=== PATIENT | female | born 1945 | race Caucasian/White ===

== ENCOUNTER → 2017-04-05 | Outpatient (CLI) | payer MEDICARE, MEDICAID ==
[~2017-04-05] MED LIST: HYDR-3812 PO; METR500T21 PO
== END ==
LOC: WOUNDCARE 14:03
PROVIDERS: ATTEND Surgery
DX: L97.512 Non-pressure chronic ulcer of other part of right foot with fat layer exposed (principal); E11.621 Type 2 diabetes mellitus with foot ulcer; E11.42 Type 2 diabetes mellitus with diabetic polyneuropathy; L03.115 Cellulitis of right lower limb; I70.235 Atherosclerosis of native arteries of right leg with ulceration of other part of foot; F17.210 Nicotine dependence, cigarettes, uncomplicated
CPT/HCPCS: 11042; 87070; 87075; 87205

== ENCOUNTER → 2017-04-12 | Outpatient (CLI) | payer MEDICARE, MEDICAID ==
--- NOTE | 2017-04-12 22:09 | Diagnostic Imaging Report ---
INDICATION: Foot ulcer Three views of the right foot show no fracture or dislocation. There are some degenerative changes of the first tarsometatarsal joint. There are some chronic appearing bone resorption of the head of the third metatarsal. This was present on study dated 10/22/2014 and is not appreciably changed. IMPRESSION: Degenerative changes of the first tarsometatarsal joint. Long-standing disruption of the head of the third metatarsal. There are no radiographic findings suspicious for acute osteomyelitis. Dictated by: Dictated on workstation # [id number]
== END ==
LOC: RAD 10:51
PROVIDERS: ATTEND Surgery
DX: M19.071 Primary osteoarthritis, right ankle and foot (principal); E11.621 Type 2 diabetes mellitus with foot ulcer; L97.512 Non-pressure chronic ulcer of other part of right foot with fat layer exposed; E11.42 Type 2 diabetes mellitus with diabetic polyneuropathy; L03.115 Cellulitis of right lower limb; I70.235 Atherosclerosis of native arteries of right leg with ulceration of other part of foot; T65.222D Toxic effect of tobacco cigarettes, intentional self-harm, subsequent encounter
CPT/HCPCS: 73630

== ENCOUNTER → 2017-04-12 | Outpatient (CLI) | payer MEDICARE, MEDICAID | LOC: WOUNDCARE 08:22 | PROVIDERS: ATTEND Surgery | DX: E11.621 Type 2 diabetes mellitus with foot ulcer (principal); L97.512 Non-pressure chronic ulcer of other part of right foot with fat layer exposed; I70.235 Atherosclerosis of native arteries of right leg with ulceration of other part of foot; L03.115 Cellulitis of right lower limb; E11.42 Type 2 diabetes mellitus with diabetic polyneuropathy; T65.222D Toxic effect of tobacco cigarettes, intentional self-harm, subsequent encounter | CPT/HCPCS: 11042 ==

== ENCOUNTER → 2017-04-19 | Outpatient (CLI) | payer MEDICARE, MEDICAID | LOC: WOUNDCARE 08:29 | PROVIDERS: ATTEND Surgery | DX: L97.512 Non-pressure chronic ulcer of other part of right foot with fat layer exposed (principal); E11.621 Type 2 diabetes mellitus with foot ulcer; E11.42 Type 2 diabetes mellitus with diabetic polyneuropathy; I70.235 Atherosclerosis of native arteries of right leg with ulceration of other part of foot; T65.222D Toxic effect of tobacco cigarettes, intentional self-harm, subsequent encounter | CPT/HCPCS: 11042 ==

== ENCOUNTER → 2017-04-26 | Outpatient (CLI) | payer MEDICARE, MEDICAID | LOC: WOUNDCARE 08:39 | PROVIDERS: ATTEND Surgery | DX: E11.621 Type 2 diabetes mellitus with foot ulcer (principal); I70.235 Atherosclerosis of native arteries of right leg with ulceration of other part of foot; L97.512 Non-pressure chronic ulcer of other part of right foot with fat layer exposed; E11.42 Type 2 diabetes mellitus with diabetic polyneuropathy; T65.222D Toxic effect of tobacco cigarettes, intentional self-harm, subsequent encounter | CPT/HCPCS: 11042 ==

== ENCOUNTER → 2017-05-03 | Outpatient (CLI) | payer MEDICARE, MEDICAID | LOC: WOUNDCARE 08:22 | PROVIDERS: ATTEND Surgery | DX: E11.621 Type 2 diabetes mellitus with foot ulcer (principal); I70.235 Atherosclerosis of native arteries of right leg with ulceration of other part of foot; L97.512 Non-pressure chronic ulcer of other part of right foot with fat layer exposed; L97.511 Non-pressure chronic ulcer of other part of right foot limited to breakdown of skin; E11.42 Type 2 diabetes mellitus with diabetic polyneuropathy; T65.222D Toxic effect of tobacco cigarettes, intentional self-harm, subsequent encounter | CPT/HCPCS: 11042 ==

== ENCOUNTER → 2017-05-11 | Outpatient (CLI) | payer MEDICARE, MEDICAID | LOC: WOUNDCARE 12:06 | PROVIDERS: ATTEND Surgery | DX: E11.621 Type 2 diabetes mellitus with foot ulcer (principal); L97.512 Non-pressure chronic ulcer of other part of right foot with fat layer exposed; I70.235 Atherosclerosis of native arteries of right leg with ulceration of other part of foot; L97.511 Non-pressure chronic ulcer of other part of right foot limited to breakdown of skin; E11.42 Type 2 diabetes mellitus with diabetic polyneuropathy; T65.222D Toxic effect of tobacco cigarettes, intentional self-harm, subsequent encounter | CPT/HCPCS: 11042 ==

== ENCOUNTER 2017-05-24 10:05 | Outpatient (CLI) | payer MEDICARE, MEDICAID ==
[~2017-05-24] VITALS: Ht 165.1 cm; Wt 85.7 kg
[~2017-05-24 10:05] MED LIST changes: -ASPI-586 PO; -GLIM4TAB PO; -HYDR-3816 PO; -LISI10TA2 PO; -SULF1TAB35 PO
[2017-05-24 10:13] VITALS: BP 120/68
[2017-05-24] MEDS ORDERED: LISI10TA2 PO (10:21)
[2017-05-24] MEDS ORDERED: ASPI-586 PO (10:21)
[2017-05-24] MEDS ORDERED: SULF1TAB35 PO (10:21)
[2017-05-24] MEDS ORDERED: GLIM4TAB PO (10:21)
[2017-05-24] MEDS ORDERED: HYDR-3816 PO (10:21)
== END 2017-05-24 10:40 | disposition home or self-care (01) ==
LOC: PREOP 10:05
PROVIDERS: ATTEND Podiatrist Foot Surgery
DX: Z01.818 Encounter for other preprocedural examination (principal); Z11.2 Encounter for screening for other bacterial diseases; M86.9 Osteomyelitis, unspecified
CPT/HCPCS: 87081

== ENCOUNTER → 2017-05-24 | Outpatient (CLI) | payer MEDICARE, MEDICAID ==
[~2017-05-24] MED LIST changes: +ACHD5005 PO; +ASPI-586 PO; +GLIM4TAB PO; -HYDR-3812 PO; +HYDR-3816 PO; +LISI10TA2 PO; +SULF1TAB35 PO
== END ==
LOC: WOUNDCARE 08:30
PROVIDERS: ATTEND Surgery
DX: E11.621 Type 2 diabetes mellitus with foot ulcer (principal); L97.512 Non-pressure chronic ulcer of other part of right foot with fat layer exposed; I70.235 Atherosclerosis of native arteries of right leg with ulceration of other part of foot; E11.42 Type 2 diabetes mellitus with diabetic polyneuropathy; T65.222D Toxic effect of tobacco cigarettes, intentional self-harm, subsequent encounter

== ENCOUNTER 2017-05-28 06:00 | Day surgery (SDC) | payer MEDICARE, MEDICAID ==
--- NOTE | 2017-05-25 08:16 | HISTORY AND PHYSICAL ---
DATE OF SERVICE: DATE OF ADMISSION: 05/28/2017 To have outpatient surgery by Dr. Ann. CHIEF COMPLAINT: To have foot surgery, second toe amputation into the metatarsal, has a callus and gets infected. The patient states she is being seen by wound care, Dr. Echols. MEDICATION ALLERGIES: PENICILLIN AND CODEINE. MEDICATIONS: Now on glimepiride 4 mg b.i.d., lisinopril 10 mg, enteric-coated baby aspirin 81 mg 1 daily. PAST SURGICAL HISTORY: T and A, appendectomy, 3 C-sections, gallbladder and hysterectomy. REVIEW OF SYSTEMS: HEAD: Denies headache, dizziness, fainting. EYES, EARS, NOSE AND THROAT: Denies diplopia, tinnitus, sore throat. HEART: Denies heart problems or chest pain. RESPIRATORY: Denies asthma, TB, coughing, congestion, wheezing. The patient states she smokes 1 pack a day and also has pollen problems. GASTROINTESTINAL: Appetite okay. Denies blood in stools, diarrhea, constipation, nausea, vomiting. GENITOURINARY: Denies blood, pain, frequency. PHYSICAL EXAMINATION: GENERAL: The patient is a white female, well nourished, well developed, in no acute respiratory distress at rest. VITAL SIGNS: Pulse 84, blood pressure 120/70, weight 188. EARS: No discharge. EYES: No conjunctivitis or icterus. THROAT: Noninflamed. NECK: Thyroid not enlarged. No abnormal cervical lymphadenopathy noted. HEART: Regular rate and rhythm. LUNGS: Clear to auscultation. ABDOMEN: Soft. EXTREMITIES: No pretibial edema. The patient is okay for surgery, we will be on standby if has any problems. Job ID: [id number] DocumentID: [id number] Dictated Date: 05/24/2017 11:57:40 Chief Lock Tender Operator Date: 05/24/2017 12:21:43 Dictated By: MAN VALENTINE DO
[~2017-05-28] VITALS: Ht 165.1 cm; Wt 85.7 kg
[~2017-05-28 06:00] MED LIST changes: +ASPI-586 PO; +CYCL10TA9 PO; +GLIM4TAB PO; +HYDR-3812 PO; +HYDR-3816 PO; +LISI10TA2 PO; +SULF1TAB35 PO
[2017-05-28 06:15] VITALS: BP 129/69
[2017-05-28] MEDS: LACTATED RINGERS 1,000 ML IV PRN ×2 (06:25→08:38)
[2017-05-28] MEDS ORDERED: CLINDAMYCIN 600 MG/4ML (CLEOCIN) VIAL ONE (06:46)
[2017-05-28] MEDS ORDERED: NS (IVPB) 50 ML ONE (06:46)
[2017-05-28] MEDS ORDERED: LIDOCAINE JELLY 2% (XYLOCAINE) 5 ML TUBE ONE (06:59)
[2017-05-28] MEDS ORDERED: ONDANSETRON 4 MG/2 ML (SDV) Z0FRAN ONE (06:59)
[2017-05-28] MEDS ORDERED: LIDOCAINE PF 2% 5 ML (XYLOCAINE) VIAL ONE (06:59)
[2017-05-28] MEDS ORDERED: MIDAZOLAM 2 MG/2 ML (VERSED) VIAL ONE (06:59)
[2017-05-28] MEDS ORDERED: proPOfol 200 MG/20 ML (DIPRIVAN) VIAL IV ONE (06:59)
[2017-05-28] MEDS ORDERED: ROCURONIUM 50 MG/5 ML (ZEMURON) VIAL IV ONE (06:59)
[2017-05-28] MEDS ORDERED: CLINDAMYCIN 600 MG/NS 50 ML IVPB IV ONE ×2 (07:00)
[2017-05-28] MEDS ORDERED: fentaNYL INJECTION 100 MCG/2 ML AMP ONE (07:00)
[2017-05-28] MEDS ORDERED: CLINDAMYCIN INJECTION 600 MG in NS (IVPB) 50 ML IV ONE (07:15)
[2017-05-28] MEDS ORDERED: BUPIVACAINE 0.5% 30 ML (SENSORCAINE) VIAL ONE (07:16)
[2017-05-28] MEDS ORDERED: MEPIVACAINE (CARBOCAINE) 2% 50 ML VIAL ONE (07:16)
--- NOTE | 2017-05-28 07:26 | Progress Note-Pre Operative ---
Pre-Operative Progress Note H&P Reviewed The H&P was reviewed, patient examined and no changes noted. Date Seen by Provider: May 28, 2017 Time Seen by Provider: 07:30 Date H&P Reviewed: May 28, 2017 Time H&P Reviewed: 07:31 Pre-Operative Diagnosis: osteomyelitis 2nd right MAN MCCLOUD DPStewart May 28, 2017 7:26 am
[2017-05-28] MEDS ORDERED: LACTATED RINGERS 1,000 ML IV ONE (07:45)
[2017-05-28] MEDS ORDERED: SEVOFLURANE (ULTANE) 15 ML INHAL SOLN ONE ×3 (07:45→08:55)
[2017-05-28] MEDS ORDERED: LACTATED RINGERS 1,000 ML IV SCH (08:53)
--- NOTE | 2017-05-28 08:53 | Progress Note-Post Operative ---
Post-Operative Progess Note Surgeon (s)/Skirt Panel Assembler (s) Surgeon MAN MCCLOUD DPM Skirt Panel Assembler: none Pre-Operative Diagnosis osteomyelitis 2nd right Post-Operative Diagnosis same Procedure & Operative Findings Date of Procedure 05/28/17 Procedure Performed/Findings amputation of second toe and distall onbe half second metatarsal right foot Anesthesia Type general Estimated Blood Loss Estimated blood loss (mL): min Specimens/Packing Specimens Removed second digit and second meatatrsal head right foot Packing: iodoform gauze MAN MCCLOUD DPM May 28, 2017 8:53 am
[2017-05-28] MEDS ORDERED: ONDANSETRON 4 MG/2 ML (SDV) Z0FRAN IVP PRN (09:00)
[2017-05-28] MEDS ORDERED: MEPERIDINE (DEMEROL) INJ 50 MG/ML IVP PRN (09:00)
[2017-05-28] MEDS ORDERED: morphine INJ 10 MG/ML 1ML (SYR OR VIAL) IVP PRN (09:00)
[2017-05-28 09:35] VITALS: BP 120/78
[2017-05-28 09:36] VITALS: BP 120/78
[2017-05-28 10:05] VITALS: BP 120/65
--- NOTE | 2017-05-28 10:18 | Discharge Instructions ---
Discharge Instructions Discharge Medications New, Converted or Re-Newed RX: RX Given to Pt/Family Patient Instructions Patient Instructions 1. Follow up in office in 2 weeks. 2. Diet as tolerated. 3. Activity as tolerated. Activity & Diet Activity as Tolerated: Yes MAN MCCLOUD DPM May 28, 2017 10:18 am
[2017-05-28] MEDS ORDERED: TRAM50TA2 PO (10:21)
[2017-05-28 10:35] VITALS: BP 128/78
--- NOTE | 2017-05-28 10:55 | Diagnostic Imaging Report ---
Right foot 904 hours. INDICATION: Postop osteomyelitis. AP and lateral views were obtained. FINDINGS: In the interval since the prior exam of 04/12/2017, the patient has undergone amputation of the distal third of the second metatarsal and the phalanges of the second digit. There does seem to be some gas in the soft tissues distal to the remaining portion of the second metatarsal. The presence of gas suggests that there is inflammatory/infectious process present. There is no bony destruction to indicate osteomyelitis, however. Even so, if further evaluation is desired, then MRI of the foot would be recommended. The overall appearance of the foot has not changed significantly otherwise. There is no acute bony abnormality noted. There is again noted prominent calcaneal spur. IMPRESSION: 1. There are postoperative changes consistent with an interval partial amputation of the second ray as described above. There is no sign of bony destruction but the gas in the soft tissues suggests that there is inflammatory/infectious process present. Recommendations as above. 2. There is no acute bony abnormality noted otherwise. Dictated by: Dictated on workstation # [id number]
--- NOTE | 2017-05-28 11:54 | Physical Therapy Ortho Eval ---
PT Orthopedic Evaluation Type of Surgery right 2nd toe amputation Prior Level of Function Current Living Status: Alone Locomotion (Upon Admit): Straight Cane Established Durable Medical Eq: Straight Cane Subjective Subjective Patient donns her clothes and surgical shoe independently Entry Into Home: Stairs With Railing Steps Into Home: 24 Motor Control Motor Control: Motor Control WNL ROM ROM: WFL, except focal deficit Strength Strength: WFL Transfer Transfers (B, C, W/C) (FIM): 6 patient performs mobility with flat foot or heel contact right foot Gait Right Lower Extremity: Right Weight Bearing Status RLE: Full Weight Bearing Left Lower Extremity: Left Weight Bearing Status LLE: Full Weight Bearing Gait (FIM): 6 Distance (FIM): 3=150 ft Distance: 150' x 2 Gait Level of Assist: 6 Summary/Comments right foot flat foot and/or heel contact with straight cane Treatment Rendered Treatment: Gait Train, Step Train Assessment/Goals Goal Time Frame: 1 Visit Safe Ambulation: Yes Plan Treatment Plan: Discharge Treatment Duration: eval PT/Family Agrees to Plan: Yes Time Time In: 1125 Time Out: 1140 Total Billed Treatment Time: 15 Billed Treatment Time 1 visit EVModC 15 min Yes PT/OT Therapy GCodes Therapy Functional Limitation: Physical Therapy Test(s)/Tool used to determine: Level of Assistance Scale Functional Limitation-Current Charge Code: MOBCUR Modifier: CI Functional Limitation-Goal Charge Code: MOBGOAL Modifier: CI Functional Limitation-D/C Charge Codes: MOBDC Modifier: CI RANDY CARDENAS PT May 28, 2017 11:54
--- NOTE | 2017-05-28 18:38 | OPERATIVE REPORT ---
DATE OF SERVICE: 05/28/2017 PREOPERATIVE DIAGNOSES: 1. Plantarflexed second metatarsal with osteomyelitis, right foot. 2. Hammered second digit, right foot. 3. Osteomyelitis, second digit, right foot. POSTOPERATIVE DIAGNOSES: 1. Plantarflexed second metatarsal with osteomyelitis, right foot. 2. Hammered second digit, right foot. 3. Osteomyelitis, second digit, right foot. NAME OF OPERATION: Second digital amputation with partial ray excision, right foot. DESCRIPTION OF OPERATION: With the patient in the supine position having been affected by a general anesthetic, sterile prep and drape were performed. Two semi-elliptical incisions were made encompassing the second metatarsal the second digit. This was extended plantarly in an hourglass type fashion and a well-developed ulceration on the plantar aspect of the second metatarsal head was identified and incised circumferentially. The incisions were deepened with sharp and blunt dissection. Vital structures identified and retracted. Superficial veins were cauterized. Dissection was carried deep to the second metatarsophalangeal joint. Dorsal long tendon was tenotomized and a bone saw was used to resect the second metatarsal head approximately 2 cm proximal to the articular surface. Soft tissues were freed from the surrounding tissues and dissected to normal appearing tissue. The second digit, second metatarsal head and plantar lesion were resected in toto. The incision was inspected for any other anatomical abnormalities were noted. Area was flushed with copious amounts of saline and deep closure was accomplished via 4 simple interrupted sutures of 3-0 Vicryl and 2 simple interrupted sutures of 2-0 Vicryl plantarly. There was incomplete closure at the plantar aspect of the lesion. This was packed with iodoform gauze and the skin surrounding the area was closed with continuous lock suture 4-0 Vicryl. Betadine soaked Adaptic and Betadine soaked 4 x 4's were applied dorsally and plantarly with a compressive dressing overlying carried above the level of the right ankle covered with circular Coban. The patient tolerated the procedure well with minimal blood loss, left the OR to PAR in apparent good condition. She is to be seen in the office in 1 week for appropriate followup care. Job ID: [id number] DocumentID: [id number] Dictated Date: 05/28/2017 10:42:17 Websphere Commerce Developer Date: 05/28/2017 18:38:04 Dictated By: MAN MCCLOUD DPM
== END 2017-05-28 11:45 | disposition home or self-care (01) ==
LOC: SDC 06:00
PROVIDERS: ATTEND Podiatrist Foot Surgery
DX: M86.9 Osteomyelitis, unspecified (principal); M20.41 Other hammer toe(s) (acquired), right foot; I10 Essential (primary) hypertension; E11.9 Type 2 diabetes mellitus without complications; F17.210 Nicotine dependence, cigarettes, uncomplicated; Z79.82 Long term (current) use of aspirin; Z79.84 Long term (current) use of oral hypoglycemic drugs; Z79.899 Other long term (current) drug therapy
CPT/HCPCS: 73620; 82962

== ENCOUNTER → 2017-06-30 | Outpatient (CLI) | payer MEDICARE, MEDICAID ==
[~2017-06-30] MED LIST changes: +HYDR-34 PO; -HYDR-3816 PO; +TRAM50TA2 PO
== END ==
LOC: WOUNDCARE 09:06
PROVIDERS: ATTEND Surgery
DX: E11.621 Type 2 diabetes mellitus with foot ulcer (principal); L97.512 Non-pressure chronic ulcer of other part of right foot with fat layer exposed; E11.43 Type 2 diabetes mellitus with diabetic autonomic (poly)neuropathy
CPT/HCPCS: 11042; 87070; 87075; 87077; 87205

== ENCOUNTER → 2017-07-01 | Outpatient (CLI) | payer MEDICARE, MEDICAID ==
[2017-07-01 09:29] LABS: BASOPHILS % (AUTO) 0 % (0-10); EOSINOPHILS # (AUTO) 0.2 10^3/uL (0.0-0.3); EOSINOPHILS % (AUTO) 4 % (0-10); HEMATOCRIT 38 % (35-52); HEMOGLOBIN 13.1 G/DL (11.5-16.0); LYMPHOCYTES # (AUTO) 0.9 X 10^3 (1.0-4.0); LYMPHOCYTES % (AUTO) 18 % (12-44); MEAN CORPUSCULAR HEMOGLOBIN 32 PG (25-34); MEAN CORPUSCULAR HGB CONC 35 G/DL (32-36); MEAN CORPUSCULAR VOLUME 93 FL (80-99); MEAN PLATELET VOLUME 9.8 FL (7.4-10.4); MONOCYTES # (AUTO) 0.2 X 10^3 (0.0-1.0); MONOCYTES % (AUTO) 3 % (0-12); NEUTROPHILS # (AUTO) 3.7 X 10^3 (1.8-7.8); NEUTROPHILS % (AUTO) 74 % (42-75); PLATELET COUNT 205 10^3/uL (130-400); RED CELL DISTRIBUTION WIDTH 13.4 % (10.0-14.5)
--- NOTE | 2017-07-01 09:38 | Diagnostic Imaging Report ---
INDICATION: Ulcer at the third metatarsal head. Time of exam 9:25 AM Comparison is made with prior study from 05/28/2017. Postsurgical changes of amputation of the second toe and distal aspect of the second metatarsal is again noted. Resection margin appears to be fairly smooth. There may be some mild soft tissue calcification developing around the resection margin of the second metatarsal. There is some volume loss within the third metatarsal head, similar to prior exam. No definite bony destructive changes are seen. No soft tissue gas is identified. No fractures are identified. Midfoot degenerative changes are noted. There is a large plantar calcaneal spur. IMPRESSION: Chronic changes, as described. No definite bony destructive changes are seen to suggest acute osteomyelitis. Dictated by: Dictated on workstation # [id number]
[2017-07-01 09:49] LABS: ALBUMIN 3.6 GM/DL (3.2-4.5); BILIRUBIN,TOTAL 0.4 MG/DL (0.1-1.0); CALCIUM 9.2 MG/DL (8.5-10.1); CREATININE SERUM 1.21 MG/DL (0.60-1.30); POTASSIUM 4.6 MMOL/L (3.6-5.0); TOTAL PROTEIN 7.2 GM/DL (6.4-8.2)
== END ==
LOC: RAD 08:47
PROVIDERS: ATTEND Surgery
DX: E11.621 Type 2 diabetes mellitus with foot ulcer (principal); L97.512 Non-pressure chronic ulcer of other part of right foot with fat layer exposed; E11.42 Type 2 diabetes mellitus with diabetic polyneuropathy
CPT/HCPCS: 36415; 73630; 80053; 83036; 85025

== ENCOUNTER → 2017-07-12 | Outpatient (CLI) | payer MEDICARE, MEDICAID | LOC: WOUNDCARE 08:54 | PROVIDERS: ATTEND Surgery | DX: E11.621 Type 2 diabetes mellitus with foot ulcer (principal); L97.512 Non-pressure chronic ulcer of other part of right foot with fat layer exposed; E11.42 Type 2 diabetes mellitus with diabetic polyneuropathy | CPT/HCPCS: 11042 ==

== ENCOUNTER → 2017-07-14 | Outpatient (CLI) | payer MEDICARE, MEDICAID | LOC: WOUNDCARE 08:54 | PROVIDERS: ATTEND Surgery | DX: E11.621 Type 2 diabetes mellitus with foot ulcer (principal); L97.512 Non-pressure chronic ulcer of other part of right foot with fat layer exposed; E11.42 Type 2 diabetes mellitus with diabetic polyneuropathy | CPT/HCPCS: 29445 ==

== ENCOUNTER → 2017-07-21 | Outpatient (CLI) | payer MEDICARE, MEDICAID | LOC: WOUNDCARE 09:01 | PROVIDERS: ATTEND Surgery | DX: L97.512 Non-pressure chronic ulcer of other part of right foot with fat layer exposed (principal); E11.621 Type 2 diabetes mellitus with foot ulcer; E11.42 Type 2 diabetes mellitus with diabetic polyneuropathy | CPT/HCPCS: 11042 ==

== ENCOUNTER → 2017-07-28 | Outpatient (CLI) | payer MEDICARE, MEDICAID | LOC: WOUNDCARE 08:12 | PROVIDERS: ATTEND Surgery | DX: E11.621 Type 2 diabetes mellitus with foot ulcer (principal); L97.512 Non-pressure chronic ulcer of other part of right foot with fat layer exposed; E11.42 Type 2 diabetes mellitus with diabetic polyneuropathy | CPT/HCPCS: 29445 ==

== ENCOUNTER → 2017-08-04 | Outpatient (CLI) | payer MEDICARE, MEDICAID | LOC: WOUNDCARE 08:37 | PROVIDERS: ATTEND Surgery | DX: E11.621 Type 2 diabetes mellitus with foot ulcer (principal); L97.512 Non-pressure chronic ulcer of other part of right foot with fat layer exposed; E11.42 Type 2 diabetes mellitus with diabetic polyneuropathy | CPT/HCPCS: 99212 ==

== ENCOUNTER → 2017-08-27 | Outpatient (CLI) | payer MEDICARE, MEDICAID ==
--- NOTE | 2017-08-27 10:11 | Diagnostic Imaging Report ---
INDICATION: Chronic ulcer of the right foot. TIME OF EXAMINATION: 10:12 AM. COMPARISON: 07/01/2017. FINDINGS: Postsurgical changes of amputation of the second toe and distal aspect of the second metatarsal are again noted. There is some ossification at the resection margin of the distal second metatarsal. Volume loss of the third metatarsal head is chronic and similar to the prior study. Reportedly, the patient has a wound at the plantar aspect of the right foot. This was marked with a BB marker and appears to be at the level of the first MTP joint. No soft tissue gas is identified. No bony destructive changes are seen. No fractures are identified. A plantar calcaneal spur is again noted. IMPRESSION: Chronic and postsurgical changes as described. No definite acute bony destructive change or soft tissue gas is identified. Dictated by: Dictated on workstation # [id number]
== END ==
LOC: RAD 09:41
PROVIDERS: ATTEND Surgery
DX: L97.512 Non-pressure chronic ulcer of other part of right foot with fat layer exposed (principal); E11.621 Type 2 diabetes mellitus with foot ulcer; E11.42 Type 2 diabetes mellitus with diabetic polyneuropathy; Z89.421 Acquired absence of other right toe(s); M77.31 Calcaneal spur, right foot
CPT/HCPCS: 73630

== ENCOUNTER → 2017-08-27 | Outpatient (CLI) | payer MEDICARE, MEDICAID | LOC: WOUNDCARE 08:28 | PROVIDERS: ATTEND Surgery | DX: E11.621 Type 2 diabetes mellitus with foot ulcer (principal); L97.512 Non-pressure chronic ulcer of other part of right foot with fat layer exposed; E11.42 Type 2 diabetes mellitus with diabetic polyneuropathy | CPT/HCPCS: 11042; 87070; 87075; 87186; 87205 ==

== ENCOUNTER 2017-09-01 11:19 | Outpatient (RCR) | payer MEDICARE, MEDICAID ==
[2017-09-01 11:51] LABS: CALCIUM 9.8 MG/DL (8.5-10.1); CREATININE SERUM 1.26 MG/DL (0.60-1.30); POTASSIUM 4.3 MMOL/L (3.6-5.0)
[2017-09-08 12:11] LABS: CALCIUM 9.9 MG/DL (8.5-10.1); CREATININE SERUM 1.36 MG/DL (0.60-1.30); POTASSIUM 4.9 MMOL/L (3.6-5.0)
== END 2017-11-30 | disposition home or self-care (01) ==
LOC: LAB 11:19
PROVIDERS: ATTEND Surgery
DX: E11.621 Type 2 diabetes mellitus with foot ulcer (principal); E11.42 Type 2 diabetes mellitus with diabetic polyneuropathy; L97.512 Non-pressure chronic ulcer of other part of right foot with fat layer exposed
CPT/HCPCS: 36415; 80048

== ENCOUNTER → 2017-09-01 | Outpatient (CLI) | payer MEDICARE, MEDICAID | LOC: WOUNDCARE 10:06 | PROVIDERS: ATTEND Surgery | DX: E11.621 Type 2 diabetes mellitus with foot ulcer (principal); L97.512 Non-pressure chronic ulcer of other part of right foot with fat layer exposed; E11.42 Type 2 diabetes mellitus with diabetic polyneuropathy | CPT/HCPCS: 11042 ==

== ENCOUNTER → 2017-09-15 | Outpatient (CLI) | payer MEDICARE, MEDICAID | LOC: WOUNDCARE 10:03 | PROVIDERS: ATTEND Surgery | DX: E11.621 Type 2 diabetes mellitus with foot ulcer (principal); L97.512 Non-pressure chronic ulcer of other part of right foot with fat layer exposed; E11.42 Type 2 diabetes mellitus with diabetic polyneuropathy | CPT/HCPCS: 11042; 82962 ==

== ENCOUNTER → 2017-09-20 | Outpatient (CLI) | payer MEDICARE, MEDICAID | LOC: WOUNDCARE 08:32 | PROVIDERS: ATTEND Surgery | DX: E11.621 Type 2 diabetes mellitus with foot ulcer (principal); L97.512 Non-pressure chronic ulcer of other part of right foot with fat layer exposed; E11.42 Type 2 diabetes mellitus with diabetic polyneuropathy | CPT/HCPCS: 11042 ==

== ENCOUNTER → 2017-09-22 | Outpatient (CLI) | payer MEDICARE, MEDICAID | LOC: WOUNDCARE 07:56 | PROVIDERS: ATTEND Surgery | DX: E11.621 Type 2 diabetes mellitus with foot ulcer (principal); L97.512 Non-pressure chronic ulcer of other part of right foot with fat layer exposed; E11.42 Type 2 diabetes mellitus with diabetic polyneuropathy; T65.222D Toxic effect of tobacco cigarettes, intentional self-harm, subsequent encounter | CPT/HCPCS: 29445 ==

== ENCOUNTER → 2017-09-29 | Outpatient (CLI) | payer MEDICARE, MEDICAID ==
[2017-09-29 10:53] LABS: BASOPHILS % (AUTO) 0 % (0-10); EOSINOPHILS # (AUTO) 0.1 10^3/uL (0.0-0.3); EOSINOPHILS % (AUTO) 2 % (0-10); HEMATOCRIT 38 % (35-52); LYMPHOCYTES % (AUTO) 14 % (12-44); MEAN CORPUSCULAR HEMOGLOBIN 32 PG (25-34); MEAN CORPUSCULAR HGB CONC 35 G/DL (32-36); MEAN CORPUSCULAR VOLUME 91 FL (80-99); MEAN PLATELET VOLUME 9.7 FL (7.4-10.4); MONOCYTES # (AUTO) 0.2 X 10^3 (0.0-1.0); MONOCYTES % (AUTO) 3 % (0-12); NEUTROPHILS # (AUTO) 5.6 X 10^3 (1.8-7.8); NEUTROPHILS % (AUTO) 81 % (42-75); PLATELET COUNT 211 10^3/uL (130-400); RED BLOOD COUNT 4.12 10^6/uL (4.35-5.85); RED CELL DISTRIBUTION WIDTH 13.1 % (10.0-14.5)
[2017-09-29 11:13] LABS: ALBUMIN 3.7 GM/DL (3.2-4.5); BILIRUBIN,TOTAL 0.4 MG/DL (0.1-1.0); CALCIUM 9.3 MG/DL (8.5-10.1); CREATININE SERUM 1.12 MG/DL (0.60-1.30); POTASSIUM 4.4 MMOL/L (3.6-5.0); TOTAL PROTEIN 7.2 GM/DL (6.4-8.2)
== END ==
LOC: LAB 10:33
PROVIDERS: ATTEND Surgery
DX: E11.621 Type 2 diabetes mellitus with foot ulcer (principal); L97.512 Non-pressure chronic ulcer of other part of right foot with fat layer exposed
CPT/HCPCS: 36415; 80053; 83036; 84134; 85025

== ENCOUNTER → 2017-09-29 | Outpatient (CLI) | payer MEDICARE, MEDICAID | LOC: WOUNDCARE 08:17 | PROVIDERS: ATTEND Surgery | DX: E11.621 Type 2 diabetes mellitus with foot ulcer (principal); L97.512 Non-pressure chronic ulcer of other part of right foot with fat layer exposed; E11.42 Type 2 diabetes mellitus with diabetic polyneuropathy; T65.222D Toxic effect of tobacco cigarettes, intentional self-harm, subsequent encounter | CPT/HCPCS: 11042; 87070; 87075; 87077; 87186; 87205 ==

== ENCOUNTER → 2017-10-04 | Outpatient (CLI) | payer MEDICARE, MEDICAID | LOC: WOUNDCARE 08:00 | PROVIDERS: ATTEND Surgery | DX: E11.621 Type 2 diabetes mellitus with foot ulcer (principal); L97.512 Non-pressure chronic ulcer of other part of right foot with fat layer exposed; E11.42 Type 2 diabetes mellitus with diabetic polyneuropathy; T65.222D Toxic effect of tobacco cigarettes, intentional self-harm, subsequent encounter | CPT/HCPCS: 11042 ==

== ENCOUNTER → 2017-10-13 | Outpatient (CLI) | payer MEDICARE, MEDICAID | LOC: WOUNDCARE 08:32 | PROVIDERS: ATTEND Surgery | DX: E11.621 Type 2 diabetes mellitus with foot ulcer (principal); L97.512 Non-pressure chronic ulcer of other part of right foot with fat layer exposed; E11.42 Type 2 diabetes mellitus with diabetic polyneuropathy; T65.222D Toxic effect of tobacco cigarettes, intentional self-harm, subsequent encounter | CPT/HCPCS: 11042 ==

== ENCOUNTER → 2017-10-20 | Outpatient (CLI) | payer MEDICARE, MEDICAID | LOC: WOUNDCARE 08:31 | PROVIDERS: ATTEND Surgery | DX: L97.512 Non-pressure chronic ulcer of other part of right foot with fat layer exposed (principal); E11.621 Type 2 diabetes mellitus with foot ulcer; E11.42 Type 2 diabetes mellitus with diabetic polyneuropathy; T65.222D Toxic effect of tobacco cigarettes, intentional self-harm, subsequent encounter; I70.235 Atherosclerosis of native arteries of right leg with ulceration of other part of foot | CPT/HCPCS: 11042; 87070; 87075; 87077; 87186; 87205 ==

== ENCOUNTER → 2017-10-27 | Outpatient (CLI) | payer MEDICARE, MEDICAID | LOC: WOUNDCARE 08:10 | PROVIDERS: ATTEND Surgery | DX: E11.621 Type 2 diabetes mellitus with foot ulcer (principal); E11.42 Type 2 diabetes mellitus with diabetic polyneuropathy; L97.512 Non-pressure chronic ulcer of other part of right foot with fat layer exposed; T65.222D Toxic effect of tobacco cigarettes, intentional self-harm, subsequent encounter; I70.235 Atherosclerosis of native arteries of right leg with ulceration of other part of foot | CPT/HCPCS: 15275 ==

== ENCOUNTER → 2017-11-03 | Outpatient (CLI) | payer MEDICARE, MEDICAID | LOC: WOUNDCARE 07:55 | PROVIDERS: ATTEND Surgery | DX: E11.621 Type 2 diabetes mellitus with foot ulcer (principal); L97.512 Non-pressure chronic ulcer of other part of right foot with fat layer exposed; I70.235 Atherosclerosis of native arteries of right leg with ulceration of other part of foot; E11.42 Type 2 diabetes mellitus with diabetic polyneuropathy; T65.222D Toxic effect of tobacco cigarettes, intentional self-harm, subsequent encounter | CPT/HCPCS: 15275 ==

== ENCOUNTER → 2017-11-16 | Outpatient (CLI) | payer MEDICARE, MEDICAID ==
[~2017-11-16] MED LIST changes: +AMLO5TAB2 PO; +CLIN300C11 PO; +INSU100I14 SQ
== END ==
LOC: WOUNDCARE 07:59
PROVIDERS: ATTEND Nurse Practitioner
DX: E11.621 Type 2 diabetes mellitus with foot ulcer (principal); E11.42 Type 2 diabetes mellitus with diabetic polyneuropathy; L97.512 Non-pressure chronic ulcer of other part of right foot with fat layer exposed; T65.222D Toxic effect of tobacco cigarettes, intentional self-harm, subsequent encounter; I70.235 Atherosclerosis of native arteries of right leg with ulceration of other part of foot
CPT/HCPCS: 15275

== ENCOUNTER → 2017-11-23 | Outpatient (CLI) | payer MEDICARE, MEDICAID | LOC: WOUNDCARE 08:02 | PROVIDERS: ATTEND Nurse Practitioner | DX: E11.621 Type 2 diabetes mellitus with foot ulcer (principal); I70.235 Atherosclerosis of native arteries of right leg with ulceration of other part of foot; L97.512 Non-pressure chronic ulcer of other part of right foot with fat layer exposed; E11.42 Type 2 diabetes mellitus with diabetic polyneuropathy; T65.222D Toxic effect of tobacco cigarettes, intentional self-harm, subsequent encounter | CPT/HCPCS: 11042; 87070; 87075; 87077; 87186; 87205 ==

== ENCOUNTER → 2017-11-25 | Outpatient (CLI) | payer MEDICARE, MEDICAID ==
[~2017-11-25] MED LIST changes: -AMLO5TAB2 PO; -CLIN300C11 PO; -INSU100I14 SQ
== END ==
LOC: WOUNDCARE 07:58
PROVIDERS: ATTEND Surgery
DX: E11.621 Type 2 diabetes mellitus with foot ulcer (principal); I70.235 Atherosclerosis of native arteries of right leg with ulceration of other part of foot; L97.512 Non-pressure chronic ulcer of other part of right foot with fat layer exposed; E11.42 Type 2 diabetes mellitus with diabetic polyneuropathy; T65.222D Toxic effect of tobacco cigarettes, intentional self-harm, subsequent encounter
CPT/HCPCS: 29445

== ENCOUNTER → 2017-12-01 | Outpatient (CLI) | payer MEDICARE, MEDICAID ==
[~2017-12-01] MED LIST changes: +AMLO5TAB2 PO; +CLIN300C11 PO; +INSU100I14 SQ
== END ==
LOC: WOUNDCARE 08:22
PROVIDERS: ATTEND Surgery
DX: E11.621 Type 2 diabetes mellitus with foot ulcer (principal); I70.235 Atherosclerosis of native arteries of right leg with ulceration of other part of foot; L97.512 Non-pressure chronic ulcer of other part of right foot with fat layer exposed; E11.42 Type 2 diabetes mellitus with diabetic polyneuropathy; T65.222D Toxic effect of tobacco cigarettes, intentional self-harm, subsequent encounter
CPT/HCPCS: 15275

== ENCOUNTER → 2017-12-01 | Outpatient (CLI) | payer MEDICARE, MEDICAID ==
[2017-12-01 08:08] LABS: CALCIUM 9.5 MG/DL (8.5-10.1); CREATININE SERUM 1.47 MG/DL (0.60-1.30); POTASSIUM 4.6 MMOL/L (3.6-5.0)
== END ==
LOC: LAB 07:33
PROVIDERS: ATTEND Surgery
DX: E11.621 Type 2 diabetes mellitus with foot ulcer (principal); E11.42 Type 2 diabetes mellitus with diabetic polyneuropathy; L97.512 Non-pressure chronic ulcer of other part of right foot with fat layer exposed
CPT/HCPCS: 36415; 80048

== ENCOUNTER → 2017-12-08 | Outpatient (CLI) | payer MEDICARE, MEDICAID | LOC: WOUNDCARE 08:02 | PROVIDERS: ATTEND Surgery | DX: E11.621 Type 2 diabetes mellitus with foot ulcer (principal); I70.235 Atherosclerosis of native arteries of right leg with ulceration of other part of foot; L97.512 Non-pressure chronic ulcer of other part of right foot with fat layer exposed; E11.42 Type 2 diabetes mellitus with diabetic polyneuropathy; T65.222D Toxic effect of tobacco cigarettes, intentional self-harm, subsequent encounter | CPT/HCPCS: 11042 ==

== ENCOUNTER 2017-12-17 07:40 | Outpatient (RCR) | payer MEDICARE, MEDICAID ==
[2017-12-08 08:04] LABS: CALCIUM 9.9 MG/DL (8.5-10.1); CREATININE SERUM 1.95 MG/DL (0.60-1.30); POTASSIUM 5.8 MMOL/L (3.6-5.0)
[~2017-12-17 07:40] MED LIST changes: -AMLO5TAB2 PO; -CLIN300C11 PO; -INSU100I14 SQ
[2017-12-17 08:16] LABS: CALCIUM 9.4 MG/DL (8.5-10.1); CREATININE SERUM 1.19 MG/DL (0.60-1.30); POTASSIUM 4.1 MMOL/L (3.6-5.0)
[2017-12-27] MEDS ORDERED: INSU100I14 SQ (15:26)
[2017-12-27] MEDS ORDERED: AMLO5TAB7 PO (15:26)
[2017-12-27] MEDS ORDERED: CLIN300C11 PO (15:33)
[2017-12-29] MEDS ORDERED: HYDR-3812 PO (14:50)
== END 2018-03-08 | disposition home or self-care (01) ==
LOC: LAB 07:40
PROVIDERS: ATTEND Surgery
DX: E11.621 Type 2 diabetes mellitus with foot ulcer (principal); E11.42 Type 2 diabetes mellitus with diabetic polyneuropathy; L97.512 Non-pressure chronic ulcer of other part of right foot with fat layer exposed
CPT/HCPCS: 36415; 80048

== ENCOUNTER → 2017-12-17 | Outpatient (CLI) | payer MEDICARE, MEDICAID | LOC: WOUNDCARE 07:57 | PROVIDERS: ATTEND Nurse Practitioner | DX: E11.621 Type 2 diabetes mellitus with foot ulcer (principal); I70.235 Atherosclerosis of native arteries of right leg with ulceration of other part of foot; L97.514 Non-pressure chronic ulcer of other part of right foot with necrosis of bone; E11.42 Type 2 diabetes mellitus with diabetic polyneuropathy; T65.222D Toxic effect of tobacco cigarettes, intentional self-harm, subsequent encounter | CPT/HCPCS: 11042; 87070; 87075; 87077; 87186; 87205 ==

== ENCOUNTER → 2017-12-20 | Outpatient (CLI) | payer MEDICARE, MEDICAID ==
[~2017-12-20] MED LIST changes: +AMLO5TAB2 PO; +CLIN300C11 PO; +INSU100I14 SQ
--- NOTE | 2017-12-20 13:03 | Diagnostic Imaging Report ---
EXAM: MRI right foot without contrast. DATE: December 20, 2017. INDICATION: 72-year-old female, open diabetic ulcer. Evaluation for osteomyelitis. COMPARISON: Right foot radiographs, August 27, 2017. TECHNIQUE: Multiple noncontrast MRI sequences at the level of the right foot were obtained. The entire noncontrast MRI right foot protocol exam was not completed. A fluid-sensitive sagittal sequence as well as a fluid-sensitive long axis sequence are not provided. FINDINGS: The first metatarsal head is medially subluxed/dislocated at the first metatarsophalangeal joint. The margin of the medial aspect of the first metatarsal head does appear to directly contact air on sagittal T1 sequence image 6. This is also seen on short axis TI sequence image 71. There is associated adjacent marrow edema. There is also loss of normal T1 marrow signal which involves the distal 3 cm of the first metatarsal. This is compatible with osteomyelitis. There is no current aggressive bone destruction. The medial and lateral sesamoids are both laterally dislocated relative to their expected normal alignment relative to the facets of the first metatarsal. The flexor hallucis longus tendon is intact. There is a small amount of fluid within the flexor hallucis longus tendon sheath, compatible with tenosynovitis. There is a [id number] first metatarsophalangeal joint effusion. Particularly given that the signal changes in the first metatarsal do extend to their articulating surface, this does raise concern for septic arthritis. There is also marrow edema and some loss of normal T1 signal within the base of the first proximal phalanx, also concerning for osteomyelitis at this location. There are advanced degenerative-related changes at the articulation of the medial cuneiform with the base of the first metatarsal. There is no gross malalignment of the metatarsals relative to their cuneiform and cuboid articulations. The Lisfranc ligament proper does appear intact. There are mild additional midfoot degenerative changes. There is hyperextension and dorsal subluxation/dislocation at the third metatarsophalangeal joint. There is postoperative absence of the distal portions of the second metatarsal and lack of presence of the second digit phalanges. There is diffuse fatty atrophy of the visualized foot musculature which is suggestive of polyneuropathy. There is no well-demarcated focal drainable fluid collection identified on limited assessment. IMPRESSION: 1. Osteomyelitis involving the distal 3 cm of the first metatarsal. 2. [id number] first metatarsophalangeal joint effusion concerning for septic arthritis as well as marrow signal abnormalities within the base of the first proximal phalanx which are nonspecific, although also concerning for osteomyelitis. 3. Subluxation/dislocation of the first metatarsophalangeal joint. There is dislocation of the medial and lateral sesamoids relative to their normal position relative to the facets of the first metatarsal. 4. Tenosynovitis of flexor hallucis longus. No tear of the flexor hallucis longus tendon. 5. Hyperextension with dorsal subluxation/dislocation at the third metatarsophalangeal joint. 6. Diffuse fatty atrophy of the visualized foot musculature, most suggestive of polyneuropathy. Dictated by: Dictated on workstation # [id number]
== END ==
LOC: RAD 09:17
PROVIDERS: ATTEND Nurse Practitioner
DX: E11.621 Type 2 diabetes mellitus with foot ulcer (principal); E11.42 Type 2 diabetes mellitus with diabetic polyneuropathy; L97.514 Non-pressure chronic ulcer of other part of right foot with necrosis of bone; T65.222D Toxic effect of tobacco cigarettes, intentional self-harm, subsequent encounter; M86.8X7 Other osteomyelitis, ankle and foot; M65.871 Other synovitis and tenosynovitis, right ankle and foot; M62.571 Muscle wasting and atrophy, not elsewhere classified, right ankle and foot; I70.235 Atherosclerosis of native arteries of right leg with ulceration of other part of foot

== ENCOUNTER → 2017-12-22 | Outpatient (CLI) | payer MEDICARE, MEDICAID | LOC: WOUNDCARE 08:02 | PROVIDERS: ATTEND Surgery | DX: E11.621 Type 2 diabetes mellitus with foot ulcer (principal); I70.235 Atherosclerosis of native arteries of right leg with ulceration of other part of foot; L97.514 Non-pressure chronic ulcer of other part of right foot with necrosis of bone; M86.471 Chronic osteomyelitis with draining sinus, right ankle and foot; E11.42 Type 2 diabetes mellitus with diabetic polyneuropathy; T65.222D Toxic effect of tobacco cigarettes, intentional self-harm, subsequent encounter | CPT/HCPCS: 99213 ==

== ENCOUNTER 2017-12-27 06:05 | Outpatient (CLI) | payer MEDICARE, MEDICAID ==
[~2017-12-27] VITALS: Ht 165.1 cm; Wt 85.7 kg
[~2017-12-27 06:05] MED LIST changes: -AMLO5TAB2 PO; -CLIN300C11 PO; -INSU100I14 SQ
[2017-12-27] MEDS ORDERED: INSU100I14 SQ (15:26)
[2017-12-27] MEDS ORDERED: AMLO5TAB2 PO (15:26)
[2017-12-27] MEDS ORDERED: CLIN300C11 PO (15:33)
== END 2017-12-27 15:45 | disposition home or self-care (01) ==
LOC: PREOP 06:05
PROVIDERS: ATTEND Podiatrist
DX: Z01.818 Encounter for other preprocedural examination (principal)

== ENCOUNTER 2018-03-22 05:39 | Outpatient (CLI) | payer MEDICARE, MEDICAID ==
[~2018-03-22] VITALS: Ht 165.1 cm; Wt 79.8 kg
[~2018-03-22 05:39] MED LIST changes: +AMLO5TAB7 PO; +CLIN300C11 PO; +INSU100I14 SQ; +METR-197 PO; -METR500T21 PO
== END 2018-03-22 13:25 | disposition home or self-care (01) ==
LOC: PREOP 05:39
PROVIDERS: ATTEND Surgery
DX: Z01.818 Encounter for other preprocedural examination (principal)

== ENCOUNTER 2018-03-31 09:20 | Day surgery (SDC) | payer MEDICARE, MEDICAID ==
[~2018-03-31] VITALS: Ht 165.1 cm; Wt 79.8 kg
--- OUTSIDE RECORDS SUMMARY | 2018-03-31 09:28 | XMS REPORT | Continuity of Care Document ---
Author Author [facility] Organization [facility] Address Unknown Phone Unavailable Allergies Active Description Code Type Severity Reaction Onset Reported/Identified Relationship to Patient Clinical Status Yes CODEINE SULFATE UNKNOWN UNKNOWN Yes METFORMIN UNKNOWN GI PROBLEMS - VOMITI Yes PENICILLINS UNKNOWN UNKNOWN Yes VICTOZA 2-FRANCO UNKNOWN GI PROBLEMS - NAUSEA Yes VICTOZA 3-FRANCO UNKNOWN GI PROBLEMS - NAUSEA Yes codeine [id number] Drug Allergy Unknown N/A 02/14/2015 Yes Penicillins [id number] Drug Allergy Unknown N/A 02/14/2015 Medications There is no data. Problems Date Dx Coded Attending Type Code Diagnosis Diagnosed By 10/04/2013 PAULETTE MCCULLOUGH, DANYEL Hagen Ot 707.09 PRESSURE ULCER, OTHER SITE 10/04/2013 PAULETTE MCCULLOUGH, DANYEL Hagen Ot 707.24 PRESSURE ULCER, STAGE IV 11/12/2014 MAHESH MCCULLOUGH, ISHA Sena Ot 250.80 11/12/2014 MAHESH MCCULLOUGH, ISHA Sena Ot 707.15 12/13/2014 MAHESH MCCULLOUGH, ISHA Sena Ot 250.60 12/13/2014 MAHESH MCCULLOUGH, ISHA Sena Ot 250.80 12/13/2014 MAHESH MCCULLOUGH, ISHA Sena Ot 305.1 12/13/2014 MAHESH MCCULLOUGH, ISHA Sena Ot 707.15 12/24/2014 MAHESH MCCULLOUGH, ISHA Sena Ot 250.60 12/24/2014 MAHESH MCCULLOUGH, ISHA Sena Ot 250.80 12/24/2014 MAHESH MCCULLOUGH, ISHA Sena Ot 305.1 12/24/2014 MAHESH MCCULLOUGH, ISHA Sena Ot 707.15 12/24/2014 MAHESH MCCULLOUGH, ISHA Sena Ot 250.60 12/24/2014 MAHESH MCCULLOUGH, ISHA Sena Ot 250.80 12/24/2014 MAHESH MCCULLOUGH, ISHA Sena Ot 305.1 12/24/2014 MAHESH MCCULLOUGH, ISHA Sena Ot 707.15 12/24/2014 MAHESH MCCULLOUGH, ISHA Sena Ot 250.80 12/24/2014 MAHESH MCCULLOUGH, ISHA Sena Ot 707.15 12/24/2014 MAHESH MCCULLOUGH, ISHA Sena Ot 250.80 12/24/2014 MAHESH MCCULLOUGH, ISHA Sena Ot 707.15 01/08/2015 MAHESH MCCULLOUGH, ISHA Sena Ot 250.60 01/08/2015 MAHESH MCCULLOUGH, ISHA Sena Ot 250.80 01/08/2015 MAHESH MCCULLOUGH, ISHA Sena Ot 305.1 01/08/2015 MAHESH MCCULLOUGH, ISHA Sena Ot 707.15 01/20/2015 MAHESH MCCULLOUGH, ISHA Sena Ot 250.60 DIAB W NEURO MANIFEST, TYPE II OR UNSPEC 01/20/2015 MAHESH MCCULLOUGH, ISHA Sena Ot 250.80 DIAB W OTH SPEC MANIFEST, TYPE II OR UNS 01/20/2015 MAHESH MCCULLOUGH, ISHA Sena Ot 305.1 TOBACCO USE DISORDER 01/20/2015 ISHA ARAGON MD Ot 707.15 ULCER OF OTHER PART OF FOOT 01/23/2015 MAHESH MCCULLOUGH, ISHA Sena Ot 250.60 01/23/2015 MAHESH MCCULLOUGH, ISHA Sena Ot 250.80 01/23/2015 MAHESH MCCULLOUGH, ISHA Sena Ot 305.1 01/23/2015 MAHESH MCCULLOUGH, ISHA Sena Ot 707.15 02/04/2015 MAHESH MCCULLOUGH, ISHA Sena Ot 250.60 02/04/2015 MAHESH MCCULLOUGH, ISHA Sena Ot 250.80 02/04/2015 MAHESH MCCULLOUGH, ISHA Sena Ot 305.1 02/04/2015 MAHESH MCCULLOUGH, ISHA Sena Ot 707.15 02/05/2015 MAHESH MCCULLOUGH, ISHA Sena Ot 250.60 02/05/2015 MAHESH MCCULLOUGH, ISHA Sena Ot 250.80 02/05/2015 MAHESH MCCULLOUGH, ISHA Sena Ot 305.1 02/05/2015 ISHA ARAGON MD Ot 707.15 02/13/2015 MAHESH MCCULLOUGH, ISHA Sena Ot 250.60 DIAB W NEURO MANIFEST, TYPE II OR UNSPEC 02/13/2015 MAHESH MCCULLOUGH, ISHA Sena Ot 250.80 DIAB W OTH SPEC MANIFEST, TYPE II OR UNS 02/13/2015 MAHESH MCCULLOUGH, ISHA Sena Ot 305.1 TOBACCO USE DISORDER 02/13/2015 MAHESH MCCULLOUGH, ISHA Sena Ot 357.2 NEUROPATHY IN DIABETES 02/13/2015 ISHA ARAGON MD Ot 707.15 ULCER OF OTHER PART OF FOOT 02/13/2015 ISHA ARAGON MD Ot 730.17 CHR OSTEOMYELIT-ANKLE 02/14/2015 MAHESH MCCULLOUGH, ISHA Sena Ot 250.60 02/14/2015 MAHESH MCCULLOUGH, ISHA Sena Ot 250.80 02/14/2015 MAHESH MCCULLOUGH, ISHA Sena Ot 305.1 02/14/2015 MAHESH MCCULLOUGH, ISHA Sena Ot 707.15 02/14/2015 MAHESH MCCULLOUGH, ISHA Sena Ot 250.60 02/14/2015 MAHESH MCCULLOUGH, ISHA Sena Ot 250.80 02/14/2015 MAHESH MCCULLOUGH, ISHA Sena Ot 305.1 02/14/2015 MAHESH MCCULLOUGH, ISHA Sena Ot 707.15 02/14/2015 MAHESH MCCULLOUGH, ISHA Sena Ot 250.60 02/14/2015 MAHESH MCCULLOUGH, ISHA Sena Ot 250.80 02/14/2015 MAHESH MCCULLOUGH, ISHA Sena Ot 305.1 02/14/2015 MAHESH MCCULLOUGH, ISHA Sena Ot 707.15 02/15/2015 CIARA LUCIANO MD Ot 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 02/15/2015 CIARA LUCIANO MD Ot E11.9 TYPE 2 DIABETES MELLITUS WITHOUT COMPLIC 02/15/2015 CIARA LUCIANO MD Ot F17.210 NICOTINE DEPENDENCE, CIGARETTES, UNCOMPL 02/15/2015 CIARA LUCIANO MD Ot S32.019A UNSP FRACTURE OF FIRST LUMBAR VERTEBRA, 02/15/2015 CIARA LUCIANO MD Ot S39.92XA UNSPECIFIED INJURY OF LOWER BACK, INITIA 02/15/2015 CIARA LUCIANO MD Ot W19.XXXA UNSPECIFIED FALL, INITIAL ENCOUNTER 02/15/2015 CIARA LUCIANO MD Ot Z79.4 ROLL CHANGER (CURRENT) USE OF INSULIN 02/15/2015 MAHESH MCCULLOUGH, ISHA Sena Ot 250.60 02/15/2015 MAHESH MCCULLOUGH, ISHA Sena Ot 250.80 02/15/2015 MAHESH MCCULLOUGH, ISHA Sena Ot 305.1 02/15/2015 MAHESH MCCULLOUGH, ISHA Sena Ot 707.15 02/19/2015 MAHESH MCCULLOUGH, ISHA Sena Ot 250.60 02/19/2015 MAHESH MCCULLOUGH, ISHA Sena Ot 250.80 02/19/2015 MAHESH MCCULLOUGH, ISHA Sena Ot 305.1 02/19/2015 ISHA ARAGON MD Ot 707.15 03/04/2015 ISHA ARAGON MD, Ot E11.42 TYPE 2 DIABETES MELLITUS WITH DIABETIC P 03/04/2015 ISHA ARAGON MD, Ot E11.621 TYPE 2 DIABETES MELLITUS WITH FOOT ULCER 03/04/2015 ISHA ARAGON MD, Ot L97.513 NON-PRS CHRONIC ULCER OT PRT RIGHT FOOT 03/04/2015 ISHA ARAGON MD, Ot M86.471 CHRONIC OSTEOMYELITIS W DRAINING SINUS, 02/02/2017 CALDWELLDANYEL 250.80 DIABETES MELLITUS WITH OTHER SPECIFIED MANIFESTATIONS, TYPE II OR UNSPECIFIED TYPE, NOT STATED UNCONTROLLED 02/02/2017 CALDWELL DANYEL W E11.65 TYPE 2 DIABETES MELLITUS WITH HYPERGLYCEMIA 02/02/2017 CALDWELLDANYEL SAAB V12.29 PERSONAL HISTORY OF OTHER ENDOCRINE, METABOLIC, AND IMMUNITY DISORDERS 02/02/2017 CALDWELL, DANYEL W Z86.31 PERSONAL HISTORY OF DIABETIC FOOT ULCER 02/02/2017 PAULETTE DANYEL Wallace 250.80 DIABETES MELLITUS WITH OTHER SPECIFIED MANIFESTATIONS, TYPE II OR UNSPECIFIED TYPE, NOT STATED UNCONTROLLED 02/02/2017 DANYEL CALDWELL E11.65 TYPE 2 DIABETES MELLITUS WITH HYPERGLYCEMIA 02/02/2017 CALDWELL DANYEL Wallace V12.29 PERSONAL HISTORY OF OTHER ENDOCRINE, METABOLIC, AND IMMUNITY DISORDERS 02/02/2017 CALDWELL DANYEL W Z86.31 PERSONAL HISTORY OF DIABETIC FOOT ULCER 02/02/2017 DANYEL CALDWELL Wallace 250.80 DIABETES MELLITUS WITH OTHER SPECIFIED MANIFESTATIONS, TYPE II OR UNSPECIFIED TYPE, NOT STATED UNCONTROLLED 02/02/2017 DANYEL CALDWELL E11.65 TYPE 2 DIABETES MELLITUS WITH HYPERGLYCEMIA 02/02/2017 DANYEL CALDWELL V12.29 PERSONAL HISTORY OF OTHER ENDOCRINE, METABOLIC, AND IMMUNITY DISORDERS 02/02/2017 CALDWELL DANYEL Wallace Z86.31 PERSONAL HISTORY OF DIABETIC FOOT ULCER 02/03/2017 ISHA ARAGON MD Ot 250.80 DIAB W OTH SPEC MANIFEST, TYPE II OR UNS 02/03/2017 ISHA ARAGON MD Ot 707.15 ULCER OF OTHER PART OF FOOT 04/05/2017 ISHA ARAGON MD, Ot 250.80 DIAB W OTH SPEC MANIFEST, TYPE II OR UNS 04/05/2017 ISHA ARAGON MD Ot 707.15 ULCER OF OTHER PART OF FOOT 04/18/2017 ISHA ARAGON MD, Ot E11.42 TYPE 2 DIABETES MELLITUS WITH DIABETIC P 04/18/2017 ISHA ARAGON MD, Ot E11.621 TYPE 2 DIABETES MELLITUS WITH FOOT ULCER 04/18/2017 ISHA ARAGON MD, Ot 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 04/18/2017 ISHA ARAGON MD, Ot L03.115 CELLULITIS OF RIGHT LOWER LIMB 04/18/2017 ISHA ARAGON MD, Ot L97.512 NON-PRS CHRONIC ULCER OTH PRT RIGHT FOOT 04/18/2017 ISHA ARAGON MD, Ot M19.071 PRIMARY OSTEOARTHRITIS, RIGHT ANKLE AND 04/18/2017 ISHA ARAGON MD, Ot T65.222D TOXIC EFFECT OF TOBACCO CIGARETTES, SELF 04/25/2017 ISHA ARAGON MD, Ot E11.42 TYPE 2 DIABETES MELLITUS WITH DIABETIC P 04/25/2017 ISHA ARAGON MD, Ot E11.621 TYPE 2 DIABETES MELLITUS WITH FOOT ULCER 04/25/2017 ISHA ARAGON MD, Ot 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 04/25/2017 ISHA ARAGON MD, Ot L97.512 NON-PRS CHRONIC ULCER OTH PRT RIGHT FOOT 04/25/2017 ISHA RAAGON MD, Ot T65.222D TOXIC EFFECT OF TOBACCO CIGARETTES, SELF 04/29/2017 ISHA ARAGON MD, Ot E11.42 TYPE 2 DIABETES MELLITUS WITH DIABETIC P 04/29/2017 ISHA ARAGON MD, Ot E11.621 TYPE 2 DIABETES MELLITUS WITH FOOT ULCER 04/29/2017 ISHA ARAGON MD, Ot F17.210 NICOTINE DEPENDENCE, CIGARETTES, UNCOMPL 04/29/2017 ISHA ARAGON MD, Ot 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 04/29/2017 ISHA ARAGON MD, Ot L03.115 CELLULITIS OF RIGHT LOWER LIMB 04/29/2017 ISHA ARAGON MD, Ot L97.512 NON-PRS CHRONIC ULCER OTH PRT RIGHT FOOT 05/03/2017 DANYEL CALDWELL 250.80 DIABETES MELLITUS WITH OTHER SPECIFIED MANIFESTATIONS, TYPE II OR UNSPECIFIED TYPE, NOT STATED UNCONTROLLED 05/03/2017 DANYEL CALDWELL 401.0 MALIGNANT ESSENTIAL HYPERTENSION 05/03/2017 DANYEL CALDWELL E11.65 TYPE 2 DIABETES MELLITUS WITH HYPERGLYCEMIA 05/03/2017 DANYEL CALDWELL I10 ESSENTIAL (PRIMARY) HYPERTENSION 05/03/2017 DANYEL CALDWELL 250.80 DIABETES MELLITUS WITH OTHER SPECIFIED MANIFESTATIONS, TYPE II OR UNSPECIFIED TYPE, NOT STATED UNCONTROLLED 05/03/2017 DANYEL CALDWELL 401.0 MALIGNANT ESSENTIAL HYPERTENSION 05/03/2017 DANYEL CALDWELL E11.65 TYPE 2 DIABETES MELLITUS WITH HYPERGLYCEMIA 05/03/2017 DANYEL CALDWELL I10 ESSENTIAL (PRIMARY) HYPERTENSION 05/03/2017 DANYEL CALDWELL 250.80 DIABETES MELLITUS WITH OTHER SPECIFIED MANIFESTATIONS, TYPE II OR UNSPECIFIED TYPE, NOT STATED UNCONTROLLED 05/03/2017 DANYEL CALDWELL 401.0 MALIGNANT ESSENTIAL HYPERTENSION 05/03/2017 DANYEL CALDWELL E11.65 TYPE 2 DIABETES MELLITUS WITH HYPERGLYCEMIA 05/03/2017 DANYEL CALDWELL I10 ESSENTIAL (PRIMARY) HYPERTENSION 05/07/2017 ISHA ARAGON MD, Ot E11.42 TYPE 2 DIABETES MELLITUS WITH DIABETIC P 05/07/2017 ISHA ARAGON MD, Ot E11.621 TYPE 2 DIABETES MELLITUS WITH FOOT ULCER 05/07/2017 ISHA ARAGON MD, Ot 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 05/07/2017 ISHA ARAGON MD, Ot L03.115 CELLULITIS OF RIGHT LOWER LIMB 05/07/2017 ISHA ARAGON MD, Ot L97.512 NON-PRS CHRONIC ULCER OTH PRT RIGHT FOOT 05/07/2017 ISHA ARAGON MD, Ot M19.071 PRIMARY OSTEOARTHRITIS, RIGHT ANKLE AND 05/07/2017 ISHA ARAGON MD, Ot T65.222D TOXIC EFFECT OF TOBACCO CIGARETTES, SELF 05/09/2017 ISHA ARAGON MD, Ot E11.42 TYPE 2 DIABETES MELLITUS WITH DIABETIC P 05/09/2017 ISHA ARAGON MD, Ot E11.621 TYPE 2 DIABETES MELLITUS WITH FOOT ULCER 05/09/2017 ISHA ARAGON MD, Ot 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 05/09/2017 ISHA ARAGON MD, Ot L97.511 NON-PRS CHRONIC ULCER OTH PRT R FOOT CHUNG 05/09/2017 ISHA ARAGON MD, Ot L97.512 NON-PRS CHRONIC ULCER OTH PRT RIGHT FOOT 05/09/2017 ISHA ARAGON MD, Ot T65.222D TOXIC EFFECT OF TOBACCO CIGARETTES, SELF 05/11/2017 ISHA ARAGON MD, Ot E11.42 TYPE 2 DIABETES MELLITUS WITH DIABETIC P 05/11/2017 ISHA ARAGON MD, Ot E11.621 TYPE 2 DIABETES MELLITUS WITH FOOT ULCER 05/11/2017 ISHA ARAGON MD, Ot F17.210 NICOTINE DEPENDENCE, CIGARETTES, UNCOMPL 05/11/2017 ISHA ARAGON MD, Ot 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 05/11/2017 ISHA ARAGON MD, Ot L03.115 CELLULITIS OF RIGHT LOWER LIMB 05/11/2017 ISHA ARAGON MD, Ot L97.512 NON-PRS CHRONIC ULCER OTH PRT RIGHT FOOT 05/12/2017 ISHA ARAGON MD, Ot E11.42 TYPE 2 DIABETES MELLITUS WITH DIABETIC P 05/12/2017 ISHA ARAGON MD, Ot E11.621 TYPE 2 DIABETES MELLITUS WITH FOOT ULCER 05/12/2017 ISHA ARAGON MD, Ot 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 05/12/2017 ISHA ARAGON MD, Ot L97.512 NON-PRS CHRONIC ULCER OTH PRT RIGHT FOOT 05/12/2017 ISHA ARAGON MD, Ot T65.222D TOXIC EFFECT OF TOBACCO CIGARETTES, SELF 05/14/2017 ISHA ARAGON MD, Ot E11.42 TYPE 2 DIABETES MELLITUS WITH DIABETIC P 05/14/2017 ISHA ARAGON MD, Ot E11.621 TYPE 2 DIABETES MELLITUS WITH FOOT ULCER 05/14/2017 ISHA ARAGON MD, Ot 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 05/14/2017 ISHA ARAGON MD, Ot L03.115 CELLULITIS OF RIGHT LOWER LIMB 05/14/2017 ISHA ARAGON MD, Ot L97.512 NON-PRS CHRONIC ULCER OTH PRT RIGHT FOOT 05/14/2017 ISHA ARAGON MD, Ot M19.071 PRIMARY OSTEOARTHRITIS, RIGHT ANKLE AND 05/14/2017 ISHA ARAGON MD, Ot T65.222D TOXIC EFFECT OF TOBACCO CIGARETTES, SELF 05/17/2017 ISHA ARAGON MD, Ot E11.42 TYPE 2 DIABETES MELLITUS WITH DIABETIC P 05/17/2017 ISHA ARAGON MD, Ot E11.621 TYPE 2 DIABETES MELLITUS WITH FOOT ULCER 05/17/2017 ISHA ARAGON MD, Ot 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 05/17/2017 ISHA ARAGON MD, Ot L97.511 NON-PRS CHRONIC ULCER OTH PRT R FOOT CHUNG 05/17/2017 ISHA ARAGON MD, Ot L97.512 NON-PRS CHRONIC ULCER OTH PRT RIGHT FOOT 05/17/2017 ISHA ARAGON MD, Ot T65.222D TOXIC EFFECT OF TOBACCO CIGARETTES, SELF 05/24/2017 ROGERS DPM, MAN P Ot M86.9 OSTEOMYELITIS, UNSPECIFIED 05/24/2017 ROGERS DPM, MAN P Ot Z01.818 ENCOUNTER FOR OTHER PREPROCEDURAL EXAMIN 05/24/2017 MAN MCCLOUD DPM Ot Z11.2 ENCOUNTER FOR SCREENING FOR OTHER BACTER 05/24/2017 ISHA ARAGON MD Ot 250.80 DIAB W OTH SPEC MANIFEST, TYPE II OR UNS 05/24/2017 ISHA ARAGON MD Ot 707.15 ULCER OF OTHER PART OF FOOT 05/24/2017 ISHA ARAGON MD, Ot E11.42 TYPE 2 DIABETES MELLITUS WITH DIABETIC P 05/24/2017 ISHA ARAGON MD, Ot E11.621 TYPE 2 DIABETES MELLITUS WITH FOOT ULCER 05/24/2017 ISHA ARAGON MD, Ot F17.210 NICOTINE DEPENDENCE, CIGARETTES, UNCOMPL 05/24/2017 ISHA ARAGON MD, Ot 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 05/24/2017 ISHA ARAGON MD Ot L03.115 CELLULITIS OF RIGHT LOWER LIMB 05/24/2017 ISHA ARAGON MD, Ot L97.512 NON-PRS CHRONIC ULCER OTH PRT RIGHT FOOT 05/24/2017 ISHA ARAGON MD, Ot E11.42 TYPE 2 DIABETES MELLITUS WITH DIABETIC P 05/24/2017 ISHA ARAGON MD, Ot E11.621 TYPE 2 DIABETES MELLITUS WITH FOOT ULCER 05/24/2017 ISHA ARAGON MD, Ot 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 05/24/2017 ISHA ARAGON MD, Ot L03.115 CELLULITIS OF RIGHT LOWER LIMB 05/24/2017 ISHA ARAGON MD, Ot L97.512 NON-PRS CHRONIC ULCER OTH PRT RIGHT FOOT 05/24/2017 ISHA ARAGON MD, Ot T65.222D TOXIC EFFECT OF TOBACCO CIGARETTES, SELF 05/24/2017 ISHA ARAGON MD, Ot E11.42 TYPE 2 DIABETES MELLITUS WITH DIABETIC P 05/24/2017 ISHA ARAGON MD, Ot E11.621 TYPE 2 DIABETES MELLITUS WITH FOOT ULCER 05/24/2017 ISHA ARAGON MD, Ot 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 05/24/2017 ISHA ARAGON MD, Ot L03.115 CELLULITIS OF RIGHT LOWER LIMB 05/24/2017 ISHA ARAGON MD, Ot L97.512 NON-PRS CHRONIC ULCER OTH PRT RIGHT FOOT 05/24/2017 ISHA ARAGON MD, Ot M19.071 PRIMARY OSTEOARTHRITIS, RIGHT ANKLE AND 05/24/2017 ISHA ARAGON MD, Ot T65.222D TOXIC EFFECT OF TOBACCO CIGARETTES, SELF 05/24/2017 ISHA ARAGON MD, Ot E11.42 TYPE 2 DIABETES MELLITUS WITH DIABETIC P 05/24/2017 ISHA ARAGON MD, Ot E11.621 TYPE 2 DIABETES MELLITUS WITH FOOT ULCER 05/24/2017 ISHA ARAGON MD, Ot 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 05/24/2017 ISHA ARAGON MD, Ot L97.512 NON-PRS CHRONIC ULCER OTH PRT RIGHT FOOT 05/24/2017 ISHA ARAGON MD, Ot T65.222D TOXIC EFFECT OF TOBACCO CIGARETTES, SELF 05/24/2017 ISHA ARAGON MD, Ot E11.42 TYPE 2 DIABETES MELLITUS WITH DIABETIC P 05/24/2017 ISHA ARAGON MD, Ot E11.621 TYPE 2 DIABETES MELLITUS WITH FOOT ULCER 05/24/2017 ISHA ARAGON MD, Ot 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 05/24/2017 ISHA ARAGON MD, Ot L97.512 NON-PRS CHRONIC ULCER OTH PRT RIGHT FOOT 05/24/2017 ISHA ARAGON MD, Ot T65.222D TOXIC EFFECT OF TOBACCO CIGARETTES, SELF 05/24/2017 ISHA ARAGON MD, Ot E11.42 TYPE 2 DIABETES MELLITUS WITH DIABETIC P 05/24/2017 ISHA ARAGON MD, Ot E11.621 TYPE 2 DIABETES MELLITUS WITH FOOT ULCER 05/24/2017 ISHA ARAGON MD, Ot 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 05/24/2017 ISHA ARAGON MD, Ot L97.511 NON-PRS CHRONIC ULCER OTH PRT R FOOT CHUNG 05/24/2017 ISHA ARAGON MD, Ot L97.512 NON-PRS CHRONIC ULCER OTH PRT RIGHT FOOT 05/24/2017 ISHA ARAGON MD, Ot T65.222D TOXIC EFFECT OF TOBACCO CIGARETTES, SELF 05/24/2017 ISHA ARAGON MD, Ot E11.42 TYPE 2 DIABETES MELLITUS WITH DIABETIC P 05/24/2017 ISHA ARAGON MD, Ot E11.621 TYPE 2 DIABETES MELLITUS WITH FOOT ULCER 05/24/2017 ISHA ARAGON MD, Ot 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 05/24/2017 ISHA ARAGON MD, Ot L97.511 NON-PRS CHRONIC ULCER OTH PRT R FOOT CHUNG 05/24/2017 ISHA ARAGON MD, Ot L97.512 NON-PRS CHRONIC ULCER OTH PRT RIGHT FOOT 05/24/2017 ISHA ARAGON MD, Ot T65.222D TOXIC EFFECT OF TOBACCO CIGARETTES, SELF 05/24/2017 ISHA ARAGON MD, Ot E11.42 TYPE 2 DIABETES MELLITUS WITH DIABETIC P 05/24/2017 ISHA ARAGON MD, Ot E11.621 TYPE 2 DIABETES MELLITUS WITH FOOT ULCER 05/24/2017 ISHA ARAGON MD, Ot 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 05/24/2017 ISHA ARAGON MD, Ot L97.512 NON-PRS CHRONIC ULCER OTH PRT RIGHT FOOT 05/24/2017 ISHA ARAGON MD, Ot T65.222D TOXIC EFFECT OF TOBACCO CIGARETTES, SELF 05/27/2017 ISHA ARAGON MD, Ot E11.42 TYPE 2 DIABETES MELLITUS WITH DIABETIC P 05/27/2017 ISHA ARAGON MD, Ot E11.621 TYPE 2 DIABETES MELLITUS WITH FOOT ULCER 05/27/2017 ISHA ARAGON MD, Ot 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 05/27/2017 ISHA ARAGON MD, Ot L97.511 NON-PRS CHRONIC ULCER OTH PRT R FOOT CHUNG 05/27/2017 ISHA ARAGON MD, Ot L97.512 NON-PRS CHRONIC ULCER OTH PRT RIGHT FOOT 05/27/2017 ISHA ARAGON MD, Ot T65.222D TOXIC EFFECT OF TOBACCO CIGARETTES, SELF 05/28/2017 ROGERS APPLE, MAN Fischer Ot E11.9 TYPE 2 DIABETES MELLITUS WITHOUT COMPLIC 05/28/2017 ROGERS APPLE, MAN Fischer Ot F17.210 NICOTINE DEPENDENCE, CIGARETTES, UNCOMPL 05/28/2017 ROGERS DPStewart, MAN P Ot I10 ESSENTIAL (PRIMARY) HYPERTENSION 05/28/2017 ROGERS LOWEM, MAN Fischer Ot M20.41 OTHER HAMMER TOE(S) (ACQUIRED), RIGHT FO 05/28/2017 ROGERS APPLE, MAN Fischer Ot M86.9 OSTEOMYELITIS, UNSPECIFIED 05/28/2017 ROGERS APPLE, MAN Fischer Ot Z79.82 SENIOR LIVING (CURRENT) USE OF ASPIRIN 05/28/2017 ROGERS APPLE, MAN Fischer Ot Z79.84 SENIOR LIVING (CURRENT) USE OF ORAL HYPOGLYC 05/28/2017 ROGERS APPLE, MAN Fischer Ot Z79.899 OTHER SENIOR LIVING (CURRENT) DRUG THERAPY 05/28/2017 ISHA ARAGON MD, Ot E11.42 TYPE 2 DIABETES MELLITUS WITH DIABETIC P 05/28/2017 ISHA ARAGON MD, Ot E11.621 TYPE 2 DIABETES MELLITUS WITH FOOT ULCER 05/28/2017 ISHA ARAGON MD, Ot 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 05/28/2017 ISHA ARAGON MD Ot L03.115 CELLULITIS OF RIGHT LOWER LIMB 05/28/2017 ISHA ARAGON MD, Ot L97.512 NON-PRS CHRONIC ULCER OTH PRT RIGHT FOOT 05/28/2017 ISHA ARAGON MD, Ot T65.222D TOXIC EFFECT OF TOBACCO CIGARETTES, SELF 05/28/2017 ISHA ARAGON MD, Ot E11.42 TYPE 2 DIABETES MELLITUS WITH DIABETIC P 05/28/2017 ISHA ARAGON MD, Ot E11.621 TYPE 2 DIABETES MELLITUS WITH FOOT ULCER 05/28/2017 ISHA ARAGON MD, Ot 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 05/28/2017 ISHA ARAGON MD, Ot L97.512 NON-PRS CHRONIC ULCER OTH PRT RIGHT FOOT 05/28/2017 ISHA ARAGON MD, Ot T65.222D TOXIC EFFECT OF TOBACCO CIGARETTES, SELF 06/01/2017 ROGERS APPLE, MAN Fischer Ot E11.9 TYPE 2 DIABETES MELLITUS WITHOUT COMPLIC 06/01/2017 ROGERS APPLE, MAN Fischer Ot F17.210 NICOTINE DEPENDENCE, CIGARETTES, UNCOMPL 06/01/2017 ROGERS APPLE, MAN P Ot I10 ESSENTIAL (PRIMARY) HYPERTENSION 06/01/2017 MCCLOUD DPM, MAN P Ot M20.41 OTHER HAMMER TOE(S) (ACQUIRED), RIGHT FO 06/01/2017 MCCLOUD DPM, MAN P Ot M86.9 OSTEOMYELITIS, UNSPECIFIED 06/01/2017 MCCLOUD DPM, MAN P Ot Z79.82 ROLL CHANGER (CURRENT) USE OF ASPIRIN 06/01/2017 MCCLOUD DPM, MAN P Ot Z79.84 SENIOR LIVING (CURRENT) USE OF ORAL HYPOGLYC 06/01/2017 MCCLOUD DPM, MAN P Ot Z79.899 OTHER SENIOR LIVING (CURRENT) DRUG THERAPY 06/03/2017 MCCLOUD DPM, MAN P Ot E11.9 TYPE 2 DIABETES MELLITUS WITHOUT COMPLIC 06/03/2017 MCCLOUD DPM, MAN P Ot F17.210 NICOTINE DEPENDENCE, CIGARETTES, UNCOMPL 06/03/2017 MCCLOUD DPM, MAN P Ot I10 ESSENTIAL (PRIMARY) HYPERTENSION 06/03/2017 MCCLOUD DPM, MAN P Ot M20.41 OTHER HAMMER TOE(S) (ACQUIRED), RIGHT FO 06/03/2017 MCCLOUD DPM, MAN P Ot M86.9 OSTEOMYELITIS, UNSPECIFIED 06/03/2017 MCCLOUD DPM, MAN P Ot Z79.82 ROLL CHANGER (CURRENT) USE OF ASPIRIN 06/03/2017 MCCLOUD DPM, MAN P Ot Z79.84 ROLL CHANGER (CURRENT) USE OF ORAL HYPOGLYC 06/03/2017 MCCLOUD DPM, MAN P Ot Z79.899 OTHER SENIOR LIVING (CURRENT) DRUG THERAPY 06/03/2017 ISHA ARAGON MD, Ot E11.42 TYPE 2 DIABETES MELLITUS WITH DIABETIC P 06/03/2017 ISHA ARAGON MD, Ot E11.621 TYPE 2 DIABETES MELLITUS WITH FOOT ULCER 06/03/2017 ISHA ARAGON MD, Ot 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 06/03/2017 ISHA ARAGON MD, Ot L97.511 NON-PRS CHRONIC ULCER OTH PRT R FOOT CHUNG 06/03/2017 ISHA ARAGON MD, Ot L97.512 NON-PRS CHRONIC ULCER OTH PRT RIGHT FOOT 06/03/2017 ISHA ARAGON MD, Ot T65.222D TOXIC EFFECT OF TOBACCO CIGARETTES, SELF 06/04/2017 ISHA ARAGON MD, Ot E11.42 TYPE 2 DIABETES MELLITUS WITH DIABETIC P 06/04/2017 ISHA ARAGON MD, Ot E11.621 TYPE 2 DIABETES MELLITUS WITH FOOT ULCER 06/04/2017 ISHA ARAGON MD, Ot 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 06/04/2017 ISHA ARAGON MD, Ot L03.115 CELLULITIS OF RIGHT LOWER LIMB 06/04/2017 ISHA ARAGON MD, Ot L97.512 NON-PRS CHRONIC ULCER OTH PRT RIGHT FOOT 06/04/2017 ISHA ARAGON MD, Ot T65.222D TOXIC EFFECT OF TOBACCO CIGARETTES, SELF 06/04/2017 ISHA ARAGON MD, Ot E11.42 TYPE 2 DIABETES MELLITUS WITH DIABETIC P 06/04/2017 ISHA ARAGON MD, Ot E11.621 TYPE 2 DIABETES MELLITUS WITH FOOT ULCER 06/04/2017 ISHA ARAGON MD, Ot 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 06/04/2017 ISHA ARAGON MD, Ot L97.512 NON-PRS CHRONIC ULCER OTH PRT RIGHT FOOT 06/04/2017 ISHA ARAGON MD, Ot T65.222D TOXIC EFFECT OF TOBACCO CIGARETTES, SELF 06/04/2017 ISHA ARAGON MD, Ot E11.42 TYPE 2 DIABETES MELLITUS WITH DIABETIC P 06/04/2017 ISHA ARAGON MD, Ot E11.621 TYPE 2 DIABETES MELLITUS WITH FOOT ULCER 06/04/2017 ISHA ARAGON MD, Ot 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 06/04/2017 ISHA ARAGON MD, Ot L97.511 NON-PRS CHRONIC ULCER OTH PRT R FOOT CHUNG 06/04/2017 ISHA ARAGON MD, Ot L97.512 NON-PRS CHRONIC ULCER OTH PRT RIGHT FOOT 06/04/2017 ISHA ARAGON MD, Ot T65.222D TOXIC EFFECT OF TOBACCO CIGARETTES, SELF 06/14/2017 ISHA ARAGON MD, Ot E11.42 TYPE 2 DIABETES MELLITUS WITH DIABETIC P 06/14/2017 ISHA ARAGON MD, Ot E11.621 TYPE 2 DIABETES MELLITUS WITH FOOT ULCER 06/14/2017 ISHA ARAGON MD, Ot 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 06/14/2017 ISHA ARAGON MD, Ot L97.511 NON-PRS CHRONIC ULCER OTH PRT R FOOT CHUNG 06/14/2017 ISHA ARAGON MD, Ot L97.512 NON-PRS CHRONIC ULCER OTH PRT RIGHT FOOT 06/14/2017 ISHA ARAGON MD, Ot T65.222D TOXIC EFFECT OF TOBACCO CIGARETTES, SELF 06/23/2017 ISHA ARAGON MD, Ot E11.42 TYPE 2 DIABETES MELLITUS WITH DIABETIC P 06/23/2017 ISHA ARAGON MD, Ot E11.621 TYPE 2 DIABETES MELLITUS WITH FOOT ULCER 06/23/2017 ISHA ARAGON MD, Ot 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 06/23/2017 ISHA ARAGON MD, Ot L97.512 NON-PRS CHRONIC ULCER OTH PRT RIGHT FOOT 06/23/2017 ISHA ARAGON MD, Ot T65.222D TOXIC EFFECT OF TOBACCO CIGARETTES, SELF 07/02/2017 ISHA ARAGON MD, Ot E11.42 TYPE 2 DIABETES MELLITUS WITH DIABETIC P 07/02/2017 ISHA ARAGON MD, Ot E11.621 TYPE 2 DIABETES MELLITUS WITH FOOT ULCER 07/02/2017 ISHA ARAGON MD, Ot L97.512 NON-PRS CHRONIC ULCER OTH PRT RIGHT FOOT 07/13/2017 ISHA ARAGON MD, Ot E11.42 TYPE 2 DIABETES MELLITUS WITH DIABETIC P 07/13/2017 ISHA ARAGON MD, Ot E11.621 TYPE 2 DIABETES MELLITUS WITH FOOT ULCER 07/13/2017 ISHA ARAGON MD, Ot L97.512 NON-PRS CHRONIC ULCER OTH PRT RIGHT FOOT 07/19/2017 ISHA ARAGON MD, Ot E11.42 TYPE 2 DIABETES MELLITUS WITH DIABETIC P 07/19/2017 ISHA ARAGON MD, Ot E11.621 TYPE 2 DIABETES MELLITUS WITH FOOT ULCER 07/19/2017 ISHA ARAGON MD, Ot L97.512 NON-PRS CHRONIC ULCER OTH PRT RIGHT FOOT 07/20/2017 ISHA ARAGON MD, Ot E11.43 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 07/20/2017 ISHA ARAGON MD, Ot E11.621 TYPE 2 DIABETES MELLITUS WITH FOOT ULCER 07/20/2017 ISHA ARAGON MD, Ot L97.512 NON-PRS CHRONIC ULCER OTH PRT RIGHT FOOT 07/21/2017 ISHA ARAGON MD, Ot E11.42 TYPE 2 DIABETES MELLITUS WITH DIABETIC P 07/21/2017 ISHA ARAGON MD, Ot E11.621 TYPE 2 DIABETES MELLITUS WITH FOOT ULCER 07/21/2017 ISHA ARAGON MD Ot L97.512 NON-PRS CHRONIC ULCER OTH PRT RIGHT FOOT 07/21/2017 ISHA ARAGON MD Ot E11.42 TYPE 2 DIABETES MELLITUS WITH DIABETIC P 07/21/2017 ISHA ARAGON MD Ot E11.621 TYPE 2 DIABETES MELLITUS WITH FOOT ULCER 07/21/2017 ISHA ARAGON MD Ot L97.512 NON-PRS CHRONIC ULCER OTH PRT RIGHT FOOT 07/30/2017 ISHA ARAGON MD Ot E11.42 TYPE 2 DIABETES MELLITUS WITH DIABETIC P 07/30/2017 ISHA ARAGON MD Ot E11.621 TYPE 2 DIABETES MELLITUS WITH FOOT ULCER 07/30/2017 ISHA ARAGON MD Ot L97.512 NON-PRS CHRONIC ULCER OTH PRT RIGHT FOOT 07/30/2017 ISHA ARAGON MD Ot E11.43 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 07/30/2017 ISHA ARAGON MD Ot E11.621 TYPE 2 DIABETES MELLITUS WITH FOOT ULCER 07/30/2017 ISHA ARAGON MD Ot L97.512 NON-PRS CHRONIC ULCER OTH PRT RIGHT FOOT 07/30/2017 ISHA ARAGON MD Ot E11.42 TYPE 2 DIABETES MELLITUS WITH DIABETIC P 07/30/2017 ISHA ARAGON MD Ot E11.621 TYPE 2 DIABETES MELLITUS WITH FOOT ULCER 07/30/2017 ISHA ARAGON MD Ot L97.512 NON-PRS CHRONIC ULCER OTH PRT RIGHT FOOT 08/03/2017 ISHA ARAGON MD Ot E11.42 TYPE 2 DIABETES MELLITUS WITH DIABETIC P 08/03/2017 ISHA ARAGON MD Ot E11.621 TYPE 2 DIABETES MELLITUS WITH FOOT ULCER 08/03/2017 ISHA ARAGON MD Ot L97.512 NON-PRS CHRONIC ULCER OTH PRT RIGHT FOOT 08/04/2017 ISHA ARAGON MD Ot E11.42 TYPE 2 DIABETES MELLITUS WITH DIABETIC P 08/04/2017 ISHA ARAGON MD Ot E11.621 TYPE 2 DIABETES MELLITUS WITH FOOT ULCER 08/04/2017 ISHA ARAGON MD Ot L97.512 NON-PRS CHRONIC ULCER OTH PRT RIGHT FOOT 08/05/2017 ISHA ARAGON MD Ot E11.42 TYPE 2 DIABETES MELLITUS WITH DIABETIC P 08/05/2017 ISHA ARAGON MD Ot E11.621 TYPE 2 DIABETES MELLITUS WITH FOOT ULCER 08/05/2017 ISHA ARAGON MD Ot L97.512 NON-PRS CHRONIC ULCER OTH PRT RIGHT FOOT 08/10/2017 ISHA ARAGON MD Ot E11.42 TYPE 2 DIABETES MELLITUS WITH DIABETIC P 08/10/2017 ISHA ARAGON MD Ot E11.621 TYPE 2 DIABETES MELLITUS WITH FOOT ULCER 08/10/2017 ISHA ARAGON MD Ot L97.512 NON-PRS CHRONIC ULCER OTH PRT RIGHT FOOT 08/11/2017 ISHA ARAGON MD Ot E11.42 TYPE 2 DIABETES MELLITUS WITH DIABETIC P 08/11/2017 ISHA ARAGON MD Ot E11.621 TYPE 2 DIABETES MELLITUS WITH FOOT ULCER 08/11/2017 ISHA ARAGON MD Ot L97.512 NON-PRS CHRONIC ULCER OTH PRT RIGHT FOOT 08/13/2017 ISHA ARAGON MD Ot E11.42 TYPE 2 DIABETES MELLITUS WITH DIABETIC P 08/13/2017 ISHA ARAGON MD Ot E11.621 TYPE 2 DIABETES MELLITUS WITH FOOT ULCER 08/13/2017 ISHA ARAGON MD Ot L97.512 NON-PRS CHRONIC ULCER OTH PRT RIGHT FOOT 08/13/2017 ISHA ARAGON MD Ot E11.42 TYPE 2 DIABETES MELLITUS WITH DIABETIC P 08/13/2017 ISHA ARAGON MD Ot E11.621 TYPE 2 DIABETES MELLITUS WITH FOOT ULCER 08/13/2017 ISHA ARAGON MD Ot L97.512 NON-PRS CHRONIC ULCER OTH PRT RIGHT FOOT 08/13/2017 ISHA ARAGON MD Ot E11.42 TYPE 2 DIABETES MELLITUS WITH DIABETIC P 08/13/2017 ISHA ARAGON MD Ot E11.621 TYPE 2 DIABETES MELLITUS WITH FOOT ULCER 08/13/2017 ISHA ARAGON MD Ot L97.512 NON-PRS CHRONIC ULCER OTH PRT RIGHT FOOT 08/13/2017 ISHA ARAGON MD Ot E11.42 TYPE 2 DIABETES MELLITUS WITH DIABETIC P 08/13/2017 IHSA ARAGON MD Ot E11.621 TYPE 2 DIABETES MELLITUS WITH FOOT ULCER 08/13/2017 ISHA ARAGON MD Ot L97.512 NON-PRS CHRONIC ULCER OTH PRT RIGHT FOOT 08/17/2017 ISHA ARAGON MD Ot E11.42 TYPE 2 DIABETES MELLITUS WITH DIABETIC P 08/17/2017 ISHA ARAGON MD Ot E11.621 TYPE 2 DIABETES MELLITUS WITH FOOT ULCER 08/17/2017 ISHA ARAGON MD, Ot L97.512 NON-PRS CHRONIC ULCER OTH PRT RIGHT FOOT 08/20/2017 ISHA ARAGON MD, Ot E11.42 TYPE 2 DIABETES MELLITUS WITH DIABETIC P 08/20/2017 ISHA ARAGON MD, Ot E11.621 TYPE 2 DIABETES MELLITUS WITH FOOT ULCER 08/20/2017 ISHA ARAGON MD, Ot L97.512 NON-PRS CHRONIC ULCER OTH PRT RIGHT FOOT 08/26/2017 ISHA ARAGON MD, Ot 250.80 DIAB W OTH SPEC MANIFEST, TYPE II OR UNS 08/26/2017 ISHA ARAGON MD, Ot 707.15 ULCER OF OTHER PART OF FOOT 08/26/2017 ISHA ARAGON MD, Ot E11.42 TYPE 2 DIABETES MELLITUS WITH DIABETIC P 08/26/2017 ISHA ARAGON MD, Ot E11.621 TYPE 2 DIABETES MELLITUS WITH FOOT ULCER 08/26/2017 ISHA ARAGON MD, Ot F17.210 NICOTINE DEPENDENCE, CIGARETTES, UNCOMPL 08/26/2017 ISHA ARAGON MD, Ot 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 08/26/2017 ISHA ARAGON MD, Ot L03.115 CELLULITIS OF RIGHT LOWER LIMB 08/26/2017 ISHA ARAGON MD, Ot L97.512 NON-PRS CHRONIC ULCER OTH PRT RIGHT FOOT 08/26/2017 ISHA ARAGON MD, Ot E11.42 TYPE 2 DIABETES MELLITUS WITH DIABETIC P 08/26/2017 ISHA ARAGON MD, Ot E11.621 TYPE 2 DIABETES MELLITUS WITH FOOT ULCER 08/26/2017 ISHA ARAGON MD, Ot 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 08/26/2017 ISHA ARAGON MD, Ot L03.115 CELLULITIS OF RIGHT LOWER LIMB 08/26/2017 ISHA ARAGON MD, Ot L97.512 NON-PRS CHRONIC ULCER OTH PRT RIGHT FOOT 08/26/2017 ISHA ARAGON MD, Ot T65.222D TOXIC EFFECT OF TOBACCO CIGARETTES, SELF 08/26/2017 ISHA ARAGON MD, Ot E11.42 TYPE 2 DIABETES MELLITUS WITH DIABETIC P 08/26/2017 ISHA ARAGON MD, Ot E11.621 TYPE 2 DIABETES MELLITUS WITH FOOT ULCER 08/26/2017 MAHESH MD, ISHA G Ot 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 08/26/2017 ISHA ARAGON MD, Ot L03.115 CELLULITIS OF RIGHT LOWER LIMB 08/26/2017 ISHA ARAGON MD, Ot L97.512 NON-PRS CHRONIC ULCER OTH PRT RIGHT FOOT 08/26/2017 ISHA ARAGON MD, Ot M19.071 PRIMARY OSTEOARTHRITIS, RIGHT ANKLE AND 08/26/2017 ISHA ARAGON MD, Ot T65.222D TOXIC EFFECT OF TOBACCO CIGARETTES, SELF 08/26/2017 ISHA ARAGON MD, Ot E11.42 TYPE 2 DIABETES MELLITUS WITH DIABETIC P 08/26/2017 ISHA ARAGON MD, Ot E11.621 TYPE 2 DIABETES MELLITUS WITH FOOT ULCER 08/26/2017 ISHA ARAGON MD, Ot 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 08/26/2017 ISHA ARAGON MD, Ot L97.512 NON-PRS CHRONIC ULCER OTH PRT RIGHT FOOT 08/26/2017 ISHA ARAGON MD, Ot T65.222D TOXIC EFFECT OF TOBACCO CIGARETTES, SELF 08/26/2017 ISHA RAAGON MD, Ot E11.42 TYPE 2 DIABETES MELLITUS WITH DIABETIC P 08/26/2017 ISHA ARAGON MD, Ot E11.621 TYPE 2 DIABETES MELLITUS WITH FOOT ULCER 08/26/2017 ISHA ARAGON MD, Ot 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 08/26/2017 ISHA ARAGON MD, Ot L97.512 NON-PRS CHRONIC ULCER OTH PRT RIGHT FOOT 08/26/2017 ISHA ARAGON MD, Ot T65.222D TOXIC EFFECT OF TOBACCO CIGARETTES, SELF 08/26/2017 ISHA ARAGON MD, Ot E11.42 TYPE 2 DIABETES MELLITUS WITH DIABETIC P 08/26/2017 ISHA ARAGON MD, Ot E11.621 TYPE 2 DIABETES MELLITUS WITH FOOT ULCER 08/26/2017 ISHA ARAGON MD, Ot 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 08/26/2017 ISHA ARAGON MD, Ot L97.511 NON-PRS CHRONIC ULCER OTH PRT R FOOT CHUNG 08/26/2017 ISHA ARAGON MD, Ot L97.512 NON-PRS CHRONIC ULCER OTH PRT RIGHT FOOT 08/26/2017 ISHA ARAGON MD, Ot T65.222D TOXIC EFFECT OF TOBACCO CIGARETTES, SELF 08/26/2017 ISHA ARAGON MD, Ot E11.42 TYPE 2 DIABETES MELLITUS WITH DIABETIC P 08/26/2017 ISHA ARAGON MD, Ot E11.621 TYPE 2 DIABETES MELLITUS WITH FOOT ULCER 08/26/2017 ISHA ARAGON MD, Ot 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 08/26/2017 ISHA ARAGON MD, Ot L97.511 NON-PRS CHRONIC ULCER OTH PRT R FOOT CHUNG 08/26/2017 ISHA ARGAON MD, Ot L97.512 NON-PRS CHRONIC ULCER OTH PRT RIGHT FOOT 08/26/2017 ISHA ARAGON MD, Ot T65.222D TOXIC EFFECT OF TOBACCO CIGARETTES, SELF 08/26/2017 ISHA ARAGON MD, Ot E11.42 TYPE 2 DIABETES MELLITUS WITH DIABETIC P 08/26/2017 ISHA ARAGON MD, Ot E11.621 TYPE 2 DIABETES MELLITUS WITH FOOT ULCER 08/26/2017 ISHA ARAGON MD, Ot 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 08/26/2017 ISHA ARAGON MD, Ot L97.512 NON-PRS CHRONIC ULCER OTH PRT RIGHT FOOT 08/26/2017 ISHA ARAGON MD, Ot T65.222D TOXIC EFFECT OF TOBACCO CIGARETTES, SELF 08/26/2017 ISHA ARAGON MD, Ot E11.43 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 08/26/2017 ISHA ARAGON MD, Ot E11.621 TYPE 2 DIABETES MELLITUS WITH FOOT ULCER 08/26/2017 ISHA ARAGON MD, Ot L97.512 NON-PRS CHRONIC ULCER OTH PRT RIGHT FOOT 08/26/2017 ISHA ARAGON MD, Ot E11.42 TYPE 2 DIABETES MELLITUS WITH DIABETIC P 08/26/2017 ISHA ARAGON MD, Ot E11.621 TYPE 2 DIABETES MELLITUS WITH FOOT ULCER 08/26/2017 ISHA ARAGON MD, Ot L97.512 NON-PRS CHRONIC ULCER OTH PRT RIGHT FOOT 08/26/2017 ISHA ARAGON MD, Ot E11.42 TYPE 2 DIABETES MELLITUS WITH DIABETIC P 08/26/2017 ISHA ARAGON MD, Ot E11.621 TYPE 2 DIABETES MELLITUS WITH FOOT ULCER 08/26/2017 ISHA ARAGON MD, Ot L97.512 NON-PRS CHRONIC ULCER OTH PRT RIGHT FOOT 08/26/2017 ISHA ARAGON MD, Ot E11.42 TYPE 2 DIABETES MELLITUS WITH DIABETIC P 08/26/2017 ISHA ARAGON MD, Ot E11.621 TYPE 2 DIABETES MELLITUS WITH FOOT ULCER 08/26/2017 ISHA ARAGON MD, Ot L97.512 NON-PRS CHRONIC ULCER OTH PRT RIGHT FOOT 08/26/2017 ISHA ARAGON MD, Ot E11.42 TYPE 2 DIABETES MELLITUS WITH DIABETIC P 08/26/2017 ISHA ARAGON MD Ot E11.621 TYPE 2 DIABETES MELLITUS WITH FOOT ULCER 08/26/2017 ISHA ARAGON MD, Ot L97.512 NON-PRS CHRONIC ULCER OTH PRT RIGHT FOOT 08/26/2017 ISHA ARAGON MD, Ot E11.42 TYPE 2 DIABETES MELLITUS WITH DIABETIC P 08/26/2017 ISHA ARAGON MD, Ot E11.621 TYPE 2 DIABETES MELLITUS WITH FOOT ULCER 08/26/2017 ISHA ARAGON MD, Ot L97.512 NON-PRS CHRONIC ULCER OTH PRT RIGHT FOOT 08/26/2017 ISHA ARAGON MD Ot E11.42 TYPE 2 DIABETES MELLITUS WITH DIABETIC P 08/26/2017 ISHA ARAGON MD, Ot E11.621 TYPE 2 DIABETES MELLITUS WITH FOOT ULCER 08/26/2017 ISHA ARAGON MD Ot L97.512 NON-PRS CHRONIC ULCER OTH PRT RIGHT FOOT 08/27/2017 ISHA ARAGON MD Ot 250.80 DIAB W OTH SPEC MANIFEST, TYPE II OR UNS 08/27/2017 ISHA ARAGON MD Ot 707.15 ULCER OF OTHER PART OF FOOT 08/27/2017 ISHA ARAGON MD Ot E11.42 TYPE 2 DIABETES MELLITUS WITH DIABETIC P 08/27/2017 ISHA ARAGON MD, Ot E11.621 TYPE 2 DIABETES MELLITUS WITH FOOT ULCER 08/27/2017 ISHA ARAGON MD Ot F17.210 NICOTINE DEPENDENCE, CIGARETTES, UNCOMPL 08/27/2017 ISHA ARAGON MD Ot 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 08/27/2017 ISHA ARAGON MD Ot L03.115 CELLULITIS OF RIGHT LOWER LIMB 08/27/2017 ISHA ARAGON MD Ot L97.512 NON-PRS CHRONIC ULCER OTH PRT RIGHT FOOT 08/27/2017 ISHA ARAGON MD Ot E11.42 TYPE 2 DIABETES MELLITUS WITH DIABETIC P 08/27/2017 ISHA ARAGON MD, Ot E11.621 TYPE 2 DIABETES MELLITUS WITH FOOT ULCER 08/27/2017 ISHA ARAGON MD, Ot 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 08/27/2017 ISHA ARAGON MD Ot L03.115 CELLULITIS OF RIGHT LOWER LIMB 08/27/2017 ISHA ARAGON MD, Ot L97.512 NON-PRS CHRONIC ULCER OTH PRT RIGHT FOOT 08/27/2017 ISHA ARAGON MD, Ot T65.222D TOXIC EFFECT OF TOBACCO CIGARETTES, SELF 08/27/2017 ISHA ARAGON MD Ot E11.42 TYPE 2 DIABETES MELLITUS WITH DIABETIC P 08/27/2017 ISHA ARAGON MD, Ot E11.621 TYPE 2 DIABETES MELLITUS WITH FOOT ULCER 08/27/2017 ISHA ARAGON MD, Ot 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 08/27/2017 ISHA ARAGON MD, Ot L03.115 CELLULITIS OF RIGHT LOWER LIMB 08/27/2017 ISHA ARAGON MD, Ot L97.512 NON-PRS CHRONIC ULCER OTH PRT RIGHT FOOT 08/27/2017 ISHA ARAGON MD Ot M19.071 PRIMARY OSTEOARTHRITIS, RIGHT ANKLE AND 08/27/2017 ISHA ARAGON MD, Ot T65.222D TOXIC EFFECT OF TOBACCO CIGARETTES, SELF 08/27/2017 ISHA ARAGON MD Ot E11.42 TYPE 2 DIABETES MELLITUS WITH DIABETIC P 08/27/2017 ISHA ARAGON MD, Ot E11.621 TYPE 2 DIABETES MELLITUS WITH FOOT ULCER 08/27/2017 ISHA ARAGON MD, Ot 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 08/27/2017 ISHA ARAGON MD, Ot L97.512 NON-PRS CHRONIC ULCER OTH PRT RIGHT FOOT 08/27/2017 ISHA ARAGON MD, Ot T65.222D TOXIC EFFECT OF TOBACCO CIGARETTES, SELF 08/27/2017 ISHA ARAGON MD, Ot E11.42 TYPE 2 DIABETES MELLITUS WITH DIABETIC P 08/27/2017 ISHA ARAGON MD, Ot E11.621 TYPE 2 DIABETES MELLITUS WITH FOOT ULCER 08/27/2017 ISHA ARAGON MD Ot 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 08/27/2017 ISHA ARAGON MD, Ot L97.512 NON-PRS CHRONIC ULCER OTH PRT RIGHT FOOT 08/27/2017 ISHA ARAGON MD, Ot T65.222D TOXIC EFFECT OF TOBACCO CIGARETTES, SELF 08/27/2017 ISHA ARAGON MD, Ot E11.42 TYPE 2 DIABETES MELLITUS WITH DIABETIC P 08/27/2017 ISHA ARAGON MD, Ot E11.621 TYPE 2 DIABETES MELLITUS WITH FOOT ULCER 08/27/2017 ISHA ARAGON MD, Ot 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 08/27/2017 ISHA ARAGON MD, Ot L97.511 NON-PRS CHRONIC ULCER OTH PRT R FOOT CHUNG 08/27/2017 ISHA ARAGON MD, Ot L97.512 NON-PRS CHRONIC ULCER OTH PRT RIGHT FOOT 08/27/2017 ISHA RAAGON MD, Ot T65.222D TOXIC EFFECT OF TOBACCO CIGARETTES, SELF 08/27/2017 ISHA ARAGON MD, Ot E11.42 TYPE 2 DIABETES MELLITUS WITH DIABETIC P 08/27/2017 ISHA ARAGON MD, Ot E11.621 TYPE 2 DIABETES MELLITUS WITH FOOT ULCER 08/27/2017 ISHA ARAGON MD, Ot 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 08/27/2017 ISHA ARAGON MD, Ot L97.511 NON-PRS CHRONIC ULCER OTH PRT R FOOT CHUNG 08/27/2017 ISHA ARAGON MD, Ot L97.512 NON-PRS CHRONIC ULCER OTH PRT RIGHT FOOT 08/27/2017 ISHA ARAGON MD, Ot T65.222D TOXIC EFFECT OF TOBACCO CIGARETTES, SELF 08/27/2017 ISHA ARAGON MD, Ot E11.42 TYPE 2 DIABETES MELLITUS WITH DIABETIC P 08/27/2017 ISHA ARAGON MD, Ot E11.621 TYPE 2 DIABETES MELLITUS WITH FOOT ULCER 08/27/2017 ISHA ARAGON MD, Ot 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 08/27/2017 ISHA ARAGON MD, Ot L97.512 NON-PRS CHRONIC ULCER OTH PRT RIGHT FOOT 08/27/2017 ISHA ARAGON MD, Ot T65.222D TOXIC EFFECT OF TOBACCO CIGARETTES, SELF 08/27/2017 ISHA ARAGON MD, Ot E11.43 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 08/27/2017 ISHA ARAGON MD, Ot E11.621 TYPE 2 DIABETES MELLITUS WITH FOOT ULCER 08/27/2017 MAHESH MD, ISHA G Ot L97.512 NON-PRS CHRONIC ULCER OTH PRT RIGHT FOOT 08/27/2017 ISHA ARAGON MD Ot E11.42 TYPE 2 DIABETES MELLITUS WITH DIABETIC P 08/27/2017 ISHA ARAGON MD Ot E11.621 TYPE 2 DIABETES MELLITUS WITH FOOT ULCER 08/27/2017 ISHA ARAGON MD Ot L97.512 NON-PRS CHRONIC ULCER OTH PRT RIGHT FOOT 08/27/2017 ISHA ARAGON MD Ot E11.42 TYPE 2 DIABETES MELLITUS WITH DIABETIC P 08/27/2017 ISHA ARAGON MD Ot E11.621 TYPE 2 DIABETES MELLITUS WITH FOOT ULCER 08/27/2017 ISHA ARAGON MD Ot L97.512 NON-PRS CHRONIC ULCER OTH PRT RIGHT FOOT 08/27/2017 ISHA ARAGON MD Ot E11.42 TYPE 2 DIABETES MELLITUS WITH DIABETIC P 08/27/2017 ISHA ARAGON MD Ot E11.621 TYPE 2 DIABETES MELLITUS WITH FOOT ULCER 08/27/2017 ISHA ARAGON MD Ot L97.512 NON-PRS CHRONIC ULCER OTH PRT RIGHT FOOT 08/27/2017 ISHA ARAGON MD Ot E11.42 TYPE 2 DIABETES MELLITUS WITH DIABETIC P 08/27/2017 ISHA ARAGON MD Ot E11.621 TYPE 2 DIABETES MELLITUS WITH FOOT ULCER 08/27/2017 ISHA ARAGON MD Ot L97.512 NON-PRS CHRONIC ULCER OTH PRT RIGHT FOOT 08/27/2017 ISHA ARAGON MD Ot E11.42 TYPE 2 DIABETES MELLITUS WITH DIABETIC P 08/27/2017 ISHA ARAGON MD Ot E11.621 TYPE 2 DIABETES MELLITUS WITH FOOT ULCER 08/27/2017 ISHA ARAGON MD Ot L97.512 NON-PRS CHRONIC ULCER OTH PRT RIGHT FOOT 08/27/2017 ISHA ARAGON MD Ot E11.42 TYPE 2 DIABETES MELLITUS WITH DIABETIC P 08/27/2017 ISHA ARAGON MD Ot E11.621 TYPE 2 DIABETES MELLITUS WITH FOOT ULCER 08/27/2017 ISHA ARAGON MD Ot L97.512 NON-PRS CHRONIC ULCER OTH PRT RIGHT FOOT 08/27/2017 ISHA ARAGON MD Ot 250.80 DIAB W OTH SPEC MANIFEST, TYPE II OR UNS 08/27/2017 ISHA ARAGON MD Ot 707.15 ULCER OF OTHER PART OF FOOT 08/27/2017 ISHA ARGAON MD, Ot E11.42 TYPE 2 DIABETES MELLITUS WITH DIABETIC P 08/27/2017 ISHA ARAGON MD, Ot E11.621 TYPE 2 DIABETES MELLITUS WITH FOOT ULCER 08/27/2017 ISHA ARAGON MD, Ot F17.210 NICOTINE DEPENDENCE, CIGARETTES, UNCOMPL 08/27/2017 ISHA ARAGON MD, Ot 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 08/27/2017 ISHA ARAGON MD, Ot L03.115 CELLULITIS OF RIGHT LOWER LIMB 08/27/2017 ISHA ARAGON MD, Ot L97.512 NON-PRS CHRONIC ULCER OTH PRT RIGHT FOOT 08/27/2017 ISHA ARAGON MD, Ot E11.42 TYPE 2 DIABETES MELLITUS WITH DIABETIC P 08/27/2017 ISHA ARAGON MD, Ot E11.621 TYPE 2 DIABETES MELLITUS WITH FOOT ULCER 08/27/2017 ISHA ARAGON MD, Ot 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 08/27/2017 ISHA ARAGON MD, Ot L03.115 CELLULITIS OF RIGHT LOWER LIMB 08/27/2017 ISHA ARAGON MD, Ot L97.512 NON-PRS CHRONIC ULCER OTH PRT RIGHT FOOT 08/27/2017 ISHA ARAGON MD, Ot T65.222D TOXIC EFFECT OF TOBACCO CIGARETTES, SELF 08/27/2017 ISHA ARAGON MD, Ot E11.42 TYPE 2 DIABETES MELLITUS WITH DIABETIC P 08/27/2017 ISHA ARAGON MD, Ot E11.621 TYPE 2 DIABETES MELLITUS WITH FOOT ULCER 08/27/2017 ISHA ARAGON MD, Ot 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 08/27/2017 ISHA ARAGON MD, Ot L03.115 CELLULITIS OF RIGHT LOWER LIMB 08/27/2017 ISHA ARAGON MD, Ot L97.512 NON-PRS CHRONIC ULCER OTH PRT RIGHT FOOT 08/27/2017 ISHA ARAGON MD, Ot M19.071 PRIMARY OSTEOARTHRITIS, RIGHT ANKLE AND 08/27/2017 ISHA ARAGON MD, Ot T65.222D TOXIC EFFECT OF TOBACCO CIGARETTES, SELF 08/27/2017 ISHA ARAGON MD, Ot E11.42 TYPE 2 DIABETES MELLITUS WITH DIABETIC P 08/27/2017 ISHA ARAGON MD, Ot E11.621 TYPE 2 DIABETES MELLITUS WITH FOOT ULCER 08/27/2017 ISHA ARAGON MD, Ot 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 08/27/2017 ISHA ARAGON MD, Ot L97.512 NON-PRS CHRONIC ULCER OTH PRT RIGHT FOOT 08/27/2017 ISHA ARAGON MD, Ot T65.222D TOXIC EFFECT OF TOBACCO CIGARETTES, SELF 08/27/2017 ISHA ARAGON MD, Ot E11.42 TYPE 2 DIABETES MELLITUS WITH DIABETIC P 08/27/2017 ISHA ARAGON MD, Ot E11.621 TYPE 2 DIABETES MELLITUS WITH FOOT ULCER 08/27/2017 ISHA ARAGON MD, Ot 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 08/27/2017 ISHA ARAGON MD, Ot L97.512 NON-PRS CHRONIC ULCER OTH PRT RIGHT FOOT 08/27/2017 ISHA ARAGON MD, Ot T65.222D TOXIC EFFECT OF TOBACCO CIGARETTES, SELF 08/27/2017 ISHA ARAGON MD, Ot E11.42 TYPE 2 DIABETES MELLITUS WITH DIABETIC P 08/27/2017 ISHA ARAGON MD, Ot E11.621 TYPE 2 DIABETES MELLITUS WITH FOOT ULCER 08/27/2017 ISHA ARAGON MD, Ot 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 08/27/2017 ISHA ARAGON MD, Ot L97.511 NON-PRS CHRONIC ULCER OTH PRT R FOOT CHUNG 08/27/2017 ISHA ARAGON MD, Ot L97.512 NON-PRS CHRONIC ULCER OTH PRT RIGHT FOOT 08/27/2017 ISHA ARAGON MD, Ot T65.222D TOXIC EFFECT OF TOBACCO CIGARETTES, SELF 08/27/2017 ISHA ARAGON MD, Ot E11.42 TYPE 2 DIABETES MELLITUS WITH DIABETIC P 08/27/2017 ISHA ARAGON MD, Ot E11.621 TYPE 2 DIABETES MELLITUS WITH FOOT ULCER 08/27/2017 ISHA ARAGON MD, Ot 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 08/27/2017 ISHA ARAGON MD, Ot L97.511 NON-PRS CHRONIC ULCER OTH PRT R FOOT CHUNG 08/27/2017 ISHA ARAGON MD, Ot L97.512 NON-PRS CHRONIC ULCER OTH PRT RIGHT FOOT 08/27/2017 ISHA ARAGON MD, Ot T65.222D TOXIC EFFECT OF TOBACCO CIGARETTES, SELF 08/27/2017 ISHA ARAGON MD Ot E11.42 TYPE 2 DIABETES MELLITUS WITH DIABETIC P 08/27/2017 ISHA ARAGON MD, Ot E11.621 TYPE 2 DIABETES MELLITUS WITH FOOT ULCER 08/27/2017 ISHA ARAGON MD, Ot 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 08/27/2017 ISHA ARAGON MD, Ot L97.512 NON-PRS CHRONIC ULCER OTH PRT RIGHT FOOT 08/27/2017 ISHA ARAGON MD, Ot T65.222D TOXIC EFFECT OF TOBACCO CIGARETTES, SELF 08/27/2017 ISHA ARAGON MD, Ot E11.43 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 08/27/2017 ISHA ARAGON MD, Ot E11.621 TYPE 2 DIABETES MELLITUS WITH FOOT ULCER 08/27/2017 ISHA ARAGON MD, Ot L97.512 NON-PRS CHRONIC ULCER OTH PRT RIGHT FOOT 08/27/2017 ISHA ARAGON MD, Ot E11.42 TYPE 2 DIABETES MELLITUS WITH DIABETIC P 08/27/2017 ISHA ARAGON MD, Ot E11.621 TYPE 2 DIABETES MELLITUS WITH FOOT ULCER 08/27/2017 ISHA ARAGON MD Ot L97.512 NON-PRS CHRONIC ULCER OTH PRT RIGHT FOOT 08/27/2017 ISHA ARAGON MD Ot E11.42 TYPE 2 DIABETES MELLITUS WITH DIABETIC P 08/27/2017 ISHA ARAGON MD, Ot E11.621 TYPE 2 DIABETES MELLITUS WITH FOOT ULCER 08/27/2017 ISHA ARAGON MD Ot L97.512 NON-PRS CHRONIC ULCER OTH PRT RIGHT FOOT 08/27/2017 ISHA ARAGON MD Ot E11.42 TYPE 2 DIABETES MELLITUS WITH DIABETIC P 08/27/2017 ISHA ARAGON MD Ot E11.621 TYPE 2 DIABETES MELLITUS WITH FOOT ULCER 08/27/2017 ISHA ARAGON MD Ot L97.512 NON-PRS CHRONIC ULCER OTH PRT RIGHT FOOT 08/27/2017 ISHA ARAGON MD Ot E11.42 TYPE 2 DIABETES MELLITUS WITH DIABETIC P 08/27/2017 ISHA ARAGON MD Ot E11.621 TYPE 2 DIABETES MELLITUS WITH FOOT ULCER 08/27/2017 ISHA ARAGON MD Ot L97.512 NON-PRS CHRONIC ULCER OTH PRT RIGHT FOOT 08/27/2017 ISHA ARAGON MD Ot E11.42 TYPE 2 DIABETES MELLITUS WITH DIABETIC P 08/27/2017 ISHA ARAGON MD, Ot E11.621 TYPE 2 DIABETES MELLITUS WITH FOOT ULCER 08/27/2017 ISHA ARAGON MD, Ot L97.512 NON-PRS CHRONIC ULCER OTH PRT RIGHT FOOT 08/27/2017 ISHA ARAGON MD, Ot E11.42 TYPE 2 DIABETES MELLITUS WITH DIABETIC P 08/27/2017 ISHA ARAGON MD, Ot E11.621 TYPE 2 DIABETES MELLITUS WITH FOOT ULCER 08/27/2017 ISHA ARAGON MD, Ot L97.512 NON-PRS CHRONIC ULCER OTH PRT RIGHT FOOT 08/30/2017 ISHA ARAGON MD, Ot E11.42 TYPE 2 DIABETES MELLITUS WITH DIABETIC P 08/30/2017 ISHA ARAGON MD, Ot E11.621 TYPE 2 DIABETES MELLITUS WITH FOOT ULCER 08/30/2017 ISHA ARAGON MD, Ot L97.512 NON-PRS CHRONIC ULCER OTH PRT RIGHT FOOT 08/30/2017 ISHA ARAGON MD, Ot M77.31 CALCANEAL SPUR, RIGHT FOOT 08/30/2017 ISHA ARAGON MD, Ot 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) 08/31/2017 ISHA ARAGON MD, Ot E11.42 TYPE 2 DIABETES MELLITUS WITH DIABETIC P 08/31/2017 ISHA ARAGON MD, Ot E11.621 TYPE 2 DIABETES MELLITUS WITH FOOT ULCER 08/31/2017 ISHA ARAGON MD, Ot L97.512 NON-PRS CHRONIC ULCER OTH PRT RIGHT FOOT 09/01/2017 ISHA ARAGON MD Ot 250.80 DIAB W OTH SPEC MANIFEST, TYPE II OR UNS 09/01/2017 ISHA ARAGON MD Ot 707.15 ULCER OF OTHER PART OF FOOT 09/01/2017 ISHA ARAGON MD, Ot E11.42 TYPE 2 DIABETES MELLITUS WITH DIABETIC P 09/01/2017 ISHA ARAGON MD, Ot E11.621 TYPE 2 DIABETES MELLITUS WITH FOOT ULCER 09/01/2017 ISHA ARAGON MD, Ot F17.210 NICOTINE DEPENDENCE, CIGARETTES, UNCOMPL 09/01/2017 ISHA ARAGON MD, Ot 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 09/01/2017 ISHA ARAGON MD Ot L03.115 CELLULITIS OF RIGHT LOWER LIMB 09/01/2017 ISHA ARAGON MD, Ot L97.512 NON-PRS CHRONIC ULCER OTH PRT RIGHT FOOT 09/01/2017 ISHA ARAGON MD, Ot E11.42 TYPE 2 DIABETES MELLITUS WITH DIABETIC P 09/01/2017 ISHA ARAGON MD, Ot E11.621 TYPE 2 DIABETES MELLITUS WITH FOOT ULCER 09/01/2017 ISHA ARAGON MD, Ot 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 09/01/2017 ISHA ARAGON MD Ot L03.115 CELLULITIS OF RIGHT LOWER LIMB 09/01/2017 ISHA ARAGON MD, Ot L97.512 NON-PRS CHRONIC ULCER OTH PRT RIGHT FOOT 09/01/2017 ISHA ARAGON MD, Ot T65.222D TOXIC EFFECT OF TOBACCO CIGARETTES, SELF 09/01/2017 ISHA ARAGON MD, Ot E11.42 TYPE 2 DIABETES MELLITUS WITH DIABETIC P 09/01/2017 ISHA ARAGON MD, Ot E11.621 TYPE 2 DIABETES MELLITUS WITH FOOT ULCER 09/01/2017 ISHA ARAGON MD, Ot 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 09/01/2017 ISHA ARAGON MD, Ot L03.115 CELLULITIS OF RIGHT LOWER LIMB 09/01/2017 ISHA ARAGON MD, Ot L97.512 NON-PRS CHRONIC ULCER OTH PRT RIGHT FOOT 09/01/2017 ISHA ARAGON MD, Ot M19.071 PRIMARY OSTEOARTHRITIS, RIGHT ANKLE AND 09/01/2017 ISHA ARAGON MD, Ot T65.222D TOXIC EFFECT OF TOBACCO CIGARETTES, SELF 09/01/2017 ISHA ARAGON MD, Ot E11.42 TYPE 2 DIABETES MELLITUS WITH DIABETIC P 09/01/2017 ISHA ARAGON MD, Ot E11.621 TYPE 2 DIABETES MELLITUS WITH FOOT ULCER 09/01/2017 ISHA ARAGON MD, Ot 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 09/01/2017 ISHA ARAGON MD, Ot L97.512 NON-PRS CHRONIC ULCER OTH PRT RIGHT FOOT 09/01/2017 ISHA ARAGON MD, Ot T65.222D TOXIC EFFECT OF TOBACCO CIGARETTES, SELF 09/01/2017 ISHA ARAGON MD, Ot E11.42 TYPE 2 DIABETES MELLITUS WITH DIABETIC P 09/01/2017 ISHA ARAGON MD, Ot E11.621 TYPE 2 DIABETES MELLITUS WITH FOOT ULCER 09/01/2017 MAHESH MD, ISHA G Ot 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 09/01/2017 ISHA ARAGON MD, Ot L97.512 NON-PRS CHRONIC ULCER OTH PRT RIGHT FOOT 09/01/2017 ISHA ARAGON MD, Ot T65.222D TOXIC EFFECT OF TOBACCO CIGARETTES, SELF 09/01/2017 ISHA RAAGON MD, Ot E11.42 TYPE 2 DIABETES MELLITUS WITH DIABETIC P 09/01/2017 ISHA ARAGON MD, Ot E11.621 TYPE 2 DIABETES MELLITUS WITH FOOT ULCER 09/01/2017 ISHA ARAGON MD, Ot 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 09/01/2017 ISHA ARAGON MD, Ot L97.511 NON-PRS CHRONIC ULCER OTH PRT R FOOT CHUNG 09/01/2017 ISHA ARAGON MD, Ot L97.512 NON-PRS CHRONIC ULCER OTH PRT RIGHT FOOT 09/01/2017 ISHA ARAGON MD, Ot T65.222D TOXIC EFFECT OF TOBACCO CIGARETTES, SELF 09/01/2017 ISHA ARAGON MD, Ot E11.42 TYPE 2 DIABETES MELLITUS WITH DIABETIC P 09/01/2017 ISHA ARAGON MD, Ot E11.621 TYPE 2 DIABETES MELLITUS WITH FOOT ULCER 09/01/2017 ISHA ARAGON MD, Ot 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 09/01/2017 ISHA ARAGON MD, Ot L97.511 NON-PRS CHRONIC ULCER OTH PRT R FOOT CHUNG 09/01/2017 ISHA ARAGON MD, Ot L97.512 NON-PRS CHRONIC ULCER OTH PRT RIGHT FOOT 09/01/2017 ISHA ARAGON MD, Ot T65.222D TOXIC EFFECT OF TOBACCO CIGARETTES, SELF 09/01/2017 ISHA ARAGON MD, Ot E11.42 TYPE 2 DIABETES MELLITUS WITH DIABETIC P 09/01/2017 ISHA ARAGON MD, Ot E11.621 TYPE 2 DIABETES MELLITUS WITH FOOT ULCER 09/01/2017 ISHA ARAGON MD, Ot 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 09/01/2017 ISHA ARAGON MD, Ot L97.512 NON-PRS CHRONIC ULCER OTH PRT RIGHT FOOT 09/01/2017 ISHA ARAGON MD, Ot T65.222D TOXIC EFFECT OF TOBACCO CIGARETTES, SELF 09/01/2017 ISHA ARAGON MD Ot E11.43 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 09/01/2017 ISHA ARAGON MD Ot E11.621 TYPE 2 DIABETES MELLITUS WITH FOOT ULCER 09/01/2017 ISHA ARAGON MD Ot L97.512 NON-PRS CHRONIC ULCER OTH PRT RIGHT FOOT 09/01/2017 ISHA ARAGON MD Ot E11.42 TYPE 2 DIABETES MELLITUS WITH DIABETIC P 09/01/2017 ISHA ARAGON MD Ot E11.621 TYPE 2 DIABETES MELLITUS WITH FOOT ULCER 09/01/2017 ISHA ARAGON MD Ot L97.512 NON-PRS CHRONIC ULCER OTH PRT RIGHT FOOT 09/01/2017 ISHA ARAGON MD Ot E11.42 TYPE 2 DIABETES MELLITUS WITH DIABETIC P 09/01/2017 ISHA ARAGON MD, Ot E11.621 TYPE 2 DIABETES MELLITUS WITH FOOT ULCER 09/01/2017 ISHA ARAGON MD Ot L97.512 NON-PRS CHRONIC ULCER OTH PRT RIGHT FOOT 09/01/2017 ISHA ARAGON MD Ot E11.42 TYPE 2 DIABETES MELLITUS WITH DIABETIC P 09/01/2017 ISHA ARAGON MD Ot E11.621 TYPE 2 DIABETES MELLITUS WITH FOOT ULCER 09/01/2017 ISHA ARAGON MD Ot L97.512 NON-PRS CHRONIC ULCER OTH PRT RIGHT FOOT 09/01/2017 ISHA ARAGON MD Ot E11.42 TYPE 2 DIABETES MELLITUS WITH DIABETIC P 09/01/2017 ISHA ARAGON MD Ot E11.621 TYPE 2 DIABETES MELLITUS WITH FOOT ULCER 09/01/2017 ISHA ARAGON MD Ot L97.512 NON-PRS CHRONIC ULCER OTH PRT RIGHT FOOT 09/01/2017 ISHA ARAGON MD Ot E11.42 TYPE 2 DIABETES MELLITUS WITH DIABETIC P 09/01/2017 ISHA ARAGON MD Ot E11.621 TYPE 2 DIABETES MELLITUS WITH FOOT ULCER 09/01/2017 ISHA ARAGON MD Ot L97.512 NON-PRS CHRONIC ULCER OTH PRT RIGHT FOOT 09/01/2017 ISHA ARAGON MD Ot E11.42 TYPE 2 DIABETES MELLITUS WITH DIABETIC P 09/01/2017 ISHA ARAGON MD Ot E11.621 TYPE 2 DIABETES MELLITUS WITH FOOT ULCER 09/01/2017 ISHA ARAGON MD Ot L97.512 NON-PRS CHRONIC ULCER OTH PRT RIGHT FOOT 09/01/2017 ISHA ARAGON MD Ot E11.42 TYPE 2 DIABETES MELLITUS WITH DIABETIC P 09/01/2017 ISHA ARAGON MD, Ot E11.621 TYPE 2 DIABETES MELLITUS WITH FOOT ULCER 09/01/2017 ISHA ARAGON MD, Ot L97.512 NON-PRS CHRONIC ULCER OTH PRT RIGHT FOOT 09/01/2017 ISHA ARAGON MD, Ot E11.42 TYPE 2 DIABETES MELLITUS WITH DIABETIC P 09/01/2017 ISHA ARAGON MD, Ot E11.621 TYPE 2 DIABETES MELLITUS WITH FOOT ULCER 09/01/2017 ISHA ARAGON MD, Ot L97.512 NON-PRS CHRONIC ULCER OTH PRT RIGHT FOOT 09/01/2017 ISHA ARAGON MD, Ot M77.31 CALCANEAL SPUR, RIGHT FOOT 09/01/2017 ISHA ARAGON MD, Ot 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) 09/02/2017 ISHA ARAGON MD, Ot E11.42 TYPE 2 DIABETES MELLITUS WITH DIABETIC P 09/02/2017 ISHA ARAGON MD, Ot E11.621 TYPE 2 DIABETES MELLITUS WITH FOOT ULCER 09/02/2017 ISHA ARAGON MD, Ot L97.512 NON-PRS CHRONIC ULCER OTH PRT RIGHT FOOT 09/02/2017 ISHA ARAGON MD, Ot E11.42 TYPE 2 DIABETES MELLITUS WITH DIABETIC P 09/02/2017 ISHA ARAGON MD, Ot E11.621 TYPE 2 DIABETES MELLITUS WITH FOOT ULCER 09/02/2017 ISHA ARAGON MD, Ot L97.512 NON-PRS CHRONIC ULCER OTH PRT RIGHT FOOT 09/02/2017 ISHA ARAGON MD, Ot M77.31 CALCANEAL SPUR, RIGHT FOOT 09/02/2017 ISHA ARAGON MD, Ot 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) 09/02/2017 ISHA ARAGON MD, Ot E11.42 TYPE 2 DIABETES MELLITUS WITH DIABETIC P 09/02/2017 ISHA ARAGON MD, Ot E11.621 TYPE 2 DIABETES MELLITUS WITH FOOT ULCER 09/02/2017 ISHA ARAGON MD, Ot L97.512 NON-PRS CHRONIC ULCER OTH PRT RIGHT FOOT 09/03/2017 ISHA ARAGON MD, Ot E11.42 TYPE 2 DIABETES MELLITUS WITH DIABETIC P 09/03/2017 ISHA ARAGON MD, Ot E11.621 TYPE 2 DIABETES MELLITUS WITH FOOT ULCER 09/03/2017 MAHESH MD, ISHA G Ot L97.512 NON-PRS CHRONIC ULCER OTH PRT RIGHT FOOT 09/06/2017 ISHA ARAGON MD Ot E11.42 TYPE 2 DIABETES MELLITUS WITH DIABETIC P 09/06/2017 ISHA ARAGON MD Ot E11.621 TYPE 2 DIABETES MELLITUS WITH FOOT ULCER 09/06/2017 ISHA ARAGON MD Ot L97.512 NON-PRS CHRONIC ULCER OTH PRT RIGHT FOOT 09/09/2017 LUIS FELIPE FERRARI 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 Ot E11.42 TYPE 2 DIABETES MELLITUS WITH DIABETIC P 09/09/2017 LUIS FELIPE FERRARI 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 Ot E11.621 TYPE 2 DIABETES MELLITUS WITH FOOT ULCER 09/09/2017 LUIS FELIPE FERRARI 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 Ot L97.512 NON-PRS CHRONIC ULCER OTH PRT RIGHT FOOT 09/09/2017 ISHA ARAGON MD Ot E11.42 TYPE 2 DIABETES MELLITUS WITH DIABETIC P 09/09/2017 ISHA ARAGON MD Ot E11.621 TYPE 2 DIABETES MELLITUS WITH FOOT ULCER 09/09/2017 ISHA ARAGON MD Ot L97.512 NON-PRS CHRONIC ULCER OTH PRT RIGHT FOOT 09/10/2017 LUIS FELIPE FERRARI 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 Ot E11.42 TYPE 2 DIABETES MELLITUS WITH DIABETIC P 09/10/2017 LUIS FELIPE FERRARI 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 Ot E11.621 TYPE 2 DIABETES MELLITUS WITH FOOT ULCER 09/10/2017 LUIS FELIPE FERRARI 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 Ot L97.512 NON-PRS CHRONIC ULCER OTH PRT RIGHT FOOT 09/17/2017 ISHA ARAGON MD Ot E11.42 TYPE 2 DIABETES MELLITUS WITH DIABETIC P 09/17/2017 ISHA ARAGON MD Ot E11.621 TYPE 2 DIABETES MELLITUS WITH FOOT ULCER 09/17/2017 ISHA ARAGON MD Ot L97.512 NON-PRS CHRONIC ULCER OTH PRT RIGHT FOOT 09/17/2017 ISHA ARAGON MD Ot E11.42 TYPE 2 DIABETES MELLITUS WITH DIABETIC P 09/17/2017 ISHA ARAGON MD Ot E11.621 TYPE 2 DIABETES MELLITUS WITH FOOT ULCER 09/17/2017 ISHA ARAGON MD Ot L97.512 NON-PRS CHRONIC ULCER OTH PRT RIGHT FOOT 09/21/2017 ISHA ARAGON MD Ot E11.42 TYPE 2 DIABETES MELLITUS WITH DIABETIC P 09/21/2017 ISHA ARAGON MD Ot E11.621 TYPE 2 DIABETES MELLITUS WITH FOOT ULCER 09/21/2017 ISHA ARAGON MD, Ot L97.512 NON-PRS CHRONIC ULCER OTH PRT RIGHT FOOT 09/21/2017 ISHA ARAGON MD, Ot M77.31 CALCANEAL SPUR, RIGHT FOOT 09/21/2017 ISHA ARAGON MD, Ot 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) 09/21/2017 ISHA ARAGON MD Ot E11.42 TYPE 2 DIABETES MELLITUS WITH DIABETIC P 09/21/2017 ISHA ARAGON MD, Ot E11.621 TYPE 2 DIABETES MELLITUS WITH FOOT ULCER 09/21/2017 ISHA ARAGON MD, Ot L97.512 NON-PRS CHRONIC ULCER OTH PRT RIGHT FOOT 09/22/2017 ISHA ARAGON MD, Ot E11.42 TYPE 2 DIABETES MELLITUS WITH DIABETIC P 09/22/2017 ISHA ARAGON MD, Ot E11.621 TYPE 2 DIABETES MELLITUS WITH FOOT ULCER 09/22/2017 ISHA ARAGON MD, Ot L97.512 NON-PRS CHRONIC ULCER OTH PRT RIGHT FOOT 09/23/2017 ISHA ARAGON MD, Ot E11.42 TYPE 2 DIABETES MELLITUS WITH DIABETIC P 09/23/2017 ISHA ARAGON MD, Ot E11.621 TYPE 2 DIABETES MELLITUS WITH FOOT ULCER 09/23/2017 ISHA ARAGON MD, Ot L97.512 NON-PRS CHRONIC ULCER OTH PRT RIGHT FOOT 09/23/2017 ISHA ARAGON MD, Ot T65.222D TOXIC EFFECT OF TOBACCO CIGARETTES, SELF 09/28/2017 LUIS FELIPE FERRARI 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 Ot E11.42 TYPE 2 DIABETES MELLITUS WITH DIABETIC P 09/28/2017 LUIS FELIPE FERRARI APRN Ot E11.621 TYPE 2 DIABETES MELLITUS WITH FOOT ULCER 09/28/2017 LUIS FELIPE FERRARI APRN Ot L97.512 NON-PRS CHRONIC ULCER OTH PRT RIGHT FOOT 09/30/2017 ISHA ARAGON MD Ot E11.42 TYPE 2 DIABETES MELLITUS WITH DIABETIC P 09/30/2017 ISHA ARAGON MD, Ot E11.621 TYPE 2 DIABETES MELLITUS WITH FOOT ULCER 09/30/2017 ISHA ARAGON MD, Ot L97.512 NON-PRS CHRONIC ULCER OTH PRT RIGHT FOOT 09/30/2017 ISHA ARAGON MD, Ot T65.222D TOXIC EFFECT OF TOBACCO CIGARETTES, SELF 10/01/2017 ISHA ARAGON MD, Ot E11.42 TYPE 2 DIABETES MELLITUS WITH DIABETIC P 10/01/2017 ISHA ARAGON MD, Ot E11.621 TYPE 2 DIABETES MELLITUS WITH FOOT ULCER 10/01/2017 ISHA ARAGON MD, Ot L97.512 NON-PRS CHRONIC ULCER OTH PRT RIGHT FOOT 10/01/2017 ISHA ARAGON MD, Ot M77.31 CALCANEAL SPUR, RIGHT FOOT 10/01/2017 ISHA ARAGON MD, Ot 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) 10/01/2017 ISHA ARAGON MD, Ot E11.42 TYPE 2 DIABETES MELLITUS WITH DIABETIC P 10/01/2017 ISHA ARAGON MD, Ot E11.621 TYPE 2 DIABETES MELLITUS WITH FOOT ULCER 10/01/2017 ISHA ARAGON MD, Ot L97.512 NON-PRS CHRONIC ULCER OTH PRT RIGHT FOOT 10/04/2017 DANYEL CALDWELL W 250.80 DIABETES MELLITUS WITH OTHER SPECIFIED MANIFESTATIONS, TYPE II OR UNSPECIFIED TYPE, NOT STATED UNCONTROLLED 10/04/2017 DANYEL CALDWELL W 272.4 OTHER AND UNSPECIFIED HYPERLIPIDEMIA 10/04/2017 DANYEL CALDWELL W E11.65 TYPE 2 DIABETES MELLITUS WITH HYPERGLYCEMIA 10/04/2017 CALDWELLHAZEL SAABHEL W E78.5 HYPERLIPIDEMIA, UNSPECIFIED 10/04/2017 CALDWELL, DANYEL W 250.80 DIABETES MELLITUS WITH OTHER SPECIFIED MANIFESTATIONS, TYPE II OR UNSPECIFIED TYPE, NOT STATED UNCONTROLLED 10/04/2017 HAZEL CALDWELLHEL W 272.4 OTHER AND UNSPECIFIED HYPERLIPIDEMIA 10/04/2017 HAZEL CALDWELLHEL W E11.65 TYPE 2 DIABETES MELLITUS WITH HYPERGLYCEMIA 10/04/2017 HAZEL CALDWELLHEL W E78.5 HYPERLIPIDEMIA, UNSPECIFIED 10/04/2017 CALDWELLHAZEL SAABHEL W 250.80 DIABETES MELLITUS WITH OTHER SPECIFIED MANIFESTATIONS, TYPE II OR UNSPECIFIED TYPE, NOT STATED UNCONTROLLED 10/04/2017 HAZEL CALDWELLHEL W 272.4 OTHER AND UNSPECIFIED HYPERLIPIDEMIA 10/04/2017 HAZEL CALDWELLHEL W E11.65 TYPE 2 DIABETES MELLITUS WITH HYPERGLYCEMIA 10/04/2017 CALDWELLHAZEL SAABHEL W E78.5 HYPERLIPIDEMIA, UNSPECIFIED 10/05/2017 ISHA ARAGON MD, Ot E11.42 TYPE 2 DIABETES MELLITUS WITH DIABETIC P 10/05/2017 ISHA ARAGON MD, Ot E11.621 TYPE 2 DIABETES MELLITUS WITH FOOT ULCER 10/05/2017 ISHA ARAGON MD, Ot L97.512 NON-PRS CHRONIC ULCER OTH PRT RIGHT FOOT 10/05/2017 ISHA ARAGON MD Ot E11.42 TYPE 2 DIABETES MELLITUS WITH DIABETIC P 10/05/2017 ISHA ARAGON MD, Ot E11.621 TYPE 2 DIABETES MELLITUS WITH FOOT ULCER 10/05/2017 ISHA ARAGON MD Ot L97.512 NON-PRS CHRONIC ULCER OTH PRT RIGHT FOOT 10/06/2017 ISHA ARAGON MD, Ot E11.42 TYPE 2 DIABETES MELLITUS WITH DIABETIC P 10/06/2017 ISHA ARAGON MD, Ot E11.621 TYPE 2 DIABETES MELLITUS WITH FOOT ULCER 10/06/2017 ISHA ARAGON MD Ot L97.512 NON-PRS CHRONIC ULCER OTH PRT RIGHT FOOT 10/06/2017 ISHA ARAGON MD, Ot T65.222D TOXIC EFFECT OF TOBACCO CIGARETTES, SELF 10/08/2017 LUIS FELIPE FERRARI 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 Ot E11.42 TYPE 2 DIABETES MELLITUS WITH DIABETIC P 10/08/2017 LUIS FELIPE FERRARI 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 Ot E11.621 TYPE 2 DIABETES MELLITUS WITH FOOT ULCER 10/08/2017 LUIS FELIPE FERRARI APRN Ot L97.512 NON-PRS CHRONIC ULCER OTH PRT RIGHT FOOT 10/13/2017 ISHA ARAGON MD Ot E11.42 TYPE 2 DIABETES MELLITUS WITH DIABETIC P 10/13/2017 ISHA ARAGON MD Ot E11.621 TYPE 2 DIABETES MELLITUS WITH FOOT ULCER 10/13/2017 ISHA ARAGON MD Ot L97.512 NON-PRS CHRONIC ULCER OTH PRT RIGHT FOOT 10/13/2017 ISHA ARAGON MD Ot E11.42 TYPE 2 DIABETES MELLITUS WITH DIABETIC P 10/13/2017 ISHA ARAGON MD Ot E11.621 TYPE 2 DIABETES MELLITUS WITH FOOT ULCER 10/13/2017 ISHA ARAGON MD Ot L97.512 NON-PRS CHRONIC ULCER OTH PRT RIGHT FOOT 10/13/2017 ISHA ARAGON MD Ot T65.222D TOXIC EFFECT OF TOBACCO CIGARETTES, SELF 10/14/2017 ISHA ARAGON MD Ot E11.42 TYPE 2 DIABETES MELLITUS WITH DIABETIC P 10/14/2017 ISHA ARAGON MD Ot E11.621 TYPE 2 DIABETES MELLITUS WITH FOOT ULCER 10/14/2017 ISHA ARAGON MD Ot L97.512 NON-PRS CHRONIC ULCER OTH PRT RIGHT FOOT 10/14/2017 ISHA ARAGON MD Ot T65.222D TOXIC EFFECT OF TOBACCO CIGARETTES, SELF 10/19/2017 ISHA ARAGON MD Ot E11.42 TYPE 2 DIABETES MELLITUS WITH DIABETIC P 10/19/2017 ISHA ARAGON MD, Ot E11.621 TYPE 2 DIABETES MELLITUS WITH FOOT ULCER 10/19/2017 ISHA ARAGON MD, Ot L97.512 NON-PRS CHRONIC ULCER OTH PRT RIGHT FOOT 10/19/2017 ISHA ARAGON MD, Ot T65.222D TOXIC EFFECT OF TOBACCO CIGARETTES, SELF 10/19/2017 ISHA ARAGON MD, Ot E11.621 TYPE 2 DIABETES MELLITUS WITH FOOT ULCER 10/19/2017 ISHA ARAGON MD, Ot L97.512 NON-PRS CHRONIC ULCER OTH PRT RIGHT FOOT 10/20/2017 ISHA ARAGON MD, Ot E11.42 TYPE 2 DIABETES MELLITUS WITH DIABETIC P 10/20/2017 ISHA ARAGON MD, Ot E11.621 TYPE 2 DIABETES MELLITUS WITH FOOT ULCER 10/20/2017 ISHA ARAGON MD, Ot L97.512 NON-PRS CHRONIC ULCER OTH PRT RIGHT FOOT 10/21/2017 ISHA ARAGON MD, Ot E11.42 TYPE 2 DIABETES MELLITUS WITH DIABETIC P 10/21/2017 ISHA ARAGON MD, Ot E11.621 TYPE 2 DIABETES MELLITUS WITH FOOT ULCER 10/21/2017 ISHA ARAGON MD, Ot L97.512 NON-PRS CHRONIC ULCER OTH PRT RIGHT FOOT 10/21/2017 ISHA ARAGON MD, Ot T65.222D TOXIC EFFECT OF TOBACCO CIGARETTES, SELF 10/22/2017 ISHA ARAGON MD Ot E11.42 TYPE 2 DIABETES MELLITUS WITH DIABETIC P 10/22/2017 ISHA ARAGON MD Ot E11.621 TYPE 2 DIABETES MELLITUS WITH FOOT ULCER 10/22/2017 ISHA ARAGON MD Ot L97.512 NON-PRS CHRONIC ULCER OTH PRT RIGHT FOOT 10/25/2017 ISAH ARAGON MD, Ot E11.42 TYPE 2 DIABETES MELLITUS WITH DIABETIC P 10/25/2017 ISHA ARAGON MD, Ot E11.621 TYPE 2 DIABETES MELLITUS WITH FOOT ULCER 10/25/2017 ISHA ARAGON MD Ot 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 10/25/2017 MAHESH MD, ISHA G Ot L97.512 NON-PRS CHRONIC ULCER OTH PRT RIGHT FOOT 10/25/2017 ISHA ARAGON MD Ot T65.222D TOXIC EFFECT OF TOBACCO CIGARETTES, SELF 10/27/2017 ISHA ARAGON MD Ot E11.42 TYPE 2 DIABETES MELLITUS WITH DIABETIC P 10/27/2017 ISHA ARAGON MD, Ot E11.621 TYPE 2 DIABETES MELLITUS WITH FOOT ULCER 10/27/2017 ISHA ARAGON MD, Ot L97.512 NON-PRS CHRONIC ULCER OTH PRT RIGHT FOOT 10/27/2017 ISHA ARAGON MD, Ot T65.222D TOXIC EFFECT OF TOBACCO CIGARETTES, SELF 10/28/2017 ISHA ARAGON MD, Ot E11.42 TYPE 2 DIABETES MELLITUS WITH DIABETIC P 10/28/2017 ISHA ARAGON MD, Ot E11.621 TYPE 2 DIABETES MELLITUS WITH FOOT ULCER 10/28/2017 ISHA ARAGON MD, Ot 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 10/28/2017 ISHA ARAGON MD, Ot L97.512 NON-PRS CHRONIC ULCER OTH PRT RIGHT FOOT 10/28/2017 ISHA ARAGON MD, Ot T65.222D TOXIC EFFECT OF TOBACCO CIGARETTES, SELF 10/29/2017 ISHA ARGAON MD, Ot E11.42 TYPE 2 DIABETES MELLITUS WITH DIABETIC P 10/29/2017 ISHA ARAGON MD, Ot E11.621 TYPE 2 DIABETES MELLITUS WITH FOOT ULCER 10/29/2017 ISHA ARAGON MD, Ot L97.512 NON-PRS CHRONIC ULCER OTH PRT RIGHT FOOT 10/29/2017 ISHA ARAGON MD, Ot T65.222D TOXIC EFFECT OF TOBACCO CIGARETTES, SELF 10/29/2017 ISHA ARAGON MD Ot E11.621 TYPE 2 DIABETES MELLITUS WITH FOOT ULCER 10/29/2017 ISHA ARAGON MD, Ot L97.512 NON-PRS CHRONIC ULCER OTH PRT RIGHT FOOT 10/29/2017 ISHA ARAGON MD, Ot E11.42 TYPE 2 DIABETES MELLITUS WITH DIABETIC P 10/29/2017 ISHA ARAGON MD, Ot E11.621 TYPE 2 DIABETES MELLITUS WITH FOOT ULCER 10/29/2017 ISHA ARAGON MD, Ot L97.512 NON-PRS CHRONIC ULCER OTH PRT RIGHT FOOT 10/29/2017 ISHA ARAGON MD, Ot T65.222D TOXIC EFFECT OF TOBACCO CIGARETTES, SELF 11/02/2017 ISHA ARAGON MD, Ot E11.42 TYPE 2 DIABETES MELLITUS WITH DIABETIC P 11/02/2017 ISHA ARAGON MD, Ot E11.621 TYPE 2 DIABETES MELLITUS WITH FOOT ULCER 11/02/2017 ISHA ARAGON MD, Ot L97.512 NON-PRS CHRONIC ULCER OTH PRT RIGHT FOOT 11/02/2017 ISHA ARAGON MD, Ot T65.222D TOXIC EFFECT OF TOBACCO CIGARETTES, SELF 11/04/2017 ISHA ARAGON MD, Ot E11.42 TYPE 2 DIABETES MELLITUS WITH DIABETIC P 11/04/2017 ISHA ARAGON MD, Ot E11.621 TYPE 2 DIABETES MELLITUS WITH FOOT ULCER 11/04/2017 ISHA ARAGON MD, Ot 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 11/04/2017 ISHA ARAGON MD, Ot L97.512 NON-PRS CHRONIC ULCER OTH PRT RIGHT FOOT 11/04/2017 ISHA ARAGON MD, Ot T65.222D TOXIC EFFECT OF TOBACCO CIGARETTES, SELF 11/05/2017 ISHA ARAGON MD, Ot E11.42 TYPE 2 DIABETES MELLITUS WITH DIABETIC P 11/05/2017 ISHA ARAGON MD, Ot E11.621 TYPE 2 DIABETES MELLITUS WITH FOOT ULCER 11/05/2017 ISHA ARAGON MD, Ot L97.512 NON-PRS CHRONIC ULCER OTH PRT RIGHT FOOT 11/05/2017 ISHA ARAGON MD, Ot T65.222D TOXIC EFFECT OF TOBACCO CIGARETTES, SELF 11/10/2017 ISHA ARAGON MD, Ot E11.42 TYPE 2 DIABETES MELLITUS WITH DIABETIC P 11/10/2017 ISHA ARAGON MD, Ot E11.621 TYPE 2 DIABETES MELLITUS WITH FOOT ULCER 11/10/2017 ISHA ARAGON MD, Ot 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 11/10/2017 IHSA ARAGON MD, Ot L97.512 NON-PRS CHRONIC ULCER OTH PRT RIGHT FOOT 11/10/2017 ISHA ARAGON MD, Ot T65.222D TOXIC EFFECT OF TOBACCO CIGARETTES, SELF 11/12/2017 ISHA ARAGON MD, Ot E11.42 TYPE 2 DIABETES MELLITUS WITH DIABETIC P 11/12/2017 ISHA ARAGON MD, Ot E11.621 TYPE 2 DIABETES MELLITUS WITH FOOT ULCER 11/12/2017 ISHA ARAGON MD, Ot L97.512 NON-PRS CHRONIC ULCER OTH PRT RIGHT FOOT 11/12/2017 ISHA ARAGON MD, Ot T65.222D TOXIC EFFECT OF TOBACCO CIGARETTES, SELF 11/12/2017 ISHA ARAGON MD, Ot E11.42 TYPE 2 DIABETES MELLITUS WITH DIABETIC P 11/12/2017 ISHA ARAGON MD, Ot E11.621 TYPE 2 DIABETES MELLITUS WITH FOOT ULCER 11/12/2017 ISHA ARAGON MD, Ot 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 11/12/2017 ISHA ARAGON MD, Ot L97.512 NON-PRS CHRONIC ULCER OTH PRT RIGHT FOOT 11/12/2017 ISHA ARAGON MD, Ot T65.222D TOXIC EFFECT OF TOBACCO CIGARETTES, SELF 11/15/2017 ISHA ARAGON MD, Ot E11.42 TYPE 2 DIABETES MELLITUS WITH DIABETIC P 11/15/2017 ISHA ARAGON MD, Ot E11.621 TYPE 2 DIABETES MELLITUS WITH FOOT ULCER 11/15/2017 ISHA ARAGON MD, Ot 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 11/15/2017 ISHA ARAGON MD, Ot L97.512 NON-PRS CHRONIC ULCER OTH PRT RIGHT FOOT 11/15/2017 ISHA ARAGON MD, Ot T65.222D TOXIC EFFECT OF TOBACCO CIGARETTES, SELF 11/15/2017 ISHA ARAGON MD, Ot E11.42 TYPE 2 DIABETES MELLITUS WITH DIABETIC P 11/15/2017 ISHA ARAGON MD, Ot E11.621 TYPE 2 DIABETES MELLITUS WITH FOOT ULCER 11/15/2017 ISHA ARAGON MD, Ot 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 11/15/2017 ISHA ARAGON MD, Ot L97.512 NON-PRS CHRONIC ULCER OTH PRT RIGHT FOOT 11/15/2017 ISHA ARAGON MD, Ot T65.222D TOXIC EFFECT OF TOBACCO CIGARETTES, SELF 11/17/2017 ISHA ARAGON MD, Ot E11.42 TYPE 2 DIABETES MELLITUS WITH DIABETIC P 11/17/2017 ISHA ARAGON MD, Ot E11.621 TYPE 2 DIABETES MELLITUS WITH FOOT ULCER 11/17/2017 ISHA ARAGON MD, Ot 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 11/17/2017 ISHA ARAGON MD, Ot L97.512 NON-PRS CHRONIC ULCER OTH PRT RIGHT FOOT 11/17/2017 ISHA ARAGON MD, Ot T65.222D TOXIC EFFECT OF TOBACCO CIGARETTES, SELF 11/18/2017 ISHA ARAGON MD, Ot E11.42 TYPE 2 DIABETES MELLITUS WITH DIABETIC P 11/18/2017 ISHA ARAGON MD, Ot E11.621 TYPE 2 DIABETES MELLITUS WITH FOOT ULCER 11/18/2017 ISHA ARAGON MD Ot 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 11/18/2017 ISHA ARAGON MD, Ot L97.512 NON-PRS CHRONIC ULCER OTH PRT RIGHT FOOT 11/18/2017 ISHA ARAGON MD, Ot T65.222D TOXIC EFFECT OF TOBACCO CIGARETTES, SELF 11/19/2017 ISHA ARAGON MD, Ot E11.42 TYPE 2 DIABETES MELLITUS WITH DIABETIC P 11/19/2017 ISHA ARAGON MD, Ot E11.621 TYPE 2 DIABETES MELLITUS WITH FOOT ULCER 11/19/2017 ISHA ARAGON MD, Ot 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 11/19/2017 ISHA ARAGON MD, Ot L97.512 NON-PRS CHRONIC ULCER OTH PRT RIGHT FOOT 11/19/2017 ISHA ARAGON MD, Ot T65.222D TOXIC EFFECT OF TOBACCO CIGARETTES, SELF 11/19/2017 LUIS FELIPE FERRARI 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 Ot E11.42 TYPE 2 DIABETES MELLITUS WITH DIABETIC P 11/19/2017 LUIS FELIPE FERRARI 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 Ot E11.621 TYPE 2 DIABETES MELLITUS WITH FOOT ULCER 11/19/2017 LUIS FELIPE FERRARI 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 Ot 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 11/19/2017 LUIS FELIPE FERRARI 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 Ot L97.512 NON-PRS CHRONIC ULCER OTH PRT RIGHT FOOT 11/19/2017 LUIS FELIPE FERRARI APRN Ot T65.222D TOXIC EFFECT OF TOBACCO CIGARETTES, SELF 11/24/2017 LUIS FELIPE FERRARI 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 Ot E11.42 TYPE 2 DIABETES MELLITUS WITH DIABETIC P 11/24/2017 LUIS FELIPE FERRARI 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 Ot E11.621 TYPE 2 DIABETES MELLITUS WITH FOOT ULCER 11/24/2017 LUIS FELIPE FERRARI 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 Ot 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 11/24/2017 LUIS FELIPE FERRARI 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 Ot L97.512 NON-PRS CHRONIC ULCER OTH PRT RIGHT FOOT 11/24/2017 LUIS FELIPE FERRARI 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 Ot T65.222D TOXIC EFFECT OF TOBACCO CIGARETTES, SELF 11/26/2017 ISHA ARAGON MD, Ot E11.42 TYPE 2 DIABETES MELLITUS WITH DIABETIC P 11/26/2017 ISHA ARAGON MD, Ot E11.621 TYPE 2 DIABETES MELLITUS WITH FOOT ULCER 11/26/2017 ISHA ARAGON MD, Ot 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 11/26/2017 ISHA ARAGON MD, Ot L97.512 NON-PRS CHRONIC ULCER OTH PRT RIGHT FOOT 11/26/2017 ISHA ARAGON MD, Ot T65.222D TOXIC EFFECT OF TOBACCO CIGARETTES, SELF 11/26/2017 ISHA ARAGON MD, Ot E11.42 TYPE 2 DIABETES MELLITUS WITH DIABETIC P 11/26/2017 ISHA ARAGON MD, Ot E11.621 TYPE 2 DIABETES MELLITUS WITH FOOT ULCER 11/26/2017 ISHA ARAGON MD, Ot 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 11/26/2017 ISHA ARAGON MD, Ot L97.512 NON-PRS CHRONIC ULCER OTH PRT RIGHT FOOT 11/26/2017 ISHA ARAGON MD, Ot T65.222D TOXIC EFFECT OF TOBACCO CIGARETTES, SELF 11/29/2017 ISHA ARAGON MD, Ot E11.42 TYPE 2 DIABETES MELLITUS WITH DIABETIC P 11/29/2017 ISHA ARAGON MD, Ot E11.621 TYPE 2 DIABETES MELLITUS WITH FOOT ULCER 11/29/2017 ISHA ARAGON MD, Ot 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 11/29/2017 ISHA ARAGON MD, Ot L97.512 NON-PRS CHRONIC ULCER OTH PRT RIGHT FOOT 11/29/2017 ISHA ARAGON MD, Ot T65.222D TOXIC EFFECT OF TOBACCO CIGARETTES, SELF 11/30/2017 ISHA ARAGON MD, Ot E11.42 TYPE 2 DIABETES MELLITUS WITH DIABETIC P 11/30/2017 ISHA ARAGON MD, Ot E11.621 TYPE 2 DIABETES MELLITUS WITH FOOT ULCER 11/30/2017 ISHA ARAGON MD, Ot L97.512 NON-PRS CHRONIC ULCER OTH PRT RIGHT FOOT 12/02/2017 ISHA ARAGON MD, Ot E11.42 TYPE 2 DIABETES MELLITUS WITH DIABETIC P 12/02/2017 ISHA ARAGON MD, Ot E11.621 TYPE 2 DIABETES MELLITUS WITH FOOT ULCER 12/02/2017 ISHA ARAGON MD Ot 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 12/02/2017 ISHA ARAGON MD, Ot L97.512 NON-PRS CHRONIC ULCER OTH PRT RIGHT FOOT 12/02/2017 ISHA ARAGON MD, Ot T65.222D TOXIC EFFECT OF TOBACCO CIGARETTES, SELF 12/02/2017 ISHA ARAGON MD Ot E11.42 TYPE 2 DIABETES MELLITUS WITH DIABETIC P 12/02/2017 ISHA ARAGON MD, Ot E11.621 TYPE 2 DIABETES MELLITUS WITH FOOT ULCER 12/02/2017 ISHA ARAGON MD, Ot L97.512 NON-PRS CHRONIC ULCER OTH PRT RIGHT FOOT 12/02/2017 ISHA ARAGON MD, Ot E11.42 TYPE 2 DIABETES MELLITUS WITH DIABETIC P 12/02/2017 ISHA ARAGON MD, Ot E11.621 TYPE 2 DIABETES MELLITUS WITH FOOT ULCER 12/02/2017 ISHA ARAGON MD, Ot 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 12/02/2017 ISHA ARAGON MD, Ot L97.512 NON-PRS CHRONIC ULCER OTH PRT RIGHT FOOT 12/02/2017 ISHA ARAGON MD, Ot T65.222D TOXIC EFFECT OF TOBACCO CIGARETTES, SELF 12/08/2017 LUIS FELIPE FERRARI APRN Ot E11.42 TYPE 2 DIABETES MELLITUS WITH DIABETIC P 12/08/2017 LUIS FELIPE FERRARI APRN Ot E11.621 TYPE 2 DIABETES MELLITUS WITH FOOT ULCER 12/08/2017 LUIS FELIPE FERRARI 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 Ot 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 12/08/2017 LUIS FELIPE FERRARI APRN Ot L97.512 NON-PRS CHRONIC ULCER OTH PRT RIGHT FOOT 12/08/2017 LUIS FELIPE FERRARI APRN Ot T65.222D TOXIC EFFECT OF TOBACCO CIGARETTES, SELF 12/09/2017 ISHA ARAGON MD Ot E11.42 TYPE 2 DIABETES MELLITUS WITH DIABETIC P 12/09/2017 ISHA ARAGON MD, Ot E11.621 TYPE 2 DIABETES MELLITUS WITH FOOT ULCER 12/09/2017 ISHA ARAGON MD, Ot L97.512 NON-PRS CHRONIC ULCER OTH PRT RIGHT FOOT 12/10/2017 ISHA ARAGON MD Ot E11.42 TYPE 2 DIABETES MELLITUS WITH DIABETIC P 12/10/2017 ISHA ARAGON MD, Ot E11.621 TYPE 2 DIABETES MELLITUS WITH FOOT ULCER 12/10/2017 ISHA ARAGON MD, Ot 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 12/10/2017 ISHA ARAGON MD, Ot L97.512 NON-PRS CHRONIC ULCER OTH PRT RIGHT FOOT 12/10/2017 ISHA ARAGON MD, Ot T65.222D TOXIC EFFECT OF TOBACCO CIGARETTES, SELF 12/14/2017 LUIS FELIPE FERRARI APRN Ot E11.42 TYPE 2 DIABETES MELLITUS WITH DIABETIC P 12/14/2017 LUIS FELIPE FERRARI APRN Ot E11.621 TYPE 2 DIABETES MELLITUS WITH FOOT ULCER 12/14/2017 LUIS FELIPE FERRARI APRN Ot 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 12/14/2017 LUIS FELIPE FERRARI APRN Ot L97.512 NON-PRS CHRONIC ULCER OTH PRT RIGHT FOOT 12/14/2017 LUIS FELIPE FERRARI APRN Ot T65.222D TOXIC EFFECT OF TOBACCO CIGARETTES, SELF 12/14/2017 ISHA ARAGON MD, Ot E11.42 TYPE 2 DIABETES MELLITUS WITH DIABETIC P 12/14/2017 ISHA ARAGON MD, Ot E11.621 TYPE 2 DIABETES MELLITUS WITH FOOT ULCER 12/14/2017 ISHA ARAGON MD, Ot 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 12/14/2017 ISHA ARAGON MD, Ot L97.512 NON-PRS CHRONIC ULCER OTH PRT RIGHT FOOT 12/14/2017 ISHA ARAGON MD, Ot T65.222D TOXIC EFFECT OF TOBACCO CIGARETTES, SELF 12/29/2017 Ot E11.69 TYPE 2 DIABETES MELLITUS WITH OTHER SPEC 12/29/2017 Ot F17.210 NICOTINE DEPENDENCE, CIGARETTES, UNCOMPL 12/29/2017 Ot M67.01 SHORT ACHILLES TENDON (ACQUIRED), RIGHT 12/29/2017 Ot M86.9 OSTEOMYELITIS , UNSPECIFIED 12/29/2017 Ot Z79.4 ROLL CHANGER ( CURRENT) USE OF INSULIN 12/31/2017 ISHA ARAGON MD, Ot E11.42 TYPE 2 DIABETES MELLITUS WITH DIABETIC P 12/31/2017 ISHA ARAGON MD, Ot E11.621 TYPE 2 DIABETES MELLITUS WITH FOOT ULCER 12/31/2017 ISHA ARAGON MD, Ot 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 12/31/2017 ISHA ARAGON MD, Ot L97.512 NON-PRS CHRONIC ULCER OTH PRT RIGHT FOOT 12/31/2017 ISHA ARAGON MD, Ot T65.222D TOXIC EFFECT OF TOBACCO CIGARETTES, SELF 12/31/2017 ISHA ARAGON MD Ot E11.42 TYPE 2 DIABETES MELLITUS WITH DIABETIC P 12/31/2017 ISHA ARAGON MD, Ot E11.621 TYPE 2 DIABETES MELLITUS WITH FOOT ULCER 12/31/2017 ISHA ARAGON MD, Ot L97.512 NON-PRS CHRONIC ULCER OTH PRT RIGHT FOOT 12/31/2017 ISHA ARAGON MD, Ot E11.42 TYPE 2 DIABETES MELLITUS WITH DIABETIC P 12/31/2017 ISHA ARAGON MD, Ot E11.621 TYPE 2 DIABETES MELLITUS WITH FOOT ULCER 12/31/2017 ISHA ARAGON MD, Ot 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 12/31/2017 ISHA ARAGON MD, Ot L97.512 NON-PRS CHRONIC ULCER OTH PRT RIGHT FOOT 12/31/2017 ISHA ARAGON MD, Ot T65.222D TOXIC EFFECT OF TOBACCO CIGARETTES, SELF 01/04/2018 ISHA ARAGON MD Ot E11.42 TYPE 2 DIABETES MELLITUS WITH DIABETIC P 01/04/2018 ISHA ARAGON MD Ot E11.621 TYPE 2 DIABETES MELLITUS WITH FOOT ULCER 01/04/2018 ISHA ARAGON MD, Ot L97.512 NON-PRS CHRONIC ULCER OTH PRT RIGHT FOOT 01/06/2018 ISHA ARAGON MD, Ot E11.42 TYPE 2 DIABETES MELLITUS WITH DIABETIC P 01/06/2018 ISHA ARAGON MD, Ot E11.621 TYPE 2 DIABETES MELLITUS WITH FOOT ULCER 01/06/2018 ISHA ARAGON MD Ot 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 01/06/2018 ISHA ARAGON MD, Ot L97.512 NON-PRS CHRONIC ULCER OTH PRT RIGHT FOOT 01/06/2018 ISHA ARAGON MD, Ot T65.222D TOXIC EFFECT OF TOBACCO CIGARETTES, SELF 01/06/2018 Ot E11.42 TYPE 2 DIABETES MELLITUS WITH DIABETIC P 01/06/2018 Ot E11.621 TYPE 2 DIABETES MELLITUS WITH FOOT ULCER 01/06/2018 Ot 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 01/06/2018 Ot L97.514 NON-PRS CHRONIC ULCER OTH PRT RIGHT FOOT 01/06/2018 Ot T65.222D TOXIC EFFECT OF TOBACCO CIGARETTES, SELF 01/11/2018 Ot E11.42 TYPE 2 DIABETES MELLITUS WITH DIABETIC P 01/11/2018 Ot E11.621 TYPE 2 DIABETES MELLITUS WITH FOOT ULCER 01/11/2018 Ot 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 01/11/2018 Ot L97.514 NON-PRS CHRONIC ULCER OTH PRT RIGHT FOOT 01/11/2018 Ot M62.571 MUSCLE WASTING AND ATROPHY, NEC, RIGHT A 01/11/2018 Ot M65.871 OTHER SYNOVITIS AND TENOSYNOVITIS, RIGHT 01/11/2018 Ot M86.8X7 OTHER OSTEOMYELITIS, ANKLE AND FOOT 01/11/2018 Ot T65.222D TOXIC EFFECT OF TOBACCO CIGARETTES, SELF 01/11/2018 Ot E11.42 TYPE 2 DIABETES MELLITUS WITH DIABETIC P 01/11/2018 Ot E11.621 TYPE 2 DIABETES MELLITUS WITH FOOT ULCER 01/11/2018 Ot 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 01/11/2018 Ot L97.514 NON-PRS CHRONIC ULCER OTH PRT RIGHT FOOT 01/11/2018 Ot M86.471 CHRONIC OSTEOMYELITIS W DRAINING SINUS, 01/11/2018 Ot T65.222D TOXIC EFFECT OF TOBACCO CIGARETTES, SELF 01/13/2018 DANYEL CALDWELL W 250.80 DIABETES MELLITUS WITH OTHER SPECIFIED MANIFESTATIONS, TYPE II OR UNSPECIFIED TYPE, NOT STATED UNCONTROLLED 01/13/2018 DANYEL CALDWELL E11.65 TYPE 2 DIABETES MELLITUS WITH HYPERGLYCEMIA 01/13/2018 DANYEL CALDWELL 250.80 DIABETES MELLITUS WITH OTHER SPECIFIED MANIFESTATIONS, TYPE II OR UNSPECIFIED TYPE, NOT STATED UNCONTROLLED 01/13/2018 DANYEL CALDWELL E11.65 TYPE 2 DIABETES MELLITUS WITH HYPERGLYCEMIA 01/13/2018 DANYEL CALDWELL W 250.80 DIABETES MELLITUS WITH OTHER SPECIFIED MANIFESTATIONS, TYPE II OR UNSPECIFIED TYPE, NOT STATED UNCONTROLLED 01/13/2018 DANYEL CALDWELL E11.65 TYPE 2 DIABETES MELLITUS WITH HYPERGLYCEMIA 01/14/2018 ISHA ARAGON MD Ot E11.42 TYPE 2 DIABETES MELLITUS WITH DIABETIC P 01/14/2018 ISHA ARAGON MD Ot E11.621 TYPE 2 DIABETES MELLITUS WITH FOOT ULCER 01/14/2018 ISHA ARAGON MD Ot L97.512 NON-PRS CHRONIC ULCER OTH PRT RIGHT FOOT 01/14/2018 Ot E11.42 TYPE 2 DIABETES MELLITUS WITH DIABETIC P 01/14/2018 Ot E11.621 TYPE 2 DIABETES MELLITUS WITH FOOT ULCER 01/14/2018 Ot 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 01/14/2018 Ot L97.514 NON-PRS CHRONIC ULCER OTH PRT RIGHT FOOT 01/14/2018 Ot T65.222D TOXIC EFFECT OF TOBACCO CIGARETTES, SELF 01/24/2018 Ot E11.69 TYPE 2 DIABETES MELLITUS WITH OTHER SPEC 01/24/2018 Ot F17.210 NICOTINE DEPENDENCE, CIGARETTES, UNCOMPL 01/24/2018 Ot M67.01 SHORT ACHILLES TENDON (ACQUIRED), RIGHT 01/24/2018 Ot M86.9 OSTEOMYELITIS , UNSPECIFIED 01/24/2018 Ot Z79.4 SENIOR LIVING ( CURRENT) USE OF INSULIN 01/26/2018 Ot E11.69 TYPE 2 DIABETES MELLITUS WITH OTHER SPEC 01/26/2018 Ot F17.210 NICOTINE DEPENDENCE, CIGARETTES, UNCOMPL 01/26/2018 Ot M67.01 SHORT ACHILLES TENDON (ACQUIRED), RIGHT 01/26/2018 Ot M86.9 OSTEOMYELITIS , UNSPECIFIED 01/26/2018 Ot Z79.4 SENIOR LIVING ( CURRENT) USE OF INSULIN 03/08/2018 ISHA ARAGON MD Ot E11.42 TYPE 2 DIABETES MELLITUS WITH DIABETIC P 03/08/2018 ISHA ARAGON MD Ot E11.621 TYPE 2 DIABETES MELLITUS WITH FOOT ULCER 03/08/2018 ISHA ARAGON MD Ot L97.512 NON-PRS CHRONIC ULCER OTH PRT RIGHT FOOT 03/09/2018 ISHA ARAGON MD Ot E11.42 TYPE 2 DIABETES MELLITUS WITH DIABETIC P 03/09/2018 ISHA ARAGON MD Ot E11.621 TYPE 2 DIABETES MELLITUS WITH FOOT ULCER 03/09/2018 ISHA ARAGON MD Ot L97.512 NON-PRS CHRONIC ULCER OTH PRT RIGHT FOOT 03/22/2018 TANO GRAY DO Ot Z01.818 ENCOUNTER FOR OTHER PREPROCEDURAL EXAMIN 03/23/2018 TANO GRAY DO Ot Z01.818 ENCOUNTER FOR OTHER PREPROCEDURAL EXAMIN Procedures There is no data. Results Test Result Range Comprehensive Metabolic Panel - 07/29/16 15:20 Albumin 3.9 g/dL 3.6-5.1 ALP 131 U/L 35-130 ALT 10 U/L 6-45 Anion Gap 17 6-14 AST 13 U/L 2-40 BUN 18 mg/dL 5-25 Calcium 9.4 mg/dL 8.3-10.4 Chloride 101 mmol/L 95-114 CO2 21 mEq/L 22-33 Creat 1.09 mg/dL 0.50-1.50 eGFR 50 mL/min/1.73m2 >59 Globulin 3.8 g/dL 2.3-3.5 Glucose 211 mg/dL 70-110 Osmo 285 280-295 Potassium 4.7 mmol/L 3.5-5.3 Sodium 134 mmol/L 134-148 TBil 0.3 mg/dL 0.2-1.2 TP 7.7 g/dL 6.0-8.3 Hepatitis Panel, Acute - 09/07/16 11:35 Hep A Ab, IgM NEGATIVE NEGATIVE HBsAg Screen NEGATIVE NEGATIVE Hep B Core Ab, IgM NEGATIVE NEGATIVE Hep C Virus Ab 0.1 S/CO RATIO 0.0-0.9 Comprehensive Metabolic Panel - 11/02/16 10:40 Albumin 4.0 g/dL 3.6-5.1 ALP 133 U/L 35-130 ALT 17 U/L 6-45 Anion Gap 14 6-14 AST 14 U/L 2-40 BUN 13 mg/dL 5-25 Calcium 9.6 mg/dL 8.3-10.4 Chloride 98 mmol/L 95-114 CO2 27 mEq/L 22-33 Creat 1.18 mg/dL 0.50-1.50 eGFR 45 mL/min/1.73m2 >59 Globulin 3.5 g/dL 2.3-3.5 Glucose 256 mg/dL 70-110 Osmo 287 280-295 Potassium 4.1 mmol/L 3.5-5.3 Sodium 135 mmol/L 134-148 TBil 0.5 mg/dL 0.2-1.2 TP 7.5 g/dL 6.0-8.3 Comprehensive Metabolic Panel - 02/02/17 10:10 Albumin 3.9 g/dL 3.6-5.1 ALP 132 U/L 35-130 ALT 14 U/L 6-45 Anion Gap 14 6-14 AST 14 U/L 2-40 BUN 15 mg/dL 5-25 Calcium 9.6 mg/dL 8.3-10.4 Chloride 99 mmol/L 95-114 CO2 26 mEq/L 22-33 Creat 1.16 mg/dL 0.50-1.50 eGFR 46 mL/min/1.73m2 >59 Globulin 3.6 g/dL 2.3-3.5 Glucose 292 mg/dL 70-110 Osmo 288 280-295 Potassium 4.5 mmol/L 3.5-5.3 Sodium 134 mmol/L 134-148 TBil 0.4 mg/dL 0.2-1.2 TP 7.5 g/dL 6.0-8.3 Bacteria identification in isolate by anaerobe culture - 04/05/17 15:52 Bacteria identification in isolate by anaerobe culture NOANA NRG Gram stain microscopy - 04/05/17 15:52 GRAM STAIN RESULT NO WBC'S OR BACTERIA OBSERVED NRG Bacteria identification in wound by culture - 04/05/17 15:52 Bacteria identification in wound by culture [id number] NR FREE TEXT EXTERNAL SENSITIVITY REPORTED AT 1424, 04-10-17 NRG QUANTITY OF GROWTH Scant Growth NRG Bacterial susceptibility panel - 04/05/17 15:52 Oxacillin susceptibility test by minimum inhibitory concentration < = NRG Gentamicin susceptibility test by minimum inhibitory concentration < = NRG Clindamycin susceptibility test by minimum inhibitory concentration <= NRG Erythromycin susceptibility test by minimum inhibitory concentration <= NRG Trimethoprim/sulfamethoxazole susceptibility test by minimum inhibitoryconcentration <= NRG Vancomycin susceptibility test by minimum inhibitory concentration < = NRG Levofloxacin susceptibility test by minimum inhibitory concentration <= NRG Rifampin susceptibility test by minimum inhibitory concentration <= NRG Tetracycline susceptibility test by minimum inhibitory concentration <= NRG Bacterial susceptibility panel - 04/05/17 15:52 Oxacillin susceptibility test by minimum inhibitory concentration < = NRG Gentamicin susceptibility test by minimum inhibitory concentration < = NRG Clindamycin susceptibility test by minimum inhibitory concentration >= NRG Erythromycin susceptibility test by minimum inhibitory concentration >= NRG Trimethoprim/sulfamethoxazole susceptibility test by minimum inhibitoryconcentration 80 NRG Vancomycin susceptibility test by minimum inhibitory concentration 1 NRG Levofloxacin susceptibility test by minimum inhibitory concentration 4 NRG Rifampin susceptibility test by minimum inhibitory concentration <= NRG Tetracycline susceptibility test by minimum inhibitory concentration 2 NRG Ciprofloxacin susceptibility test by minimum inhibitory concentration R NRG Hemoglobin A1C - 05/03/17 10:40 % A1C 7.60 % 5.40-6.60 AvGlu 192 mg/dL 70-110 Methicillin resistant Staphylococcus aureus (MRSA) screening culture - 10:27 Methicillin resistant Staphylococcus aureus (MRSA) screening culture NEG NRG Capillary blood glucose measurement by glucometer (mass/volume) - 05/28/17 06: 15 Capillary blood glucose measurement by glucometer (mass/volume) 186 mg/dL 70-110 Capillary blood glucose measurement by glucometer (mass/volume) - 05/28/17 08: 58 Capillary blood glucose measurement by glucometer (mass/volume) 159 mg/dL 70-110 Bacteria identification in isolate by anaerobe culture - 06/30/17 10:59 Bacteria identification in isolate by anaerobe culture NOANA NRG Gram stain microscopy - 06/30/17 10:59 GRAM STAIN RESULT NO WBC'S OR BACTERIA OBSERVED NRG Bacteria identification in wound by culture - 06/30/17 10:59 Bacteria identification in wound by culture [id number] NR FREE TEXT [place]TER[place] 07[address], 218 NRG QUANTITY OF GROWTH Moderate Growth NR Bacterial susceptibility panel - 06/30/17 10:59 Gentamicin susceptibility test by minimum inhibitory concentration R NRG Erythromycin susceptibility test by minimum inhibitory concentration 4 NRG Vancomycin susceptibility test by minimum inhibitory concentration 1 NRG Ampicillin susceptibility test by minimum inhibitory concentration < = NRG Linezolid susceptibility test by minimum inhibitory concentration 2 NR Bacterial susceptibility panel - 06/30/17 10:59 Oxacillin susceptibility test by minimum inhibitory concentration < = NRG Gentamicin susceptibility test by minimum inhibitory concentration < = NRG Clindamycin susceptibility test by minimum inhibitory concentration <= NRG Erythromycin susceptibility test by minimum inhibitory concentration >= NRG Trimethoprim/sulfamethoxazole susceptibility test by minimum inhibitoryconcentration S NRG Vancomycin susceptibility test by minimum inhibitory concentration < = NRG Levofloxacin susceptibility test by minimum inhibitory concentration <= NRG Rifampin susceptibility test by minimum inhibitory concentration <= NRG Tetracycline susceptibility test by minimum inhibitory concentration >= NRG Linezolid susceptibility test by minimum inhibitory concentration < = NRG Complete blood count (CBC) with automated white blood cell (WBC) differential - 07/01/17 09:22 Blood leukocytes automated count (number/volume) 5.0 10*3/uL 4.3-11.0 Blood erythrocytes automated count (number/volume) 4.10 10*6/uL 4.35-5.85 Venous blood hemoglobin measurement (mass/volume) 13.1 g/dL 11.5-16.0 Blood hematocrit (volume fraction) 38 % 35-52 Automated erythrocyte mean corpuscular volume 93 [foz_us] 80-99 Automated erythrocyte mean corpuscular hemoglobin (mass per erythrocyte) 32 pg 25-34 Automated erythrocyte mean corpuscular hemoglobin concentration measurement ( mass/volume) 35 g/dL 32-36 Automated erythrocyte distribution width ratio 13.4 % 10.0-14.5 Automated blood platelet count (count/volume) 205 10*3/uL 130-400 Automated blood platelet mean volume measurement 9.8 [foz_us] 7.4-10.4 Automated blood neutrophils/100 leukocytes 74 % 42-75 Automated blood lymphocytes/100 leukocytes 18 % 12-44 Blood monocytes/100 leukocytes 3 % 0-12 Automated blood eosinophils/100 leukocytes 4 % 0-10 Automated blood basophils/100 leukocytes 0 % 0-10 Blood neutrophils automated count (number/volume) 3.7 10*3 1.8-7.8 Blood lymphocytes automated count (number/volume) 0.9 10*3 1.0-4.0 Blood monocytes automated count (number/volume) 0.2 10*3 0.0-1.0 Automated eosinophil count 0.2 10*3/uL 0.0-0.3 Automated blood basophil count (count/volume) 0.0 10*3/uL 0.0-0.1 Comprehensive metabolic panel - 07/01/17 09:22 Serum or plasma sodium measurement (moles/volume) 135 mmol/L 135-145 Serum or plasma potassium measurement (moles/volume) 4.6 mmol/L 3.6-5.0 Serum or plasma chloride measurement (moles/volume) 100 mmol/L 98-107 Carbon dioxide 25 mmol/L 21-32 Serum or plasma anion gap determination (moles/volume) 10 mmol/L 5-14 Serum or plasma urea nitrogen measurement (mass/volume) 18 mg/dL 7-18 Serum or plasma creatinine measurement (mass/volume) 1.21 mg/dL 0.60-1.30 Serum or plasma urea nitrogen/creatinine mass ratio 15 NRG Serum or plasma creatinine measurement with calculation of estimated glomerular filtration rate 44 NRG Serum or plasma glucose measurement (mass/volume) 300 mg/dL 70-105 Serum or plasma calcium measurement (mass/volume) 9.2 mg/dL 8.5-10.1 Serum or plasma total bilirubin measurement (mass/volume) 0.4 mg/dL 0.1-1.0 Serum or plasma alkaline phosphatase measurement (enzymatic activity/volume) 135 U/L 40-136 Serum or plasma aspartate aminotransferase measurement (enzymatic activity/ volume) 12 U/L 5-34 Serum or plasma alanine aminotransferase measurement (enzymatic activity/volume ) 13 U/L 0-55 Serum or plasma protein measurement (mass/volume) 7.2 g/dL 6.4-8.2 Serum or plasma albumin measurement (mass/volume) 3.6 g/dL 3.2-4.5 Hemoglobin A1c - 07/01/17 09:22 Blood hemoglobin A1C measurement (mass/volume) 8.3 % 4.0- 5.6 MEAN BLOOD GLUCOSE 192 % <=126 Bacteria identification in isolate by anaerobe culture - 08/27/17 09:11 Bacteria identification in isolate by anaerobe culture NOANA NRG Gram stain microscopy - 08/27/17 09:11 GRAM STAIN RESULT FEW WBC'S, NO BACTERIA OBSERVED NR Bacteria identification in wound by culture - 08/27/17 09:11 Bacteria identification in wound by culture [id number] [facility] FREE TEXT EXTERNAL SENSITIVITY REPORTED AT 1109, 4--18 NRG QUANTITY OF GROWTH Scant Growth NR Bacterial susceptibility panel - 08/27/17 09:11 Oxacillin susceptibility test by minimum inhibitory concentration > = NRG Gentamicin susceptibility test by minimum inhibitory concentration < = NRG Clindamycin susceptibility test by minimum inhibitory concentration >= NRG Erythromycin susceptibility test by minimum inhibitory concentration >= NRG Trimethoprim/sulfamethoxazole susceptibility test by minimum inhibitoryconcentration S NRG Vancomycin susceptibility test by minimum inhibitory concentration 2 NRG Levofloxacin susceptibility test by minimum inhibitory concentration >= NRG Rifampin susceptibility test by minimum inhibitory concentration <= NRG Tetracycline susceptibility test by minimum inhibitory concentration >= NRG Ciprofloxacin susceptibility test by minimum inhibitory concentration R NRG Linezolid susceptibility test by minimum inhibitory concentration 1 NR Bacterial susceptibility panel - 08/27/17 09:11 Oxacillin susceptibility test by minimum inhibitory concentration > = NRG Gentamicin susceptibility test by minimum inhibitory concentration 4 NRG Clindamycin susceptibility test by minimum inhibitory concentration >= NRG Erythromycin susceptibility test by minimum inhibitory concentration >= NRG Trimethoprim/sulfamethoxazole susceptibility test by minimum inhibitoryconcentration R NRG Vancomycin susceptibility test by minimum inhibitory concentration 1 NRG Levofloxacin susceptibility test by minimum inhibitory concentration >= NRG Rifampin susceptibility test by minimum inhibitory concentration <= NRG Tetracycline susceptibility test by minimum inhibitory concentration 2 NRG Ciprofloxacin susceptibility test by minimum inhibitory concentration R NRG Linezolid susceptibility test by minimum inhibitory concentration 2 NR Whole blood basic metabolic panel - 09/01/17 11:25 Serum or plasma sodium measurement (moles/volume) 134 mmol/L 135-145 Serum or plasma potassium measurement (moles/volume) 4.3 mmol/L 3.6-5.0 Serum or plasma chloride measurement (moles/volume) 101 mmol/L 98-107 Carbon dioxide 25 mmol/L -32 Serum or plasma anion gap determination (moles/volume) 8 mmol/L 5-14 Serum or plasma urea nitrogen measurement (mass/volume) 19 mg/dL -18 Serum or plasma creatinine measurement (mass/volume) 1.26 mg/dL 0.60-1.30 Serum or plasma urea nitrogen/creatinine mass ratio 15 NRG Serum or plasma creatinine measurement with calculation of estimated glomerular filtration rate 42 NRG Serum or plasma glucose measurement (mass/volume) 205 mg/dL 70-105 Serum or plasma calcium measurement (mass/volume) 9.8 mg/dL 8.5-10.1 Whole blood basic metabolic panel - 09/08/17 11:50 Serum or plasma sodium measurement (moles/volume) 131 mmol/L 135-145 Serum or plasma potassium measurement (moles/volume) 4.9 mmol/L 3.6-5.0 Serum or plasma chloride measurement (moles/volume) 98 mmol/L 98-107 Carbon dioxide 23 mmol/L - Serum or plasma anion gap determination (moles/volume) 10 mmol/L 5-14 Serum or plasma urea nitrogen measurement (mass/volume) 21 mg/dL 7-18 Serum or plasma creatinine measurement (mass/volume) 1.36 mg/dL 0.60-1.30 Serum or plasma urea nitrogen/creatinine mass ratio 15 NRG Serum or plasma creatinine measurement with calculation of estimated glomerular filtration rate 38 NRG Serum or plasma glucose measurement (mass/volume) 265 mg/dL 70-105 Serum or plasma calcium measurement (mass/volume) 9.9 mg/dL 8.5-10.1 Capillary blood glucose measurement by glucometer (mass/volume) - 09/15/17 11: 31 Capillary blood glucose measurement by glucometer (mass/volume) 244 mg/dL 70-110 Bacteria identification in isolate by anaerobe culture - 09/29/17 09:26 Bacteria identification in isolate by anaerobe culture NOANA NRG Gram stain microscopy - 09/29/17 09:26 GRAM STAIN RESULT NO WBC'S OR BACTERIA OBSERVED NRG Bacteria identification in wound by culture - 09/29/17 09:26 Bacteria identification in wound by culture [id number] NRG FREE TEXT EXTERNAL FEW OBSERVED NRG QUANTITY OF GROWTH Isolated NRG MRSA AGAR Screening test for MRSA is NEGATIVE (Final to follow) NR FREE TEXT ENTRY 2 SENSITIVITY REPORTED AT 1135, 10-01-17 NR Bacterial susceptibility panel - 09/29/17 09:26 Oxacillin susceptibility test by minimum inhibitory concentration 0.5 NRG Gentamicin susceptibility test by minimum inhibitory concentration < = NRG Clindamycin susceptibility test by minimum inhibitory concentration <= NRG Erythromycin susceptibility test by minimum inhibitory concentration <= NRG Trimethoprim/sulfamethoxazole susceptibility test by minimum inhibitoryconcentration S NRG Vancomycin susceptibility test by minimum inhibitory concentration 1 NRG Levofloxacin susceptibility test by minimum inhibitory concentration 0.25 NRG Rifampin susceptibility test by minimum inhibitory concentration <= NRG Tetracycline susceptibility test by minimum inhibitory concentration <= NRG Linezolid susceptibility test by minimum inhibitory concentration 2 NRG Complete blood count (CBC) with automated white blood cell (WBC) differential - 09/29/17 10:47 Blood leukocytes automated count (number/volume) 7.0 10*3/uL 4.3-11.0 Blood erythrocytes automated count (number/volume) 4.12 10*6/uL 4.35-5.85 Venous blood hemoglobin measurement (mass/volume) 13.0 g/dL 11.5-16.0 Blood hematocrit (volume fraction) 38 % 35-52 Automated erythrocyte mean corpuscular volume 91 [foz_us] 80-99 Automated erythrocyte mean corpuscular hemoglobin (mass per erythrocyte) 32 pg 25-34 Automated erythrocyte mean corpuscular hemoglobin concentration measurement ( mass/volume) 35 g/dL 32-36 Automated erythrocyte distribution width ratio 13.1 % 10.0-14.5 Automated blood platelet count (count/volume) 211 10*3/uL 130-400 Automated blood platelet mean volume measurement 9.7 [foz_us] 7.4-10.4 Automated blood neutrophils/100 leukocytes 81 % 42-75 Automated blood lymphocytes/100 leukocytes 14 % 12-44 Blood monocytes/100 leukocytes 3 % 0-12 Automated blood eosinophils/100 leukocytes 2 % 0-10 Automated blood basophils/100 leukocytes 0 % 0-10 Blood neutrophils automated count (number/volume) 5.6 10*3 1.8-7.8 Blood lymphocytes automated count (number/volume) 1.0 10*3 1.0-4.0 Blood monocytes automated count (number/volume) 0.2 10*3 0.0-1.0 Automated eosinophil count 0.1 10*3/uL 0.0-0.3 Automated blood basophil count (count/volume) 0.0 10*3/uL 0.0-0.1 Comprehensive metabolic panel - 09/29/17 10:47 Serum or plasma sodium measurement (moles/volume) 133 mmol/L 135-145 Serum or plasma potassium measurement (moles/volume) 4.4 mmol/L 3.6-5.0 Serum or plasma chloride measurement (moles/volume) 99 mmol/L 98-107 Carbon dioxide 23 mmol/L 21-32 Serum or plasma anion gap determination (moles/volume) 11 mmol/L 5-14 Serum or plasma urea nitrogen measurement (mass/volume) 20 mg/dL 7-18 Serum or plasma creatinine measurement (mass/volume) 1.12 mg/dL 0.60-1.30 Serum or plasma urea nitrogen/creatinine mass ratio 18 NRG Serum or plasma creatinine measurement with calculation of estimated glomerular filtration rate 48 NRG Serum or plasma glucose measurement (mass/volume) 240 mg/dL 70-105 Serum or plasma calcium measurement (mass/volume) 9.3 mg/dL 8.5-10.1 Serum or plasma total bilirubin measurement (mass/volume) 0.4 mg/dL 0.1-1.0 Serum or plasma alkaline phosphatase measurement (enzymatic activity/volume) 116 U/L 40-136 Serum or plasma aspartate aminotransferase measurement (enzymatic activity/ volume) 12 U/L 5-34 Serum or plasma alanine aminotransferase measurement (enzymatic activity/volume ) 12 U/L 0-55 Serum or plasma protein measurement (mass/volume) 7.2 g/dL 6.4-8.2 Serum or plasma albumin measurement (mass/volume) 3.7 g/dL 3.2-4.5 Hemoglobin A1c - 09/29/17 10:47 Blood hemoglobin A1C measurement (mass/volume) 9.2 % 4.0- 5.6 MEAN BLOOD GLUCOSE 217 % <=126 PREALBUMIN - 09/29/17 10:47 PREALBUM 14.3 % 18.0-37.0 Lipid Panel - 10/04/17 11:25 C/HDL 4.4 3.7-6.7 Cholesterol 163 mg/dL 100-240 HDL 37 mg/dL 30-85 LDL-Calculated 107 mg/dL 0-100 Trig 96 mg/dL 35-160 VLDL 19 mg/dL 0-42 Microalbumin - 10/04/17 11:25 Microalb 97.0 mg/L 0.0-20.0 Bacteria identification in isolate by anaerobe culture - 10/20/17 09:44 Bacteria identification in isolate by anaerobe culture NOANA NRG Gram stain microscopy - 10/20/17 09:44 GRAM STAIN RESULT NO WBC'S OR BACTERIA OBSERVED NRG Bacteria identification in wound by culture - 10/20/17 09:44 Bacteria identification in wound by culture [id number] NR FREE TEXT EXTERNAL ID REPORTED 10/22/17 15:30 NRG QUANTITY OF GROWTH Scant Growth NRG FREE TEXT ENTRY 2 ISOLATE SENT TO [facility] NRG FREE TEXT ENTRY 3 10/23/17 FOR SENSITIVITY TESTING NRG Bacteria identification in isolate by anaerobe culture - 11/23/17 08:31 Bacteria identification in isolate by anaerobe culture NOANA NRG Gram stain microscopy - 11/23/17 08:31 GRAM STAIN RESULT NO WBC'S OR BACTERIA OBSERVED NRG Bacteria identification in wound by culture - 11/23/17 08:31 Bacteria identification in wound by culture [id number] NR FREE TEXT EXTERNAL SENSITIVITY REPORTED AT 0727, 18 NRG QUANTITY OF GROWTH Scant Growth NR Bacterial susceptibility panel - 11/23/17 08:31 Gentamicin susceptibility test by minimum inhibitory concentration < = NRG Trimethoprim/sulfamethoxazole susceptibility test by minimum inhibitoryconcentration S NRG Tobramycin susceptibility test by minimum inhibitory concentration < = NRG Cefazolin susceptibility test by minimum inhibitory concentration > = NRG Piperacillin/tazobactam susceptibility test by minimum inhibitory concentration S NRG Ciprofloxacin susceptibility test by minimum inhibitory concentration <= NRG Meropenem susceptibility test by minimum inhibitory concentration < = NRG Aztreonam susceptibility test by minimum inhibitory concentration < = NRG Cefepime susceptibility test by minimum inhibitory concentration <= NRG Whole blood basic metabolic panel - 12/01/17 07:43 Serum or plasma sodium measurement (moles/volume) 135 mmol/L 135-145 Serum or plasma potassium measurement (moles/volume) 4.6 mmol/L 3.6-5.0 Serum or plasma chloride measurement (moles/volume) 101 mmol/L 98-107 Carbon dioxide 24 mmol/L 21-32 Serum or plasma anion gap determination (moles/volume) 10 mmol/L 5-14 Serum or plasma urea nitrogen measurement (mass/volume) 18 mg/dL 7-18 Serum or plasma creatinine measurement (mass/volume) 1.47 mg/dL 0.60-1.30 Serum or plasma urea nitrogen/creatinine mass ratio 12 NRG Serum or plasma creatinine measurement with calculation of estimated glomerular filtration rate 35 NRG Serum or plasma glucose measurement (mass/volume) 195 mg/dL 70-105 Serum or plasma calcium measurement (mass/volume) 9.5 mg/dL 8.5-10.1 Whole blood basic metabolic panel - 12/08/17 07:38 Serum or plasma sodium measurement (moles/volume) 132 mmol/L 135-145 Serum or plasma potassium measurement (moles/volume) 5.8 mmol/L 3.6-5.0 Serum or plasma chloride measurement (moles/volume) 100 mmol/L 98-107 Carbon dioxide 23 mmol/L -32 Serum or plasma anion gap determination (moles/volume) 9 mmol/L 5-14 Serum or plasma urea nitrogen measurement (mass/volume) 35 mg/dL 7-18 Serum or plasma creatinine measurement (mass/volume) 1.95 mg/dL 0.60-1.30 Serum or plasma urea nitrogen/creatinine mass ratio 18 NRG Serum or plasma creatinine measurement with calculation of estimated glomerular filtration rate 25 NRG Serum or plasma glucose measurement (mass/volume) 219 mg/dL 70-105 Serum or plasma calcium measurement (mass/volume) 9.9 mg/dL 8.5-10.1 Whole blood basic metabolic panel - 12/17/17 07:48 Serum or plasma sodium measurement (moles/volume) 132 mmol/L 135-145 Serum or plasma potassium measurement (moles/volume) 4.1 mmol/L 3.6-5.0 Serum or plasma chloride measurement (moles/volume) 99 mmol/L 98-107 Carbon dioxide 24 mmol/L 21-32 Serum or plasma anion gap determination (moles/volume) 9 mmol/L 5-14 Serum or plasma urea nitrogen measurement (mass/volume) 20 mg/dL 7-18 Serum or plasma creatinine measurement (mass/volume) 1.19 mg/dL 0.60-1.30 Serum or plasma urea nitrogen/creatinine mass ratio 17 NRG Serum or plasma creatinine measurement with calculation of estimated glomerular filtration rate 45 NRG Serum or plasma glucose measurement (mass/volume) 206 mg/dL 70-105 Serum or plasma calcium measurement (mass/volume) 9.4 mg/dL 8.5-10.1 Bacteria identification in isolate by anaerobe culture - 12/17/17 09:13 Bacteria identification in isolate by anaerobe culture NOANA NRG Gram stain microscopy - 12/17/17 09:13 Gram stain microscopy No WBC's or bacteria NRG Bacteria identification in wound by culture - 12/17/17 09:13 Bacteria identification in wound by culture [id number] NRG FREE TEXT EXTERNAL ID BY RML REPORTED 12/20/17 14:05 NRG QUANTITY OF GROWTH Scant Growth NRG FREE TEXT ENTRY 2 SENSITIVITY TO FOLLOW NRG Comprehensive Metabolic Panel - 01/13/18 10:50 Albumin 3.9 g/dL 3.6-5.1 ALP 123 U/L 35-130 ALT 15 U/L 6-45 Anion Gap 16 6-14 AST 13 U/L 2-40 BUN 17 mg/dL 5-25 Calcium 9.4 mg/dL 8.3-10.4 Chloride 101 mmol/L 95-114 CO2 23 mEq/L 22-33 Creat 1.17 mg/dL 0.50-1.50 eGFR 46 mL/min/1.73m2 >59 Globulin 3.2 g/dL 2.3-3.5 Glucose 216 mg/dL 70-110 Osmo 286 280-295 Potassium 4.6 mmol/L 3.5-5.3 Sodium 135 mmol/L 134-148 TBil 0.3 mg/dL 0.2-1.2 TP 7.1 g/dL 6.0-8.3 Encounters ACCT No. Visit Date/Time Discharge Status Pt. Type Provider Facility Loc./Unit Complaint [id number] 03/24/2018 11:00:00 03/24/2018 23:59:59 CLS [facility]read[facility] [id number] 03/22/2018 05:39:00 03/22/2018 13:25:00 DIS Outpatient TANO GRAY DO Via [facility] PREOP SKIN CANCER ON BACK [id number] 03/11/2018 11:00:00 03/11/2018 23:59:59 CLS Preadmit ANNITA THOMPSON MD Via [facility] CHRONIC KIDNEY DISEASE STAGE 4 [id number] 03/09/2018 00:08:00 03/09/2018 23:59:59 CLS Preadmit ISHA ARAGON MD Via [facility] LAB E11.621,E11.42,L97.512 [id number] 12/17/2017 07:40:00 03/08/2018 00:01:00 DIS Outpatient ISHA ARAGON MD Via [facility] LAB E11.621,E11.42,L97.512 [id number] 12/08/2017 08:02:00 12/08/2017 23:59:59 CLS Outpatient ISHA ARAGON MD Via [facility] WOUNDCARE [id number] 12/01/2017 08:22:00 12/01/2017 23:59:59 CLS Outpatient ISHA ARAGON MD Via [facility] WOUNDCARE [id number] 12/01/2017 07:33:00 12/01/2017 23:59:59 CLS Outpatient ISHA ARAGON MD Via [facility] LAB E11.621 E11.42 L97.512 [id number] 09/01/2017 11:19:00 11/30/2017 00:01:00 DIS Outpatient ISHA ARAGON MD Via [facility] LAB E11.621,E11.42,L97.512 [id number] 11/25/2017 07:58:00 11/25/2017 23:59:59 CLS Outpatient ISHA ARAGON MD Via [facility] WOUNDCARE [id number] 11/23/2017 08:02:00 11/23/2017 23:59:59 CLS Outpatient LUIS FELIPE FERRARI APRN Via [facility] WOUNDCARE [id number] 11/16/2017 07:59:00 11/16/2017 23:59:59 CLS Outpatient LUIS FELIPE FERRARI APRN Via [facility] WOUNDCARE [id number] 11/10/2017 07:57:00 11/10/2017 23:59:59 CLS Outpatient ISHA ARAGON MD [facility] WOUNDCARE [id number] 11/03/2017 07:55:00 11/03/2017 23:59:59 CLS Outpatient ISHA ARAGON MD [facility] WOUNDCARE [id number] 10/27/2017 08:10:00 10/27/2017 23:59:59 CLS Outpatient IS[facility] ARAGON [id number] 10/20/2017 08:31:00 10/20/2017 23:59:59 CLS Outpatient ISHA ARAGON MD [facility] [id number] 10/13/2017 08:32:00 10/13/2017 23:59:59 CLS Outpatient ISHA ARAGON MD Via [facility] WOUNDCARE [id number] 10/04/2017 08:00:00 10/04/2017 23:59:59 CLS Outpatient ISHA ARAGON MD [facility] [id number] 10/01/2017 08:09:00 10/01/2017 23:59:59 CLS Outpatient ISHA ARAGON MD [facility] WOUNDCARE [id number] 09/29/2017 10:33:00 09/29/2017 23:59:59 CLS Outpatient ISHA ARAGON MD Via [facility] LAB SEE ORDER [id number] 09/29/2017 08:17:00 09/29/2017 23:59:59 CLS Outpatient ISHA ARAGON MD [facility] WOUNDCARE [id number] 09/22/2017 07:56:00 09/22/2017 23:59:59 CLS Outpatient ISHA ARAGON MD [facility] WOUNDCARE [id number] 09/20/2017 08:32:00 09/20/2017 23:59:59 CLS Outpatient ISHA ARAGON MD [facility] WOUNDCARE [id number] 09/15/2017 10:03:00 09/15/2017 23:59:59 CLS Outpatient ISHA ARAGON MD [facility] WOUNDCARE [id number] 09/08/2017 11:44:00 09/08/2017 23:59:59 CLS Outpatient ISHA ARAGON MD Via [facility] LAB E11.621 E11.42 L97.512 [id number] 09/08/2017 10:10:00 09/08/2017 23:59:59 CLS Outpatient LUIS FELIPE FERRARI APRN Via [facility] WOUNDCARE [id number] 09/01/2017 10:06:00 09/01/2017 23:59:59 CLS Outpatient ISHA ARAGON MD [facility] WOUNDCARE [id number] 08/27/2017 09:41:00 08/27/2017 23:59:59 CLS Outpatient ISHA ARAGON MD Via [facility] RAD E11.621,L97.512 [id number] 08/27/2017 08:28:00 08/27/2017 23:59:59 CLS Outpatient ISHA ARAGON MD [facility] WOUNDCARE [id number] 08/04/2017 08:37:00 08/04/2017 23:59:59 CLS Outpatient ISHA ARAGON MD [facility] WOUNDCARE [id number] 07/28/2017 08:12:00 07/28/2017 23:59:59 CLS Outpatient ISHA ARAGON MD [facility] WOUNDCARE [id number] 07/21/2017 09:01:00 07/21/2017 23:59:59 CLS Outpatient ISHA ARAGON MD [facility] WOUNDCARE [id number] 07/14/2017 08:54:00 07/14/2017 23:59:59 CLS Outpatient ISHA ARAGON MD [facility] WOUNDCARE [id number] 07/12/2017 08:54:00 07/12/2017 23:59:59 CLS Outpatient ISHA ARAGON MD [facility] WOUNDCARE [id number] 07/01/2017 08:47:00 07/01/2017 23:59:59 CLS Outpatient ISHA ARAGON MD [facility] RAD E11.621 E11.42 L97.512 [id number] 06/30/2017 09:06:00 06/30/2017 23:59:59 CLS Outpatient ISHA ARAGON MD [facility] WOUNDCARE [id number] 05/28/2017 06:00:00 05/28/2017 11:45:00 DIS Outpatient MCCLOUDMAN THEODORE DPM Via [facility] SDC OSTEOMYELITIS [id number] 05/24/2017 08:30:00 05/24/2017 23:59:59 CLS Outpatient ISHA ARAGON MD [facility] WOUNDCARE [id number] 05/24/2017 10:05:00 05/24/2017 10:40:00 DIS Outpatient MCCLOUDMAN THEODORE DPM [facility] PREOP OSTEOMYELITIS [id number] 05/11/2017 12:06:00 05/11/2017 23:59:59 CLS Outpatient ISHA ARAGON MD [facility] WOUNDCARE [id number] 05/03/2017 08:22:00 05/03/2017 23:59:59 CLS Outpatient ISHA ARAGON MD [facility] WOUNDCARE [id number] 04/26/2017 08:39:00 04/26/2017 23:59:59 CLS Outpatient ISHA ARAGON MD [facility] WOUNDCARE [id number] 04/19/2017 08:29:00 04/19/2017 23:59:59 CLS Outpatient ISHA ARAGON MD [facility] WOUNDCARE [id number] 04/12/2017 10:51:00 04/12/2017 23:59:59 CLS Outpatient ISHA ARAGON MD Via [facility] RAD E11.621,E11.42,L97.512 [id number] 04/12/2017 08:22:00 04/12/2017 23:59:59 CLS Outpatient ISHA ARAGON MD [facility] WOUNDCARE [id number] 04/05/2017 14:03:00 04/05/2017 23:59:59 CLS Outpatient ISHA ARAGON MD [facility] WOUNDCARE [id number] 02/03/2017 12:35:00 02/03/2017 23:59:59 CLS Preadmit DANYEL CALDWELL MD Via [facility] RAD ELEVATED LFT'S [id number] 03/04/2015 08:03:00 03/04/2015 10:00:00 DIS Outpatient ISHA ARAGON MD [facility] WOUNDCARE [id number] 02/14/2015 23:42:00 02/15/2015 02:13:00 DIS Emergency CIARA LUCIANO MD Via [facility] ER VOMITING,FALL 3 WKS AGO-PAIN SMALL OF BACK [id number] 02/13/2015 09:09:00 02/13/2015 00:01:00 DIS Outpatient ISHA ARAGON MD [facility] WOUNDCARE [id number] 01/07/2015 08:04:00 01/20/2015 00:01:00 DIS Outpatient ISHA ARAGON MD [facility] WOUNDCARE [id number] 10/22/2014 11:15:00 10/22/2014 23:59:59 CLS Outpatient ISHA ARAGON MD [facility] RAD DIABETIC FOOT ULCER [id number] 08/31/2013 10:25:00 10/04/2013 13:56:00 DIS Outpatient DANYEL CALDWELL MD Via [facility] WOUNDCARE PRESSURE/ EXPOSURE TO ACID ULCER [id number] 12/31/2017 13:53:00 Document Registration [id number] 12/22/2017 08:02:00 Document Registration [id number] 12/20/2017 09:17:00 Document Registration [id number] 12/19/2017 11:28:00 Document Registration [id number] 02/26/2015 08:03:43 ACT Document Registration [id number] 01/13/2018 13:39:00 01/13/2018 23:59:00 DIS Outpatient CALDWELL, DANYEL [id number] 10/04/2017 12:40:00 10/04/2017 23:59:00 DIS Outpatient DANYEL CALDWELL [id number] 05/03/2017 14:10:00 05/03/2017 23:59:00 DIS Outpatient DANYEL CALDWELL [id number] 02/02/2017 11:43:00 02/02/2017 23:59:00 DIS Outpatient DANYEL CALDWELL [id number] 11/02/2016 10:56:00 11/02/2016 23:59:00 DIS Outpatient DANYEL CALDWELL [id number] 09/07/2016 13:03:00 09/07/2016 23:59:00 DIS Outpatient DANYEL CALDWELL [id number] 07/29/2016 15:20:00 07/29/2016 23:59:00 DIS Outpatient DANYEL CALDWELL [id number] 06/18/2016 07:37:00 06/18/2016 07:37:00 CAN Outpatient Lily Alcala [id number] 06/17/2016 16:02:00 06/17/2016 23:59:00 DIS Outpatient DANYEL CALDWELL
[2018-03-31] MEDS ORDERED: LACTATED RINGERS 1,000 ML IV PRN ×2 (09:49)
[2018-03-31 09:50] VITALS: BP 141/67
[2018-03-31] MEDS ORDERED: CLINDAMYCIN 600 MG/50 ML IVPB 50 ML IV ONE (10:00)
[2018-03-31] MEDS ORDERED: ROCURONIUM 10 MG/ML 5 ML SYRINGE IV ONE (10:24)
[2018-03-31] MEDS ORDERED: proPOfol 200 MG/20 ML (DIPRIVAN) VIAL IV ONE (10:24)
[2018-03-31] MEDS ORDERED: ONDANSETRON 4 MG/2 ML (SDV) Z0FRAN ONE (10:24)
[2018-03-31] MEDS ORDERED: SEVOFLURANE (ULTANE) 15 ML INHAL SOLN ONE (10:25)
[2018-03-31] MEDS ORDERED: fentaNYL INJECTION 100 MCG/2 ML AMP ONE (10:25)
[2018-03-31] MEDS ORDERED: DEXAMETHASONE 10 MG/ML (DECADRON) 1 ML VIAL ONE (10:25)
[2018-03-31] MEDS ORDERED: MIDAZOLAM 2 MG/2 ML (VERSED) VIAL ONE (10:25)
[2018-03-31] MEDS ORDERED: BUPIVACAINE 0.5% 30 ML (SENSORCAINE) VIAL ONE (10:27)
[2018-03-31] MEDS ORDERED: LIDOCAINE 1% INJ 20 ML 20 ML VIAL ONE (10:27)
[2018-03-31] MEDS ORDERED: PHENYLEPHRINE 100 MCG/ML 10 ML (ANESTHESIA) SYR ONE (10:56)
[2018-03-31] MEDS ORDERED: NEOSTIGMINE 1 MG/ML 5 ML SYRINGE ONE (11:23)
[2018-03-31] MEDS ORDERED: GLYCOPYRROLATE 0.2 MG/ML (ROBINUL) 2 ML VIAL ONE (11:23)
--- NOTE | 2018-03-31 11:27 | Discharge Inst-Simple/Standard ---
Discharge Inst-Standard Patient Instructions/Follow Up Plan of Care/Instructions/FU: 1 week Zak Daily dressing changes. Activity as Tolerated: No Discharge Diet: Regular Diet Other Inst to Patient Follow up Appt: Make appointment for 1 week. Instructions: No lifting greater than 10 pounds. No strenuous activity. May shower in 24 hours, no tub bath or soaking. Use incentive spirometer at home as directed. No Smoking Skin/Wound Care: Keep area packed and clean and dry. Symptoms to Report: Appetite Changes, Extremity Discoloration, Numbness/Tingling, Swelling Increased , Bleeding Excessive, Eyesight Changes, Pain Increased, Urine Color Change, Constipation(Persistent), Fever over 101 degree F, Pain/Pressure in chest, Urinating Difficulty, Cough Up/Vomit Blood, Heart Beat Irreg/Pounding, Pain/ Pressure in jaw, Vaginal Bleeding Increase, Cramps in feet or legs, Lightheadedness, Pain/Pressure in shoulder, Diarrhea(Persistent), Memory Changes Suddenly, Questions/Concerns, Weight gain consecutive days, Dizziness/ Fainting, Nausea/Vomiting, Shortness of Breath, Weight gain over 2 pounds If questions or concerns contact your physician Or seek help at emergency department. TANO GRAY DO Mar 31, 2018 11:27
--- NOTE | 2018-03-31 11:30 | Progress Note-Post Operative ---
Post-Operative Progess Note Surgeon (s)/Finger Waver (s) Surgeon TANO GRAY DO Finger Waver: na Pre-Operative Diagnosis skin cancer back Post-Operative Diagnosis skin cancer back Procedure & Operative Findings Date of Procedure 03/31/18 Procedure Performed/Findings excision skin cancer of back 12x12.5x2 sharp and cautery excision skin subcutaneous and minimal muscle Anesthesia Type gen Estimated Blood Loss Estimated blood loss (mL): min Specimens/Packing Specimens Removed skin cancer back TANO GRAY DO Mar 31, 2018 11:30
--- NOTE | 2018-03-31 11:32 | Progress Note-Pre Operative ---
Pre-Operative Progress Note H&P Reviewed The H&P was reviewed, patient examined and no changes noted. Date Seen by Provider: Mar 31, 2018 Time Seen by Provider: 10:31 Date H&P Reviewed: Mar 31, 2018 Time H&P Reviewed: 10:32 Pre-Operative Diagnosis: skin cancer back TANO GRAY DO Mar 31, 2018 11:32
[2018-03-31] MEDS ORDERED: ONDANSETRON 4 MG/2 ML (SDV) Z0FRAN IVP PRN (11:45)
[2018-03-31] MEDS ORDERED: HYDROmorphone 2 MG/ML VIAL (DILAUDID) IV ONE (11:45)
[2018-03-31 12:30] VITALS: BP 123/59
[2018-03-31 13:00] VITALS: BP 125/57
[2018-03-31 13:30] VITALS: BP 111/61
[2018-03-31 13:45] VITALS: BP 111/61
--- NOTE | 2018-03-31 13:49 | Anesthesia-General Post-Op ---
General Patient Condition Mental Status/LOC: Same as Preop Cardiovascular: Satisfactory Nausea/Vomiting: Absent Respiratory: Satisfactory Pain: Controlled Complications: Absent Post Op Complications Complications None Follow Up Care/Instructions Patient Instructions None needed. Anesthesia/Patient Condition Patient Condition Patient is doing well, no complaints, stable vital signs, no apparent adverse anesthesia problems. No complications reported per nursing. CHRISTOFER HUFF CRNA Mar 31, 2018 13:49
--- NOTE | 2018-03-31 14:31 | D/C HH Face to Face Order ---
D/C Face to Face Orders Instructions for Patient WANG MACHADO Patient Instructions/FollowUp: MARINA-1 WEEK HH - DAILY Physician to follow Patient: MARINA Discharge Diet for Home: Regular Diet Patient Problems: LARGE WOUND BACK Goals for Patient: WOUND CARE, TO HEAL WOUND Patient Data-Allergies,Ht & Wt Patient Allergies: Coded Allergies: Penicillins (Verified Allergy, Unknown, 02/14/15) codeine (Verified Allergy, Unknown, 02/14/15) Height (Feet): 5 Height (Inches): 5.00 Weight (Pounds): 176 Weight (Ounces): 0.0 Home Health Need/Face to Face Date of Face to Face: Mar 31, 2018 Clinical Findings: Pain with ambulation, Other-list in note (DIFFICULT AMBULATION, NARCOTICS FOR PAIN CONTROL INABILITY TO DRIVE) I have seen Pt [id number]: Yes Discharged To: Home Diagnosis/Conditions: SKIN CANCER BACK Patient is Homebound due to: Pain w/ambulation (NARCOTIC USE FOR PAIN, DIFFICULTY AMBULATING) Homebound Status Due to the above stated illness, injury or surgical procedure (medical condition or diagnosis) and associated clinical findings, the patient is homebound because of his/her inability to leave home except with aid of a supportive device and/or person AND leaving the home requires a considerable and taxing effort or is medically contraindicated. Pt req the following assistanc: Aid of another person Home Health Nursing Orders Home Health Services Order: Wound Care-Eval/Treat Home Health Infusion Therapy Line Start Date: Mar 31, 2018 Line Start Time: 0950 Site Location: Forearm Certify Stmt I certify that this patient is under my care and that I, a nurse practitioner or a physician; a business development assistant working with me, had a face to face encounter that - meets the physician face to face encounter requirements with this patient as dated. TANO GRAY DO Mar 31, 2018 14:30
--- NOTE | 2018-04-01 02:09 | OPERATIVE REPORT ---
DATE OF SERVICE: 03/31/2018 PREOPERATIVE DIAGNOSIS: Skin cancer, back. POSTOPERATIVE DIAGNOSIS: Skin cancer, back. PROCEDURE: Excision of back lesion. A 12 x 12.5 x 2 cm removing skin, subcutaneous tissue and minimal muscle. SURGEON: Tano Crespo DO ANESTHESIA: General. ESTIMATED BLOOD LOSS: Minimal. COMPLICATIONS: None. INDICATIONS: The patient is a 72-year-old female with a large skin cancer on the back. She understands risks and benefits of procedure and wished to proceed with procedure. Consent was signed in the chart. PROCEDURE: The patient was taken to the operating suite. She was prepped and draped in sterile fashion. A timeout was performed. Incision was made circumferentially around the large lesion measuring as noted above. Cautery was used to dissect down to the subcutaneous tissues and the skin and subcutaneous tissue. A minimal amount of muscle was removed removing the entire specimen. The specimen was labeled short suture superiorly and long suture laterally. Hemostasis was achieved. The wound was irrigated with copious amounts of irrigation and wound was then packed with Kerlix, ABDs and tape. The patient tolerated the procedure well without any complications. She was taken to the recovery room in stable condition. RECOMMENDATIONS: The patient will have daily wound care and then will also attempt to get wound VAC on this as well for faster healing and would may also need skin graft. Job ID: [id number] DocumentID: [id number] Dictated Date: 03/31/2018 16:01:40 [employer] Software Development Engineer Date: 04/01/2018 02:08:44 Dictated By: TANO CRESPO DO
== END 2018-03-31 13:45 | disposition home or self-care (01) ==
LOC: SDC 09:20
PROVIDERS: ATTEND Surgery
DX: C44.529 Squamous cell carcinoma of skin of other part of trunk (principal); E11.9 Type 2 diabetes mellitus without complications; I10 Essential (primary) hypertension; F17.210 Nicotine dependence, cigarettes, uncomplicated; Z79.84 Long term (current) use of oral hypoglycemic drugs; Z79.899 Other long term (current) drug therapy
CPT/HCPCS: 82962; 87081; 88305; 88341; 88342

== ENCOUNTER 2018-05-05 10:20 | Inpatient (IN) | payer MEDICARE, MEDICAID ==
[~2018-05-05] VITALS: Ht 165.1 cm; Wt 81.0 kg
--- OUTSIDE RECORDS SUMMARY | 2018-05-05 10:42 | XMS REPORT | Continuity of Care Document ---
Author Author [facility] Organization [facility] Address Unknown Phone Unavailable Allergies Active Description Code Type Severity Reaction Onset Reported/Identified Relationship to Patient Clinical Status Yes CODEINE SULFATE UNKNOWN UNKNOWN Yes METFORMIN UNKNOWN GI PROBLEMS - VOMITI Yes PENICILLINS UNKNOWN UNKNOWN Yes VICTOZA 2-FRANCO UNKNOWN GI PROBLEMS - NAUSEA Yes VICTOZA 3-FRANCO UNKNOWN GI PROBLEMS - NAUSEA Yes codeine [id number] Drug Allergy Unknown N/A 02/14/2015 Yes Penicillins [id number] Drug Allergy Unknown N/A 02/14/2015 Medications There [...] ENCOUNTER 02/15/2015 CIARA LUCIANO MD Ot Z79.4 BULK TANK CAR UNLOADER (CURRENT) USE OF INSULIN 02/15/2015 MAHESH MCCULLOUGH, ISHA Sena Ot 250.60 02/15/2015 MAHESH MCCULLOUGH, IHSA Sena Ot 250.80 02/15/2015 MAHESH MCCULLOUGH, ISHA [...] 04/18/2017 ISHA ARAGON MD, Ot 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 04/18/2017 [...] 04/25/2017 ISHA ARAGON MD, Ot 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 04/25/2017 ISHA ARAGON MD, Ot L97.512 NON-PRS CHRONIC ULCER OTH PRT RIGHT FOOT 04/25/2017 ISHA ARAGON MD, Ot T65.222D TOXIC EFFECT OF TOBACCO CIGARETTES, SELF 04/29/2017 ISHA ARAGON MD, Ot E11.42 TYPE 2 DIABETES MELLITUS WITH DIABETIC P 04/29/2017 ISHA ARAGON MD, Ot E11.621 TYPE 2 DIABETES MELLITUS WITH FOOT ULCER 04/29/2017 ISHA ARAOGN MD, Ot F17.210 NICOTINE DEPENDENCE, CIGARETTES, UNCOMPL 04/29/2017 ISHA ARAGON MD, Ot 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 04/29/2017 [...] 05/07/2017 ISHA ARAGON MD, Ot 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 05/07/2017 [...] 05/09/2017 ISHA ARAGON MD, Ot 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 05/09/2017 [...] 05/11/2017 ISHA ARAGON MD, Ot 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 05/11/2017 ISHA ARAGON MD, Ot L03.115 CELLULITIS OF RIGHT LOWER LIMB 05/11/2017 ISHA ARAGON MD, Ot L97.512 NON-PRS CHRONIC ULCER OTH PRT RIGHT FOOT 05/12/2017 ISHA ARAGON MD, Ot E11.42 TYPE 2 DIABETES MELLITUS WITH DIABETIC P 05/12/2017 ISHA ARAGON MD, Ot E11.621 TYPE 2 DIABETES MELLITUS WITH FOOT ULCER 05/12/2017 ISHA ARAGON MD, Ot 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 05/12/2017 [...] 05/14/2017 ISHA ARAGON MD, Ot 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 05/14/2017 [...] 05/17/2017 ISHA ARAGON MD, Ot 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 05/17/2017 [...] 05/24/2017 ISHA ARAGON MD, Ot 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 05/24/2017 ISHA ARAGON MD Ot L03.115 CELLULITIS OF RIGHT LOWER LIMB 05/24/2017 ISHA ARAGON MD, Ot L97.512 NON-PRS CHRONIC ULCER OTH PRT RIGHT FOOT 05/24/2017 ISHA ARAGON MD, Ot E11.42 TYPE 2 DIABETES MELLITUS WITH DIABETIC P 05/24/2017 ISHA ARAGON MD, Ot E11.621 TYPE 2 DIABETES MELLITUS WITH FOOT ULCER 05/24/2017 ISHA ARAGON MD, Ot 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 05/24/2017 [...] 05/24/2017 ISHA ARAGON MD, Ot 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 05/24/2017 [...] 05/24/2017 ISHA ARAGON MD, Ot 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 05/24/2017 [...] 05/24/2017 ISHA ARAGON MD, Ot 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 05/24/2017 [...] 05/24/2017 ISHA ARAGON MD, Ot 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 05/24/2017 [...] 05/24/2017 ISHA ARAGON MD, Ot 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 05/24/2017 [...] 05/24/2017 ISHA ARAGON MD, Ot 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 05/24/2017 [...] 05/27/2017 ISHA ARAGON MD, Ot 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 05/27/2017 [...] 05/28/2017 ROGERS APPLE, MAN Fischer Ot Z79.82 HALFWAY (CURRENT) USE OF ASPIRIN 05/28/2017 ROGERS APPLE, MAN Fischer Ot Z79.84 HALFWAY (CURRENT) USE OF ORAL HYPOGLYC 05/28/2017 ROGERS APPLE, MAN Fischer Ot Z79.899 OTHER HALFWAY (CURRENT) DRUG THERAPY 05/28/2017 ISHA ARAGON MD, Ot E11.42 TYPE 2 DIABETES MELLITUS WITH DIABETIC P 05/28/2017 ISHA ARAGON MD, Ot E11.621 TYPE 2 DIABETES MELLITUS WITH FOOT ULCER 05/28/2017 ISHA ARAGON MD, Ot 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 05/28/2017 [...] 05/28/2017 ISHA ARAGON MD, Ot 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 05/28/2017 [...] 06/01/2017 MCCLOUD DPM, MAN P Ot Z79.82 BULK TANK CAR UNLOADER (CURRENT) USE OF ASPIRIN 06/01/2017 MCCLOUD DPM, MAN P Ot Z79.84 HALFWAY (CURRENT) USE OF ORAL HYPOGLYC 06/01/2017 MCCLOUD DPM, MAN P Ot Z79.899 OTHER HALFWAY (CURRENT) DRUG THERAPY 06/03/2017 MCCLOUD DPM, MAN [...] 06/03/2017 MCCLOUD DPM, MAN P Ot Z79.82 BULK TANK CAR UNLOADER (CURRENT) USE OF ASPIRIN 06/03/2017 MCCLOUD DPM, MAN P Ot Z79.84 BULK TANK CAR UNLOADER (CURRENT) USE OF ORAL HYPOGLYC 06/03/2017 MCCLOUD DPM, MAN P Ot Z79.899 OTHER HALFWAY (CURRENT) DRUG THERAPY 06/03/2017 ISHA ARAGON MD, Ot E11.42 TYPE 2 DIABETES MELLITUS WITH DIABETIC P 06/03/2017 ISHA ARAGON MD, Ot E11.621 TYPE 2 DIABETES MELLITUS WITH FOOT ULCER 06/03/2017 ISHA ARAGON MD, Ot 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 06/03/2017 [...] 06/04/2017 ISHA ARAGON MD, Ot 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 06/04/2017 [...] 06/04/2017 ISHA ARAGON MD, Ot 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 06/04/2017 [...] 06/04/2017 ISHA ARAGON MD, Ot 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 06/04/2017 [...] 06/14/2017 ISHA ARAGON MD, Ot 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 06/14/2017 [...] 06/23/2017 ISHA ARAGON MD, Ot 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 06/23/2017 [...] 08/26/2017 ISHA ARAGON MD, Ot 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 08/26/2017 ISHA ARAGON MD, Ot L03.115 CELLULITIS OF RIGHT LOWER LIMB 08/26/2017 ISHA ARAGON MD, Ot L97.512 NON-PRS CHRONIC ULCER OTH PRT RIGHT FOOT 08/26/2017 ISHA ARAGON MD, Ot E11.42 TYPE 2 DIABETES MELLITUS WITH DIABETIC P 08/26/2017 ISHA ARAGON MD, Ot E11.621 TYPE 2 DIABETES MELLITUS WITH FOOT ULCER 08/26/2017 ISHA ARAGON MD, Ot 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 08/26/2017 ISHA ARAGON MD, Ot L03.115 CELLULITIS OF RIGHT LOWER LIMB 08/26/2017 ISHA ARAGNO MD, Ot L97.512 NON-PRS CHRONIC ULCER OTH PRT RIGHT FOOT 08/26/2017 ISHA ARAGON MD, Ot T65.222D TOXIC EFFECT OF TOBACCO CIGARETTES, SELF 08/26/2017 ISHA ARAGON MD, Ot E11.42 TYPE 2 DIABETES MELLITUS WITH DIABETIC P 08/26/2017 ISHA ARAGON MD, Ot E11.621 TYPE 2 DIABETES MELLITUS WITH FOOT ULCER 08/26/2017 MAHESH MD, ISHA G Ot 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 08/26/2017 [...] 08/26/2017 ISHA ARAGON MD, Ot 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 08/26/2017 [...] 08/26/2017 ISHA ARAGON MD, Ot 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 08/26/2017 [...] 08/26/2017 ISHA ARAGON MD, Ot 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 08/26/2017 [...] 08/26/2017 ISHA ARAGON MD, Ot 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 08/26/2017 [...] 08/26/2017 ISHA ARAGON MD, Ot 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 08/26/2017 [...] 08/27/2017 ISHA ARAGON MD Ot 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 08/27/2017 ISHA ARAGON MD Ot L03.115 CELLULITIS OF RIGHT LOWER LIMB 08/27/2017 ISHA ARAGON MD Ot L97.512 NON-PRS CHRONIC ULCER OTH PRT RIGHT FOOT 08/27/2017 ISHA ARAGON MD Ot E11.42 TYPE 2 DIABETES MELLITUS WITH DIABETIC P 08/27/2017 ISHA ARAGON MD, Ot E11.621 TYPE 2 DIABETES MELLITUS WITH FOOT ULCER 08/27/2017 ISHA ARAGON MD, Ot 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 08/27/2017 [...] 08/27/2017 ISHA ARAGON MD, Ot 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 08/27/2017 [...] 08/27/2017 ISHA ARAGON MD, Ot 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 08/27/2017 [...] 08/27/2017 ISHA ARAGON MD Ot 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 08/27/2017 [...] 08/27/2017 ISHA ARAGON MD, Ot 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 08/27/2017 [...] 08/27/2017 ISHA ARAGON MD, Ot 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 08/27/2017 [...] 08/27/2017 ISHA ARAGON MD, Ot 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 08/27/2017 [...] OTHER PART OF FOOT 08/27/2017 ISHA ARAGON MD, Ot E11.42 TYPE 2 DIABETES MELLITUS WITH DIABETIC P 08/27/2017 ISHA ARAGON MD, Ot E11.621 TYPE 2 DIABETES MELLITUS WITH FOOT ULCER 08/27/2017 ISHA ARAGON MD, Ot F17.210 NICOTINE DEPENDENCE, CIGARETTES, UNCOMPL 08/27/2017 ISHA ARAGON MD, Ot 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 08/27/2017 ISHA ARAGON MD, Ot L03.115 CELLULITIS OF RIGHT LOWER LIMB 08/27/2017 ISHA ARAGON MD, Ot L97.512 NON-PRS CHRONIC ULCER OTH PRT RIGHT FOOT 08/27/2017 ISHA ARAGON MD, Ot E11.42 TYPE 2 DIABETES MELLITUS WITH DIABETIC P 08/27/2017 ISHA ARAGON MD, Ot E11.621 TYPE 2 DIABETES MELLITUS WITH FOOT ULCER 08/27/2017 ISHA ARAGON MD, Ot 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 08/27/2017 [...] 08/27/2017 ISHA ARAGON MD, Ot 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 08/27/2017 [...] 08/27/2017 ISHA ARAGON MD, Ot 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 08/27/2017 ISHA ARAGON MD, Ot L97.512 NON-PRS CHRONIC ULCER OTH PRT RIGHT FOOT 08/27/2017 ISHA ARAGON MD, Ot T65.222D TOXIC EFFECT OF TOBACCO CIGARETTES, SELF 08/27/2017 ISHA ARAGON MD, Ot E11.42 TYPE 2 DIABETES MELLITUS WITH DIABETIC P 08/27/2017 ISHA ARAGON MD, Ot E11.621 TYPE 2 DIABETES MELLITUS WITH FOOT ULCER 08/27/2017 IHSA ARAGON MD, Ot 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 08/27/2017 [...] 08/27/2017 ISHA ARAGON MD, Ot 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 08/27/2017 [...] 08/27/2017 ISHA ARAGON MD, Ot 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 08/27/2017 [...] 08/27/2017 ISHA ARAGON MD, Ot 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 08/27/2017 [...] 09/01/2017 ISHA ARAGON MD, Ot 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 09/01/2017 ISHA ARAGON MD Ot L03.115 CELLULITIS OF RIGHT LOWER LIMB 09/01/2017 ISHA ARAGON MD, Ot L97.512 NON-PRS CHRONIC ULCER OTH PRT RIGHT FOOT 09/01/2017 ISHA ARAGON MD, Ot E11.42 TYPE 2 DIABETES MELLITUS WITH DIABETIC P 09/01/2017 ISHA ARAGON MD, Ot E11.621 TYPE 2 DIABETES MELLITUS WITH FOOT ULCER 09/01/2017 ISHA ARAGON MD, Ot 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 09/01/2017 [...] 09/01/2017 ISHA ARAGON MD, Ot 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 09/01/2017 [...] 09/01/2017 ISHA ARAGON MD, Ot 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 09/01/2017 [...] MAHESH MD, ISHA G Ot 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 09/01/2017 [...] 09/01/2017 ISHA ARAGON MD, Ot 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 09/01/2017 [...] 09/01/2017 ISHA ARAGON MD, Ot 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 09/01/2017 [...] 09/01/2017 ISHA ARAGON MD, Ot 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 09/01/2017 [...] PRT RIGHT FOOT 09/09/2017 LUIS FELIPE FERRARI GLEASON GEAR GENERATOR Ot E11.42 TYPE 2 DIABETES MELLITUS WITH DIABETIC P 09/09/2017 LUIS FELIPE FERRARI GLEASON GEAR GENERATOR Ot E11.621 TYPE 2 DIABETES MELLITUS WITH FOOT ULCER 09/09/2017 LUIS FELIPE FERRARI GLEASON GEAR GENERATOR Ot L97.512 NON-PRS CHRONIC ULCER OTH PRT RIGHT FOOT 09/09/2017 ISHA ARAGON MD Ot E11.42 TYPE 2 DIABETES MELLITUS WITH DIABETIC P 09/09/2017 ISHA ARAGON MD Ot E11.621 TYPE 2 DIABETES MELLITUS WITH FOOT ULCER 09/09/2017 ISAH ARAGON MD Ot L97.512 NON-PRS CHRONIC ULCER OTH PRT RIGHT FOOT 09/10/2017 LUIS FELIPE FERRARI GLEASON GEAR GENERATOR Ot E11.42 TYPE 2 DIABETES MELLITUS WITH DIABETIC P 09/10/2017 LUIS FELIPE FERRARI GLEASON GEAR GENERATOR Ot E11.621 TYPE 2 DIABETES MELLITUS WITH FOOT ULCER 09/10/2017 LUIS FELIPE FERRARI GLEASON GEAR GENERATOR Ot L97.512 NON-PRS CHRONIC ULCER OTH PRT [...] TOBACCO CIGARETTES, SELF 09/28/2017 LUIS FELIPE FERRARI GLEASON GEAR GENERATOR Ot E11.42 TYPE 2 DIABETES MELLITUS WITH [...] CHRONIC ULCER OTH PRT RIGHT FOOT 10/04/2017 DAYNEL CALDWELL W 250.80 DIABETES MELLITUS WITH OTHER [...] TOBACCO CIGARETTES, SELF 10/08/2017 LUIS FELIPE FERRARI GLEASON GEAR GENERATOR Ot E11.42 TYPE 2 DIABETES MELLITUS WITH DIABETIC P 10/08/2017 LUIS FELIPE FERRARI GLEASON GEAR GENERATOR Ot E11.621 TYPE 2 DIABETES MELLITUS WITH [...] OTH PRT RIGHT FOOT 10/25/2017 ISHA ARAGON MD, Ot E11.42 TYPE 2 DIABETES MELLITUS WITH DIABETIC P 10/25/2017 ISHA ARAGNO MD, Ot E11.621 TYPE 2 DIABETES MELLITUS WITH FOOT ULCER 10/25/2017 ISHA ARAGON MD Ot 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 10/25/2017 [...] 10/28/2017 ISHA ARAGON MD, Ot 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 10/28/2017 ISHA ARAGON MD, Ot L97.512 NON-PRS CHRONIC ULCER OTH PRT RIGHT FOOT 10/28/2017 ISHA ARAGON MD, Ot T65.222D TOXIC EFFECT OF TOBACCO CIGARETTES, SELF 10/29/2017 ISHA ARAGON MD, Ot E11.42 TYPE [...] 11/04/2017 ISHA ARAGON MD, Ot 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 11/04/2017 [...] 11/10/2017 ISHA ARAGON MD, Ot 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 11/10/2017 ISHA ARAGON MD, Ot L97.512 NON-PRS CHRONIC [...] 2 DIABETES MELLITUS WITH DIABETIC P 11/12/2017 SIHA ARAGON MD, Ot E11.621 TYPE 2 DIABETES MELLITUS WITH FOOT ULCER 11/12/2017 ISHA ARAGON MD, Ot 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 11/12/2017 [...] 11/15/2017 ISHA ARAGON MD, Ot 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 11/15/2017 [...] 11/15/2017 ISHA ARAGON MD, Ot 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 11/15/2017 [...] 11/17/2017 ISHA ARAGON MD, Ot 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 11/17/2017 ISHA ARAGON MD, Ot L97.512 NON-PRS CHRONIC ULCER OTH PRT RIGHT FOOT 11/17/2017 ISHA ARAGON MD, Ot T65.222D TOXIC EFFECT OF TOBACCO CIGARETTES, SELF 11/18/2017 ISHA ARAGON MD, Ot E11.42 TYPE 2 DIABETES MELLITUS WITH DIABETIC P 11/18/2017 ISHA ARAGON MD, Ot E11.621 TYPE 2 DIABETES MELLITUS WITH FOOT ULCER 11/18/2017 ISHA AARGON MD Ot 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 11/18/2017 [...] 11/19/2017 ISHA ARAGON MD, Ot 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 11/19/2017 ISHA ARAGON MD, Ot L97.512 NON-PRS CHRONIC ULCER OTH PRT RIGHT FOOT 11/19/2017 ISHA ARAGON MD, Ot T65.222D TOXIC EFFECT OF TOBACCO CIGARETTES, SELF 11/19/2017 LUIS FELIPE FERRARI GLEASON GEAR GENERATOR Ot E11.42 TYPE 2 DIABETES MELLITUS WITH DIABETIC P 11/19/2017 LUIS FELIPE FERRARI GLEASON GEAR GENERATOR Ot E11.621 TYPE 2 DIABETES MELLITUS WITH FOOT ULCER 11/19/2017 LUIS FELIPE FERRARI GLEASON GEAR GENERATOR Ot 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 11/19/2017 LUIS FELIPE FERRARI GLEASON GEAR GENERATOR Ot L97.512 NON-PRS CHRONIC ULCER OTH PRT RIGHT FOOT 11/19/2017 LUIS FELIPE FERRRAI APRN Ot T65.222D TOXIC EFFECT OF TOBACCO CIGARETTES, SELF 11/24/2017 LUIS FELIPE FERRARI GLEASON GEAR GENERATOR Ot E11.42 TYPE 2 DIABETES MELLITUS WITH DIABETIC P 11/24/2017 LUIS FELIPE FERRARI GLEASON GEAR GENERATOR Ot E11.621 TYPE 2 DIABETES MELLITUS WITH FOOT ULCER 11/24/2017 LUIS FELIPE FERRARI GLEASON GEAR GENERATOR Ot 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 11/24/2017 LUIS FELIPE FERRARI GLEASON GEAR GENERATOR Ot L97.512 NON-PRS CHRONIC ULCER OTH PRT RIGHT FOOT 11/24/2017 LUIS FELIPE FERRARI GLEASON GEAR GENERATOR Ot T65.222D TOXIC EFFECT OF TOBACCO CIGARETTES, SELF 11/26/2017 ISHA ARAGON MD, Ot E11.42 TYPE 2 DIABETES MELLITUS WITH DIABETIC P 11/26/2017 ISHA ARAGON MD, Ot E11.621 TYPE 2 DIABETES MELLITUS WITH FOOT ULCER 11/26/2017 ISHA ARAGON MD, Ot 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 11/26/2017 ISHA ARAOGN MD, Ot L97.512 NON-PRS CHRONIC ULCER OTH PRT RIGHT FOOT 11/26/2017 ISHA ARAGON MD, Ot T65.222D TOXIC EFFECT OF TOBACCO CIGARETTES, SELF 11/26/2017 ISHA ARAGON MD, Ot E11.42 TYPE 2 DIABETES MELLITUS WITH DIABETIC P 11/26/2017 ISHA ARAGON MD, Ot E11.621 TYPE 2 DIABETES MELLITUS WITH FOOT ULCER 11/26/2017 ISHA ARAGON MD, Ot 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 11/26/2017 [...] 11/29/2017 ISHA ARAGON MD, Ot 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 11/29/2017 [...] 12/02/2017 ISHA ARAGON MD Ot 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 12/02/2017 [...] 12/02/2017 ISHA ARAGON MD, Ot 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 12/02/2017 ISHA ARAGON MD, Ot L97.512 NON-PRS CHRONIC ULCER OTH PRT RIGHT FOOT 12/02/2017 ISHA ARAGON MD, Ot T65.222D TOXIC EFFECT OF TOBACCO CIGARETTES, SELF 12/08/2017 LUIS FELIPE FERRARI APRN Ot E11.42 TYPE 2 DIABETES MELLITUS WITH DIABETIC P 12/08/2017 LUIS FELIPE FERRARI APRN Ot E11.621 TYPE 2 DIABETES MELLITUS WITH FOOT ULCER 12/08/2017 LUIS FELIPE FERRARI GLEASON GEAR GENERATOR Ot 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 12/08/2017 [...] 12/10/2017 ISHA ARAGON MD, Ot 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 12/10/2017 ISHA ARAGON MD, Ot L97.512 NON-PRS CHRONIC ULCER OTH PRT RIGHT FOOT 12/10/2017 ISHA ARAGON MD, Ot T65.222D TOXIC EFFECT OF TOBACCO CIGARETTES, SELF 12/14/2017 LUIS FELIPE FERRAIR APRN Ot E11.42 TYPE 2 DIABETES MELLITUS WITH DIABETIC P 12/14/2017 LUIS FELIPE FERRARI APRN Ot E11.621 TYPE 2 DIABETES MELLITUS WITH FOOT ULCER 12/14/2017 LUIS FELIPE FERRARI APRN Ot 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 12/14/2017 LUIS FELIPE FERRARI APRN Ot L97.512 NON-PRS CHRONIC ULCER OTH PRT RIGHT FOOT 12/14/2017 LUIS FELIPE FERRARI APRN Ot T65.222D TOXIC EFFECT OF TOBACCO CIGARETTES, SELF 12/14/2017 ISHA ARAGON MD, Ot E11.42 TYPE 2 DIABETES MELLITUS WITH DIABETIC P 12/14/2017 ISAH ARAGON MD, Ot E11.621 TYPE 2 DIABETES MELLITUS WITH FOOT ULCER 12/14/2017 ISHA ARAGON MD, Ot 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 12/14/2017 [...] M86.9 OSTEOMYELITIS , UNSPECIFIED 12/29/2017 Ot Z79.4 BULK TANK CAR UNLOADER ( CURRENT) USE OF INSULIN 12/31/2017 ISHA ARAGON MD, Ot E11.42 TYPE 2 DIABETES MELLITUS WITH DIABETIC P 12/31/2017 ISHA ARAGON MD, Ot E11.621 TYPE 2 DIABETES MELLITUS WITH FOOT ULCER 12/31/2017 ISHA ARAGON MD, Ot 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 12/31/2017 [...] 12/31/2017 ISHA ARAGON MD, Ot 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 12/31/2017 [...] 01/06/2018 ISHA ARAGON MD Ot 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 01/06/2018 ISHA ARAGON MD, Ot L97.512 NON-PRS CHRONIC ULCER OTH PRT RIGHT FOOT 01/06/2018 ISHA ARAGON MD, Ot T65.222D TOXIC EFFECT OF TOBACCO CIGARETTES, SELF 01/06/2018 Ot E11.42 TYPE 2 DIABETES MELLITUS WITH DIABETIC P 01/06/2018 Ot E11.621 TYPE 2 DIABETES MELLITUS WITH FOOT ULCER 01/06/2018 Ot 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 01/06/2018 Ot L97.514 NON-PRS CHRONIC ULCER OTH PRT RIGHT FOOT 01/06/2018 Ot T65.222D TOXIC EFFECT OF TOBACCO CIGARETTES, SELF 01/11/2018 Ot E11.42 TYPE 2 DIABETES MELLITUS WITH DIABETIC P 01/11/2018 Ot E11.621 TYPE 2 DIABETES MELLITUS WITH FOOT ULCER 01/11/2018 Ot 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 01/11/2018 [...] WITH FOOT ULCER 01/11/2018 Ot 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 01/11/2018 [...] WITH FOOT ULCER 01/14/2018 Ot 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 01/14/2018 Ot L97.514 NON-PRS CHRONIC ULCER OTH PRT RIGHT FOOT 01/14/2018 Ot T65.222D TOXIC EFFECT OF TOBACCO CIGARETTES, SELF 01/24/2018 Ot E11.69 TYPE 2 DIABETES MELLITUS WITH OTHER SPEC 01/24/2018 Ot F17.210 NICOTINE DEPENDENCE, CIGARETTES, UNCOMPL 01/24/2018 Ot M67.01 SHORT ACHILLES TENDON (ACQUIRED), RIGHT 01/24/2018 Ot M86.9 OSTEOMYELITIS , UNSPECIFIED 01/24/2018 Ot Z79.4 HALFWAY ( CURRENT) USE OF INSULIN 01/26/2018 Ot E11.69 TYPE 2 DIABETES MELLITUS WITH OTHER SPEC 01/26/2018 Ot F17.210 NICOTINE DEPENDENCE, CIGARETTES, UNCOMPL 01/26/2018 Ot M67.01 SHORT ACHILLES TENDON (ACQUIRED), RIGHT 01/26/2018 Ot M86.9 OSTEOMYELITIS , UNSPECIFIED 01/26/2018 Ot Z79.4 HALFWAY ( CURRENT) USE OF INSULIN 03/08/2018 ISHA [...] Ot Z01.818 ENCOUNTER FOR OTHER PREPROCEDURAL EXAMIN 03/31/2018 TANO GRAY DO Ot C44.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 03/31/2018 TANO GRAY DO Ot 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 03/31/2018 TANO GRAY DO Ot E11.9 TYPE 2 DIABETES MELLITUS WITHOUT COMPLIC 03/31/2018 TANO GRAY DO Ot F17.210 NICOTINE DEPENDENCE, CIGARETTES, UNCOMPL 03/31/2018 TANO GRAY DO D Ot I10 ESSENTIAL (PRIMARY) HYPERTENSION 03/31/2018 TANO GRAY DO D Ot Z79.84 HALFWAY (CURRENT) USE OF ORAL HYPOGLYC 03/31/2018 TANO GRAY DO D Ot 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 Results Test [...] identification in isolate by anaerobe culture NOANA NR Gram stain microscopy - 04/05/17 15:52 GRAM STAIN RESULT NO WBC'S OR BACTERIA OBSERVED NR Bacteria identification in wound by culture - 04/05/17 15:52 Bacteria identification in wound by culture [id number] NR FREE TEXT EXTERNAL SENSITIVITY REPORTED AT [...] 10:59 Bacteria identification in wound by culture [id number] NR FREE TEXT EXTERNAL SENSITIVITIES REPORTED AT 0748, 2--18 NRG QUANTITY OF GROWTH Moderate Growth NRG Bacterial susceptibility panel - 06/30/17 10:59 Gentamicin [...] STAIN RESULT FEW WBC'S, NO BACTERIA OBSERVED NRG Bacteria identification in wound by culture - 08/27/17 09:11 Bacteria identification in wound by culture [id number] [facility] FREE TEXT EXTERNAL SENSITIVITY REPORTED AT 1109, 418 NRG QUANTITY OF GROWTH Scant Growth [facility] Bacterial susceptibility panel - 08/27/17 09:11 Oxacillin [...] test by minimum inhibitory concentration 2 NRG Whole blood basic metabolic panel - 09/01/17 11:25 Serum or plasma sodium measurement (moles/volume) 134 mmol/L 135-145 Serum or plasma potassium measurement (moles/volume) 4.3 mmol/L 3.6-5.0 Serum or plasma chloride measurement (moles/volume) 101 mmol/L 98-107 Carbon dioxide 25 mmol/L 21-32 Serum or plasma anion gap determination (moles/volume) 8 mmol/L 5-14 Serum or plasma urea nitrogen measurement (mass/volume) 19 mg/dL 7-18 Serum or plasma creatinine measurement (mass/volume) 1.26 [...] 98 mmol/L 98-107 Carbon dioxide 23 mmol/L 21-32 [...] identification in isolate by anaerobe culture NOANA [facility] Gram stain microscopy - 09/29/17 09:26 GRAM STAIN RESULT NO WBC'S OR BACTERIA OBSERVED NRG Bacteria identification in wound by culture - 09/29/17 09:26 Bacteria identification in wound by culture [id number] NR FREE TEXT EXTERNAL FEW OBSERVED NRG QUANTITY OF GROWTH Isolated NRG MRSA AGAR Screening test for MRSA is NEGATIVE (Final to follow) [facility] FREE TEXT ENTRY 2 SENSITIVITY REPORTED AT 1135, 5-18 [facility] Bacterial susceptibility panel - 09/29/17 09:26 Oxacillin [...] 09:44 Bacteria identification in wound by culture [id number] NRG FREE TEXT EXTERNAL ID REPORTED 10/22/17 15:30 NRG QUANTITY OF GROWTH Scant Growth NRG FREE TEXT ENTRY 2 ISOLATE SENT TO [facility] NRG FREE TEXT ENTRY 3 10/23/17 FOR SENSITIVITY TESTING NRG Bacteria identification in isolate by anaerobe culture - 11/23/17 08:31 Bacteria identification in isolate by anaerobe culture NOANA NRG Gram stain microscopy - 11/23/17 08:31 GRAM STAIN RESULT NO WBC'S OR BACTERIA OBSERVED NRG Bacteria identification in wound by culture - 11/23/17 08:31 Bacteria identification in wound by culture [id number] NRG FREE TEXT EXTERNAL SENSITIVITY REPORTED AT 0727, 11-25-17 NRG QUANTITY OF GROWTH Scant Growth NRG Bacterial susceptibility panel - 11/23/17 08:31 Gentamicin [...] 100 mmol/L 98-107 Carbon dioxide 23 mmol/L 21-32 [...] 99 mmol/L 98-107 Carbon dioxide 24 mmol/L -32 Serum or plasma anion gap [...] 09:13 Bacteria identification in wound by culture [id number] NRG FREE TEXT EXTERNAL ID BY RML [...] 0.3 mg/dL 0.2-1.2 TP 7.1 g/dL 6.0-8.3 Capillary blood glucose measurement by glucometer (mass/volume) - 03/31/18 09: 40 Capillary blood glucose measurement by glucometer (mass/volume) 222 mg/dL 70-110 Methicillin resistant Staphylococcus aureus (MRSA) screening culture - 10:00 Methicillin resistant Staphylococcus aureus (MRSA) screening culture NEG NRG Encounters ACCT No. Visit Date/Time Discharge Status Pt. Type Provider Facility Loc./Unit Complaint [id number] 03/31/2018 09:20:00 03/31/2018 13:45:00 DIS Outpatient TANO GRAY DO Via [facility] SKIN CANCER ON BACK [id number] 03/22/2018 05:39:00 03/22/2018 13:25:00 DIS Outpatient TANO GRAY DO Via [facility] PREOP SKIN CANCER ON BACK [id number] 03/11/2018 11:00:00 03/11/2018 23:59:59 CLS Preadmit JAY MCCULLOUGH ARIZA Via [facility] CHRONIC KIDNEY DISEASE STAGE 4 [id number] 03/09/2018 00:08:00 03/09/2018 23:59:59 CLS Preadmit ISHA ARAGON MD Via [facility] LAB E11.621,E11.42,L97.512 [id number] 12/17/2017 07:40:00 03/08/2018 00:01:00 DIS Outpatient ISHA ARAGON MD [facility] LAB E11.621,E11.42,L97.512 [id number] 12/08/2017 08:02:00 12/08/2017 23:59:59 CLS Outpatient ISHA ARAGON MD [facility] WOUNDCARE [id number] 12/01/2017 08:22:00 12/01/2017 23:59:59 CLS Outpatient ISHA ARAGON MD [facility] WOUND[facility] [id number] 12/01/2017 07:33:00 12/01/2017 23:59:59 CLS Outpatient ISHA ARAGON MD [facility] LAB E11.621 E11.42 L97.512 [id number] 09/01/2017 11:19:00 11/30/2017 00:01:00 DIS Outpatient ISHA ARAGON MD [facility] LAB E11.621,E11.42,L97.512 [id number] 11/25/2017 07:58:00 11/25/2017 23:59:59 CLS Outpatient ISHA ARAGON MD [facility] WOUND[facility] [id number] 11/23/2017 08:02:00 11/23/2017 23:59:59 CLS Outpatient LUIS FELIPE FERRARI APRN [facility] WOUND[facility] [id number] 11/16/2017 07:59:00 11/16/2017 23:59:59 CLS Outpatient LUIS FELIPE FERRARI APRN [facility] WOUND[facility] [id number] 11/10/2017 07:57:00 11/10/2017 23:59:59 CLS Outpatient ISHA ARAGON MD [facility] W[facility] [id number] 11/03/2017 07:55:00 11/03/2017 23:59:59 CLS Outpatient ISHA ARAGON MD [facility] [id number] 10/27/2017 08:10:00 10/27/2017 23:59:59 CLS Outpatient ISHA ARAGON MD [facility] W[facility] [id number] 10/20/2017 08:31:00 10/20/2017 23:59:59 CLS Outpatient ISHA ARAGON MD [facility] W[facility] [id number] 10/13/2017 08:32:00 10/13/2017 23:59:59 CLS Outpatient ISHA ARAGON MD [facility] [place] [id number] 10/04/2017 08:00:00 10/04/2017 23:59:59 CLS Outpatient ISHA ARAGON MD [facility] [id number] 10/01/2017 08:09:00 10/01/2017 23:59:59 CLS Outpatient ISHA ARAGON MD [facility] [id number] 09/29/2017 10:33:00 09/29/2017 23:59:59 CLS Outpatient ISHA ARAGON MD [facility] LAB SEE ORDER [id number] 09/29/2017 08:17:00 09/29/2017 23:59:59 CLS Outpatient ISHA ARAGON MD [facility]OUND[facility] [id number] 09/22/2017 07:56:00 09/22/2017 23:59:59 CLS Outpatient ISHA ARAGON MD [facility] [id number] 09/20/2017 08:32:00 09/20/2017 23:59:59 CLS Outpatient ISHA ARAGON MD [facility] [id number] 09/15/2017 10:03:00 09/15/2017 23:59:59 CLS Outpatient ISHA ARAGON MD [facility] [id number] 09/08/2017 11:44:00 09/08/2017 23:59:59 CLS Outpatient ISHA ARAGON MD [facility] LAB E11.621 E11.42 L97.512 [id number] 09/08/2017 10:10:00 09/08/2017 23:59:59 CLS Outpatient LUIS FELIPE FERRARI APRN [facility] [id number] 09/01/2017 10:06:00 09/01/2017 23:59:59 CLS Outpatient ISHA ARAGON MD [facility] [id number] 08/27/2017 09:41:00 08/27/2017 23:59:59 CLS Outpatient ISHA ARAGON MD [facility] RAD E11.621,L97.512 [id number] 08/27/2017 08:28:00 08/27/2017 23:59:59 CLS Outpatient ISHA ARAGON MD [facility] [id number] 08/04/2017 08:37:00 08/04/2017 23:59:59 CLS Outpatient ISHA ARAGON MD [facility] [id number] 07/28/2017 08:12:00 07/28/2017 23:59:59 CLS Outpatient ISHA ARAGON MD [facility] [id number] 07/21/2017 09:01:00 07/21/2017 23:59:59 CLS Outpatient ISHA ARAGON MD [facility] [id number] 07/14/2017 08:54:00 07/14/2017 23:59:59 CLS Outpatient ISHA ARAGON MD [facility] [id number] 07/12/2017 08:54:00 07/12/2017 23:59:59 CLS Outpatient ISHA ARAGON MD [facility] [id number] 07/01/2017 08:47:00 07/01/2017 23:59:59 CLS Outpatient ISHA ARAGON MD [facility] RAD E11.621 E11.42 L97.512 [id number] 06/30/2017 09:06:00 06/30/2017 23:59:59 CLS Outpatient ISHA ARAGON MD [facility] [id number] 05/28/2017 06:00:00 05/28/2017 11:45:00 DIS Outpatient MCCLOUDMAN THEODORE DPM [facility] SDC OSTEOMYELITIS [id number] 05/24/2017 08:30:00 05/24/2017 23:59:59 CLS Outpatient ISHA ARAGON MD [facility] [id number] 05/24/2017 10:05:00 05/24/2017 10:40:00 DIS Outpatient MCCLOUDMAN THEODORE DPM [facility] PREOP OSTEOMYELITIS [id number] 05/11/2017 12:06:00 05/11/2017 23:59:59 CLS Outpatient ISHA ARAGON MD [facility] [place] [id number] 05/03/2017 08:22:00 05/03/2017 23:59:59 CLS Outpatient ISHA ARAGON MD [facility] [id number] 04/26/2017 08:39:00 04/26/2017 23:59:59 CLS Outpatient ISHA ARAGON MD [facility] [id number] 04/19/2017 08:29:00 04/19/2017 23:59:59 CLS Outpatient ISHA ARAGON MD [facility] [id number] 04/12/2017 10:51:00 04/12/2017 23:59:59 CLS Outpatient ISHA ARAGON MD [facility] RAD E11.621,E11.42,L97.512 [id number] 04/12/2017 08:22:00 04/12/2017 23:59:59 CLS Outpatient ISHA ARAGON MD [facility] [id number] 04/05/2017 14:03:00 04/05/2017 23:59:59 CLS Outpatient ISHA ARAGON MD [facility] [id number] 02/03/2017 12:35:00 02/03/2017 23:59:59 CLS Preadmit DANYEL CALDWELL MD [facility] RAD ELEVATED LFT'S [id number] 03/04/2015 08:03:00 03/04/2015 10:00:00 DIS Outpatient ISHA ARAGON MD [facility] W[facility] [id number] 02/14/2015 23:42:00 02/15/2015 02:13:00 DIS Emergency CIARA LUCIANO MD [facility] ER VOMITING,FALL 3 WKS AGO-PAIN SMALL OF BACK [id number] 02/13/2015 09:09:00 02/13/2015 00:01:00 DIS Outpatient ISHA ARAGON MD [facility] [id number] 01/07/2015 08:04:00 01/20/2015 00:01:00 DIS Outpatient ISHA ARAGON MD [facility] [id number] 10/22/2014 11:15:00 10/22/2014 23:59:59 CLS Outpatient ISHA ARAGON MD [facility] RAD DIABETIC FOOT ULCER [id number] 08/31/2013 10:25:00 10/04/2013 13:56:00 DIS Outpatient DANYEL CALDWELL MD [facility] W[facility] PRESSURE/ EXPOSURE TO ACID ULCER [id number] 05/05/2018 10:22:00 ACT Emergency CIARA LUCIANO MD [facility] ER TOE WOUND [id number] 12/31/2017 13:53:00 Document Registration [id number] 12/22/2017 08:02:00 Document Registration [id number] 12/20/2017 09:17:00 Document Registration [id number] 12/19/2017 11:28:00 Document Registration [email or web address] 02/26/2015 08:03:43 ACT Document Registration [id number] 01/13/2018 13:39:00 01/13/2018 23:59:00 DIS Outpatient DANYEL CALDWELL [id number] 10/04/2017 12:40:00 10/04/2017 23:59:00 DIS Outpatient DANYEL CALDWELL [id number] 05/03/2017 14:10:00 05/03/2017 23:59:00 DIS Outpatient DANYEL CALDWELL [id number] 02/02/2017 11:43:00 02/02/2017 23:59:00 DIS Outpatient DANYEL CALDWELL [id number] 11/02/2016 10:56:00 11/02/2016 23:59:00 DIS Outpatient DANYEL CALDWELL [id number] 09/07/2016 13:03:00 09/07/2016 23:59:00 DIS Outpatient DANYEL CALDWELL [id number] 07/29/2016 15:20:00 07/29/2016 23:59:00 DIS Outpatient DANYEL CALDWELL [id number] 06/18/2016 07:37:00 06/18/2016 07:37:00 CAN Outpatient Lily Alcala [id number] 06/17/2016 16:02:00 06/17/2016 23:59:00 DIS Outpatient DANYEL CALDWELL
--- NOTE | 2018-05-05 10:58 | ED Lower Extremity ---
General Chief Complaint: Lower Extremity Stated Complaint: TOE WOUND Source: patient Exam Limitations: no limitations History of Present Illness Date Seen by Provider: May 05, 2018 Time Seen by Provider: 10:54 Initial Comments To ER with reports of a wound to the left great toe. This began on Wednesday when she noticed what she thought was a "blood blister" to the left great toe. She denies any preceding trauma that she can recall. She then went to get a frozen turkey out of the freezer that A 16 pounds and dropped it on this blood blister. The appearance of the toe has worsened since Wednesday. He's had a rather terrible year with a right toe amputation earlier this year, a right transmetatarsal foot amputation by Dr. Chisholm in December of this year, and excision of skin cancer to the left upper back in March of this year by Dr. Crespo which has had delayed healing and need for wound VAC currently and now this. She denies fevers or chills. She is a diabetic controlled with oral antidiabetic medications and she does smoke. She only takes Clement a ride to control her diabetes and states that her sugars are typically in the 170 range. Onset: just prior to arrival Severity: moderate Pain/Injury Location: left foot, left 1st toe Method of Injury: unknown Modifying Factors: Worse With Movement Allergies and Home Medications Allergies Coded Allergies: Penicillins (Verified Allergy, Unknown, 02/14/15) codeine (Verified Allergy, Unknown, 02/14/15) Home Medications Amlodipine Besylate 5 Mg Tablet, 5 MG PO DAILY, (Reported) Cyclobenzaprine HCl 10 Mg Tablet, 10 MG PO TID PRN for SPASMS, (Reported) Glimepiride 4 Mg Tablet, 4 MG PO BID, (Reported) Hydrocodone/Acetaminophen 1 Each Tablet, 1 EACH PO Q4H PRN for PAIN-MILD TO MODERATE Prescribed by: CALEB CHISHOLM on 12/29/17 2294 Patient Home Medication List Home Medication List Reviewed: Yes Review of Systems Constitutional: see HPI EENTM: see HPI Respiratory: no symptoms reported Cardiovascular: no symptoms reported Genitourinary: no symptoms reported Musculoskeletal: no symptoms reported Skin: no symptoms reported Past Cijsabb-Shfxjz-Orhyhl Hx Patient Social History Alcohol Use: Denies Use Recreational Drug Use: No Smoking Status: Current Everyday Smoker Type Used: Cigarettes Former Smoker, Quit: Dec 23, 2017 Recent Foreign Travel: No Contact w/Someone Who Travel: No Recent Hopitalizations: No Physical Abuse: No Sexual Abuse: No Immunizations Up To Date Tetanus Booster (TDap): Unknown PED Vaccines UTD: No Date of Pneumonia Vaccine: Feb 07, 2017 Date of Influenza Vaccine: Feb 07, 2017 Seasonal Allergies Seasonal Allergies: Yes Past Medical History Surgeries: Yes (c/s x3, lipoma removed from arm, R 2nd toe amputated) Adenoidectomy, Appendectomy, Section, Gallbladder, Hysterectomy, Tonsillectomy Respiratory: No Cardiac: No (rheumatic fever when 7yrs old) Hypertension, Rheumatic Fever Neurological: No Reproductive Disorders: No Sexually Transmitted Disease: No HIV/AIDS: No Gastrointestinal: No Musculoskeletal: Yes (osteomyelitis 2nd right) Endocrine: Yes Diabetes, Insulin dep Loss of Vision: Denies Hearing Impairment: Denies Cancer: Yes (on back) Skin Psychosocial: No Integumentary: No Blood Disorders: No Adverse Reaction/Blood Tranf: No Family Medical History No Pertinent Family Hx Physical Exam Vital Signs Vital Signs - First Documented 05/05/18 10:25 Temp 96.8 Pulse 107 Resp 22 B/P (MAP) 145/75 (98) Pulse Ox 98 O2 Delivery Room Air Capillary Refill : Height, Weight, BMI Height: 5'5.00" Weight: 176lbs. 0.0oz. 79.089617ax; 29.3 BMI Method: General Appearance: WD/WN, no apparent distress HEENT: PERRL/EOMI, normal ENT inspection Neck: non-tender, full range of motion Respiratory: no respiratory distress, no accessory muscle use Hips: bilateral hip non-tender, bilateral hip normal inspection, bilateral hip normal range of motion Legs: bilateral leg non-tender, bilateral leg normal inspection, bilateral leg normal range of motion Knees: bilateral knee non-tender, bilateral knee normal inspection, bilateral knee normal range of motion Ankles: bilateral ankle non-tender, bilateral ankle normal inspection, bilateral ankle normal range of motion Feet: left foot other (she denies any pain in the left foot but the plantar surface of the left great toe just proximal to the left first MTP joint is necrotic eschar in the dorsal aspect of the toe is erythematous, ulcerated and foul-smelling. I am unable to palpate a dorsalis pedis pulse. The remainder of the foot is warm however. I am able to easily Doppler blood flow in the dorsalis pedis artery) Neurologic/Psychiatric: alert, normal mood/affect, oriented x 3 Skin: normal color, warm/dry Progress/Results/Core Measures Results/Orders Lab Results Laboratory Tests Test 05/05/18 11:25 Range/Units White Blood Count 6.7 4.3-11.0 10^3/uL Red Blood Count 4.06 L 4.35-5.85 10^6/uL Hemoglobin 11.7 11.5-16.0 G/DL Hematocrit 35 35-52 % Mean Corpuscular Volume 87 80-99 FL Mean Corpuscular Hemoglobin 29 25-34 PG Mean Corpuscular Hemoglobin Concent 33 32-36 G/DL Red Cell Distribution Width 13.5 10.0-14.5 % Platelet Count 348 130-400 10^3/uL Mean Platelet Volume 9.4 7.4-10.4 FL Neutrophils (%) (Auto) 79 H 42-75 % Lymphocytes (%) (Auto) 15 12-44 % Monocytes (%) (Auto) 4 0-12 % Eosinophils (%) (Auto) 2 0-10 % Basophils (%) (Auto) 0 0-10 % Neutrophils # (Auto) 5.3 1.8-7.8 X 10^3 Lymphocytes # (Auto) 1.0 1.0-4.0 X 10^3 Monocytes # (Auto) 0.3 0.0-1.0 X 10^3 Eosinophils # (Auto) 0.1 0.0-0.3 10^3/uL Basophils # (Auto) 0.0 0.0-0.1 10^3/uL My Orders Orders - MOHINI VILLAFANA [employer]PLICATIONS ANALYST Cbc With Automated Diff (05/05/18 10:52) Comprehensive Metabolic Panel (05/05/18 10:52) Blood Culture (05/05/18 10:52) Iv Heplock-Insert (Order) (05/05/18 10:52) Foot, Left, 3 Views (05/05/18 10:52) Wound Culture (05/05/18 10:52) Us Left Low Ext Arterial 68000 (05/05/18 10:59) Normal Saline Bolus 1,000ml (05/05/18 12:00) Vital Signs/I&O 05/05/18 10:25 Temp 96.8 Pulse 107 Resp 22 B/P (MAP) 145/75 (98) Pulse Ox 98 O2 Delivery Room Air Diagnostic Imaging Diagonstic Imaging: Xray Comments NAME: RAFAELA [facility] REC#: [id number] PT STATUS: REG ER : 1945 PHYSICIAN: MOHINI VILLAFANA APRN ADMIT DATE: 05/05/18/ER Draft Date of Exam:05/05/18 FOOT, LEFT, 3 VIEWS PATIENT HISTORY: Injury to the left great toe six days ago. TECHNIQUE: Three views of the left foot. COMPARISON: None. FINDINGS: There is soft tissue edema and soft tissue gas throughout the left great toe. The distal phalanx appears partially eroded with mild osteopenia, concerning for osteomyelitis. Nondisplaced fracture is difficult to exclude. No other fractures are seen in the left foot. Alignment otherwise appears normal. There are degenerative changes in the midfoot. Calcaneal enthesopathy is noted. There is additional mild soft tissue edema diffusely throughout the left foot. IMPRESSION: 1. Soft tissue edema and soft tissue gas in the left foot concerning for infection. There appears to be cortical erosion and osteopenia at the great toe distal phalanx concerning for osteomyelitis. Nondisplaced fracture may be present as well. Dictated on workstation # [id number] Dict: 05/05/18 1146 Trans: 05/05/18 1152 [facility] [id number] Interpreted by: ROSANA COHN MD Electronically signed by: Departure Communication (Admissions) Time/Spoke to Admitting Phy: 11:[address] Ma. We will admit, consult Dr. Chisholm Time/Spoke to Consulting Phy: 11:[address] Chisholm. He agrees to consult and would like someone from cardiology/vascular services to consult. Dr. Padilla was notified and agrees to consult. Impression Primary Impression: Ischemic necrosis of toe Disposition: ADMITTED INPATIENT Condition: Stable Admissions Decision to Admit Reason: Admit from ER (General) Decision to Admit/Date: May 05, 2018 Time/Decision to Admit Time: 10:58 Transfer Time Spoke to Accepting Phy: 10:58 Departure-Patient Inst. Referrals: DANYEL CALDWELL MD (PCP/Family) Primary Care Physician MOHINI VILLAFANA APRN May 05, 2018 10:58
[2018-05-05 11:34] LABS: BASOPHILS % (AUTO) 0 % (0-10); EOSINOPHILS # (AUTO) 0.1 10^3/uL (0.0-0.3); EOSINOPHILS % (AUTO) 2 % (0-10); HEMATOCRIT 35 % (35-52); HEMOGLOBIN 11.7 G/DL (11.5-16.0); LYMPHOCYTES % (AUTO) 15 % (12-44); MEAN CORPUSCULAR HEMOGLOBIN 29 PG (25-34); MEAN CORPUSCULAR HGB CONC 33 G/DL (32-36); MEAN CORPUSCULAR VOLUME 87 FL (80-99); MEAN PLATELET VOLUME 9.4 FL (7.4-10.4); MONOCYTES # (AUTO) 0.3 X 10^3 (0.0-1.0); MONOCYTES % (AUTO) 4 % (0-12); NEUTROPHILS # (AUTO) 5.3 X 10^3 (1.8-7.8); NEUTROPHILS % (AUTO) 79 % (42-75); PLATELET COUNT 348 10^3/uL (130-400); RED BLOOD COUNT 4.06 10^6/uL (4.35-5.85); RED CELL DISTRIBUTION WIDTH 13.5 % (10.0-14.5); WHITE BLOOD COUNT 6.7 10^3/uL (4.3-11.0)
--- NOTE | 2018-05-05 11:52 | Diagnostic Imaging Report ---
PATIENT HISTORY: Injury to the left great toe six days ago. TECHNIQUE: Three views of the left foot. COMPARISON: None. FINDINGS: There is soft tissue edema and soft tissue gas throughout the left great toe. The distal phalanx appears partially eroded with mild osteopenia, concerning for osteomyelitis. Nondisplaced fracture is difficult to exclude. No other fractures are seen in the left foot. Alignment otherwise appears normal. There are degenerative changes in the midfoot. Calcaneal enthesopathy is noted. There is additional mild soft tissue edema diffusely throughout the left foot. IMPRESSION: 1. Soft tissue edema and soft tissue gas in the left foot concerning for infection. There appears to be cortical erosion and osteopenia at the great toe distal phalanx concerning for osteomyelitis. Nondisplaced fracture may be present as well. Dictated by: Dictated on workstation # [id number]
[2018-05-05 11:54] LABS: ALBUMIN 3.4 GM/DL (3.2-4.5); BILIRUBIN,TOTAL 0.3 MG/DL (0.1-1.0); CALCIUM 9.4 MG/DL (8.5-10.1); POTASSIUM 4.1 MMOL/L (3.6-5.0); TOTAL PROTEIN 7.7 GM/DL (6.4-8.2)
[2018-05-05] MEDS ORDERED: VANCOMYCIN INJECTION 1,250 MG in NS (IVPB) 250 ML IV SCH (12:00)
[2018-05-05] MEDS ORDERED: cefTRIAXone FOR IV USE 1,000 MG in NS (IVPB) 50 ML IV ONE (12:00)
[2018-05-05] MEDS ORDERED: NS IV 1000 ML 1,000 ML IV SCH ×2 (12:00→12:15)
--- OUTSIDE RECORDS SUMMARY | 2018-05-05 12:14 | XMS REPORT | Continuity of Care Document ---
Author Author [facility] Organization [facility] Address Unknown Phone Unavailable Allergies Active Description Code Type Severity Reaction Onset Reported/Identified Relationship to Patient Clinical Status Yes CODEINE SULFATE UNKNOWN UNKNOWN Yes METFORMIN UNKNOWN GI PROBLEMS - VOMITI Yes PENICILLINS UNKNOWN UNKNOWN Yes VICTOZA 2-FRANCO UNKNOWN GI PROBLEMS - NAUSEA Yes VICTOZA 3-FRANCO UNKNOWN GI PROBLEMS - NAUSEA Yes codeine [id number] Drug Allergy Unknown N/A 02/14/2015 Yes Penicillins [id number] Drug Allergy Unknown N/A 02/14/2015 Medications There [...] Sena Ot 250.80 12/13/2014 MAHESH MCCULLOUGH, ISHA Snea Ot 305.1 12/13/2014 MAHESH MCCULLOUGH, ISHA Sena [...] ISHA Sena Ot 707.15 12/24/2014 MAHESH MCCULLOUGH, SIHA Sena Ot 250.80 12/24/2014 MAHESH MCCULLOUGH, ISHA [...] Sena Ot 707.15 02/14/2015 MAHESH MCCULLOUGH, ISHA Snea Ot 250.60 02/14/2015 MAHESH MCCULLOUGH, ISHA Sena [...] ENCOUNTER 02/15/2015 CIARA LUCIANO MD Ot Z79.4 ADOPTION SERVICES MANAGER (CURRENT) USE OF INSULIN 02/15/2015 MAHESH MCCULLOUGH, [...] 04/18/2017 ISHA ARAGON MD, Ot 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 04/18/2017 [...] 04/25/2017 ISHA ARAGON MD, Ot 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 04/25/2017 [...] 04/29/2017 ISHA ARAGON MD, Ot 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 04/29/2017 [...] 05/07/2017 ISHA ARAGON MD, Ot 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 05/07/2017 [...] 05/09/2017 ISHA ARAGON MD, Ot 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 05/09/2017 [...] 05/11/2017 ISHA ARAGON MD, Ot 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 05/11/2017 ISHA ARAGON MD, Ot L03.115 CELLULITIS OF RIGHT LOWER LIMB 05/11/2017 ISHA ARAGON MD, Ot L97.512 NON-PRS CHRONIC ULCER OTH PRT RIGHT FOOT 05/12/2017 ISHA ARAGON MD, Ot E11.42 TYPE 2 DIABETES MELLITUS WITH DIABETIC P 05/12/2017 ISHA ARAGON MD, Ot E11.621 TYPE 2 DIABETES MELLITUS WITH FOOT ULCER 05/12/2017 ISHA ARAGON MD, Ot 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 05/12/2017 [...] 05/14/2017 ISHA ARAGON MD, Ot 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 05/14/2017 [...] 05/17/2017 ISHA ARAGON MD, Ot 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 05/17/2017 [...] 05/24/2017 ISHA ARAGON MD, Ot 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 05/24/2017 ISHA ARAGON MD Ot L03.115 CELLULITIS OF RIGHT LOWER LIMB 05/24/2017 ISHA ARAGON MD, Ot L97.512 NON-PRS CHRONIC ULCER OTH PRT RIGHT FOOT 05/24/2017 ISHA ARAGON MD, Ot E11.42 TYPE 2 DIABETES MELLITUS WITH DIABETIC P 05/24/2017 ISHA ARAGON MD, Ot E11.621 TYPE 2 DIABETES MELLITUS WITH FOOT ULCER 05/24/2017 ISHA ARAGON MD, Ot 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 05/24/2017 [...] 05/24/2017 ISHA ARAGON MD, Ot 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 05/24/2017 [...] 05/24/2017 ISHA ARAGON MD, Ot 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 05/24/2017 ISHA ARAGON MD, Ot L97.512 NON-PRS CHRONIC ULCER OTH PRT RIGHT FOOT 05/24/2017 ISHA ARAGON MD, Ot T65.222D TOXIC EFFECT OF TOBACCO CIGARETTES, SELF 05/24/2017 ISHA ARAGON MD, Ot E11.42 TYPE 2 DIABETES MELLITUS WITH DIABETIC P 05/24/2017 ISHA ARGAON MD, Ot E11.621 TYPE 2 DIABETES MELLITUS WITH FOOT ULCER 05/24/2017 ISHA ARAGON MD, Ot 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 05/24/2017 ISHA ARAGON MD, Ot L97.512 NON-PRS CHRONIC ULCER OTH PRT RIGHT FOOT 05/24/2017 ISHA ARAGON MD, Ot T65.222D TOXIC EFFECT OF TOBACCO CIGARETTES, SELF 05/24/2017 ISAH ARAGON MD, Ot E11.42 TYPE 2 DIABETES MELLITUS WITH DIABETIC P 05/24/2017 ISHA ARAGON MD, Ot E11.621 TYPE 2 DIABETES MELLITUS WITH FOOT ULCER 05/24/2017 ISHA ARAGON MD, Ot 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 05/24/2017 [...] 05/24/2017 ISHA ARAGON MD, Ot 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 05/24/2017 [...] 05/24/2017 ISHA ARAGON MD, Ot 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 05/24/2017 [...] 05/27/2017 ISHA ARAGON MD, Ot 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 05/27/2017 [...] 05/28/2017 ROGERS APPLE, MAN Fischer Ot Z79.82 FPC (CURRENT) USE OF ASPIRIN 05/28/2017 ROGERS APPLE, MAN Fischer Ot Z79.84 FPC (CURRENT) USE OF ORAL HYPOGLYC 05/28/2017 ROGERS APPLE, MAN Fischer Ot Z79.899 OTHER FPC (CURRENT) DRUG THERAPY 05/28/2017 ISHA ARAGON MD, Ot E11.42 TYPE 2 DIABETES MELLITUS WITH DIABETIC P 05/28/2017 ISHA ARAGON MD, Ot E11.621 TYPE 2 DIABETES MELLITUS WITH FOOT ULCER 05/28/2017 ISHA ARAGON MD, Ot 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 05/28/2017 SIHA ARAGON MD Ot L03.115 CELLULITIS OF RIGHT [...] 05/28/2017 ISHA ARAGON MD, Ot 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 05/28/2017 [...] OTHER HAMMER TOE(S) (ACQUIRED), RIGHT FO 06/01/2017 MCCOLUD DPM, MAN P Ot M86.9 OSTEOMYELITIS, UNSPECIFIED 06/01/2017 MCCLOUD DPM, MAN P Ot Z79.82 ADOPTION SERVICES MANAGER (CURRENT) USE OF ASPIRIN 06/01/2017 MCCLOUD DPM, MAN P Ot Z79.84 FPC (CURRENT) USE OF ORAL HYPOGLYC 06/01/2017 MCCLOUD DPM, MAN P Ot Z79.899 OTHER FPC (CURRENT) DRUG THERAPY 06/03/2017 MCCLOUD DPM, MAN P Ot E11.9 TYPE 2 DIABETES MELLITUS WITHOUT COMPLIC 06/03/2017 MCCLOUD DPM, MAN P Ot F17.210 NICOTINE DEPENDENCE, CIGARETTES, UNCOMPL 06/03/2017 MCCLOUD DPM, MAN P Ot I10 ESSENTIAL (PRIMARY) HYPERTENSION 06/03/2017 MCCLOUD DPM, MNA P Ot M20.41 OTHER HAMMER TOE(S) (ACQUIRED), RIGHT FO 06/03/2017 MCCLOUD DPM, MAN P Ot M86.9 OSTEOMYELITIS, UNSPECIFIED 06/03/2017 MCCLOUD DPM, MAN P Ot Z79.82 ADOPTION SERVICES MANAGER (CURRENT) USE OF ASPIRIN 06/03/2017 MCCLOUD DPM, MAN P Ot Z79.84 ADOPTION SERVICES MANAGER (CURRENT) USE OF ORAL HYPOGLYC 06/03/2017 MCCLOUD DPM, MAN P Ot Z79.899 OTHER FPC (CURRENT) DRUG THERAPY 06/03/2017 ISHA ARAGON MD, Ot E11.42 TYPE 2 DIABETES MELLITUS WITH DIABETIC P 06/03/2017 ISHA ARAGON MD, Ot E11.621 TYPE 2 DIABETES MELLITUS WITH FOOT ULCER 06/03/2017 ISHA ARAGON MD, Ot 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 06/03/2017 ISHA ARAGON MD, Ot L97.511 NON-PRS CHRONIC ULCER OTH PRT R FOOT CHUNG 06/03/2017 ISHA ARAGON MD, Ot L97.512 NON-PRS CHRONIC ULCER OTH PRT RIGHT FOOT 06/03/2017 ISHA ARAGNO MD, Ot T65.222D TOXIC EFFECT OF TOBACCO CIGARETTES, SELF 06/04/2017 ISHA ARAGON MD, Ot E11.42 TYPE 2 DIABETES MELLITUS WITH DIABETIC P 06/04/2017 ISHA ARAGON MD, Ot E11.621 TYPE 2 DIABETES MELLITUS WITH FOOT ULCER 06/04/2017 ISHA ARAGON MD, Ot 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 06/04/2017 [...] 06/04/2017 ISHA ARAGON MD, Ot 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 06/04/2017 [...] 06/04/2017 ISHA ARAGON MD, Ot 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 06/04/2017 [...] 06/14/2017 ISHA ARAGON MD, Ot 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 06/14/2017 [...] 06/23/2017 ISHA ARAGON MD, Ot 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 06/23/2017 [...] 2 DIABETES MELLITUS WITH FOOT ULCER 07/20/2017 ISAH ARAGON MD, Ot L97.512 NON-PRS CHRONIC ULCER [...] 08/26/2017 ISHA ARAGON MD, Ot 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 08/26/2017 ISHA ARAGON MD, Ot L03.115 CELLULITIS OF RIGHT LOWER LIMB 08/26/2017 ISHA ARAGON MD, Ot L97.512 NON-PRS CHRONIC ULCER OTH PRT RIGHT FOOT 08/26/2017 ISHA ARAGON MD, Ot E11.42 TYPE 2 DIABETES MELLITUS WITH DIABETIC P 08/26/2017 ISHA ARAGON MD, Ot E11.621 TYPE 2 DIABETES MELLITUS WITH FOOT ULCER 08/26/2017 ISHA ARAGON MD, Ot 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 08/26/2017 [...] MAHESH MD, ISHA G Ot 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 08/26/2017 [...] 08/26/2017 ISHA ARAGON MD, Ot 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 08/26/2017 [...] 08/26/2017 ISHA ARAGON MD, Ot 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 08/26/2017 [...] 08/26/2017 ISHA ARAGON MD, Ot 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 08/26/2017 [...] 08/26/2017 ISHA ARAGON MD, Ot 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 08/26/2017 [...] 08/26/2017 ISHA ARAGON MD, Ot 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 08/26/2017 ISHA ARAGON MD, Ot L97.512 NON-PRS CHRONIC ULCER OTH PRT RIGHT FOOT 08/26/2017 ISHA ARAGON MD, Ot T65.222D TOXIC EFFECT OF TOBACCO CIGARETTES, SELF 08/26/2017 ISHA ARAGON MD, Ot E11.43 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 08/26/2017 ISHA ARAGON MD, Ot E11.621 TYPE 2 DIABETES MELLITUS WITH FOOT ULCER 08/26/2017 ISHA RAAGON MD, Ot L97.512 NON-PRS CHRONIC ULCER OTH [...] 08/27/2017 ISHA ARAGON MD Ot 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 08/27/2017 ISHA ARAGON MD Ot L03.115 CELLULITIS OF RIGHT LOWER LIMB 08/27/2017 ISHA ARAGON MD Ot L97.512 NON-PRS CHRONIC ULCER OTH PRT RIGHT FOOT 08/27/2017 ISHA ARAGON MD Ot E11.42 TYPE 2 DIABETES MELLITUS WITH DIABETIC P 08/27/2017 ISHA ARAGON MD, Ot E11.621 TYPE 2 DIABETES MELLITUS WITH FOOT ULCER 08/27/2017 ISHA ARAGON MD, Ot 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 08/27/2017 [...] 08/27/2017 ISHA ARAGON MD, Ot 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 08/27/2017 [...] 08/27/2017 ISHA ARAGON MD, Ot 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 08/27/2017 [...] 08/27/2017 ISHA ARAGON MD Ot 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 08/27/2017 [...] 08/27/2017 ISHA ARAGON MD, Ot 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 08/27/2017 [...] 08/27/2017 ISHA ARAGON MD, Ot 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 08/27/2017 [...] 08/27/2017 ISHA ARAGON MD, Ot 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 08/27/2017 [...] 08/27/2017 ISHA ARAGON MD, Ot 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 08/27/2017 ISHA ARAGON MD, Ot L03.115 CELLULITIS OF RIGHT LOWER LIMB 08/27/2017 ISHA ARAGON MD, Ot L97.512 NON-PRS CHRONIC ULCER OTH PRT RIGHT FOOT 08/27/2017 SIHA ARAGON MD, Ot E11.42 TYPE 2 DIABETES MELLITUS WITH DIABETIC P 08/27/2017 ISHA ARAGON MD, Ot E11.621 TYPE 2 DIABETES MELLITUS WITH FOOT ULCER 08/27/2017 ISHA ARAGON MD, Ot 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 08/27/2017 [...] 08/27/2017 ISHA ARAGON MD, Ot 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 08/27/2017 [...] 08/27/2017 ISHA ARAGON MD, Ot 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 08/27/2017 [...] 08/27/2017 ISHA ARAGON MD, Ot 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 08/27/2017 [...] 08/27/2017 ISHA ARAGON MD, Ot 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 08/27/2017 [...] 08/27/2017 ISHA ARAGON MD, Ot 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 08/27/2017 [...] 08/27/2017 ISHA ARAGON MD, Ot 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 08/27/2017 [...] 09/01/2017 ISHA ARAGON MD, Ot 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 09/01/2017 ISHA ARAGON MD Ot L03.115 CELLULITIS OF RIGHT LOWER LIMB 09/01/2017 ISHA ARAGON MD, Ot L97.512 NON-PRS CHRONIC ULCER OTH PRT RIGHT FOOT 09/01/2017 ISHA ARAGON MD, Ot E11.42 TYPE 2 DIABETES MELLITUS WITH DIABETIC P 09/01/2017 ISHA ARAGON MD, Ot E11.621 TYPE 2 DIABETES MELLITUS WITH FOOT ULCER 09/01/2017 ISHA ARAGON MD, Ot 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 09/01/2017 [...] 09/01/2017 ISHA ARAGON MD, Ot 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 09/01/2017 ISHA ARAGON MD, Ot L03.115 CELLULITIS OF RIGHT LOWER LIMB 09/01/2017 ISHA ARGAON MD, Ot L97.512 NON-PRS CHRONIC [...] 09/01/2017 ISHA ARAGON MD, Ot 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 09/01/2017 [...] MAHESH MD, ISHA G Ot 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 09/01/2017 [...] 09/01/2017 ISHA ARAGON MD, Ot 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 09/01/2017 [...] 09/01/2017 ISHA ARAGON MD, Ot 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 09/01/2017 [...] 09/01/2017 ISHA ARAGON MD, Ot 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 09/01/2017 [...] PRT RIGHT FOOT 09/09/2017 LUIS FELIPE FERRARI STATOR PLATE WASHER Ot E11.42 TYPE 2 DIABETES MELLITUS WITH DIABETIC P 09/09/2017 LUIS FELIPE FERRARI STATOR PLATE WASHER Ot E11.621 TYPE 2 DIABETES MELLITUS WITH FOOT ULCER 09/09/2017 LUIS FELIPE FERRARI STATOR PLATE WASHER Ot L97.512 NON-PRS CHRONIC ULCER OTH PRT RIGHT FOOT 09/09/2017 ISHA ARAGON MD Ot E11.42 TYPE 2 DIABETES MELLITUS WITH DIABETIC P 09/09/2017 ISHA ARAGON MD Ot E11.621 TYPE 2 DIABETES MELLITUS WITH FOOT ULCER 09/09/2017 ISHA ARAGON MD Ot L97.512 NON-PRS CHRONIC ULCER OTH PRT RIGHT FOOT 09/10/2017 LUIS FELIPE FERRARI STATOR PLATE WASHER Ot E11.42 TYPE 2 DIABETES MELLITUS WITH DIABETIC P 09/10/2017 LUIS FELIPE FERRARI STATOR PLATE WASHER Ot E11.621 TYPE 2 DIABETES MELLITUS WITH FOOT ULCER 09/10/2017 LUIS FELIPE FERRARI STATOR PLATE WASHER Ot L97.512 NON-PRS CHRONIC ULCER OTH PRT [...] TOBACCO CIGARETTES, SELF 09/28/2017 LUIS FELIPE FERRARI STATOR PLATE WASHER Ot E11.42 TYPE 2 DIABETES MELLITUS WITH [...] TOBACCO CIGARETTES, SELF 10/08/2017 LUIS FELIPE FERRARI STATOR PLATE WASHER Ot E11.42 TYPE 2 DIABETES MELLITUS WITH DIABETIC P 10/08/2017 LUIS FELIPE FERRARI STATOR PLATE WASHER Ot E11.621 TYPE 2 DIABETES MELLITUS WITH [...] 10/25/2017 ISHA ARAGON MD Ot 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 10/25/2017 [...] 10/28/2017 ISHA ARAGON MD, Ot 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 10/28/2017 [...] 11/04/2017 ISHA ARAGON MD, Ot 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 11/04/2017 [...] 11/10/2017 ISHA ARAGON MD, Ot 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 11/10/2017 [...] 11/12/2017 ISHA ARAGON MD, Ot 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 11/12/2017 [...] 11/15/2017 ISHA ARAGON MD, Ot 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 11/15/2017 [...] 11/15/2017 ISHA ARAGON MD, Ot 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 11/15/2017 [...] 11/17/2017 ISHA ARAGON MD, Ot 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 11/17/2017 [...] 11/18/2017 ISHA ARAGON MD Ot 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 11/18/2017 [...] 11/19/2017 ISHA ARAGON MD, Ot 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 11/19/2017 ISHA ARAGON MD, Ot L97.512 NON-PRS CHRONIC ULCER OTH PRT RIGHT FOOT 11/19/2017 ISHA ARAGON MD, Ot T65.222D TOXIC EFFECT OF TOBACCO CIGARETTES, SELF 11/19/2017 LUIS FELIPE FERRRAI STATOR PLATE WASHER Ot E11.42 TYPE 2 DIABETES MELLITUS WITH DIABETIC P 11/19/2017 LUIS FELIPE FERRARI STATOR PLATE WASHER Ot E11.621 TYPE 2 DIABETES MELLITUS WITH FOOT ULCER 11/19/2017 LUIS FELIPE FERRARI STATOR PLATE WASHER Ot 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 11/19/2017 LUIS FELIPE FERRARI STATOR PLATE WASHER Ot L97.512 NON-PRS CHRONIC ULCER OTH PRT RIGHT FOOT 11/19/2017 LUIS FELIPE FERRARI APRN Ot T65.222D TOXIC EFFECT OF TOBACCO CIGARETTES, SELF 11/24/2017 LUIS FELIPE FERRARI STATOR PLATE WASHER Ot E11.42 TYPE 2 DIABETES MELLITUS WITH DIABETIC P 11/24/2017 LUIS FELIPE FERRARI STATOR PLATE WASHER Ot E11.621 TYPE 2 DIABETES MELLITUS WITH FOOT ULCER 11/24/2017 LUIS FELIPE FERRARI STATOR PLATE WASHER Ot 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 11/24/2017 LUIS FELIPE FERRARI STATOR PLATE WASHER Ot L97.512 NON-PRS CHRONIC ULCER OTH PRT RIGHT FOOT 11/24/2017 LUIS FELIPE FERRARI STATOR PLATE WASHER Ot T65.222D TOXIC EFFECT OF TOBACCO CIGARETTES, SELF 11/26/2017 ISHA ARAGON MD, Ot E11.42 TYPE 2 DIABETES MELLITUS WITH DIABETIC P 11/26/2017 ISHA ARAGON MD, Ot E11.621 TYPE 2 DIABETES MELLITUS WITH FOOT ULCER 11/26/2017 ISHA ARAGON MD, Ot 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 11/26/2017 [...] 11/26/2017 ISHA ARAGON MD, Ot 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 11/26/2017 [...] 11/29/2017 ISHA ARAGON MD, Ot 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 11/29/2017 [...] 12/02/2017 ISHA ARAGON MD Ot 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 12/02/2017 [...] 12/02/2017 ISHA ARAGON MD, Ot 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 12/02/2017 ISHA ARAGON MD, Ot L97.512 NON-PRS CHRONIC ULCER OTH PRT RIGHT FOOT 12/02/2017 ISHA ARAGON MD, Ot T65.222D TOXIC EFFECT OF TOBACCO CIGARETTES, SELF 12/08/2017 LUIS FELIPE FERRARI APRN Ot E11.42 TYPE 2 DIABETES MELLITUS WITH DIABETIC P 12/08/2017 LUIS FELIPE FERRARI APRN Ot E11.621 TYPE 2 DIABETES MELLITUS WITH FOOT ULCER 12/08/2017 LUIS FELIPE FERRARI STATOR PLATE WASHER Ot 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 12/08/2017 [...] 12/10/2017 ISHA ARAGON MD, Ot 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 12/10/2017 [...] LUIS FELIPE FERRARI APRN Ot 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 12/14/2017 [...] 12/14/2017 ISHA ARAGON MD, Ot 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 12/14/2017 ISHA ARAGON MD, Ot L97.512 NON-PRS CHRONIC ULCER OTH PRT RIGHT FOOT 12/14/2017 ISAH ARAGON MD, Ot T65.222D TOXIC EFFECT OF TOBACCO CIGARETTES, SELF 12/29/2017 Ot E11.69 TYPE 2 DIABETES MELLITUS WITH OTHER SPEC 12/29/2017 Ot F17.210 NICOTINE DEPENDENCE, CIGARETTES, UNCOMPL 12/29/2017 Ot M67.01 SHORT ACHILLES TENDON (ACQUIRED), RIGHT 12/29/2017 Ot M86.9 OSTEOMYELITIS , UNSPECIFIED 12/29/2017 Ot Z79.4 ADOPTION SERVICES MANAGER ( CURRENT) USE OF INSULIN 12/31/2017 ISHA ARAGON MD, Ot E11.42 TYPE 2 DIABETES MELLITUS WITH DIABETIC P 12/31/2017 SIHA ARAGON MD, Ot E11.621 TYPE 2 DIABETES MELLITUS WITH FOOT ULCER 12/31/2017 ISHA ARAGON MD, Ot 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 12/31/2017 ISHA ARAGON MD, Ot L97.512 NON-PRS CHRONIC ULCER OTH PRT RIGHT FOOT 12/31/2017 ISAH ARAGON MD, Ot T65.222D TOXIC EFFECT OF [...] 12/31/2017 ISHA ARAGON MD, Ot 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 12/31/2017 [...] 01/06/2018 ISHA ARAGON MD Ot 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 01/06/2018 ISHA ARAGON MD, Ot L97.512 NON-PRS CHRONIC ULCER OTH PRT RIGHT FOOT 01/06/2018 ISHA ARAGON MD, Ot T65.222D TOXIC EFFECT OF TOBACCO CIGARETTES, SELF 01/06/2018 Ot E11.42 TYPE 2 DIABETES MELLITUS WITH DIABETIC P 01/06/2018 Ot E11.621 TYPE 2 DIABETES MELLITUS WITH FOOT ULCER 01/06/2018 Ot 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 01/06/2018 Ot L97.514 NON-PRS CHRONIC ULCER OTH PRT RIGHT FOOT 01/06/2018 Ot T65.222D TOXIC EFFECT OF TOBACCO CIGARETTES, SELF 01/11/2018 Ot E11.42 TYPE 2 DIABETES MELLITUS WITH DIABETIC P 01/11/2018 Ot E11.621 TYPE 2 DIABETES MELLITUS WITH FOOT ULCER 01/11/2018 Ot 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 01/11/2018 [...] WITH FOOT ULCER 01/11/2018 Ot 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 01/11/2018 [...] 2 DIABETES MELLITUS WITH DIABETIC P 01/14/2018 ISAH ARAGON MD Ot E11.621 TYPE 2 DIABETES MELLITUS WITH FOOT ULCER 01/14/2018 ISHA ARAGON MD Ot L97.512 NON-PRS CHRONIC ULCER OTH PRT RIGHT FOOT 01/14/2018 Ot E11.42 TYPE 2 DIABETES MELLITUS WITH DIABETIC P 01/14/2018 Ot E11.621 TYPE 2 DIABETES MELLITUS WITH FOOT ULCER 01/14/2018 Ot 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 01/14/2018 Ot L97.514 NON-PRS CHRONIC ULCER OTH PRT RIGHT FOOT 01/14/2018 Ot T65.222D TOXIC EFFECT OF TOBACCO CIGARETTES, SELF 01/24/2018 Ot E11.69 TYPE 2 DIABETES MELLITUS WITH OTHER SPEC 01/24/2018 Ot F17.210 NICOTINE DEPENDENCE, CIGARETTES, UNCOMPL 01/24/2018 Ot M67.01 SHORT ACHILLES TENDON (ACQUIRED), RIGHT 01/24/2018 Ot M86.9 OSTEOMYELITIS , UNSPECIFIED 01/24/2018 Ot Z79.4 FPC ( CURRENT) USE OF INSULIN 01/26/2018 Ot E11.69 TYPE 2 DIABETES MELLITUS WITH OTHER SPEC 01/26/2018 Ot F17.210 NICOTINE DEPENDENCE, CIGARETTES, UNCOMPL 01/26/2018 Ot M67.01 SHORT ACHILLES TENDON (ACQUIRED), RIGHT 01/26/2018 Ot M86.9 OSTEOMYELITIS , UNSPECIFIED 01/26/2018 Ot Z79.4 FPC ( CURRENT) USE OF INSULIN 03/08/2018 ISHA [...] 03/31/2018 TANO GRAY DO D Ot Z79.84 FPC (CURRENT) USE OF ORAL HYPOGLYC 03/31/2018 TANO GRAY DO D Ot Z79.899 OTHER ADOPTION SERVICES MANAGER (CURRENT) DRUG THERAPY 04/11/2018 TANO GRAY DO Ot 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 04/11/2018 TANO GRAY DO Ot E11.9 TYPE 2 DIABETES MELLITUS WITHOUT COMPLIC 04/11/2018 TANO GRAY DO Ot F17.210 NICOTINE DEPENDENCE, CIGARETTES, UNCOMPL 04/11/2018 TANO GRAY DO Ot I10 ESSENTIAL (PRIMARY) HYPERTENSION 04/11/2018 TANO GRAY DO Ot Z79.84 [facility] (CURRENT) USE OF ORAL HYPOGLYC 04/11/2018 TANO GRAY DO Ot Z79.899 OTHER [facility] (CURRENT) DRUG THERAPY Procedures There is no [...] 15:52 Bacteria identification in wound by culture [id number] NR FREE TEXT EXTERNAL SENSITIVITY REPORTED AT [...] 10:59 Bacteria identification in wound by culture [id number] NR FREE TEXT EXTERNAL SENSITIVITIES REPORTED AT [...] 09:11 Bacteria identification in wound by culture [id number] [facility] FREE TEXT EXTERNAL SENSITIVITY REPORTED AT 1109, 418 NRG QUANTITY OF GROWTH Scant Growth [facility] Bacterial susceptibility panel - 08/27/17 09:11 Oxacillin [...] identification in isolate by anaerobe culture NOANA [facility] Gram stain microscopy - 09/29/17 09:26 GRAM STAIN RESULT NO WBC'S OR BACTERIA OBSERVED NRG Bacteria identification in wound by culture - 09/29/17 09:26 Bacteria identification in wound by culture [id number] NR FREE TEXT EXTERNAL FEW OBSERVED NRG QUANTITY OF GROWTH Isolated NRG MRSA AGAR Screening test for MRSA is NEGATIVE (Final to follow) [facility] FREE TEXT ENTRY 2 SENSITIVITY REPORTED AT 1135, 5-18 [facility] Bacterial susceptibility panel - 09/29/17 09:26 Oxacillin [...] 09:44 Bacteria identification in wound by culture [id number] NRG FREE TEXT EXTERNAL ID REPORTED 10/22/17 15:30 NRG QUANTITY OF GROWTH Scant Growth NRG FREE TEXT ENTRY 2 ISOLATE SENT TO [facility] NRG FREE TEXT ENTRY 3 10/23/17 FOR SENSITIVITY TESTING NRG Bacteria identification in isolate by anaerobe culture - 11/23/17 08:31 Bacteria identification in isolate by anaerobe culture NOANA NRG Gram stain microscopy - 11/23/17 08:31 GRAM STAIN RESULT NO WBC'S OR BACTERIA OBSERVED NRG Bacteria identification in wound by culture - 11/23/17 08:31 Bacteria identification in wound by culture [id number] NRG FREE TEXT EXTERNAL SENSITIVITY REPORTED AT [...] 09:13 Bacteria identification in wound by culture [id number] NRG FREE TEXT EXTERNAL ID BY RML [...] Staphylococcus aureus (MRSA) screening culture NEG NRG Complete blood count (CBC) with automated white blood cell (WBC) differential - 05/05/18 11:25 Blood leukocytes automated count (number/volume) 6.7 10*3/uL 4.3-11.0 Blood erythrocytes automated count (number/volume) 4.06 10*6/uL 4.35-5.85 Venous blood hemoglobin measurement (mass/volume) 11.7 g/dL 11.5-16.0 Blood hematocrit (volume fraction) 35 % 35-52 Automated erythrocyte mean corpuscular volume 87 [foz_us] 80-99 Automated erythrocyte mean corpuscular hemoglobin (mass per erythrocyte) 29 pg 25-34 Automated erythrocyte mean corpuscular hemoglobin concentration measurement ( mass/volume) 33 g/dL 32-36 Automated erythrocyte distribution width ratio 13.5 % 10.0-14.5 Automated blood platelet count (count/volume) 348 10*3/uL 130-400 Automated blood platelet mean volume measurement 9.4 [foz_us] 7.4-10.4 Automated blood neutrophils/100 leukocytes 79 % 42-75 Automated blood lymphocytes/100 leukocytes 15 % 12-44 Blood monocytes/100 leukocytes 4 % 0-12 Automated blood eosinophils/100 leukocytes 2 % 0-10 Automated blood basophils/100 leukocytes 0 % 0-10 Blood neutrophils automated count (number/volume) 5.3 10*3 1.8-7.8 Blood lymphocytes automated count (number/volume) 1.0 10*3 1.0-4.0 Blood monocytes automated count (number/volume) 0.3 10*3 0.0-1.0 Automated eosinophil count 0.1 10*3/uL 0.0-0.3 Automated blood basophil count (count/volume) 0.0 10*3/uL 0.0-0.1 Comprehensive metabolic panel - 05/05/18 11:25 Serum or plasma sodium measurement (moles/volume) 132 mmol/L 135-145 Serum or plasma potassium measurement (moles/volume) 4.1 mmol/L 3.6-5.0 Serum or plasma chloride measurement (moles/volume) 96 mmol/L 98-107 Carbon dioxide 23 mmol/L 21-32 Serum or plasma anion gap determination (moles/volume) 13 mmol/L 5-14 Serum or plasma urea nitrogen measurement (mass/volume) 13 mg/dL 7-18 Serum or plasma creatinine measurement (mass/volume) 1.00 mg/dL 0.60-1.30 Serum or plasma urea nitrogen/creatinine mass ratio 13 NRG Serum or plasma creatinine measurement with calculation of estimated glomerular filtration rate 55 NRG Serum or plasma glucose measurement (mass/volume) 296 mg/dL 70-105 Serum or plasma calcium measurement (mass/volume) 9.4 mg/dL 8.5-10.1 Serum or plasma total bilirubin measurement (mass/volume) 0.3 mg/dL 0.1-1.0 Serum or plasma alkaline phosphatase measurement (enzymatic activity/volume) 130 U/L 40-136 Serum or plasma aspartate aminotransferase measurement (enzymatic activity/ volume) 12 U/L 5-34 Serum or plasma alanine aminotransferase measurement (enzymatic activity/volume ) 11 U/L 0-55 Serum or plasma protein measurement (mass/volume) 7.7 g/dL 6.4-8.2 Serum or plasma albumin measurement (mass/volume) 3.4 g/dL 3.2-4.5 CALCIUM CORRECTED 9.9 mg/dL 8.5-10.1 Encounters ACCT No. Visit Date/Time Discharge Status Pt. Type Provider Facility Loc./Unit Complaint [id number] 03/31/2018 09:20:00 03/31/2018 13:45:00 DIS Outpatient TANO GRAY DO [facility] SKIN CANCER ON BACK [id number] 03/22/2018 05:39:00 03/22/2018 13:25:00 DIS Outpatient TANO GRAY DO Via [facility] PREOP SKIN CANCER ON BACK [id number] 03/11/2018 11:00:00 03/11/2018 23:59:59 CLS Preadmit ANNITA THOMPSON MD Via [facility] RAD CHRONIC KIDNEY DISEASE STAGE 4 [id number] 03/09/2018 00:08:00 03/09/2018 23:59:59 CLS Preadmit ISHA ARAGON MD [facility] LAB E11.621,E11.42,L97.512 [id number] 12/17/2017 07:40:00 03/08/2018 00:01:00 DIS Outpatient ISHA ARAGON MD [facility] LAB E11.621,E11.42,L97.512 [id number] 12/08/2017 08:02:00 12/08/2017 23:59:59 CLS Outpatient ISHA ARAGON MD [facility] WOUNDCARE [id number] 12/01/2017 08:22:00 12/01/2017 23:59:59 CLS Outpatient ISHA ARAGON MD [facility] WOUNDCARE [id number] 12/01/2017 07:33:00 12/01/2017 23:59:59 CLS Outpatient ISHA ARAGON MD [facility] LAB E11.621 E11.42 L97.512 [id number] 09/01/2017 11:19:00 11/30/2017 00:01:00 DIS Outpatient ISHA ARAGON MD [facility] LAB E11.621,E11.42,L97.512 [id number] 11/25/2017 07:58:00 11/25/2017 23:59:59 CLS Outpatient ISHA ARAGON MD [facility] WOUNDCARE [id number] 11/23/2017 08:02:00 11/23/2017 23:59:59 CLS Outpatient LUIS FELIPE FERRARI APRN [facility] WOUNDCARE [id number] 11/16/2017 07:59:00 11/16/2017 23:59:59 CLS Outpatient LUIS FELIPE FERRARI APRN [facility] WOUNDCARE [id number] 11/10/2017 07:57:00 11/10/2017 23:59:59 CLS Outpatient IHSA ARAGON MD [facility] WOUNDCARE [id number] 11/03/2017 07:55:00 11/03/2017 23:59:59 CLS Outpatient ISHA ARAGON MD [facility] WOUNDCARE [id number] 10/27/2017 08:10:00 10/27/2017 23:59:59 CLS Outpatient ISHA ARAGON MD [facility] WOUNDCARE [id number] 10/20/2017 08:31:00 10/20/2017 23:59:59 CLS Outpatient ISHA ARAGON MD [facility] WOUNDCARE [id number] 10/13/2017 08:32:00 10/13/2017 23:59:59 CLS Outpatient ISHA ARAGON MD [facility] WOUNDCARE [id number] 10/04/2017 08:00:00 10/04/2017 23:59:59 CLS Outpatient ISHA ARAGON MD [facility] WOUNDCARE [id number] 10/01/2017 08:09:00 10/01/2017 23:59:59 CLS Outpatient ISHA ARAGON MD [facility] WOUNDCARE [id number] 09/29/2017 10:33:00 09/29/2017 23:59:59 CLS Outpatient ISHA ARAGON MD [facility] LAB SEE ORDER [id number] 09/29/2017 08:17:00 09/29/2017 23:59:59 CLS Outpatient ISHA ARAGON MD [facility] WOUNDCARE [id number] 09/22/2017 07:56:00 09/22/2017 23:59:59 CLS Outpatient ISHA ARAGON MD [facility] WOUNDCARE [id number] 09/20/2017 08:32:00 09/20/2017 23:59:59 CLS Outpatient ISHA ARAGON MD [facility] WOUNDCARE [id number] 09/15/2017 10:03:00 09/15/2017 23:59:59 CLS Outpatient ISHA ARAGON MD [facility] WOUNDCARE [id number] 09/08/2017 11:44:00 09/08/2017 23:59:59 CLS Outpatient ISHA ARAGON MD [facility] LAB E11.621 E11.42 L97.512 [id number] 09/08/2017 10:10:00 09/08/2017 23:59:59 CLS Outpatient LUIS FELIPE FERRARI APRN [facility] WOUNDCARE [id number] 09/01/2017 10:06:00 09/01/2017 23:59:59 CLS Outpatient ISHA ARAGON MD [facility] WOUNDCARE [id number] 08/27/2017 09:41:00 08/27/2017 23:59:59 CLS Outpatient ISHA ARAGON MD [facility] RAD E11.621,L97.512 [id number] 08/27/2017 08:28:00 08/27/2017 23:59:59 CLS Outpatient ISHA ARAGON MD [facility] WOUNDCARE [id number] 08/04/2017 08:37:00 08/04/2017 23:59:59 CLS Outpatient ISHA ARAGON MD [facility] WOUNDCARE [id number] 07/28/2017 08:12:00 07/28/2017 23:59:59 CLS Outpatient ISHA ARAGON MD [facility] WOUNDC[facility] [id number] 07/21/2017 09:01:00 07/21/2017 23:59:59 CLS Outpatient ISHA ARAGON MD [id number] 07/14/2017 08:54:00 07/14/2017 23:59:59 CLS Outpatient ISHA ARAGON MD [facility] WOUNDCARE [id number] 07/12/2017 08:54:00 07/12/2017 23:59:59 CLS Outpatient ISHA ARAGON MD [facility] [id number] 07/01/2017 08:47:00 07/01/2017 23:59:59 CLS Outpatient ISHA ARAGON MD [facility] RAD E11.621 E11.42 L97.512 [id number] 06/30/2017 09:06:00 06/30/2017 23:59:59 CLS Outpatient ISHA ARAGON MD [facility] [id number] 05/28/2017 06:00:00 05/28/2017 11:45:00 DIS Outpatient MCCLOUDMAN THEODORE DPM [facility] SDC OSTEOMYELITIS [id number] 05/24/2017 08:30:00 05/24/2017 23:59:59 CLS Outpatient ISHA ARAGON MD [facility] WOUNDCARE [id number] 05/24/2017 10:05:00 05/24/2017 10:40:00 DIS Outpatient MCCLOUDMAN THEODORE DPM [facility] PREOP OSTEOMYELITIS [id number] 05/11/2017 12:06:00 05/11/2017 23:59:59 CLS Outpatient ISHA ARAGON MD [facility] [id number] 05/03/2017 08:22:00 05/03/2017 23:59:59 CLS Outpatient ISHA ARAGON MD [facility] [id number] 04/26/2017 08:39:00 04/26/2017 23:59:59 CLS Outpatient ISHA ARAGON MD [facility] WOUNDCARE [id number] 04/19/2017 08:29:00 04/19/2017 23:59:59 CLS Outpatient ISHA ARAGON MD [facility] WOUNDC[facility] [id number] 04/12/2017 10:51:00 04/12/2017 23:59:59 CLS Outpatient ISHA ARAGON MD [facility] RAD E11.621,E11.42,L97.512 [id number] 04/12/2017 08:22:00 04/12/2017 23:59:59 CLS Outpatient ISHA ARAGON MD [facility] WOUNDCARE [id number] 04/05/2017 14:03:00 04/05/2017 23:59:59 CLS Outpatient ISHA ARAGON MD [facility] WOUND[facility] [id number] 02/03/2017 12:35:00 02/03/2017 23:59:59 CLS Preadmit DANYEL CALDWELL MD [facility] RAD ELEVATED LFT'S [id number] 03/04/2015 08:03:00 03/04/2015 10:00:00 DIS Outpatient ISHA ARAGON MD [facility] WOUNDCARE [id number] 02/14/2015 23:42:00 02/15/2015 02:13:00 DIS Emergency CIARA LUCIANO MD [facility] ER VOMITING,FALL 3 WKS AGO-PAIN SMALL OF BACK [id number] 02/13/2015 09:09:00 02/13/2015 00:01:00 DIS Outpatient ISHA ARAGON MD [facility] WOUNDCARE [id number] 01/07/2015 08:04:00 01/20/2015 00:01:00 DIS Outpatient ISHA ARAGON MD [facility] WOUNDC[facility] [id number] 10/22/2014 11:15:00 10/22/2014 23:59:59 CLS Outpatient ISHA ARAGON MD [facility] RAD DIABETIC FOOT ULCER [id number] 08/31/2013 10:25:00 10/04/2013 13:56:00 DIS Outpatient DANYEL CALDWELL MD [facility] WOUNDCARE PRESSURE/ EXPOSURE TO ACID ULCER [id number] 05/05/2018 12:07:00 ACT Inpatient BRIANA MCCULLOUGH, JANES William [facility] 4TH ISCHEMIA L GREAT TOE [id number] 12/31/2017 13:53:00 Document Registration [id number] 12/22/2017 08:02:00 Document Registration [id number] 12/20/2017 09:17:00 Document Registration [id number] 12/19/2017 11:28:00 Document Registration [id number] 02/26/2015 08:03:43 ACT Document Registration [id number] 01/13/2018 13:39:00 01/13/2018 23:59:00 DIS Outpatient DANYEL CALDWELL [id number] 10/04/2017 12:40:00 10/04/2017 23:59:00 DIS Outpatient DANYEL CALDWELL [id number] 05/03/2017 14:10:00 05/03/2017 23:59:00 DIS Outpatient DANYEL CALDWELL [id number] 02/02/2017 11:43:00 02/02/2017 23:59:00 DIS Outpatient DANYEL CALDWELL [id number] 11/02/2016 10:56:00 11/02/2016 23:59:00 DIS Outpatient DANYEL CALDWELL [id number] 09/07/2016 13:03:00 09/07/2016 23:59:00 DIS Outpatient DANYEL CALDWELL [id number] 07/29/2016 15:20:00 07/29/2016 23:59:00 DIS Outpatient DANYEL CALDWELL [id number] 06/18/2016 07:37:00 06/18/2016 07:37:00 CAN Outpatient Lily Alcala [id number] 06/17/2016 16:02:00 06/17/2016 23:59:00 DIS Outpatient DANYEL CALDWELL
--- NOTE | 2018-05-05 12:16 | NUR ---
Pharmacy called for med rec.
[2018-05-05 12:25] LABS: INR 1.1 (0.8-1.4); PROTHROMBIN TIME PATIENT 13.7 SEC (12.2-14.7)
--- NOTE | 2018-05-05 12:39 | Diagnostic Imaging Report ---
INDICATION: Left toe wound. TECHNIQUE: Grayscale, color-flow and duplex Doppler evaluation of the left lower extremity arterial system was performed. FINDINGS: There are triphasic waveforms in the left common femoral artery and profunda femoris. There is monophasic flow throughout the superficial femoral artery and popliteal artery as well as the small vessels below the knee. There is plaque throughout the left lower extremity arterial system. No focal velocity elevation is identified to indicate high-grade stenosis. No definite occlusion is seen. There is flow within the dorsalis pedis and posterior tibial artery at the foot and ankle. No fluid collections are seen. IMPRESSION: There is some monophasic flow from the proximal left SFA to the ankle however no high-grade stenosis or occlusion is detected. Dictated by: Dictated on workstation # [id number]
--- NOTE | 2018-05-05 12:56 | Consultation-Cardiology ---
HPI-Cardiology Cardiology Consultation Date of Consultation 05/05/18 Date of Admission Time Seen by Provider: 12:10 Indication: gangrene HPI 72-year-old lady with history of peripheral arterial disease, had abnormal AKOSUA, underwent amputation on her right toe earlier this year. Sustained an injury to her left toe which resulted in a blister last week, patient came in today due to the fact that it was not improving, she has gangrene on her left toe. She denied any chest pain. No shortness of breath. Seen in the emergency room then admitted for peripheral angiogram Home Medications & Allergies Allergies: Coded Allergies: Penicillins (Verified Allergy, Unknown, 02/14/15) codeine (Verified Allergy, Unknown, 02/14/15) Home Medication List Reviewed: Yes BDT-Wapjux-Gyilox Hx Patient Social History Employed/Student: retired Alcohol Use: Denies Use Recreational Drug Use: No Smoking Status: Current Everyday Smoker Type Used: Cigarettes Recent Foreign Travel: No Recent Infectious Disease Expo: No Recent Hopitalizations: No Immunizations Up To Date Tetanus Booster (TDap): Unknown Date of Pneumonia Vaccine: Feb 07, 2017 Date of Influenza Vaccine: Feb 07, 2017 Past Medical History as described below Family Medical History Significant Family History: No Pertinent Family Hx Family Medical Hx noncontributory to her current condition Review of Systems Constitutional: see HPI, malaise, weakness EENTM: see HPI, no symptoms reported Respiratory: see HPI; No cough; dyspnea on exertion; No hemoptysis, No orthopnea, No phlegm, No short of breath, No stridor, No wheezing, No other Cardiovascular: see HPI; No chest pain, No edema, No Hx of Intervention, No palpitations, No syncope; vascular heart diseas; No other Gastrointestinal: no symptoms reported, see HPI Genitourinary: no symptoms reported, see HPI Musculoskeletal: see HPI, other (gangrene on her left toe) Skin: see HPI, change in color, change in hair/nails Psychiatric/Neurological: No Symptoms Reported, See HPI Reviewed Test Results Reviewed Test Results Lab Laboratory Tests Test 05/05/18 11:25 Range/Units White Blood Count 6.7 4.3-11.0 10^3/uL Red Blood Count 4.06 L 4.35-5.85 10^6/uL Hemoglobin 11.7 11.5-16.0 G/DL Hematocrit 35 35-52 % Mean Corpuscular Volume 87 80-99 FL Mean Corpuscular Hemoglobin 29 25-34 PG Mean Corpuscular Hemoglobin Concent 33 32-36 G/DL Red Cell Distribution Width 13.5 10.0-14.5 % Platelet Count 348 130-400 10^3/uL Mean Platelet Volume 9.4 7.4-10.4 FL Neutrophils (%) (Auto) 79 H 42-75 % Lymphocytes (%) (Auto) 15 12-44 % Monocytes (%) (Auto) 4 0-12 % Eosinophils (%) (Auto) 2 0-10 % Basophils (%) (Auto) 0 0-10 % Neutrophils # (Auto) 5.3 1.8-7.8 X 10^3 Lymphocytes # (Auto) 1.0 1.0-4.0 X 10^3 Monocytes # (Auto) 0.3 0.0-1.0 X 10^3 Eosinophils # (Auto) 0.1 0.0-0.3 10^3/uL Basophils # (Auto) 0.0 0.0-0.1 10^3/uL Prothrombin Time 13.7 12.2-14.7 SEC INR Comment 1.1 0.8-1.4 Activated Partial Thromboplast Time 32 24-35 SEC Sodium Level 132 L 135-145 MMOL/L Potassium Level 4.1 3.6-5.0 MMOL/L Chloride Level 96 L 98-107 MMOL/L Carbon Dioxide Level 23 21-32 MMOL/L Anion Gap 13 5-14 MMOL/L Blood Urea Nitrogen 13 7-18 MG/DL Creatinine 1.00 0.60-1.30 MG/DL Estimat Glomerular Filtration Rate 55 BUN/Creatinine Ratio 13 Glucose Level 296 H 70-105 MG/DL Calcium Level 9.4 8.5-10.1 MG/DL Corrected Calcium 9.9 8.5-10.1 MG/DL Total Bilirubin 0.3 0.1-1.0 MG/DL Aspartate Amino Transf (AST/SGOT) 12 5-34 U/L Alanine Aminotransferase (ALT/SGPT) 11 0-55 U/L Alkaline Phosphatase 130 40-136 U/L Total Protein 7.7 6.4-8.2 GM/DL Albumin 3.4 3.2-4.5 GM/DL Physical Exam Vital Signs Vital Signs - First Documented 05/05/18 10:25 Temp 96.8 Pulse 107 Resp 22 B/P (MAP) 145/75 (98) Pulse Ox 98 O2 Delivery Room Air Capillary Refill : Less Than 3 Seconds Height, Weight, BMI Height: 5'5.00" Weight: 176lbs. 0.0oz. 79.383797mq; 29.3 BMI Method:Stated General Appearance: WD/WN, Mild Distress, Moderate Distress Eyes: Bilateral Eye Normal Inspection, Bilateral Eye PERRL, Bilateral Eye EOMI HEENT: PERRL/EOMI, TMs Normal, Normal ENT Inspection, Pharynx Normal Neck: Full Range of Motion, Normal Inspection, Non Tender, Supple, Carotid Bruit Respiratory: Chest Non Tender, Lungs Clear, Normal Breath Sounds, No Accessory Muscle Use, No Respiratory Distress Cardiovascular: Regular Rate, Rhythm, No Edema, No Gallop, No JVD, Systolic Murmur Gastrointestinal: Normal Bowel Sounds, No Organomegaly, No Pulsatile Mass, Non Tender, Soft Back: No CVA Tenderness, No Vertebral Tenderness Extremity: No Pedal Edema, Other (gangrene on the left toe, diminished pulse) Neurologic/Psychiatric: Alert, Oriented x3, No Motor/Sensory Deficits, Normal Mood/Affect Skin: Normal Color, Warm/Dry Lymphatic: No Adenopathy A/P-Cardiology Admission Diagnosis Gangrene of the toe Peripheral arterial disease Hypertension Diabetes mellitus Assessment/Plan Gangrene of the left toe after a trauma, poor healing, probably ischemic in nature, planning to proceed with peripheral angiogram. History of amputation of her right toe. Peripheral arterial disease, management as described above, present for angiogram today. Hypertension, restart home medication monitor Crescendo hyperlipidemia, evaluate lipid profile. Stopped statin. Next Diabetes mellitus, managed and followed by primary care physician next Status post excision of skin cancer on the upper back done by Dr. Crespo earlier this year BARRY PIERCE MD May 05, 2018 12:56
--- NOTE | 2018-05-05 12:56 | Cardiac Procedure Note-CS/ASA ---
Pre-Procedure Note Pre-Op Procedure Note H&P Reviewed The H&P was reviewed, patient examined and no changes noted. Date H&P Reviewed: May 05, 2018 Time H&P Reviewed: 12:56 Conscious Sedation Pre-Proced Time 12:56 ASA Score 3 For ASA 3 and 4: Consider anesthesia and medical clearance. Also, for patients with a history of failed moderate sedation consider anesthesia. Airway Lungs Heart ASA score ASA 1: a normal healthy patient ASA 2: a patient with a mild systemic disease (mid diabetes, controlled hypertension, obesity x ASA 3: a patient with a severe systemic disease that limits activity (angina , COPD, prior Myocardial infarction) ASA 4: a patient with an incapacitating disease that is a constant threat to life (CHF, renal failure) ASA 5: a moribund patient not expected to survive 24 hrs. (ruptured aneurysm) ASA 6: a declared brain patient whose organs are being harvested. For emergent operations, add the letter E after the classification Mallampati Classification Grade 3 Sedation Plan Analgesia, Amnesia, Plan communicated to team members, Discussed options with patient/fam, Discussed risks with patient/fam The patient is an appropriate candidate to undergo the planned procedure, sedation, and anesthesia. The patient immediately re-assessed prior to indication. BARRY PIERCE MD May 05, 2018 12:56
[2018-05-05] MEDS ORDERED: CATHETER FLUSH 10 ML SYR IV PRN (13:00)
[2018-05-05] MEDS ORDERED: fentaNYL INJECTION 100 MCG/2 ML AMP IV PRN (13:00)
[2018-05-05] MEDS ORDERED: VANCOMYCIN 1,750 MG/NS 500 ML IVPB IV NR ×2 (13:05)
--- NOTE | 2018-05-05 13:18 | NUR ---
CALLED LETITIA IN PATIENT EDUCATION REGARDING THE OUTPATIENT WOUND VAC THE PATIENT HAS ON HER BACK.
--- NOTE | 2018-05-05 13:24 | NUR ---
RAFAELA BROWNE admitted to room 422-1, with an admitting diagnosis of ISCHEMIA LEFT GREAT TOE, on 05/05/18 from ED via [facility], accompanied by ED STAFF. RAFAELA BROWNE introduced to surroundings, call light, bed controls, phone, TV, temperature control, lights, meal times, smoking policy, visitor policy, side rail policy, bathrooms and showers. Patient Rights given to patient in the handbook. RAFAELA BROWNE verbalizes understanding that [facility] is not responsible for the loss or damage to any personal effects or valuables that are kept in the patients possession during their hospitalization. The following Patient Care Plans were discussed with the PATIENT: Discharge Planning, OSTEOMYELITIS, HEART CATHETERIZATION, and KNOWLEDGE DEFICIT. RAFAELA BROWNE verbalizes understanding of Interdisciplinary Patient Education. Patient and/or family were informed about the Rapid Response Team and its purpose.
[2018-05-05] MEDS ORDERED: FLU QUADRIvalent (5+ YOA) 2018-2019 (AFLURIA) 0.5 ML IM ONE (13:30)
[2018-05-05] MEDS ORDERED: LIDOCAINE 1% INJ 20 ML 20 ML VIAL ONE (13:36)
[2018-05-05] MEDS ORDERED: HEParin (CATH LAB) 1,000 ML IV ONE (13:36)
[2018-05-05] MEDS ORDERED: MIDAZOLAM 5 MG/5 ML (VERSED) VIAL ONE ×2 (13:37→15:55)
[2018-05-05] MEDS ORDERED: fentaNYL INJECTION 100 MCG/2 ML AMP ONE ×2 (13:38→16:10)
[2018-05-05] MEDS ORDERED: HYDR-3812 PO (13:57)
[2018-05-05] MEDS ORDERED: ACET-2267 PO (13:57)
--- NOTE | 2018-05-05 14:45 | NUR ---
Placed hospital wound vac good suction obtained. Home vac place in pt belonging bag. Home vac placed on hold through [facility]
--- NOTE | 2018-05-05 15:00 | NUR ---
LEFT FLOOR FOR HEART CENTER
[2018-05-05] MEDS ORDERED: HEParin 1000 UNIT/ML (10ML VIAL) FOR BOLUS ONE (15:36)
[2018-05-05] MEDS ORDERED: NITRO DRIP 25000 MCG/D5W 250 ML IV ONE (16:01)
[2018-05-05] MEDS ORDERED: CLOPIDOGREL 300 MG (PLAVIX) TABLET PO ONE (17:08)
[2018-05-05] MEDS ORDERED: ASPIRIN 325 MG (5 GR) TABLET ONE (17:08)
[2018-05-05] MEDS ORDERED: PATIENT MAY USE OWN MEDS, ALL PO SCH (17:15)
--- NOTE | 2018-05-05 17:18 | Peripheral Report ---
Peripheral Report Physician (s)/Routing Machine Operator (s) Physician BARRY PIERCE MD Pre-Procedure Diagnosis Pre-Procedure Diagnosis: acute gangrenous toe Post-Procedure Note Procedure Start Date: May 05, 2018 Name of Procedure: abdominal aortogram Bilateral lower extremity runoff Angioplasty with stenting to the SFA and drug-coated balloon Findings/Procedure Note PROCEDURE NOTE: 72 years old lady with peripheral arterial disease had amputation of her right toe, had gangrenous toe on her left foot, came into the emergency room for worsening symptoms and black toe, arterial ultrasound was abnormal. She was scheduled for peripheral angiogram possible intervention After explaining the procedure to the patient, all pros and cons were explained , all questions were answered. The patient signed the consent and then she was placed on the cardiac catheterization laboratory. The patient was placed on the cardiac catheterization laboratory. Groin was prepped SL fashion local anesthesia was used. Sheath placed in the right femoral artery, pigtail catheter advanced to the abdominal aorta and abdominal aortogram was done, I tried with the pigtail to crossover without success then I used UF catheter then drained catheter which was successful in crossing over. I advanced a stork wire to the mid SFA then advanced this straight catheter and did angiogram which showed total occlusion of the left mid SFA. I reintroduced a stork wire then remove the straight catheter and placed 6 Lebanese 45 sheath down to the left femoral artery, angiogram was done again I was unable to cross over with a stork catheter, patient was bolused with heparin then advanced this straight catheter again to the mid SFA and I was able to advance 0.18 command wire to the trifurcation then I used 4.0100 mm balloon with multiple inflations and then upgraded to 6.0200 mm balloon did multiple inflation then I proceeded with advancement of 2 overlapping stents Supera 5.5x150, postdilated with 6.0150 mm balloon then the proximal portion appeared to have calcified plaque, I did another inflation which persisted then decided to do drug-coated balloon using 6.0 x 100 with 1 inflation for 3 minutes, angiogram showed excellent results, repeat angiogram with DSA to the trifurcation and to the foot level which showed excellent flow down to the toe. Wires were removed then I pulled the long sheath down to the right common iliac and did runoff to the right lower extremity, then exchanged the sheath to short 6 Lebanese sheath and advanced pigtail catheter to the abdominal aorta and evaluated the bifurcation abdominal aorta which showed no complication, ACT was 200, proceeded with Closure device deployment without complications FINDINGS: Abdominal aortogram showed mild atherosclerotic disease, renal arteries are normal, bifurcation is normal, mild disease at the bifurcation of the aorta. Left lower extremity: Patient has heavily calcified SFA and popliteal artery with total occlusion at the mid SFA successful balloon angioplasty then deployment of 2 overlapping SUPERA 5.5 x 150 with excellent results, the proximal/ostial SFA has heavy calcification with moderate to severe lesion, I used balloon angioplasty then drug-coated balloon 6.0 x 100with excellent results, postintervention patient had excellent flow down to the foot Right lower extremity: Runoff was done through the sheath which showed mild atherosclerotic disease down to the trifurcation, below the trifurcation there was slow flow. Does not appear to be obstructive disease CONCLUSIONS: 1. Total occlusion of the left SFA with heavily calcified artery successful Intervention and deployment of 2 overlapping SUPERA 5.5 time 150, the ostium of the left SFA was calcified with moderate to severe lesion successful drug- coated balloon angioplasty using LUTONIX 6.0 x100 with excellent results 2. Mild to moderate disease at the right lower extremity with slow flow below the trifurcation 3. Mild atherosclerotic plaque in the abdominal aorta, normal renal arteries DISCUSSION AND RECOMMENDATIONS: Patient received aspirin and Plavix loading dose, started on statin, will monitor lipids and blood pressure. Started on PPI. Might need amputation of her toe Anesthesia Type: Conscious Sedation Estimated blood loss (mL): 25 ml Contrast Amount: 136 ml Total Radiation Dose: 815 mGy Post-Procedure Diagnosis Post-operative diagnosis: Acute ischemic foot Gangrenous toe Peripheral arterial disease Hypertension Diabetes mellitus BARRY PIERCE MD May 05, 2018 17:17
[2018-05-05 17:45] VITALS: BP 139/65
[2018-05-05 18:00] VITALS: BP 137/73
[2018-05-05] MEDS: PANTOPRAZOLE 40 MG (PROTONIX) TAB PO NR ×2 (18:10→18:21)
[2018-05-05] MEDS: NS IV 1000 ML 1,000 ML IV SCH ×2 (18:11→20:15)
[2018-05-05 18:15] VITALS: BP 135/70
[2018-05-05] MEDS: inSUlin ASPART (NovoLOG) 1 UNIT/0.01 ML (CHARGE PER UNIT) SC SCH ×2 (18:16→20:14)
[2018-05-05] MEDS: GLIMEPIRIDE 4 MG (AMARYL) TAB PO SCH (18:17)
[2018-05-05 18:30] VITALS: BP 93/56
[2018-05-05 19:00] VITALS: BP 143/99
[2018-05-05] MEDS: ATORVASTATIN 40 MG (LIPITOR) TABLET PO SCH (20:14)
[2018-05-05] MEDS ORDERED: NON-FORMULARY MEDICATION 1 EA EA (Glimepiride 4 MG) PO SCH (21:00)
[2018-05-06] VITALS: BP 114/69
[2018-05-06 03:31] LABS: HEMOGLOBIN 9.1 G/DL (11.5-16.0); MEAN PLATELET VOLUME 9.5 FL (7.4-10.4); RED BLOOD COUNT 3.19 10^6/uL (4.35-5.85); RED CELL DISTRIBUTION WIDTH 13.2 % (10.0-14.5); WHITE BLOOD COUNT 5.9 10^3/uL (4.3-11.0)
[2018-05-06 03:49] LABS: BUN/CREATININE RATIO 12; CALCIUM 8.2 MG/DL (8.5-10.1); CARBON DIOXIDE 23 MMOL/L (21-32); CHLORIDE 103 MMOL/L (98-107); CHOLESTEROL 107 MG/DL (< 200); CREATININE SERUM 0.84 MG/DL (0.60-1.30); GFR ESTIMATED > 60; GLUCOSE 150 MG/DL (70-105); HDL CHOLESTEROL 27 MG/DL (40-60); SODIUM 135 MMOL/L (135-145); TRIGLYCERIDES 72 MG/DL (<150); VLDL CHOLESTEROL 14 MG/DL (5-40)
[2018-05-06] MEDS: inSUlin ASPART (NovoLOG) 1 UNIT/0.01 ML (CHARGE PER UNIT) SC SCH ×4 (04:55→20:48)
[2018-05-06] MEDS: GLIMEPIRIDE 4 MG (AMARYL) TAB PO SCH (06:14)
[2018-05-06] MEDS ORDERED: PANTOPRAZOLE 40 MG (PROTONIX) TAB PO SCH (07:00)
--- NOTE | 2018-05-06 07:30 | History & Physical-Hospitalist ---
History of Present Illness HPI/Chief Complaint Pt is a 72yoCF with a PMH of NIDDMII, HTN, and PAD who presented to the ER due to toe pain and discoloration. She states that on 04/29 she dropped a 13lb frozen turkey on her foot. She noticed a wound and thought it was painful but didn't think much of it and went to bed. It continued to worsen andon 05/04 she told her home health nurses about it who adivsed her to seek medical care. She presented to the ER yesterday where she was found to have a clearly necrotic left great toe. She was admitted for further management. She denies any pain and her only complaint it the smell coming from her foot. She denies any fevers or chills. She underwent angiogram yesterday which revealed nearly occluded SFA but was stented by Dr Padilla with good resultant flow. Source: patient Date Seen 05/06/18 Time Seen by a Provider: 07:25 Attending Physician Janes Gonzalez MD PCP Amber Beard MD Referring Physician Date of Admission May 05, 2018 at 12:07 Home Medications & Allergies Home Medications Reviewed patient Home Medication Reconciliation performed by pharmacy medication reconciliations benefits technician and/or nursing. Patients Allergies have been reviewed. Allergies Allergies Coded Allergies Penicillins (Verified Allergy, Unknown, 02/14/15) codeine (Verified Allergy, Unknown, 02/14/15) Past Uhxotny-Ohvzxe-Alfkum Hx Past Med/Social Hx: Reviewed Nursing Past Med/Soc Hx Patient Social History Employed/Student: retired Alcohol Use: Denies Use Recreational Drug Use: No Smoking Status: Current Everyday Smoker Former Smoker, Quit: Dec 23, 2017 Type Used: Cigarettes Physical Abuse Screen: No Sexual Abuse: No Recent Foreign Travel: No Contact w/other who traveled: No Recent Hopitalizations: No Recent Infectious Disease Expo: No Immunizations Up To Date Tetanus Booster (TDap): Unknown Pediatric: No Date of Pneumonia Vaccine: Feb 07, 2017 Date of Influenza Vaccine: May 05, 2018 Seasonal Allergies Seasonal Allergies: Yes Past Medical History Surgeries: Adenoidectomy, Appendectomy, Section, Gallbladder, Hysterectomy, Tonsillectomy Cardiac: Hypertension, Rheumatic Fever Reproductive: No Sexually Transmitted Disease: No HIV/AIDS: No Endocrine: Diabetes, Insulin dep Are Your Blood Sugars Over 250: No Loss of Vision: Denies Hearing Impairment: Denies Cancer: Skin Did You Recieve Any Treatments: Yes What Type of Treatment Did You: Surgical Intervention Cancer: WOUND VAC ON SKIN REMOVAL AREA (LAST 3 WEEKS) History of Blood Disorders: No Adverse Reaction to Blood Dan: No Family History Congenital heart disease Diabetes mellitus 19 MOTHER No Pertinent Family Hx Review of Systems Constitutional: No chills, No fever EENTM: No blurred vision, No double vision, No nose congestion, No throat pain Respiratory: No cough, No dyspnea on exertion, No short of breath Cardiovascular: No chest pain, No edema, No palpitations Gastrointestinal: No abdominal pain, No constipation, No diarrhea, No nausea, No vomiting Genitourinary: No dysuria, No frequency Musculoskeletal: see HPI; No joint pain, No muscle pain; other (toe pain) Skin: No lesions, No rash Psychiatric/Neurological: Denies Headache, Denies Numbness, Denies Tingling Physical Exam Physical Exam Vital Signs Vital Signs - First Documented 05/05/18 10:25 Temp 96.8 Pulse 107 Resp 22 B/P (MAP) 145/75 (98) Pulse Ox 98 O2 Delivery Room Air Capillary Refill : Less Than 3 Seconds Height, Weight, BMI Height: 5'5.00" Weight: 178lbs. 9.0oz. [id number]; 29.7 BMI Method:Stated General Appearance: No Apparent Distress, Chronically ill HEENT: PERRL/EOMI, Moist Mucous Membranes Neck: Non Tender, Supple Respiratory: Lungs Clear, No Respiratory Distress Cardiovascular: Regular Rate, Rhythm, No Murmur Gastrointestinal: Normal Bowel Sounds, Non Tender, Soft Extremity: Other (right foot with TMA, left foot with gangrenous, foul smelling great toe, warm, sensation in tact) Neurologic/Psychiatric: Alert, Oriented x3, Normal Mood/Affect Skin: Normal Color, Warm/Dry Results Results/Procedures Labs Laboratory Tests 05/05/18 11:25 05/06/18 03:23 Patient resulted labs reviewed. Imaging: Reviewed Imaging Report Assessment/Plan Admission Diagnosis acutely gangrenous toe Admission Status: Inpatient Order (span 2 midnights) Reason for Inpatient Admission: OR today for amputation, IV abx Diagnosis/Problems Diagnosis/Problems (1) Ischemic necrosis of toe Status: Acute Assessment & Plan: s/p angiogram yesterday with stent to SFA Dr Kirk consulted- plan for OR today Wound Care Continue IV abx (2) Non-insulin dependent type 2 diabetes mellitus Assessment & Plan: SSI Fasting blood sugar of 150 this AM (3) PAD (peripheral artery disease) Assessment & Plan: Cardiology consulted, appreciate recs Angiography yesterday with stenting Continue ASA and Plavix (4) Skin cancer Assessment & Plan: s/p resection by Dr Padilla Wound vac in place Wound care consulted Clinical Quality Measures DVT/VTE Risk/Contraindication: Risk Factor Score Per Nursin RFS Level Per Nursing on Admit: 3=High JANES GONZALEZ MD May 06, 2018 07:30
[2018-05-06 08:00] VITALS: BP 130/65
[2018-05-06] MEDS ORDERED: NON-FORMULARY MEDICATION 1 EA EA (Amlodipine Besylate 5 MG) PO SCH (09:00)
[2018-05-06] MEDS ORDERED: LACTATED RINGERS 1,000 ML IV PRN (11:00)
[2018-05-06] MEDS: cefTRIAXone 1 GM/NS 50 ML IVPB IV SCH ×2 (11:30)
[2018-05-06 12:00] VITALS: BP 136/84
[2018-05-06] MEDS ORDERED: VANCOMYCIN INJECTION 1,250 MG in NS (IVPB) 250 ML IV SCH (13:00)
[2018-05-06] MEDS: ASPIRIN E.C. 81 MG (ECOTRIN) TAB PO SCH (14:00)
[2018-05-06] MEDS: amLODIPine 5 MG (NORVASC) TAB PO SCH (14:00)
[2018-05-06] MEDS: CLOPIDOGREL 75 MG (PLAVIX) TABLET PO SCH (14:00)
[2018-05-06] MEDS ORDERED: BUPIVACAINE 0.5% 30 ML (SENSORCAINE) VIAL ONE (14:16)
--- NOTE | 2018-05-06 14:19 | Cardiology Progress Note ---
Subjective Date Seen by Provider: May 06, 2018 Time Seen by Provider: 14:17 Subjective/Events-last exam patient is laying down in bed, feeling better, scheduled for amputation of her toe today. Groin is healing well. Review of Systems General: No Chills, No Night Sweats, No Fatigue, No Malaise, No Appetite, No Other HEENT: No Head Aches, No Visual Changes, No Eye Pain, No Ear Pain, No Dysphasia , No Sinus Congestion, No Post Nasal Drip, No Sore Throat, No Other Pulmonary: No Dyspnea, No Cough, No Pleuritic Chest Pain, No Other Cardiovascular: No: Chest Pain, Palpitations, Orthopnea, Paroxysmal Noc. Dyspnea, Edema, Lt Headedness, Other Objective-Cardiology Exam Last Set of Vital Signs Vital Signs 05/06/18 05/06/18 12:00 13:00 Temp 98.6 Pulse 64 Resp 14 B/P (MAP) 136/84 (101) O2 Delivery Room Air Capillary Refill : Less Than 3 Seconds I&O Intake and Output 05/06/18 00:00 Intake Total 2567.5 ml Output Total 125 ml Balance 2442.5 ml Intake Oral 0 ml IV Total 2567.5 ml Output Urine Total 125 ml # Voids 2 Daily Weight Change No General: Alert, Oriented X3, Cooperative HEENT: Atraumatic, PERRLA Neck: Supple, No JVD, No Thyromegaly Lungs: Clear to Auscultation, Normal Air Movement Heart: Regular Rate, Normal S1, Normal S2, No Murmurs Abdomen: Normal Bowel Sounds, Soft, No Tenderness, No Hepatosplenomegaly, No Masses Extremities: No Clubbing, No Cyanosis, No Edema, Other (gangrenous toe, palpable dorsalis pedis pulse) Skin: No Rashes, No Breakdown, No Significant Lesion Neuro: Normal Gait, Normal Speech, Strength at 5/5 X4 Ext, Normal Tone, Sensation Intact Psych/Mental Status: Mental Status NL, Mood NL Results Lab Laboratory Tests 05/06/18 03:23 A/P-Cardiology Admission Diagnosis Gangrene of the toe Peripheral arterial disease Hypertension Diabetes mellitus Assessment/Plan Gangrene of the left toe after a trauma, poor healing, ischemic, status post angioplasty, patient has necrosis of the toe and will need amputation Peripheral arterial disease, status post angiogram and stenting to the SFA that was subtotally occluded as described below 1. Total occlusion of the left SFA with heavily calcified artery successful Intervention and deployment of 2 overlapping SUPERA 5.5 time 150, the ostium of the left SFA was calcified with moderate to severe lesion successful drug- coated balloon angioplasty using LUTONIX 6.0 x100 with excellent results 2. Mild to moderate disease at the right lower extremity with slow flow below the trifurcation 3. Mild atherosclerotic plaque in the abdominal aorta, normal renal arteries Hypertension, continue to monitor blood pressure Hyperlipidemia, continue to monitor lipids, restart statin Diabetes mellitus, managed and followed by primary care physician next Status post excision of skin cancer on the upper back done by Dr. Crespo earlier this year Clinical Quality Measures DVT/VTE Risk/Contraindication: Risk Factor Score Per Nursin RFS Level Per Nursing on Admit: 3=High BARRY PIERCE MD May 06, 2018 14:19
[2018-05-06] MEDS ORDERED: MIDAZOLAM 2 MG/2 ML (VERSED) VIAL ONE (16:15)
[2018-05-06] MEDS ORDERED: PROPOFOL INJECTION 50 ML IV ONE (16:15)
--- NOTE | 2018-05-06 16:15 | NUR ---
PT LEAVING UNIT VIA BED ACCOMPANIED BY SURGERY STAFF, WILL WAIT FOR PT TO RETURN TO UNIT.
[2018-05-06] MEDS: NS IV 1000 ML 1,000 ML IV SCH (16:18)
--- NOTE | 2018-05-06 16:22 | Consultation ---
History of Present Illness History of Present Illness Patient Consulted On(mariana/time) 05/06/18 16:19 Date Seen by Provider: May 06, 2018 Time Seen by Provider: 16:10 Reason for Visit: gangrene left great toe History of Present Illness Chronic worsening of wound to the left great toe. Allergies and Home Medications Allergies Coded Allergies: Penicillins (Verified Allergy, Unknown, 02/14/15) codeine (Verified Allergy, Unknown, 02/14/15) Home Medications Acetaminophen 500 Mg Tablet, 500 MG PO Q4H PRN for PAIN-MILD, (Reported) Amlodipine Besylate 5 Mg Tablet, 5 MG PO DAILY, (Reported) Cyclobenzaprine HCl 10 Mg Tablet, 10 MG PO TID PRN for MUSCLE SPASMS, (Reported) Glimepiride 4 Mg Tablet, 4 MG PO BID, (Reported) Hydrocodone/Acetaminophen 1 Each Tablet, 1 TAB PO TID PRN for PAIN-MODERATE, ( Reported) Patient Home Medication List Home Medication List Reviewed: Yes Past Rbymlzq-Gltfiw-Gadvyb Hx Past Med/Social Hx: Reviewed Nursing Past Med/Soc Hx Patient Social History Alcohol Use: Denies Use Recreational Drug Use: No Smoking Status: Current Everyday Smoker Type Used: Cigarettes Former Smoker, Quit: Dec 23, 2017 Recent Foreign Travel: No Contact w/Someone Who Travel: No Recent Infectious Disease Expo: No Recent Hopitalizations: No Physical Abuse: No Sexual Abuse: No Immunizations Up To Date Tetanus Booster (TDap): Unknown PED Vaccines UTD: No Date of Pneumonia Vaccine: Feb 07, 2017 Date of Influenza Vaccine: May 05, 2018 Seasonal Allergies Seasonal Allergies: Yes Past Medical History Surgeries: Yes (c/s x3, lipoma removed from arm, R 2nd toe amputated) Adenoidectomy, Appendectomy, Section, Gallbladder, Hysterectomy, Tonsillectomy Respiratory: No Cardiac: No (rheumatic fever when 7yrs old) Hypertension, Rheumatic Fever Neurological: No Reproductive Disorders: No Sexually Transmitted Disease: No HIV/AIDS: No Gastrointestinal: No Musculoskeletal: Yes (osteomyelitis 2nd right) Endocrine: Yes Diabetes, Insulin dep Are Your Blood Sugars Over 250: No HEENT: No Loss of Vision: Denies Hearing Impairment: Denies Cancer: Yes (on back) Skin Did You Recieve Any Treatments: Yes What Type of Treatment Did You: Surgical Intervention WOUND VAC ON SKIN REMOVAL AREA (LAST 3 WEEKS) Psychosocial: No Integumentary: No Blood Disorders: No Adverse Reaction/Blood Tranf: No Family Medical History Congenital heart disease Diabetes mellitus 19 MOTHER No Pertinent Family Hx Physical Exam-General Problems Physical Exam Vital Signs Vital Signs - First Documented 05/05/18 10:25 Temp 96.8 Pulse 107 Resp 22 B/P (MAP) 145/75 (98) Pulse Ox 98 O2 Delivery Room Air Capillary Refill : Less Than 3 Seconds Extremities: other (Gangrenous wound to the left great toe, +malodor, + purulence, gross sensation diminishe to the left foot, CFT WNL to the foot, foot is warm well perfused.) Assessment/Plan Assessment/Plan Admission Diagnosis/Plan Gangrene Left Great Toe -Plan for Toe Amputation Left Great Toe. Admission Status: Inpatient Order (span 2 midnights) Reason for Inpatient Admission: Gangrene Right Foot Clinical Quality Measures DVT/VTE Risk/Contraindication: Risk Factor Score Per Nursin RFS Level Per Nursing on Admit: 3=High CALEB CHISHOLM DPM May 06, 2018 16:22
[2018-05-06] MEDS ORDERED: KETAMINE HCL 100 MG/ML 5 ML VIAL ONE (16:25)
[2018-05-06 17:10] VITALS: BP 128/55
--- NOTE | 2018-05-06 17:10 | NUR ---
PT IN ROOM WITH ANESTHESIA AT BEDSIDE. PT SITTING UP AWAKE AND ALERT. BEDSIDE REPORT RECEIVED. PT DENIES C/O OR NEEDS. REQUESTS TO EAT DINNER. THIS RN ASSISTED PT IN ORDERING DINNER. PT HAS CALL LIGHT WITHIN REACH, WILL CONTINUE TO MONITOR.
[2018-05-06 20:00] VITALS: BP 132/71
[2018-05-06] MEDS: ATORVASTATIN 40 MG (LIPITOR) TABLET PO SCH (20:07)
[2018-05-07] VITALS: BP 132/70
[2018-05-07] MEDS: NS IV 1000 ML 1,000 ML IV SCH ×2 (03:52→09:46)
[2018-05-07] MEDS: inSUlin ASPART (NovoLOG) 1 UNIT/0.01 ML (CHARGE PER UNIT) SC SCH ×2 (05:48→11:56)
[2018-05-07 08:00] VITALS: BP 135/79
[2018-05-07 08:15] VITALS: BP 135/79
[2018-05-07] MEDS: CLOPIDOGREL 75 MG (PLAVIX) TABLET PO SCH (08:15)
[2018-05-07] MEDS: ASPIRIN E.C. 81 MG (ECOTRIN) TAB PO SCH (08:15)
[2018-05-07] MEDS: amLODIPine 5 MG (NORVASC) TAB PO SCH (08:15)
[2018-05-07] MEDS ORDERED: ASPI-983 PO (08:38)
[2018-05-07] MEDS ORDERED: CLOP75TA28 PO (08:38)
[2018-05-07] MEDS ORDERED: ATOR40TA PO (08:38)
--- NOTE | 2018-05-07 10:01 | Anesthesia-General Post-Op ---
MAC Patient Condition Mental Status/LOC: Same as Preop Cardiovascular: Satisfactory Nausea/Vomiting: Absent Respiratory: Satisfactory Pain: Controlled Complications: Absent Post Op Complications Complications None Follow Up Care/Instructions Patient Instructions None needed. Anesthesiology Discharge Order Discharge Order Patient is doing well, no complaints, stable vital signs, no apparent adverse anesthesia problems. No complications reported per nursing. ZAKIA KHANNA CRNA May 07, 2018 10:01
--- NOTE | 2018-05-07 10:36 | Discharge Inst-Post CATH ---
Discharge Inst-CATH/EP Post Cardiac Cath/EP D/C Inst Follow Up/Plan Appointment with Dr. Padilla's office in 2 weeks CARDIAC CATH DISCHARGE INSTRUCTIONS *Hold Metformin for 48 hours post heart cath. ACTIVITY * Go Home directly and rest. * Limit activity of the leg (or wrist if it was used) for 7 days including aerobics, swimming, jogging, bicycling, etc. * Restrict stair-climbing for 7 days if possible, if not, climb up with your non -cath leg, then bring together on the same step. * Avoid lifting, pushing, pulling or excessive movement of the affected extremity for 7 days. * Customary sexual activity may be resumed after 2 days-use caution not to use a position that strains or causes pain to the affected extremity. * No driving for 24 hours. * NO SMOKING. * Avoid straining for bowel movements for 7 days. * Gentle walking on level ground is allowed. * Returning to work will depend on the type of procedure and the results. Your doctor will discuss this with you. CALL YOUR DOCTOR FOR ANY OF THE FOLLOWING: *If bleeding from the puncture site occurs- Apply gentle pressure to site with clean cloth and call your doctor or EMS. * If a knot or lump forms under the skin, increases in size, or causes pain. * If bruising appears to be worsening or moving further down your leg instead of disappearing. * Temperature above 101 F. CARE OF YOUR GROIN INCISION; * Bruising or purple discoloration of the skin near the puncture site is common. * You may shower only, no bathtub bathing for 5 days. Be careful to avoid slipping as your leg may feel stiff. * If a closure device was used on your femoral artery, please see the attached guide regarding care of the device and your leg. * Leave the dressing on, until removed by office staff. CARE OF YOUR WRIST INCISION; * Bruising or purple discoloration of the skin near the puncture site is common. * You may shower. * DO NOT submerge wrist. * Leave dressing on, until removed by office staff.. BARRY PADILLA MD May 07, 2018 10:36
--- NOTE | 2018-05-07 10:37 | Cardiology Progress Note ---
Subjective Date Seen by Provider: May 07, 2018 Time Seen by Provider: 10:36 Subjective/Events-last exam patient is laying down in bed, feeling well. Recovered from surgery. Denied any chest pain. Foot is covered with dressing Review of Systems General: No Chills, No Night Sweats, No Fatigue, No Malaise, No Appetite, No Other HEENT: No Head Aches, No Visual Changes, No Eye Pain, No Ear Pain, No Dysphasia , No Sinus Congestion, No Post Nasal Drip, No Sore Throat, No Other Pulmonary: No Dyspnea, No Cough, No Pleuritic Chest Pain, No Other Cardiovascular: No: Chest Pain, Palpitations, Orthopnea, Paroxysmal Noc. Dyspnea, Edema, Lt Headedness, Other Objective-Cardiology Exam Last Set of Vital Signs Vital Signs 05/07/18 08:15 Temp 98.9 Pulse 87 Resp 18 B/P (MAP) 135/79 (97) Pulse Ox 97 O2 Delivery Room Air Capillary Refill : Less Than 3 Seconds I&O Intake and Output 05/07/18 00:00 Intake Total 50 ml Output Total 200 ml Balance -150 ml Intake Oral 50 ml Output Urine Total 200 ml # Voids 6 General: Alert, Oriented X3, Cooperative HEENT: Atraumatic, PERRLA Neck: Supple, No JVD, No Thyromegaly Lungs: Clear to Auscultation, Normal Air Movement Heart: Regular Rate, Normal S1, Normal S2, No Murmurs Abdomen: Normal Bowel Sounds, Soft, No Tenderness, No Hepatosplenomegaly, No Masses Extremities: No Clubbing, No Cyanosis, No Edema, Other (gangrenous toe, palpable dorsalis pedis pulse) Skin: No Rashes, No Breakdown, No Significant Lesion Neuro: Normal Gait, Normal Speech, Strength at 5/5 X4 Ext, Normal Tone, Sensation Intact Psych/Mental Status: Mental Status NL, Mood NL A/P-Cardiology Admission Diagnosis Gangrene of the toe Peripheral arterial disease Hypertension Diabetes mellitus Assessment/Plan Gangrene of the left toe after a trauma, poor healing, ischemic, status post angioplasty, status post amputation of the toe Peripheral arterial disease, status post angiogram and stenting to the SFA that was subtotally occluded as described below 1. Total occlusion of the left SFA with heavily calcified artery successful Intervention and deployment of 2 overlapping SUPERA 5.5 time 150, the ostium of the left SFA was calcified with moderate to severe lesion successful drug- coated balloon angioplasty using LUTONIX 6.0 x100 with excellent results 2. Mild to moderate disease at the right lower extremity with slow flow below the trifurcation 3. Mild atherosclerotic plaque in the abdominal aorta, normal renal arteries Patient will need to continue on aspirin and Plavix and follow-up in my office in 2 weeks Hypertension, continue on current medication Hyperlipidemia, continue on statin Diabetes mellitus, managed and followed by primary care physician next Status post excision of skin cancer on the upper back done by Dr. Crespo earlier this yearnext Hira for discharge and follow-up in my office in 2 weeks Clinical Quality Measures DVT/VTE Risk/Contraindication: Risk Factor Score Per Nursin RFS Level Per Nursing on Admit: 3=High BARRY PIERCE MD May 07, 2018 10:37
--- NOTE | 2018-05-07 11:07 | NUR ---
THIS RN CALLED AND SPOKE WITH DR CHISHOLM REGARDING PT DISCHARGE ORDERS FROM DR ALONSO AND DR PIERCE, DR RYAN TO SEND PT HOME WITH ABX AND DAILY DRSG CHANGE.
[2018-05-07] MEDS ORDERED: CEPH-507 PO (11:12)
[2018-05-07 12:00] VITALS: BP 121/62
[2018-05-07] MEDS ORDERED: TROUGH ORDER-PHARMACY XX NR (12:00)
--- NOTE | 2018-05-07 12:01 | Discharge Summary-Hospitalist ---
Diagnosis/Chief Complaint Date of Admission May 05, 2018 at 12:07 Date of Discharge Discharge Date: May 07, 2018 Admission Diagnosis acutely gangrenous toe Discharge Diagnosis (1) Ischemic necrosis of toe Status: Acute Assessment & Plan: s/p angiogram yesterday with stent to SFA Dr Kirk consulted- plan for OR today Wound Care Continue IV abx (2) Non-insulin dependent type 2 diabetes mellitus Assessment & Plan: SSI Fasting blood sugar of 150 this AM (3) PAD (peripheral artery disease) Assessment & Plan: Cardiology consulted, appreciate recs Angiography yesterday with stenting Continue ASA and Plavix (4) Skin cancer Assessment & Plan: s/p resection by Dr Padilla Wound vac in place Wound care consulted Discharge Summary Discharge Physical Exam Allergies: Coded Allergies: Penicillins (Verified Allergy, Unknown, 02/14/15) codeine (Verified Allergy, Unknown, 02/14/15) Vitals & I&Os Vital Signs Date Time Temp Pulse Resp B/P (MAP) Pulse Ox O2 Delivery O2 Flow Rate FiO2 05/07/18 08:15 98.9 87 18 135/79 (97) 97 Room Air General Appearance: No Apparent Distress, WD/WN Respiratory: Chest Non Tender, Lungs Clear, Normal Breath Sounds, No Accessory Muscle Use, No Respiratory Distress Cardiovascular: Regular Rate, Rhythm, No Edema, No Gallop, No JVD, No Murmur, Normal Peripheral Pulses Extremity: Other (Stable right forefoot amputation no skin breakdown. Minimal amount of serosanguineous drainage from left great toe amputation surgical bed 1 + edema to the mid tibia which the patient states is decreased compared to yesterday. No evidence for ascending lymphangitis no pain reported.) Hospital Course Pt is a 72yoCF with a PMH of NIDDMII, HTN, and PAD who presented to the ER due to toe pain and discoloration. She states that on 04/29 she dropped a 13lb frozen turkey on her foot. She noticed a wound and thought it was painful but didn't think much of it and went to bed. It continued to worsen andon 05/04 she told her home health nurses about it who adivsed her to seek medical care. She presented to the ER yesterday where she was found to have a clearly necrotic left great toe. She was admitted for further management. She denies any pain and her only complaint it the smell coming from her foot. She denies any fevers or chills. She underwent angiogram yesterday which revealed nearly occluded SFA but was stented by Dr Padilla with good resultant alessandra. Patient did have extensive gangrene of the left great toe requiring amputation performed on the by Dr. Kirk. Had a long discussion with the patient trying to impress upon her the need to use her cane as she is going to have poor balance losing her left great toe with previous right forefoot amputation. She'll be ambulating in the halls with nursing staff and we'll need to exhibit but she is stable on her feet after which she can be discharged. 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 Keri damian to find out whether or not he is going to want further antibiotic therapy as an outpatient. This will be under their direction. Follow-up under their direction and she is advised to see her primary care provider Dr. Amber Beard within the next several weeks. Labs (last 24 hrs) Laboratory Tests 05/06/18 20:09: Glucometer 151H 05/07/18 05:44: Glucometer 174H Microbiology 05/05/18 Blood Culture - Preliminary, Resulted No growth 05/05/18 MRSA Screen - Final, Complete MRSA not isolated 05/05/18 Gram Stain - Final, Resulted 05/05/18 Wound Culture - Preliminary, Resulted Normal skin yogi Patient resulted labs reviewed. Pending Labs Laboratory Tests 05/07/18 05:44: Glucometer 174 Imaging: Reviewed Imaging Report Discussion & Recommendations Discharge Planning: >30 minutes discharge planning Discharge Home Medications: Active Scripts Active Keflex (Cephalexin) 500 Mg Capsule 500 Mg PO QID 14 Days Clopidogrel (Clopidogrel Bisulfate) 75 Mg Tablet 75 Mg PO DAILY 30 Days Aspirin EC (Aspirin) 81 Mg Tablet. 81 Mg PO DAILY 30 Days Lipitor (Atorvastatin Calcium) 40 Mg Tablet 40 Mg PO HS 30 Days Reported Tylenol Extra Strength (Acetaminophen) 500 Mg Tablet 500 Mg PO Q4H PRN Hydrocodone-Acetamin 5-325 mg (Hydrocodone/Acetaminophen) 1 Each Tablet 1 Tab PO TID PRN Amlodipine Besylate 5 Mg Tablet 5 Mg PO DAILY Cyclobenzaprine HCl 10 Mg Tablet 10 Mg PO TID PRN Glimepiride 4 Mg Tablet 4 Mg PO BID Instructions to patient/family Please see electronic discharge instructions given to patient. Clinical Quality Measures DVT/VTE Risk/Contraindication: Risk Factor Score Per Nursin RFS Level Per Nursing on Admit: 3=High Copy Copies To 1: AMBER BEARD MD, MARK D MD May 07, 2018 12:01
[2018-05-07] MEDS: cefTRIAXone 1 GM/NS 50 ML IVPB IV SCH ×2 (12:40)
--- NOTE | 2018-05-13 21:03 | OPERATIVE REPORT ---
DATE OF SERVICE: 05/06/2018 SURGEON: Isidro Chisholm DPM [employer] ADMINISTRATOR: None. PREOPERATIVE DIAGNOSIS: Gangrene of the left great toe. POSTOPERATIVE DIAGNOSIS: Gangrene of the left great toe. PROCEDURE PERFORMED: Amputation of left great toe. ANESTHESIA: General anesthesia. HEMOSTASIS: Locally controlled. ESTIMATED BLOOD LOSS: Less than 50 mL. MATERIALS USED: 2-0, 3-0 nylon. INTRAOPERATIVE INJECTABLES: None. COMPLICATIONS: None. INDICATIONS: The patient is a 72-year-old female with a history of gangrene to her left great toe. She had a prior revasc procedure done yesterday to increase blood flow to the left foot, but, however, at this time she has extensive osteomyelitis and gangrenous toe that will not survive and she is requiring an amputation at this time. She has been made aware of the risks and benefits of the procedure as well as alternatives to undergoing and signed consent prior to being taken back to the OR. DESCRIPTION OF PROCEDURE: Under mild sedation, the patient was brought into the OR and placed on the operating table in supine position. Following administration of general anesthesia, the left lower extremity was scrubbed, prepped and draped in aseptic manner. Proper timeout was performed. Left lower extremity was identified as surgical site. Next, an incision was made to circumference the great toe at the level of the proximal interphalangeal joint. The incision was deepened down to subcutaneous tissues down to the level of the joint and the joint was then disarticulated at the metatarsophalangeal joint and the great toe was passed from the surgical field. The wound was then flushed with copious amounts of sterile saline. Once the toe was removed, there were no deep abscesses noted proximal to the metatarsophalangeal joint. There was minimal blood flow that was noted with the patient's known history of peripheral arterial disease. After the wound was flushed with copious amounts of sterile saline, the skin was then reapproximated and closed with 2-0 and 3-0 nylon and the foot was then dressed with a dry sterile dressing consisting of 4 x 4's, cast padding and a lightly applied Sander wrap. The patient tolerated the procedure and anesthesia well. She was transferred from OR to recovery with vital signs stable and neurovascular status intact to the left lower extremity. She will be admitted back to the hospital floor where she will get antibiotics and followup care. Job ID: [id number] DocumentID: [id number] Dictated Date: 05/13/2018 10:42:46 Industrial Paramedic Date: 05/13/2018 21:03:02 Dictated By: ISIDRO CHISHOLM DPM
== END 2018-05-07 13:30 | disposition home or self-care (01) | DRG 254 ==
LOC: EDUNIT# 10:20 → ER 10:22 → 4TH 12:07 → ICU 17:45
PROVIDERS: ADMIT Family Medicine; ATTEND Family Medicine
PROC: 047L34Z Dilation of Left Femoral Artery with Drug-eluting Intraluminal Device, Percutaneous Approach (ICD-10-PCS; 2018-05-05)
PROC: 047L3Z1 Dilation of Left Femoral Artery using Drug-Coated Balloon, Percutaneous Approach (ICD-10-PCS; 2018-05-05)
PROC: B41D1ZZ Fluoroscopy of Aorta and Bilateral Lower Extremity Arteries using Low Osmolar Contrast (ICD-10-PCS; 2018-05-05)
PROC: 0Y6Q0Z0 Detachment at Left 1st Toe, Complete, Open Approach (ICD-10-PCS; principal; 2018-05-06 16:20)
DX: I70.262 Atherosclerosis of native arteries of extremities with gangrene, left leg (principal); I10 Essential (primary) hypertension; E78.49 Other hyperlipidemia; S99.921S Unspecified injury of right foot, sequela; F17.210 Nicotine dependence, cigarettes, uncomplicated; E11.9 Type 2 diabetes mellitus without complications; Z79.84 Long term (current) use of oral hypoglycemic drugs; Z89.431 Acquired absence of right foot; I70.0 Atherosclerosis of aorta
CPT/HCPCS: 36415; 37226; 73630; 75625; 80048; 80053; 80061; 80202; 82962; 85025; 85027; 85347; 85610; 85730; 87040; 87070; 87081; 87205; 88305; 88311; 90471; 90686; 93926; 96365

== ENCOUNTER 2018-11-09 10:26 | Emergency (ER) | payer MEDICARE, MEDICAID ==
[~2018-11-09] VITALS: Ht 166.4 cm; Wt 83.0 kg
[~2018-11-09 10:26] MED LIST changes: +ACET-2267 PO; -AMLO5TAB7 PO; +AMLO5TAB9 PO; +ASPI-983 PO; +ATOR40TA PO; +CEPH-507 PO; +CLOP75TA28 PO; +METR-145 PO; -METR-197 PO
--- NOTE | 2018-11-09 11:29 | NUR ---
Report was given to LUPE Sevilla at this time. Care was transferred.
[2018-11-09 11:46] LABS: HEMOGLOBIN 9.6 G/DL (11.5-16.0); MEAN CORPUSCULAR HEMOGLOBIN 29 PG (25-34); WHITE BLOOD COUNT 3.4 10^3/uL (4.3-11.0)
[2018-11-09 11:47] LABS: BASOPHILS % (AUTO) 0 % (0-10); EOSINOPHILS % (AUTO) 0 % (0-10); HEMATOCRIT 31 % (35-52); LYMPHOCYTES # (AUTO) 0.7 X 10^3 (1.0-4.0); LYMPHOCYTES % (AUTO) 21 % (12-44); MEAN CORPUSCULAR HGB CONC 32 G/DL (32-36); MEAN CORPUSCULAR VOLUME 93 FL (80-99); MEAN PLATELET VOLUME 11.8 FL (7.4-10.4); MONOCYTES # (AUTO) 0.2 X 10^3 (0.0-1.0); MONOCYTES % (AUTO) 7 % (0-12); NEUTROPHILS # (AUTO) 2.5 X 10^3 (1.8-7.8); NEUTROPHILS % (AUTO) 72 % (42-75); PLATELET COUNT 80 10^3/uL (130-400); RED CELL DISTRIBUTION WIDTH 16.6 % (10.0-14.5)
[2018-11-09 11:48] LABS: ATYPICAL LYMPHOCYTES 5 %; BAND NEUTROPHILS 22 %; LYMPHOCYTES % (MANUAL) 12 %; MONOCYTES % (MANUAL) 9 %; NEUTROPHILS % (MANUAL) 52 %
[2018-11-09 11:49] LABS: HYPOCHROMASIA 2+
[2018-11-09 11:50] LABS: BILIRUBIN,TOTAL 2.7 MG/DL (0.1-1.0); CALCIUM 8.5 MG/DL (8.5-10.1); CREATININE SERUM 1.08 MG/DL (0.60-1.30); POTASSIUM 4.4 MMOL/L (3.6-5.0)
[2018-11-09 11:51] LABS: CLARITY,URINE CLOUDY; COLOR,URINE AMBER; PH,URINE 5.5 (5-9)
[2018-11-09 11:51] LABS: ALBUMIN 2.7 GM/DL (3.2-4.5); TOTAL PROTEIN 6.1 GM/DL (6.4-8.2)
[2018-11-09 11:52] LABS: BILIRUBIN,URINE 2+ (NEGATIVE); GLUCOSE, URINE (UA) TRACE (NEGATIVE); KETONES,URINE NEGATIVE (NEGATIVE); LEUKOCYTE ESTERASE ,URINE NEGATIVE (NEGATIVE); NITRITE,URINE NEGATIVE (NEGATIVE); PROTEIN,URINE 2+ (NEGATIVE)
[2018-11-09 11:53] LABS: AMORPHOUS SEDIMENT,UR LARGE AMOR URATES /LPF; BACTERIA,URINE NEGATIVE /HPF; HYALINE CASTS, URINE 0-2 /LPF; SQUAMOUS EPITHELIAL CELL,UR 25-50 /HPF
--- OUTSIDE RECORDS SUMMARY | 2018-11-09 12:07 | XMS REPORT | Continuity of Care Document ---
Author Organization Unknown Address Unknown Allergies Active Description Code Type Severity Reaction Onset Reported/Identified Relationship to Patient Clinical Status Yes codeine [id number] Drug Allergy Unknown N/A 02/14/2015 Yes Penicillins [id number] Drug Allergy Unknown N/A 02/14/2015 Medications There is no data. Problems Date Dx Coded Attending Type Code Diagnosis Diagnosed By 10/04/2013 PAULETTE MCCULLOUGH, DANYEL Hagen Ot 707.09 PRESSURE ULCER, OTHER SITE 10/04/2013 DANYEL CALDWELL MD Ot 707.24 PRESSURE ULCER, STAGE IV 11/12/2014 MAHESH MCCULLOUGH, ISHA Sena Ot 250.80 11/12/2014 MAHESH MCCULLOUGH, ISHA Sena Ot 707.15 12/13/2014 MAHESH MCCULLOUGH, ISHA Sena Ot 250.60 12/13/2014 MAHESH MCCULLOUGH, ISHA G Ot 250.80 12/13/2014 MAHESH MCCULLOUGH, ISHA Sena Ot 305.1 12/13/2014 MAHESH MCCULLOUGH, ISHA Sena Ot 707.15 12/24/2014 MAHESH MCCULLOUGH, ISHA G Ot 250.60 12/24/2014 MAHESH MCCULLOUGH, ISHA G Ot 250.80 12/24/2014 MAHESH MCCULLOUGH, ISHA G Ot 305.1 12/24/2014 MAHESH MCCULLOUGH, ISHA G Ot 707.15 12/24/2014 MAHESH MCCULLOUGH, ISHA G Ot 250.60 12/24/2014 MAHESH MCCULLOUGH, ISHA G Ot 250.80 12/24/2014 MAHESH MCCULLOUGH, ISHA G Ot 305.1 12/24/2014 MAHESH MCCULLOUGH, ISHA Sena Ot 707.15 12/24/2014 MAHESH MCCULLOUGH, ISHA G Ot 250.80 12/24/2014 MAHESH MCCULLOUGH, ISHA G Ot 707.15 12/24/2014 MAHESH MCCULLOUGH, ISHA G Ot 250.80 12/24/2014 MAHESH MCCULLOUGH, ISHA G Ot 707.15 01/08/2015 MAHESH MCCULLOUGH, ISHA G Ot 250.60 01/08/2015 MAHESH MCCULLOUGH, ISHA G Ot 250.80 01/08/2015 MAHESH MCCULLOUGH, ISHA Sena Ot 305.1 01/08/2015 MAHESH MCCULLOUGH, ISHA Sena Ot 707.15 01/20/2015 MAHESH MCCULLOUGH, ISHA Sena Ot 250.60 DIAB W NEURO MANIFEST, TYPE II OR UNSPEC 01/20/2015 MAHESH MCCULLOUGH, ISHA Sena Ot 250.80 DIAB W OTH SPEC MANIFEST, TYPE II OR UNS 01/20/2015 ISHA ARAGON MD Ot 305.1 TOBACCO USE DISORDER 01/20/2015 MAHESH MCCULLOUGH, ISHA Sena Ot 707.15 ULCER OF OTHER PART OF FOOT 01/23/2015 ISHA ARAGON MD Ot 250.60 01/23/2015 MAHESH MCCULLOUGH, ISHA Sena Ot 250.80 01/23/2015 MAHESH MCCULLOUGH, ISHA Sena Ot 305.1 01/23/2015 MAHESH MCCULLOUGH, ISHA Sena Ot 707.15 02/04/2015 MAHESH MCCULLOUGH, ISHA Sena Ot 250.60 02/04/2015 MAHESH MCCULLOUGH, ISHA Sena Ot 250.80 02/04/2015 MAHESH MCCULLOUGH, ISHA Sena Ot 305.1 02/04/2015 MAHESH MCCULLOUGH, ISHA Sena Ot 707.15 02/05/2015 ISHA ARAGON MD Ot 250.60 02/05/2015 MAHESH MCCULLOUGH, ISHA Sena Ot 250.80 02/05/2015 MAHESH MCCULLOUGH, ISHA Sena Ot 305.1 02/05/2015 MAHESH MCCULLOUGH, ISHA Sena Ot 707.15 02/13/2015 ISHA ARAGON MD Ot 250.60 DIAB W NEURO MANIFEST, TYPE II OR UNSPEC 02/13/2015 MAHESH MCCULLOUGH, ISHA Sena Ot 250.80 DIAB W OTH SPEC MANIFEST, TYPE II OR UNS 02/13/2015 ISHA ARAGON MD Ot 305.1 TOBACCO USE DISORDER 02/13/2015 ISHA ARAGON MD Ot 357.2 NEUROPATHY IN DIABETES 02/13/2015 ISHA ARAGON MD Ot 707.15 ULCER OF OTHER PART OF FOOT 02/13/2015 ISHA ARAGON MD Ot 730.17 CHR OSTEOMYELIT-ANKLE 02/14/2015 ISHA ARAGON MD Ot 250.60 02/14/2015 MAHESH MCCULLOUGH, ISHA Sena Ot 250.80 02/14/2015 ISHA ARAGON MD Ot 305.1 02/14/2015 ISHA ARAGON MD Ot 707.15 02/14/2015 ISHA ARAGON MD Ot 250.60 02/14/2015 ISHA ARAGON MD Ot 250.80 02/14/2015 ISHA ARAGON MD Ot 305.1 02/14/2015 ISHA ARAGON MD Ot 707.15 02/14/2015 ISHA ARAGON MD Ot 250.60 02/14/2015 ISHA ARAGON MD Ot 250.80 02/14/2015 ISHA ARAGON MD Ot 305.1 02/14/2015 ISHA ARAGON MD Ot 707.15 02/15/2015 CIARA LUCIANO MD, Ot 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 02/15/2015 CIARA LUCIANO MD Ot E11.9 TYPE 2 DIABETES MELLITUS WITHOUT COMPLIC 02/15/2015 CIARA LUCIANO MD, Ot F17.210 NICOTINE DEPENDENCE, CIGARETTES, UNCOMPL 02/15/2015 CIARA LUCIANO MD Ot S32.019A UNSP FRACTURE OF FIRST LUMBAR VERTEBRA, 02/15/2015 CIARA LUCIANO MD Ot S39.92XA UNSPECIFIED INJURY OF LOWER BACK, INITIA 02/15/2015 CIARA LUCIANO MD Ot W19.XXXA UNSPECIFIED FALL, INITIAL ENCOUNTER 02/15/2015 CIARA LUCIANO MD Ot Z79.4 USP (CURRENT) USE OF INSULIN 02/15/2015 ISHA ARAGON MD Ot 250.60 02/15/2015 ISHA ARAGON MD Ot 250.80 02/15/2015 ISHA ARAGON MD Ot 305.1 02/15/2015 ISHA ARAGON MD Ot 707.15 02/19/2015 ISHA ARAGON MD Ot 250.60 02/19/2015 ISHA ARAGON MD Ot 250.80 02/19/2015 ISHA ARAGON MD Ot 305.1 02/19/2015 ISHA ARAGON MD Ot 707.15 03/04/2015 ISHA ARAGON MD Ot E11.42 TYPE 2 DIABETES MELLITUS WITH DIABETIC P 03/04/2015 ISHA ARAGON MD Ot E11.621 TYPE 2 DIABETES MELLITUS WITH FOOT ULCER 03/04/2015 ISHA ARAGON MD Ot L97.513 NON-PRS CHRONIC ULCER OTH PRT RIGHT FOOT 03/04/2015 ISHA ARAGON MD, Ot M86.471 CHRONIC OSTEOMYELITIS W DRAINING SINUS, 02/03/2017 ISHA ARAGON MD Ot 250.80 DIAB W OTH SPEC MANIFEST, TYPE II OR UNS 02/03/2017 ISHA ARAGON MD Ot 707.15 ULCER OF OTHER PART OF FOOT 04/05/2017 ISHA ARAGON MD, Ot 250.80 DIAB W OTH SPEC MANIFEST, TYPE II OR UNS 04/05/2017 ISHA ARAGON MD, Ot 707.15 ULCER OF OTHER PART OF FOOT 04/18/2017 ISHA ARAGON MD, Ot E11.42 TYPE 2 DIABETES MELLITUS WITH DIABETIC P 04/18/2017 ISHA ARAGON MD, Ot E11.621 TYPE 2 DIABETES MELLITUS WITH FOOT ULCER 04/18/2017 ISHA ARAGON MD, Ot I70.235 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 04/18/2017 [...] 04/25/2017 ISHA ARAGON MD, Ot I70.235 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 04/25/2017 [...] NICOTINE DEPENDENCE, CIGARETTES, UNCOMPL 04/29/2017 ISHA ARAGON MD Ot I70.235 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 04/29/2017 ISHA ARAGON MD, Ot L03.115 CELLULITIS OF RIGHT LOWER LIMB 04/29/2017 ISHA ARAGON MD, Ot L97.512 NON-PRS CHRONIC ULCER OTH PRT RIGHT FOOT 05/07/2017 ISHA ARAGON MD, Ot E11.42 TYPE 2 DIABETES MELLITUS WITH DIABETIC P 05/07/2017 ISHA ARAGON MD, Ot E11.621 TYPE 2 DIABETES MELLITUS WITH FOOT ULCER 05/07/2017 ISHA ARAGON MD, Ot I70.235 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 05/07/2017 [...] 05/09/2017 ISHA ARAGON MD, Ot I70.235 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 05/09/2017 [...] NICOTINE DEPENDENCE, CIGARETTES, UNCOMPL 05/11/2017 ISHA ARAGON MD Ot I70.235 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 05/11/2017 ISHA ARAGON MD Ot L03.115 CELLULITIS OF RIGHT LOWER LIMB 05/11/2017 ISHA ARAGON MD, Ot L97.512 NON-PRS CHRONIC ULCER OTH PRT RIGHT FOOT 05/12/2017 ISHA ARAGON MD, Ot E11.42 TYPE 2 DIABETES MELLITUS WITH DIABETIC P 05/12/2017 ISHA ARAGON MD, Ot E11.621 TYPE 2 DIABETES MELLITUS WITH FOOT ULCER 05/12/2017 ISHA ARAGON MD, Ot I70.235 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 05/12/2017 [...] 05/14/2017 ISHA ARAGON MD, Ot I70.235 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 05/14/2017 [...] 05/17/2017 ISHA ARAGON MD, Ot I70.235 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 05/17/2017 ISHA ARAGON MD, Ot L97.511 NON-PRS CHRONIC ULCER OTH PRT R FOOT CHUNG 05/17/2017 ISHA ARAGON MD, Ot L97.512 NON-PRS CHRONIC ULCER OTH PRT RIGHT FOOT 05/17/2017 ISHA ARAGON MD, Ot T65.222D TOXIC EFFECT OF TOBACCO CIGARETTES, SELF 05/24/2017 ROGERS APPLE, MAN Fischer Ot M86.9 OSTEOMYELITIS, UNSPECIFIED 05/24/2017 ROGERS LOWEM, MAN Fischer Ot Z01.818 ENCOUNTER FOR OTHER PREPROCEDURAL EXAMIN 05/24/2017 ROGERS APPLE, MAN P Ot Z11.2 ENCOUNTER FOR SCREENING FOR OTHER BACTER 05/24/2017 ISHA ARAGON MD Ot 250.80 DIAB W OTH SPEC MANIFEST, TYPE II OR UNS 05/24/2017 ISHA ARAGON MD, Ot 707.15 ULCER OF OTHER PART OF FOOT 05/24/2017 ISHA ARAGON MD, Ot E11.42 TYPE 2 DIABETES MELLITUS WITH DIABETIC P 05/24/2017 ISHA ARAGON MD, Ot E11.621 TYPE 2 DIABETES MELLITUS WITH FOOT ULCER 05/24/2017 ISHA ARAGON MD, Ot F17.210 NICOTINE DEPENDENCE, CIGARETTES, UNCOMPL 05/24/2017 ISHA ARAGON MD, Ot I70.235 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 05/24/2017 ISHA ARAGON MD, Ot L03.115 CELLULITIS OF RIGHT LOWER LIMB 05/24/2017 ISHA ARAGON MD, Ot L97.512 NON-PRS CHRONIC ULCER OTH PRT RIGHT FOOT 05/24/2017 ISHA ARAGON MD, Ot E11.42 TYPE 2 DIABETES MELLITUS WITH DIABETIC P 05/24/2017 ISHA ARAGON MD, Ot E11.621 TYPE 2 DIABETES MELLITUS WITH FOOT ULCER 05/24/2017 ISHA ARAGON MD, Ot I70.235 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 05/24/2017 [...] 05/24/2017 ISHA ARAGON MD, Ot I70.235 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 05/24/2017 [...] 05/24/2017 ISHA ARAGON MD, Ot I70.235 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 05/24/2017 [...] 05/24/2017 ISHA ARAGON MD, Ot I70.235 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 05/24/2017 [...] 05/24/2017 ISHA ARAGON MD, Ot I70.235 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 05/24/2017 [...] 05/24/2017 ISHA ARAGON MD, Ot I70.235 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 05/24/2017 [...] 05/24/2017 ISHA ARAGON MD, Ot I70.235 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 05/24/2017 [...] 05/27/2017 ISHA ARAGON MD, Ot I70.235 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 05/27/2017 ISHA ARAGON MD, Ot L97.511 NON-PRS CHRONIC ULCER OTH PRT R FOOT CHUNG 05/27/2017 ISHA ARGAON MD, Ot L97.512 NON-PRS CHRONIC ULCER OTH PRT RIGHT FOOT 05/27/2017 ISHA ARAGON MD, Ot T65.222D TOXIC EFFECT OF TOBACCO CIGARETTES, SELF 05/28/2017 MAN MCCLOUD DPM Ot E11.9 TYPE 2 DIABETES MELLITUS WITHOUT COMPLIC 05/28/2017 MAN MCCLOUD DPM Ot F17.210 NICOTINE DEPENDENCE, CIGARETTES, UNCOMPL 05/28/2017 MAN MCCLOUD DPM Ot I10 ESSENTIAL (PRIMARY) HYPERTENSION 05/28/2017 MAN MCCLOUD DPM Ot M20.41 OTHER HAMMER TOE(S) (ACQUIRED), RIGHT FO 05/28/2017 MAN MCCLOUD DPM Ot M86.9 OSTEOMYELITIS, UNSPECIFIED 05/28/2017 MAN MCCLOUD DPM Ot Z79.82 SHEET 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 ASPIRIN 05/28/2017 MAN MCCLOUD DPM Ot 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 05/28/2017 MAN MCCLOUD DPM Ot Z79.899 OTHER USP (CURRENT) DRUG THERAPY 05/28/2017 ISHA ARAGON MD, Ot E11.42 TYPE 2 DIABETES MELLITUS WITH DIABETIC P 05/28/2017 ISHA ARAGON MD, Ot E11.621 TYPE 2 DIABETES MELLITUS WITH FOOT ULCER 05/28/2017 ISHA ARAGON MD, Ot I70.235 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 05/28/2017 ISHA ARAGON MD, Ot L03.115 CELLULITIS OF [...] 05/28/2017 ISHA ARAGON MD, Ot I70.235 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 05/28/2017 ISHA ARAGON MD, Ot L97.512 NON-PRS CHRONIC ULCER OTH PRT RIGHT FOOT 05/28/2017 ISHA ARAGON MD, Ot T65.222D TOXIC EFFECT OF TOBACCO CIGARETTES, SELF 06/01/2017 MAN MCCLOUD DPM Ot E11.9 TYPE 2 DIABETES MELLITUS WITHOUT COMPLIC 06/01/2017 MAN MCCLOUD DPM Ot F17.210 NICOTINE DEPENDENCE, CIGARETTES, UNCOMPL 06/01/2017 MAN MCCLOUD DPM Ot I10 ESSENTIAL (PRIMARY) HYPERTENSION 06/01/2017 MAN MCCLOUD DPM Ot M20.41 OTHER HAMMER TOE(S) (ACQUIRED), RIGHT FO 06/01/2017 MAN MCCLOUD DPM Ot M86.9 OSTEOMYELITIS, UNSPECIFIED 06/01/2017 MAN MCCLOUD DPM Ot Z79.82 USP (CURRENT) USE OF ASPIRIN 06/01/2017 MAN MCCLOUD DPM Ot Z79.84 USP (CURRENT) USE OF ORAL HYPOGLYC 06/01/2017 MAN MCCLOUD DPM Ot Z79.899 OTHER SHEET [employer]ODUCTION WORKER (CURRENT) DRUG THERAPY 06/03/2017 MAN MCCLOUD DPM P Ot E11.9 TYPE 2 DIABETES MELLITUS WITHOUT COMPLIC 06/03/2017 ROGERS APPLE, MAN Fischer Ot F17.210 NICOTINE DEPENDENCE, CIGARETTES, UNCOMPL 06/03/2017 ROGERS APPLE, MAN Fischer Ot I10 ESSENTIAL (PRIMARY) HYPERTENSION 06/03/2017 ROGERS APPLE, MAN Fischer Ot M20.41 OTHER HAMMER TOE(S) (ACQUIRED), RIGHT FO 06/03/2017 ROGERS APPLE, MAN Fischer Ot M86.9 OSTEOMYELITIS, UNSPECIFIED 06/03/2017 ROGERS APPLE, MAN Fischer Ot Z79.82 USP (CURRENT) USE OF ASPIRIN 06/03/2017 MAN MCCLOUD DPM Ot 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 06/03/2017 MAN MCCLOUD DPM Ot Z79.899 OTHER SHEET [employer]AL [employer]ODUCTION WORKER (CURRENT) DRUG THERAPY 06/03/2017 ISHA ARAGON MD, Ot E11.42 TYPE 2 DIABETES MELLITUS WITH DIABETIC P 06/03/2017 ISHA ARAGON MD, Ot E11.621 TYPE 2 DIABETES MELLITUS WITH FOOT ULCER 06/03/2017 ISHA ARAGON MD, Ot I70.235 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 06/03/2017 [...] 06/04/2017 ISHA ARAGON MD, Ot I70.235 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 06/04/2017 ISHA ARAGON MD, Ot L03.115 CELLULITIS OF RIGHT LOWER LIMB 06/04/2017 ISHA ARAGON MD, Ot L97.512 NON-PRS CHRONIC ULCER OTH PRT RIGHT FOOT 06/04/2017 ISHA ARAGON MD, Ot T65.222D TOXIC EFFECT OF TOBACCO CIGARETTES, SELF 06/04/2017 MAHESH MD, ISHA G Ot E11.42 TYPE 2 DIABETES MELLITUS WITH DIABETIC P 06/04/2017 ISHA ARAGON MD, Ot E11.621 TYPE 2 DIABETES MELLITUS WITH FOOT ULCER 06/04/2017 ISHA ARAGON MD, Ot I70.235 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 06/04/2017 [...] 06/04/2017 ISHA ARAGON MD, Ot I70.235 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 06/04/2017 ISHA ARAGON MD, Ot L97.511 NON-PRS CHRONIC ULCER OTH PRT R FOOT CHUNG 06/04/2017 ISHA ARGAON MD, Ot L97.512 NON-PRS CHRONIC ULCER OTH PRT RIGHT FOOT 06/04/2017 ISHA ARAGON MD, Ot T65.222D TOXIC EFFECT OF TOBACCO CIGARETTES, SELF 06/14/2017 ISHA ARAGON MD, Ot E11.42 TYPE 2 DIABETES MELLITUS WITH DIABETIC P 06/14/2017 ISHA ARAGON MD, Ot E11.621 TYPE 2 DIABETES MELLITUS WITH FOOT ULCER 06/14/2017 ISHA ARAGON MD, Ot I70.235 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 06/14/2017 [...] 06/23/2017 ISHA ARAGON MD, Ot I70.235 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 06/23/2017 ISHA ARAGON MD, Ot L97.512 NON-PRS CHRONIC ULCER OTH PRT RIGHT FOOT 06/23/2017 MAHESH MCCULLOUGH, ISHA Sena Ot T65.222D TOXIC EFFECT OF TOBACCO CIGARETTES, SELF 07/02/2017 ISHA ARAGON MD Ot E11.42 TYPE 2 DIABETES MELLITUS WITH DIABETIC P 07/02/2017 ISHA ARAGON MD, Ot E11.621 TYPE 2 DIABETES MELLITUS WITH FOOT ULCER 07/02/2017 ISHA ARAGON MD Ot L97.512 NON-PRS CHRONIC ULCER OTH PRT RIGHT FOOT 07/13/2017 ISHA ARAGON MD Ot E11.42 TYPE 2 [...] MELLITUS WITH FOOT ULCER 07/19/2017 ISHA ARAGON MD Ot L97.512 NON-PRS CHRONIC ULCER OTH PRT RIGHT FOOT 07/20/2017 ISHA ARAGON MD Ot E11.43 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 07/20/2017 ISHA ARAGON MD Ot E11.621 TYPE 2 DIABETES MELLITUS WITH FOOT ULCER 07/20/2017 ISHA ARAGON MD Ot L97.512 NON-PRS CHRONIC [...] MELLITUS WITH DIABETIC P 07/30/2017 ISHA ARAGON MD, Ot E11.621 TYPE 2 [...] MELLITUS WITH DIABETIC P 08/13/2017 ISHA ARAGON MD, Ot E11.621 TYPE 2 DIABETES MELLITUS WITH FOOT ULCER 08/13/2017 ISHA ARAGON MD, Ot L97.512 NON-PRS CHRONIC ULCER OTH PRT RIGHT FOOT 08/13/2017 ISHA ARAGON MD Ot E11.42 TYPE 2 DIABETES MELLITUS WITH DIABETIC P 08/13/2017 ISHA ARAGON MD, Ot E11.621 TYPE 2 DIABETES MELLITUS WITH FOOT ULCER 08/13/2017 ISHA ARAGON MD, Ot L97.512 NON-PRS CHRONIC ULCER OTH PRT RIGHT FOOT 08/13/2017 ISHA ARAGON MD, Ot E11.42 TYPE 2 [...] MELLITUS WITH FOOT ULCER 08/17/2017 ISHA ARAGON MD Ot L97.512 NON-PRS CHRONIC ULCER OTH PRT RIGHT FOOT 08/20/2017 ISHA ARAGON MD Ot E11.42 TYPE 2 DIABETES MELLITUS WITH DIABETIC P 08/20/2017 ISHA ARAGON MD Ot E11.621 TYPE 2 DIABETES MELLITUS WITH FOOT ULCER 08/20/2017 ISHA ARAGON MD Ot L97.512 NON-PRS CHRONIC ULCER OTH PRT RIGHT FOOT 08/26/2017 ISHA ARAGON MD Ot 250.80 DIAB W OTH SPEC MANIFEST, TYPE II OR UNS 08/26/2017 ISHA ARAGON MD Ot 707.15 ULCER OF OTHER PART OF FOOT 08/26/2017 ISHA ARAGON MD, Ot E11.42 TYPE 2 DIABETES MELLITUS WITH DIABETIC P 08/26/2017 ISHA ARAGON MD, Ot E11.621 TYPE 2 DIABETES MELLITUS WITH FOOT ULCER 08/26/2017 ISHA ARAGON MD, Ot F17.210 NICOTINE DEPENDENCE, CIGARETTES, UNCOMPL 08/26/2017 ISHA ARAGON MD, Ot I70.235 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 08/26/2017 ISHA ARAGON MD, Ot L03.115 CELLULITIS OF RIGHT LOWER LIMB 08/26/2017 ISHA ARAGON MD, Ot L97.512 NON-PRS CHRONIC ULCER OTH PRT RIGHT FOOT 08/26/2017 ISHA ARAGON MD, Ot E11.42 TYPE 2 DIABETES MELLITUS WITH DIABETIC P 08/26/2017 ISHA ARAGON MD, Ot E11.621 TYPE 2 DIABETES MELLITUS WITH FOOT ULCER 08/26/2017 ISHA ARAGON MD, Ot I70.235 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 08/26/2017 [...] 08/26/2017 ISHA ARAGON MD, Ot I70.235 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 08/26/2017 [...] 08/26/2017 ISHA ARAGON MD, Ot I70.235 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 08/26/2017 [...] 08/26/2017 ISHA ARAGON MD, Ot I70.235 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 08/26/2017 [...] 08/26/2017 ISHA ARAGON MD, Ot I70.235 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 08/26/2017 [...] 08/26/2017 ISHA ARAGON MD, Ot I70.235 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 08/26/2017 [...] 08/26/2017 ISHA ARAGON MD, Ot I70.235 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 08/26/2017 [...] 08/27/2017 ISHA ARAGON MD Ot I70.235 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 08/27/2017 ISHA ARAGON MD Ot L03.115 CELLULITIS OF RIGHT LOWER LIMB 08/27/2017 ISHA ARAGON MD, Ot L97.512 NON-PRS CHRONIC ULCER OTH PRT RIGHT FOOT 08/27/2017 ISHA ARAGON MD, Ot E11.42 TYPE 2 DIABETES MELLITUS WITH DIABETIC P 08/27/2017 ISHA ARAGON MD, Ot E11.621 TYPE 2 DIABETES MELLITUS WITH FOOT ULCER 08/27/2017 ISHA ARAGON MD, Ot I70.235 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 08/27/2017 [...] 08/27/2017 ISHA ARAGON MD, Ot I70.235 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 08/27/2017 [...] 08/27/2017 ISHA ARAGON MD, Ot I70.235 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 08/27/2017 [...] 08/27/2017 ISHA ARAGON MD, Ot I70.235 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 08/27/2017 [...] 08/27/2017 ISHA ARAGON MD, Ot I70.235 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 08/27/2017 ISHA ARAGON MD, Ot L97.511 NON-PRS CHRONIC ULCER OTH PRT R FOOT CHUNG 08/27/2017 ISHA ARAGON MD, Ot L97.512 NON-PRS CHRONIC ULCER OTH PRT RIGHT FOOT 08/27/2017 ISHA AARGON MD, Ot T65.222D TOXIC EFFECT OF TOBACCO CIGARETTES, SELF 08/27/2017 ISHA ARAGON MD, Ot E11.42 TYPE 2 DIABETES MELLITUS WITH DIABETIC P 08/27/2017 ISHA ARAGON MD, Ot E11.621 TYPE 2 DIABETES MELLITUS WITH FOOT ULCER 08/27/2017 ISHA ARAGON MD, Ot I70.235 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 08/27/2017 [...] 08/27/2017 ISHA ARAGON MD, Ot I70.235 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 08/27/2017 [...] 08/27/2017 ISHA ARAGON MD Ot I70.235 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 08/27/2017 ISHA ARAGON MD Ot L03.115 CELLULITIS OF RIGHT LOWER LIMB 08/27/2017 ISHA ARAGON MD Ot L97.512 NON-PRS CHRONIC ULCER OTH PRT RIGHT FOOT 08/27/2017 ISHA ARAGON MD, Ot E11.42 TYPE 2 DIABETES MELLITUS WITH DIABETIC P 08/27/2017 ISHA ARAGON MD, Ot E11.621 TYPE 2 DIABETES MELLITUS WITH FOOT ULCER 08/27/2017 ISHA ARAGON MD, Ot I70.235 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 08/27/2017 [...] 08/27/2017 ISHA ARAGON MD, Ot I70.235 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 08/27/2017 [...] 08/27/2017 ISHA ARAGON MD, Ot I70.235 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 08/27/2017 ISHA ARAGON MD, Ot L97.512 NON-PRS CHRONIC ULCER OTH PRT RIGHT FOOT 08/27/2017 ISHA ARAGON MD, Ot T65.222D TOXIC EFFECT OF TOBACCO CIGARETTES, SELF 08/27/2017 ISHA ARAGON MD, Ot E11.42 TYPE 2 DIABETES MELLITUS WITH DIABETIC P 08/27/2017 ISHA ARAGON MD, Ot E11.621 TYPE 2 DIABETES MELLITUS WITH FOOT ULCER 08/27/2017 MAHESH MD, ISHA G Ot I70.235 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 08/27/2017 ISHA ARAGON MD Ot L97.512 NON-PRS CHRONIC ULCER OTH PRT RIGHT FOOT 08/27/2017 ISHA ARAGON MD, Ot T65.222D TOXIC EFFECT OF TOBACCO CIGARETTES, SELF 08/27/2017 ISHA ARAGON MD, Ot E11.42 TYPE 2 DIABETES MELLITUS WITH DIABETIC P 08/27/2017 ISHA ARAGON MD, Ot E11.621 TYPE 2 DIABETES MELLITUS WITH FOOT ULCER 08/27/2017 ISHA ARAGON MD, Ot I70.235 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 08/27/2017 [...] 08/27/2017 ISHA ARAGON MD, Ot I70.235 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 08/27/2017 [...] 08/27/2017 ISHA ARAGON MD, Ot I70.235 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 08/27/2017 ISHA ARAGON MD, Ot L97.512 NON-PRS CHRONIC ULCER OTH PRT RIGHT FOOT 08/27/2017 ISHA ARAGON MD, Ot T65.222D TOXIC EFFECT OF TOBACCO CIGARETTES, SELF 08/27/2017 ISHA ARAGON MD Ot E11.43 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 08/27/2017 ISHA ARAGON MD Ot E11.621 TYPE [...] OTH PRT RIGHT FOOT 08/30/2017 ISHA ARAGON MD Ot E11.42 TYPE 2 [...] NICOTINE DEPENDENCE, CIGARETTES, UNCOMPL 09/01/2017 ISHA ARAGON MD Ot I70.235 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 09/01/2017 ISHA ARAGON MD Ot L03.115 CELLULITIS OF RIGHT LOWER LIMB 09/01/2017 ISHA ARAGON MD, Ot L97.512 NON-PRS CHRONIC ULCER OTH PRT RIGHT FOOT 09/01/2017 ISHA ARAGON MD, Ot E11.42 TYPE 2 DIABETES MELLITUS WITH DIABETIC P 09/01/2017 ISHA ARAGON MD, Ot E11.621 TYPE 2 DIABETES MELLITUS WITH FOOT ULCER 09/01/2017 ISHA ARAGON MD Ot I70.235 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 09/01/2017 ISHA ARAGON MD Ot L03.115 CELLULITIS OF RIGHT LOWER LIMB 09/01/2017 ISHA ARAGON MD Ot L97.512 NON-PRS CHRONIC ULCER OTH PRT RIGHT FOOT 09/01/2017 ISHA ARAGON MD, Ot T65.222D TOXIC EFFECT OF TOBACCO CIGARETTES, SELF 09/01/2017 ISHA ARAGON MD, Ot E11.42 TYPE 2 DIABETES MELLITUS WITH DIABETIC P 09/01/2017 ISHA ARAGON MD, Ot E11.621 TYPE 2 DIABETES MELLITUS WITH FOOT ULCER 09/01/2017 ISHA ARAGON MD, Ot I70.235 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 09/01/2017 [...] 09/01/2017 ISHA ARAGON MD, Ot I70.235 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 09/01/2017 [...] 09/01/2017 ISHA ARAGON MD, Ot I70.235 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 09/01/2017 [...] 09/01/2017 ISHA ARAGON MD, Ot I70.235 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 09/01/2017 ISHA ARAGON MD, Ot L97.511 NON-PRS CHRONIC ULCER OTH PRT R FOOT CHUNG 09/01/2017 ISHA ARAGON MD, Ot L97.512 NON-PRS CHRONIC ULCER OTH PRT RIGHT FOOT 09/01/2017 ISHA ARAGON MD, Ot T65.222D TOXIC EFFECT OF TOBACCO CIGARETTES, SELF 09/01/2017 ISHA ARAGON MD Ot E11.42 TYPE 2 DIABETES MELLITUS WITH DIABETIC P 09/01/2017 ISHA ARAGON MD, Ot E11.621 TYPE 2 DIABETES MELLITUS WITH FOOT ULCER 09/01/2017 ISHA ARAGON MD, Ot I70.235 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 09/01/2017 [...] 09/01/2017 ISHA ARAGON MD, Ot I70.235 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 09/01/2017 ISHA ARAGON MD, Ot L97.512 NON-PRS CHRONIC ULCER OTH PRT RIGHT FOOT 09/01/2017 ISHA ARAGON MD, Ot T65.222D TOXIC EFFECT OF TOBACCO CIGARETTES, SELF 09/01/2017 ISHA ARAGON MD Ot E11.43 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 09/01/2017 ISHA ARAGON MD, Ot E11.621 TYPE 2 DIABETES MELLITUS WITH FOOT ULCER 09/01/2017 ISHA ARAGON MD, Ot L97.512 NON-PRS CHRONIC ULCER OTH PRT RIGHT FOOT 09/01/2017 ISHA ARAGON MD, Ot E11.42 TYPE 2 DIABETES MELLITUS WITH DIABETIC P 09/01/2017 ISHA ARAGNO MD, Ot E11.621 TYPE 2 [...] OF OTHER RIGHT TOE(S) 09/02/2017 ISHA ARAGON MD Ot E11.42 TYPE 2 DIABETES MELLITUS WITH DIABETIC P 09/02/2017 ISHA ARAGON MD Ot E11.621 TYPE 2 DIABETES MELLITUS WITH FOOT ULCER 09/02/2017 ISHA ARAGON MD, Ot L97.512 NON-PRS CHRONIC ULCER OTH PRT RIGHT FOOT 09/03/2017 ISHA ARAGON MD, Ot E11.42 TYPE 2 DIABETES MELLITUS WITH DIABETIC P 09/03/2017 ISHA ARAGON MD Ot E11.621 TYPE 2 DIABETES MELLITUS WITH FOOT ULCER 09/03/2017 ISHA ARAGON MD, Ot L97.512 NON-PRS CHRONIC ULCER OTH PRT RIGHT FOOT 09/06/2017 ISHA ARAGON MD Ot E11.42 TYPE 2 DIABETES MELLITUS WITH DIABETIC P 09/06/2017 ISHA ARAGON MD Ot E11.621 TYPE 2 DIABETES MELLITUS WITH FOOT ULCER 09/06/2017 ISHA ARAGON MD Ot L97.512 NON-PRS CHRONIC ULCER OTH PRT RIGHT FOOT 09/09/2017 LUIS FELIPE [employer]ERR[employer]I [employer]ELOPER Ot E11.42 TYPE 2 DIABETES MELLITUS WITH DIABETIC P 09/09/2017 LUIS FELIPE [employer] DEVELOPER Ot E11.621 TYPE 2 DIABETES MELLITUS WITH FOOT ULCER 09/09/2017 LUIS FELIPE [employer]ELOPER Ot L97.512 NON-PRS CHRONIC ULCER OTH PRT RIGHT FOOT 09/09/2017 ISHA ARAGON MD Ot E11.42 TYPE 2 DIABETES MELLITUS WITH DIABETIC P 09/09/2017 ISHA ARAGON MD, Ot E11.621 TYPE 2 DIABETES MELLITUS WITH FOOT ULCER 09/09/2017 ISHA ARAGON MD Ot L97.512 NON-PRS CHRONIC ULCER OTH PRT RIGHT FOOT 09/10/2017 LUIS FELIPE [employer]ELOPER Ot E11.42 TYPE 2 DIABETES MELLITUS WITH DIABETIC P 09/10/2017 LUIS FELIPE [employer]ELOPER Ot E11.621 TYPE 2 DIABETES MELLITUS WITH FOOT ULCER 09/10/2017 LUIS FELIPE [employer]EL[employer] Ot L97.512 NON-PRS CHRONIC ULCER OTH PRT RIGHT FOOT 09/17/2017 ISHA ARAGON MD, Ot E11.42 TYPE 2 DIABETES MELLITUS WITH DIABETIC P 09/17/2017 ISHA ARAGON MD, Ot E11.621 TYPE 2 DIABETES MELLITUS WITH FOOT ULCER 09/17/2017 ISHA ARAGON MD Ot L97.512 NON-PRS CHRONIC ULCER OTH PRT RIGHT FOOT 09/17/2017 ISHA ARAGON MD, Ot E11.42 TYPE 2 DIABETES MELLITUS WITH DIABETIC P 09/17/2017 ISHA ARAGON MD, Ot E11.621 TYPE 2 DIABETES MELLITUS WITH FOOT ULCER 09/17/2017 ISHA ARAGON MD Ot L97.512 NON-PRS CHRONIC ULCER OTH PRT RIGHT FOOT 09/21/2017 ISHA ARAGON MD, Ot E11.42 TYPE 2 DIABETES MELLITUS WITH DIABETIC P 09/21/2017 ISHA ARAGON MD, Ot E11.621 TYPE 2 DIABETES MELLITUS WITH FOOT ULCER 09/21/2017 ISHA ARAGON MD Ot L97.512 NON-PRS CHRONIC ULCER OTH PRT RIGHT FOOT 09/21/2017 ISHA ARAGON MD Ot M77.31 CALCANEAL SPUR, RIGHT FOOT 09/21/2017 ISHA ARAGON MD Ot 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) 09/21/2017 ISHA ARAGON MD Ot E11.42 TYPE 2 DIABETES MELLITUS WITH DIABETIC P 09/21/2017 ISHA ARAGON MD Ot E11.621 TYPE 2 DIABETES MELLITUS WITH FOOT ULCER 09/21/2017 MAHESH MD, ISHA G Ot L97.512 NON-PRS CHRONIC ULCER OTH PRT RIGHT FOOT 09/22/2017 ISHA ARAGON MD Ot E11.42 TYPE 2 [...] TOBACCO CIGARETTES, SELF 09/28/2017 LUIS FELIPE FERRARI JAVA ANDROID DEVELOPER Ot E11.42 TYPE 2 DIABETES MELLITUS WITH DIABETIC P 09/28/2017 LUIS FELIPE FERRARI APRN Ot E11.621 TYPE 2 DIABETES MELLITUS WITH FOOT ULCER 09/28/2017 LUIS FELIPE FERRARI APRN Ot L97.512 NON-PRS CHRONIC ULCER OTH PRT RIGHT FOOT 09/30/2017 ISHA ARAGON MD Ot E11.42 TYPE 2 DIABETES MELLITUS WITH DIABETIC P 09/30/2017 SIHA ARAGON MD, Ot E11.621 TYPE 2 DIABETES MELLITUS WITH FOOT ULCER 09/30/2017 ISHA ARAGON MD Ot L97.512 NON-PRS CHRONIC [...] 2 DIABETES MELLITUS WITH DIABETIC P 10/01/2017 MAHESH MD, ISHA G Ot E11.621 TYPE 2 DIABETES MELLITUS WITH FOOT ULCER 10/01/2017 ISHA ARAGON MD, Ot L97.512 NON-PRS CHRONIC ULCER OTH PRT RIGHT FOOT 10/05/2017 ISHA ARAGON MD Ot E11.42 TYPE 2 DIABETES MELLITUS WITH DIABETIC P 10/05/2017 ISHA ARAGON MD Ot E11.621 TYPE 2 [...] OTH PRT RIGHT FOOT 10/06/2017 ISHA ARAGON MD Ot T65.222D TOXIC EFFECT OF TOBACCO CIGARETTES, SELF 10/08/2017 LUIS FELIPE FERRARI JAVA ANDROID DEVELOPER Ot E11.42 TYPE 2 DIABETES MELLITUS WITH DIABETIC P 10/08/2017 LUIS FELIPE FERRARI JAVA ANDROID DEVELOPER Ot E11.621 TYPE 2 DIABETES MELLITUS WITH FOOT ULCER 10/08/2017 LUIS FELIPE FERRARI JAVA ANDROID DEVELOPER Ot L97.512 NON-PRS CHRONIC ULCER OTH PRT [...] OTH PRT RIGHT FOOT 10/13/2017 ISHA ARAGON MD, Ot T65.222D TOXIC EFFECT OF TOBACCO CIGARETTES, SELF 10/14/2017 ISHA ARAGON MD Ot E11.42 TYPE 2 DIABETES MELLITUS WITH DIABETIC P 10/14/2017 ISHA ARAGON MD, Ot E11.621 TYPE 2 DIABETES MELLITUS WITH FOOT ULCER 10/14/2017 ISHA ARAGON MD, Ot L97.512 NON-PRS CHRONIC ULCER OTH PRT RIGHT FOOT 10/14/2017 ISHA ARAGON MD, Ot T65.222D TOXIC EFFECT [...] CIGARETTES, SELF 10/19/2017 ISHA ARAGON MD Ot E11.621 TYPE 2 DIABETES MELLITUS WITH FOOT ULCER 10/19/2017 ISHA ARAGON MD Ot L97.512 NON-PRS CHRONIC ULCER OTH PRT RIGHT FOOT 10/20/2017 ISHA ARAGON MD Ot E11.42 TYPE 2 DIABETES MELLITUS WITH DIABETIC P 10/20/2017 ISHA ARAGON MD, Ot E11.621 TYPE 2 DIABETES MELLITUS WITH FOOT ULCER 10/20/2017 ISHA ARAGON MD Ot L97.512 NON-PRS CHRONIC ULCER OTH PRT RIGHT FOOT 10/21/2017 ISHA ARAGON MD Ot E11.42 TYPE 2 DIABETES MELLITUS WITH DIABETIC P 10/21/2017 ISHA ARAGON MD Ot E11.621 TYPE 2 DIABETES MELLITUS WITH FOOT ULCER 10/21/2017 ISHA ARAGON MD Ot L97.512 NON-PRS CHRONIC [...] MELLITUS WITH FOOT ULCER 10/25/2017 ISHA ARAGON MD, Ot I70.235 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 10/25/2017 ISHA ARAGON MD, Ot L97.512 NON-PRS CHRONIC ULCER OTH PRT RIGHT FOOT 10/25/2017 ISHA ARAGON MD, Ot T65.222D TOXIC EFFECT OF TOBACCO CIGARETTES, SELF 10/27/2017 ISHA ARGAON MD, Ot E11.42 TYPE 2 [...] 10/28/2017 ISHA ARAGON MD, Ot I70.235 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 10/28/2017 [...] CIGARETTES, SELF 10/29/2017 ISHA ARAGON MD, Ot E11.621 TYPE [...] 11/04/2017 ISHA ARAGON MD, Ot I70.235 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 11/04/2017 [...] 11/10/2017 ISHA ARAGON MD, Ot I70.235 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 11/10/2017 [...] 11/12/2017 ISHA ARAGON MD, Ot I70.235 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 11/12/2017 [...] 11/15/2017 ISHA ARAGON MD, Ot I70.235 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 11/15/2017 [...] 11/15/2017 ISHA ARAGON MD, Ot I70.235 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 11/15/2017 ISHA ARAGON MD, Ot L97.512 NON-PRS CHRONIC ULCER OTH PRT RIGHT FOOT 11/15/2017 ISHA ARAGON MD, Ot T65.222D TOXIC EFFECT OF TOBACCO CIGARETTES, SELF 11/17/2017 MAHESH MD, ISHA G Ot E11.42 TYPE 2 DIABETES MELLITUS WITH DIABETIC P 11/17/2017 ISHA ARAGON MD, Ot E11.621 TYPE 2 DIABETES MELLITUS WITH FOOT ULCER 11/17/2017 ISHA ARAGON MD, Ot I70.235 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 11/17/2017 ISHA ARAGON MD, Ot L97.512 NON-PRS CHRONIC ULCER OTH PRT RIGHT FOOT 11/17/2017 ISHA ARAGON MD, Ot T65.222D TOXIC EFFECT OF TOBACCO CIGARETTES, SELF 11/18/2017 ISHA ARAGON MD, Ot E11.42 TYPE 2 DIABETES MELLITUS WITH DIABETIC P 11/18/2017 ISHA ARAGON MD, Ot E11.621 TYPE 2 DIABETES MELLITUS WITH FOOT ULCER 11/18/2017 ISHA ARAGON MD, Ot I70.235 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 11/18/2017 [...] 11/19/2017 ISHA ARAGON MD, Ot I70.235 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 11/19/2017 ISHA ARAGON MD, Ot L97.512 NON-PRS CHRONIC ULCER OTH PRT RIGHT FOOT 11/19/2017 ISHA ARAGON MD, Ot T65.222D TOXIC EFFECT OF TOBACCO CIGARETTES, SELF 11/19/2017 LUIS FELIPE FERRARI JAVA [employer]RO[employer] DEVELOPER Ot E11.42 TYPE 2 DIABETES MELLITUS WITH DIABETIC P 11/19/2017 LUIS FELIPE FERRARI APRN Ot E11.621 TYPE 2 DIABETES MELLITUS WITH FOOT ULCER 11/19/2017 LUIS FELIPE FERRARI APRN Ot I70.235 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 11/19/2017 LUIS FELIPE FERRARI APRN Ot L97.512 NON-PRS CHRONIC ULCER OTH PRT RIGHT FOOT 11/19/2017 LUIS FELIPE FERRARI APRN Ot T65.222D TOXIC EFFECT OF TOBACCO CIGARETTES, SELF 11/24/2017 LUIS FELIPE FERRARI APRN Ot E11.42 TYPE 2 DIABETES MELLITUS WITH DIABETIC P 11/24/2017 LUIS FELIPE FERRARI APRN Ot E11.621 TYPE 2 DIABETES MELLITUS WITH FOOT ULCER 11/24/2017 LUIS FELIPE FERRARI APRN Ot I70.235 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 11/24/2017 LUIS FELIPE FERRARI APRN Ot L97.512 NON-PRS CHRONIC ULCER OTH PRT RIGHT FOOT 11/24/2017 LUIS FELIPE FERRARI APRN Ot T65.222D TOXIC EFFECT OF TOBACCO CIGARETTES, SELF 11/26/2017 ISHA ARAGON MD, Ot E11.42 TYPE 2 DIABETES MELLITUS WITH DIABETIC P 11/26/2017 ISHA ARAGON MD, Ot E11.621 TYPE 2 DIABETES MELLITUS WITH FOOT ULCER 11/26/2017 ISHA ARAGON MD, Ot I70.235 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 11/26/2017 ISHA ARAGON MD, Ot L97.512 NON-PRS CHRONIC ULCER OTH PRT RIGHT FOOT 11/26/2017 ISHA ARAGNO MD, Ot T65.222D TOXIC EFFECT OF TOBACCO CIGARETTES, SELF 11/26/2017 ISHA ARAGON MD, Ot E11.42 TYPE 2 DIABETES MELLITUS WITH DIABETIC P 11/26/2017 ISHA ARAGON MD, Ot E11.621 TYPE 2 DIABETES MELLITUS WITH FOOT ULCER 11/26/2017 ISHA ARAGON MD, Ot I70.235 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 11/26/2017 ISAH ARAGON MD, Ot L97.512 NON-PRS CHRONIC ULCER OTH PRT RIGHT FOOT 11/26/2017 ISHA ARAGON MD, Ot T65.222D TOXIC EFFECT OF TOBACCO CIGARETTES, SELF 11/29/2017 ISHA ARAGON MD, Ot E11.42 TYPE 2 DIABETES MELLITUS WITH DIABETIC P 11/29/2017 ISHA ARAGON MD, Ot E11.621 TYPE 2 DIABETES MELLITUS WITH FOOT ULCER 11/29/2017 ISHA ARAGON MD, Ot I70.235 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 11/29/2017 ISHA ARAGON MD, Ot L97.512 NON-PRS CHRONIC ULCER OTH PRT RIGHT FOOT 11/29/2017 ISHA ARAGON MD, Ot T65.222D TOXIC EFFECT OF TOBACCO CIGARETTES, SELF 11/30/2017 ISHA ARAGON MD, Ot E11.42 TYPE 2 DIABETES MELLITUS WITH DIABETIC P 11/30/2017 ISHA ARAGON MD Ot E11.621 TYPE 2 DIABETES MELLITUS WITH FOOT ULCER 11/30/2017 ISHA ARAGON MD, Ot L97.512 NON-PRS CHRONIC ULCER OTH PRT RIGHT FOOT 12/02/2017 ISHA ARAGON MD, Ot E11.42 TYPE 2 DIABETES MELLITUS WITH DIABETIC P 12/02/2017 ISHA ARAGON MD, Ot E11.621 TYPE 2 DIABETES MELLITUS WITH FOOT ULCER 12/02/2017 ISHA ARAGON MD, Ot I70.235 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 12/02/2017 ISHA ARAGON MD, Ot L97.512 NON-PRS CHRONIC ULCER OTH PRT RIGHT FOOT 12/02/2017 ISHA ARAGON MD, Ot T65.222D TOXIC EFFECT OF TOBACCO CIGARETTES, SELF 12/02/2017 ISHA ARAGON MD, Ot E11.42 TYPE [...] 12/02/2017 ISHA ARAGON MD, Ot I70.235 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 12/02/2017 ISHA ARAGON MD, Ot L97.512 NON-PRS CHRONIC ULCER OTH PRT RIGHT FOOT 12/02/2017 ISHA ARAGON MD, Ot T65.222D TOXIC EFFECT OF TOBACCO CIGARETTES, SELF 12/08/2017 LUIS FELIPE FERRARI APRN Ot E11.42 TYPE 2 DIABETES MELLITUS WITH DIABETIC P 12/08/2017 LUIS FELIPE FERRARI APRN Ot E11.621 TYPE 2 DIABETES MELLITUS WITH FOOT ULCER 12/08/2017 LUIS FELIPE FERRARI APRN Ot I70.235 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 12/08/2017 LUIS FELIPE FERRARI APRN Ot L97.512 NON-PRS CHRONIC ULCER OTH PRT RIGHT FOOT 12/08/2017 LUIS FELIPE FERRARI APRN Ot T65.222D TOXIC EFFECT OF TOBACCO CIGARETTES, SELF 12/09/2017 ISHA ARAGON MD Ot E11.42 TYPE 2 DIABETES MELLITUS WITH DIABETIC P 12/09/2017 ISHA ARAGON MD Ot E11.621 TYPE 2 DIABETES MELLITUS WITH FOOT ULCER 12/09/2017 ISHA ARAGON MD, Ot L97.512 NON-PRS CHRONIC ULCER OTH PRT RIGHT FOOT 12/10/2017 ISHA ARAGON MD, Ot E11.42 TYPE 2 DIABETES MELLITUS WITH DIABETIC P 12/10/2017 ISHA ARAGON MD, Ot E11.621 TYPE 2 DIABETES MELLITUS WITH FOOT ULCER 12/10/2017 ISHA ARAGON MD Ot I70.235 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 12/10/2017 ISHA ARAGON MD, Ot L97.512 NON-PRS CHRONIC ULCER OTH PRT RIGHT FOOT 12/10/2017 ISHA ARAGON MD Ot T65.222D TOXIC EFFECT OF TOBACCO CIGARETTES, SELF 12/14/2017 LUIS FELIPE FERRARI APRN Ot E11.42 TYPE 2 DIABETES MELLITUS WITH DIABETIC P 12/14/2017 LUIS FELIPE FERRARI APRN Ot E11.621 TYPE 2 DIABETES MELLITUS WITH FOOT ULCER 12/14/2017 LUIS FELIPE FERRARI APRN Ot I70.235 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 12/14/2017 LUIS FELIPE FERRARI APRN Ot L97.512 NON-PRS CHRONIC ULCER OTH PRT RIGHT FOOT 12/14/2017 LUIS FELIPE FERRARI APRN Ot T65.222D TOXIC EFFECT OF TOBACCO CIGARETTES, SELF 12/14/2017 ISHA ARAGON MD Ot E11.42 TYPE 2 DIABETES MELLITUS WITH DIABETIC P 12/14/2017 ISHA ARAGON MD, Ot E11.621 TYPE 2 DIABETES MELLITUS WITH FOOT ULCER 12/14/2017 ISHA ARAGON MD Ot I70.235 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 12/14/2017 ISHA ARAGON MD, Ot L97.512 NON-PRS CHRONIC ULCER OTH PRT RIGHT FOOT 12/14/2017 ISHA ARAGON MD, Ot T65.222D TOXIC EFFECT OF TOBACCO CIGARETTES, SELF 12/27/2017 Ot Z01.818 ENCOUNTER FOR OTHER PREPROCEDURAL EXAMIN 12/29/2017 Ot E11.69 TYPE 2 DIABETES MELLITUS WITH OTHER SPEC 12/29/2017 Ot F17.210 NICOTINE DEPENDENCE, CIGARETTES, UNCOMPL 12/29/2017 Ot M67.01 SHORT ACHILLES TENDON (ACQUIRED), RIGHT 12/29/2017 Ot M86.9 OSTEOMYELITIS, UNSPECIFIED 12/29/2017 Ot Z79.4 USP (CURRENT) USE OF INSULIN 12/31/2017 ISHA ARAGON MD, Ot E11.42 TYPE 2 DIABETES MELLITUS WITH DIABETIC P 12/31/2017 ISHA ARAGON MD, Ot E11.621 TYPE 2 DIABETES MELLITUS WITH FOOT ULCER 12/31/2017 ISHA ARAGON MD, Ot I70.235 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 12/31/2017 ISHA ARAGON MD, Ot L97.512 NON-PRS CHRONIC ULCER OTH PRT RIGHT FOOT 12/31/2017 ISHA ARAGON MD, Ot T65.222D TOXIC EFFECT OF TOBACCO CIGARETTES, SELF 12/31/2017 ISHA ARAGON MD, Ot E11.42 TYPE [...] 12/31/2017 ISHA ARAGON MD, Ot I70.235 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 12/31/2017 ISHA ARAGON MD, Ot L97.512 NON-PRS CHRONIC ULCER OTH PRT RIGHT FOOT 12/31/2017 ISHA ARAGON MD, Ot T65.222D TOXIC EFFECT OF TOBACCO CIGARETTES, SELF 01/04/2018 ISHA ARAGON MD, Ot E11.42 TYPE 2 DIABETES MELLITUS WITH DIABETIC P 01/04/2018 ISHA ARAGON MD, Ot E11.621 TYPE 2 DIABETES MELLITUS WITH FOOT ULCER 01/04/2018 ISHA ARAGON MD, Ot L97.512 NON-PRS CHRONIC ULCER OTH PRT RIGHT FOOT 01/06/2018 ISHA ARAGON MD, Ot E11.42 TYPE 2 DIABETES MELLITUS WITH DIABETIC P 01/06/2018 ISHA ARAGON MD, Ot E11.621 TYPE 2 DIABETES MELLITUS WITH FOOT ULCER 01/06/2018 ISHA ARAGON MD, Ot I70.235 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 01/06/2018 ISHA ARAGON MD Ot L97.512 NON-PRS CHRONIC ULCER OTH PRT RIGHT FOOT 01/06/2018 ISHA ARAGON MD Ot T65.222D TOXIC EFFECT OF TOBACCO CIGARETTES, SELF 01/06/2018 Ot E11.42 TYPE 2 DIABETES MELLITUS WITH DIABETIC P 01/06/2018 Ot E11.621 TYPE 2 DIABETES MELLITUS WITH FOOT ULCER 01/06/2018 Ot I70.235 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 01/06/2018 Ot L97.514 NON-PRS CHRONIC ULCER OTH PRT RIGHT FOOT 01/06/2018 Ot T65.222D TOXIC EFFECT OF TOBACCO CIGARETTES, SELF 01/11/2018 Ot E11.42 TYPE 2 DIABETES MELLITUS WITH DIABETIC P 01/11/2018 Ot E11.621 TYPE 2 DIABETES MELLITUS WITH FOOT ULCER 01/11/2018 Ot I70.235 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 01/11/2018 [...] WITH FOOT ULCER 01/11/2018 Ot I70.235 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 01/11/2018 Ot L97.514 NON-PRS CHRONIC ULCER OTH PRT RIGHT FOOT 01/11/2018 Ot M86.471 CHRONIC OSTEOMYELITIS W DRAINING SINUS, 01/11/2018 Ot T65.222D TOXIC EFFECT OF TOBACCO CIGARETTES, SELF 01/14/2018 ISHA ARAGON MD Ot E11.42 TYPE 2 DIABETES MELLITUS WITH DIABETIC P 01/14/2018 ISHA ARAGON MD Ot E11.621 TYPE 2 DIABETES MELLITUS WITH FOOT ULCER 01/14/2018 ISHA ARAGON MD Ot L97.512 NON-PRS CHRONIC ULCER OTH PRT RIGHT FOOT 01/14/2018 Ot E11.42 TYPE 2 DIABETES MELLITUS WITH DIABETIC P 01/14/2018 Ot E11.621 TYPE 2 DIABETES MELLITUS WITH FOOT ULCER 01/14/2018 Ot I70.235 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 01/14/2018 Ot L97.514 NON-PRS CHRONIC ULCER OTH PRT RIGHT FOOT 01/14/2018 Ot T65.222D TOXIC EFFECT OF TOBACCO CIGARETTES, SELF 01/24/2018 Ot E11.69 TYPE 2 DIABETES MELLITUS WITH OTHER SPEC 01/24/2018 Ot F17.210 NICOTINE DEPENDENCE, CIGARETTES, UNCOMPL 01/24/2018 Ot M67.01 SHORT ACHILLES TENDON (ACQUIRED), RIGHT 01/24/2018 Ot M86.9 OSTEOMYELITIS, UNSPECIFIED 01/24/2018 Ot Z79.4 USP (CURRENT) USE OF INSULIN 01/26/2018 Ot E11.69 TYPE 2 DIABETES MELLITUS WITH OTHER SPEC 01/26/2018 Ot F17.210 NICOTINE DEPENDENCE, CIGARETTES, UNCOMPL 01/26/2018 Ot M67.01 SHORT ACHILLES TENDON (ACQUIRED), RIGHT 01/26/2018 Ot M86.9 OSTEOMYELITIS, UNSPECIFIED 01/26/2018 Ot Z79.4 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 [employer] 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 03/08/2018 ISHA ARAGON MD [...] MELLITUS WITHOUT COMPLIC 03/31/2018 TANO GRAY DO D Ot F17.210 NICOTINE DEPENDENCE, CIGARETTES, UNCOMPL 03/31/2018 GRAYMICHELL PANTOJA DOTT D Ot I10 ESSENTIAL (PRIMARY) HYPERTENSION 03/31/2018 GRAY DO TANO D Ot Z79.84 USP (CURRENT) USE OF ORAL HYPOGLYC 03/31/2018 GRAY MICHELL MARTINEZTT D Ot Z79.899 OTHER USP (CURRENT) DRUG THERAPY 04/11/2018 GRAY TANO D Ot 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 04/11/2018 GRAY DO, TANO D Ot E11.9 TYPE 2 DIABETES MELLITUS WITHOUT COMPLIC 04/11/2018 GRAY DOTANO D Ot F17.210 NICOTINE DEPENDENCE, CIGARETTES, UNCOMPL 04/11/2018 TANO GRAY DO D Ot I10 ESSENTIAL (PRIMARY) HYPERTENSION 04/11/2018 GRAY TANO D Ot 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 04/11/2018 GRAY TANO D Ot Z79.899 OTHER USP (CURRENT) DRUG THERAPY 05/05/2018 ISHA ARAGON MD Ot 250.80 DIAB W OTH SPEC MANIFEST, TYPE II OR UNS 05/05/2018 ISHA ARGAON MD Ot 707.15 ULCER OF OTHER PART OF FOOT 05/05/2018 ISHA ARAGON MD, Ot E11.42 TYPE 2 DIABETES MELLITUS WITH DIABETIC P 05/05/2018 ISHA ARAGON MD, Ot E11.621 TYPE 2 DIABETES MELLITUS WITH FOOT ULCER 05/05/2018 ISHA ARAGON MD Ot F17.210 NICOTINE DEPENDENCE, CIGARETTES, UNCOMPL 05/05/2018 ISHA ARAGON MD Ot I70.235 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 05/05/2018 ISHA ARAGON MD Ot L03.115 CELLULITIS OF RIGHT LOWER LIMB 05/05/2018 ISHA ARAGON MD Ot L97.512 NON-PRS CHRONIC ULCER OTH PRT RIGHT FOOT 05/05/2018 ISHA ARAGON MD Ot E11.42 TYPE 2 DIABETES MELLITUS WITH DIABETIC P 05/05/2018 ISHA ARAGON MD Ot E11.621 TYPE 2 DIABETES MELLITUS WITH FOOT ULCER 05/05/2018 ISHA ARAGON MD Ot I70.235 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 05/05/2018 ISHA ARAGON MD Ot L03.115 CELLULITIS OF RIGHT LOWER LIMB 05/05/2018 ISHA ARAGON MD, Ot L97.512 NON-PRS CHRONIC ULCER OTH PRT RIGHT FOOT 05/05/2018 ISHA ARAGON MD, Ot T65.222D TOXIC EFFECT OF TOBACCO CIGARETTES, SELF 05/05/2018 ISHA ARAGON MD Ot E11.42 TYPE 2 DIABETES MELLITUS WITH DIABETIC P 05/05/2018 ISHA ARAGON MD, Ot E11.621 TYPE 2 DIABETES MELLITUS WITH FOOT ULCER 05/05/2018 ISHA ARAGON MD, Ot I70.235 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 05/05/2018 ISHA ARAGON MD, Ot L03.115 CELLULITIS OF RIGHT LOWER LIMB 05/05/2018 ISHA ARAGON MD, Ot L97.512 NON-PRS CHRONIC ULCER OTH PRT RIGHT FOOT 05/05/2018 ISHA ARAGON MD, Ot M19.071 PRIMARY OSTEOARTHRITIS, RIGHT ANKLE AND 05/05/2018 ISHA ARAGON MD, Ot T65.222D TOXIC EFFECT OF TOBACCO CIGARETTES, SELF 05/05/2018 ISHA ARAGON MD, Ot E11.42 TYPE 2 DIABETES MELLITUS WITH DIABETIC P 05/05/2018 ISHA ARAGON MD, Ot E11.621 TYPE 2 DIABETES MELLITUS WITH FOOT ULCER 05/05/2018 ISHA ARAGON MD, Ot I70.235 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 05/05/2018 ISHA ARAGON MD, Ot L97.512 NON-PRS CHRONIC ULCER OTH PRT RIGHT FOOT 05/05/2018 ISHA ARAGON MD, Ot T65.222D TOXIC EFFECT OF TOBACCO CIGARETTES, SELF 05/05/2018 ISHA ARAGON MD, Ot E11.42 TYPE 2 DIABETES MELLITUS WITH DIABETIC P 05/05/2018 ISHA ARAGON MD, Ot E11.621 TYPE 2 DIABETES MELLITUS WITH FOOT ULCER 05/05/2018 ISHA ARAGON MD, Ot I70.235 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 05/05/2018 ISHA ARAGON MD, Ot L97.512 NON-PRS CHRONIC ULCER OTH PRT RIGHT FOOT 05/05/2018 ISHA ARAGON MD, Ot T65.222D TOXIC EFFECT OF TOBACCO CIGARETTES, SELF 05/05/2018 MAHESH MD, ISHA G Ot E11.42 TYPE 2 DIABETES MELLITUS WITH DIABETIC P 05/05/2018 ISHA ARAGON MD, Ot E11.621 TYPE 2 DIABETES MELLITUS WITH FOOT ULCER 05/05/2018 ISHA ARAGON MD, Ot I70.235 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 05/05/2018 ISHA ARAGON MD, Ot L97.511 NON-PRS CHRONIC ULCER OTH PRT R FOOT CHUNG 05/05/2018 ISHA ARAGON MD, Ot L97.512 NON-PRS CHRONIC ULCER OTH PRT RIGHT FOOT 05/05/2018 ISHA ARAGON MD, Ot T65.222D TOXIC EFFECT OF TOBACCO CIGARETTES, SELF 05/05/2018 ISHA ARAGON MD, Ot E11.42 TYPE 2 DIABETES MELLITUS WITH DIABETIC P 05/05/2018 ISHA ARAGON MD, Ot E11.621 TYPE 2 DIABETES MELLITUS WITH FOOT ULCER 05/05/2018 ISHA ARAGON MD, Ot I70.235 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 05/05/2018 ISHA ARAGON MD, Ot L97.511 NON-PRS CHRONIC ULCER OTH PRT R FOOT CHUNG 05/05/2018 ISHA ARAGON MD, Ot L97.512 NON-PRS CHRONIC ULCER OTH PRT RIGHT FOOT 05/05/2018 ISHA ARAGON MD, Ot T65.222D TOXIC EFFECT OF TOBACCO CIGARETTES, SELF 05/05/2018 ISHA ARAGON MD, Ot E11.42 TYPE 2 DIABETES MELLITUS WITH DIABETIC P 05/05/2018 ISHA ARAGON MD, Ot E11.621 TYPE 2 DIABETES MELLITUS WITH FOOT ULCER 05/05/2018 ISHA ARAGON MD, Ot I70.235 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 05/05/2018 ISHA ARAGON MD, Ot L97.512 NON-PRS CHRONIC ULCER OTH PRT RIGHT FOOT 05/05/2018 ISHA ARAGON MD, Ot T65.222D TOXIC EFFECT OF TOBACCO CIGARETTES, SELF 05/05/2018 ISHA ARAGON MD, Ot E11.43 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 05/05/2018 ISHA ARAGON MD, Ot E11.621 TYPE 2 DIABETES MELLITUS WITH FOOT ULCER 05/05/2018 ISHA ARAGON MD, Ot L97.512 NON-PRS CHRONIC ULCER OTH PRT RIGHT FOOT 05/05/2018 ISHA ARAGON MD, Ot E11.42 TYPE 2 DIABETES MELLITUS WITH DIABETIC P 05/05/2018 MAHESH MCCULLOUGH, ISHA Sena Ot E11.621 TYPE 2 DIABETES MELLITUS WITH FOOT ULCER 05/05/2018 ISHA ARAGON MD Ot L97.512 NON-PRS CHRONIC ULCER OTH PRT RIGHT FOOT 05/05/2018 ISHA ARAGON MD Ot E11.42 TYPE 2 DIABETES MELLITUS WITH DIABETIC P 05/05/2018 ISHA ARAGON MD Ot E11.621 TYPE 2 DIABETES MELLITUS WITH FOOT ULCER 05/05/2018 ISHA ARAGON MD Ot L97.512 NON-PRS CHRONIC ULCER OTH PRT RIGHT FOOT 05/05/2018 ISHA ARAGON MD Ot E11.42 TYPE 2 DIABETES MELLITUS WITH DIABETIC P 05/05/2018 ISHA ARAGON MD Ot E11.621 TYPE 2 DIABETES MELLITUS WITH FOOT ULCER 05/05/2018 ISHA ARAGON MD Ot L97.512 NON-PRS CHRONIC ULCER OTH PRT RIGHT FOOT 05/05/2018 ISHA ARAGON MD Ot E11.42 TYPE 2 DIABETES MELLITUS WITH DIABETIC P 05/05/2018 ISHA ARAGON MD Ot E11.621 TYPE 2 DIABETES MELLITUS WITH FOOT ULCER 05/05/2018 ISHA ARAGON MD Ot L97.512 NON-PRS CHRONIC ULCER OTH PRT RIGHT FOOT 05/05/2018 ISHA ARAGON MD Ot E11.42 TYPE 2 DIABETES MELLITUS WITH DIABETIC P 05/05/2018 MAHESH MCCULLOUGH, ISHA Sena Ot E11.621 TYPE 2 DIABETES MELLITUS WITH FOOT ULCER 05/05/2018 ISHA ARAGON MD Ot L97.512 NON-PRS CHRONIC ULCER OTH PRT RIGHT FOOT 05/05/2018 ISHA ARAGON MD Ot E11.42 TYPE 2 DIABETES MELLITUS WITH DIABETIC P 05/05/2018 ISHA ARAGON MD Ot E11.621 TYPE 2 DIABETES MELLITUS WITH FOOT ULCER 05/05/2018 ISHA ARAGON MD Ot L97.512 NON-PRS CHRONIC ULCER OTH PRT RIGHT FOOT 05/05/2018 ISHA ARAGON MD Ot E11.42 TYPE 2 DIABETES MELLITUS WITH DIABETIC P 05/05/2018 ISHA ARAGON MD Ot E11.621 TYPE 2 DIABETES MELLITUS WITH FOOT ULCER 05/05/2018 ISHA ARAGON MD Ot L97.512 NON-PRS CHRONIC ULCER OTH PRT RIGHT FOOT 05/05/2018 ISHA ARAGON MD Ot E11.42 TYPE 2 DIABETES MELLITUS WITH DIABETIC P 05/05/2018 ISHA ARAGON MD Ot E11.621 TYPE 2 DIABETES MELLITUS WITH FOOT ULCER 05/05/2018 ISHA ARAGON MD, Ot L97.512 NON-PRS CHRONIC ULCER OTH PRT RIGHT FOOT 05/05/2018 ISHA ARAGON MD Ot M77.31 CALCANEAL SPUR, RIGHT FOOT 05/05/2018 ISHA ARAGON MD Ot 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) 05/05/2018 ISHA ARAGON MD Ot E11.42 TYPE 2 DIABETES MELLITUS WITH DIABETIC P 05/05/2018 ISHA ARAGON MD, Ot E11.621 TYPE 2 DIABETES MELLITUS WITH FOOT ULCER 05/05/2018 ISHA ARAGON MD, Ot L97.512 NON-PRS CHRONIC ULCER OTH PRT RIGHT FOOT 05/05/2018 LUIS FELIPE FERRARI APRN Ot E11.42 TYPE 2 DIABETES MELLITUS WITH DIABETIC P 05/05/2018 LUIS FELIPE FERRARI APRN Ot E11.621 TYPE 2 DIABETES MELLITUS WITH FOOT ULCER 05/05/2018 LUIS FELIPE FERRARI APRN Ot L97.512 NON-PRS CHRONIC ULCER OTH PRT RIGHT FOOT 05/05/2018 ISHA ARAGON MD Ot E11.42 TYPE 2 DIABETES MELLITUS WITH DIABETIC P 05/05/2018 ISHA ARAGON MD Ot E11.621 TYPE 2 DIABETES MELLITUS WITH FOOT ULCER 05/05/2018 ISHA ARAGON MD Ot L97.512 NON-PRS CHRONIC ULCER OTH PRT RIGHT FOOT 05/05/2018 ISHA ARAGON MD Ot E11.42 TYPE 2 DIABETES MELLITUS WITH DIABETIC P 05/05/2018 ISHA ARAGON MD Ot E11.621 TYPE 2 DIABETES MELLITUS WITH FOOT ULCER 05/05/2018 ISHA ARAGON MD Ot L97.512 NON-PRS CHRONIC ULCER OTH PRT RIGHT FOOT 05/05/2018 ISHA ARAGON MD Ot E11.42 TYPE 2 DIABETES MELLITUS WITH DIABETIC P 05/05/2018 ISHA ARAGON MD Ot E11.621 TYPE 2 DIABETES MELLITUS WITH FOOT ULCER 05/05/2018 ISHA ARAGON MD Ot L97.512 NON-PRS CHRONIC ULCER OTH PRT RIGHT FOOT 05/05/2018 ISHA ARAGON MD Ot E11.42 TYPE 2 DIABETES MELLITUS WITH DIABETIC P 05/05/2018 ISHA ARAGON MD Ot E11.621 TYPE 2 DIABETES MELLITUS WITH FOOT ULCER 05/05/2018 ISHA ARAGON MD, Ot L97.512 NON-PRS CHRONIC ULCER OTH PRT RIGHT FOOT 05/05/2018 ISHA ARAGON MD, Ot T65.222D TOXIC EFFECT OF TOBACCO CIGARETTES, SELF 05/05/2018 ISHA ARAGON MD Ot E11.42 TYPE 2 DIABETES MELLITUS WITH DIABETIC P 05/05/2018 ISHA ARAGON MD, Ot E11.621 TYPE 2 DIABETES MELLITUS WITH FOOT ULCER 05/05/2018 ISHA ARAGON MD, Ot L97.512 NON-PRS CHRONIC ULCER OTH PRT RIGHT FOOT 05/05/2018 ISHA ARAGON MD, Ot T65.222D TOXIC EFFECT OF TOBACCO CIGARETTES, SELF 05/05/2018 ISHA ARAGON MD, Ot E11.621 TYPE 2 DIABETES MELLITUS WITH FOOT ULCER 05/05/2018 ISHA ARAGON MD, Ot L97.512 NON-PRS CHRONIC ULCER OTH PRT RIGHT FOOT 05/05/2018 ISHA ARAGON MD Ot E11.42 TYPE 2 DIABETES MELLITUS WITH DIABETIC P 05/05/2018 ISHA ARAGON MD, Ot E11.621 TYPE 2 DIABETES MELLITUS WITH FOOT ULCER 05/05/2018 ISHA ARAGON MD, Ot L97.512 NON-PRS CHRONIC ULCER OTH PRT RIGHT FOOT 05/05/2018 ISHA ARAGON MD, Ot T65.222D TOXIC EFFECT OF TOBACCO CIGARETTES, SELF 05/05/2018 ISHA ARAGON MD Ot E11.42 TYPE 2 DIABETES MELLITUS WITH DIABETIC P 05/05/2018 ISHA ARAGON MD Ot E11.621 TYPE 2 DIABETES MELLITUS WITH FOOT ULCER 05/05/2018 ISHA ARAGON MD Ot L97.512 NON-PRS CHRONIC ULCER OTH PRT RIGHT FOOT 05/05/2018 ISHA ARAGON MD, Ot T65.222D TOXIC EFFECT OF TOBACCO CIGARETTES, SELF 05/05/2018 ISHA ARAGON MD Ot E11.42 TYPE 2 DIABETES MELLITUS WITH DIABETIC P 05/05/2018 ISHA ARAGON MD, Ot E11.621 TYPE 2 DIABETES MELLITUS WITH FOOT ULCER 05/05/2018 ISHA ARAGON MD Ot L97.512 NON-PRS CHRONIC ULCER OTH PRT RIGHT FOOT 05/05/2018 ISHA ARAGON MD Ot T65.222D TOXIC EFFECT OF TOBACCO CIGARETTES, SELF 05/05/2018 ISHA ARAGON MD, Ot E11.42 TYPE 2 DIABETES MELLITUS WITH DIABETIC P 05/05/2018 ISHA ARAGON MD, Ot E11.621 TYPE 2 DIABETES MELLITUS WITH FOOT ULCER 05/05/2018 ISHA ARAGON MD, Ot I70.235 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 05/05/2018 ISHA ARAGON MD, Ot L97.512 NON-PRS CHRONIC ULCER OTH PRT RIGHT FOOT 05/05/2018 ISHA ARAGON MD, Ot T65.222D TOXIC EFFECT OF TOBACCO CIGARETTES, SELF 05/05/2018 ISHA ARAGON MD, Ot E11.42 TYPE 2 DIABETES MELLITUS WITH DIABETIC P 05/05/2018 ISHA ARAGON MD, Ot E11.621 TYPE 2 DIABETES MELLITUS WITH FOOT ULCER 05/05/2018 ISHA ARAGON MD, Ot I70.235 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 05/05/2018 ISHA ARAGON MD, Ot L97.512 NON-PRS CHRONIC ULCER OTH PRT RIGHT FOOT 05/05/2018 ISHA ARAGON MD, Ot T65.222D TOXIC EFFECT OF TOBACCO CIGARETTES, SELF 05/05/2018 ISHA ARAGON MD, Ot E11.42 TYPE 2 DIABETES MELLITUS WITH DIABETIC P 05/05/2018 ISHA ARAGON MD, Ot E11.621 TYPE 2 DIABETES MELLITUS WITH FOOT ULCER 05/05/2018 ISHA ARAGON MD, Ot I70.235 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 05/05/2018 ISHA ARAGON MD, Ot L97.512 NON-PRS CHRONIC ULCER OTH PRT RIGHT FOOT 05/05/2018 ISHA ARAGON MD, Ot T65.222D TOXIC EFFECT OF TOBACCO CIGARETTES, SELF 05/05/2018 ISHA ARAGON MD, Ot E11.42 TYPE 2 DIABETES MELLITUS WITH DIABETIC P 05/05/2018 ISHA ARAGON MD, Ot E11.621 TYPE 2 DIABETES MELLITUS WITH FOOT ULCER 05/05/2018 ISHA ARAGON MD, Ot I70.235 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 05/05/2018 ISHA ARAGON MD, Ot L97.512 NON-PRS CHRONIC ULCER OTH PRT RIGHT FOOT 05/05/2018 ISHA ARAGON MD, Ot T65.222D TOXIC EFFECT OF TOBACCO CIGARETTES, SELF 05/05/2018 VONDA, LUIS FELIPE R JAVA ANDROID DEVELOPER Ot E11.42 TYPE 2 DIABETES MELLITUS WITH DIABETIC P 05/05/2018 LUIS FELIPE FERRARI JAVA ANDROID DEVELOPER Ot E11.621 TYPE 2 DIABETES MELLITUS WITH FOOT ULCER 05/05/2018 LUIS FELIPE FERRARI JAVA ANDROID DEVELOPER Ot I70.235 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 05/05/2018 LUIS FELIPE FERRARI JAVA ANDROID DEVELOPER Ot L97.512 NON-PRS CHRONIC ULCER OTH PRT RIGHT FOOT 05/05/2018 LUIS FELIPE FERRARI APRN Ot T65.222D TOXIC EFFECT OF TOBACCO CIGARETTES, SELF 05/05/2018 LUIS FELIPE FERRARI JAVA ANDROID DEVELOPER Ot E11.42 TYPE 2 DIABETES MELLITUS WITH DIABETIC P 05/05/2018 LUIS FELIPE FERRARI JAVA ANDROID DEVELOPER Ot E11.621 TYPE 2 DIABETES MELLITUS WITH FOOT ULCER 05/05/2018 LUIS FELIPE FERRARI JAVA ANDROID DEVELOPER Ot I70.235 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 05/05/2018 LUIS FELIPE FERRARI JAVA ANDROID DEVELOPER Ot L97.512 NON-PRS CHRONIC ULCER OTH PRT RIGHT FOOT 05/05/2018 LUIS FELIPE FERRARI APRN Ot T65.222D TOXIC EFFECT OF TOBACCO CIGARETTES, SELF 05/05/2018 ISHA ARAGON MD, Ot E11.42 TYPE 2 DIABETES MELLITUS WITH DIABETIC P 05/05/2018 ISHA ARAGON MD, Ot E11.621 TYPE 2 DIABETES MELLITUS WITH FOOT ULCER 05/05/2018 ISHA ARAGON MD, Ot I70.235 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 05/05/2018 ISHA ARAGON MD, Ot L97.512 NON-PRS CHRONIC ULCER OTH PRT RIGHT FOOT 05/05/2018 ISHA ARAGON MD, Ot T65.222D TOXIC EFFECT OF TOBACCO CIGARETTES, SELF 05/05/2018 ISHA ARAGON MD, Ot E11.42 TYPE 2 DIABETES MELLITUS WITH DIABETIC P 05/05/2018 ISHA ARAGON MD, Ot E11.621 TYPE 2 DIABETES MELLITUS WITH FOOT ULCER 05/05/2018 ISHA ARAGON MD, Ot I70.235 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 05/05/2018 ISHA ARAGON MD, Ot L97.512 NON-PRS CHRONIC ULCER OTH PRT RIGHT FOOT 05/05/2018 ISHA ARAGON MD, Ot T65.222D TOXIC EFFECT OF TOBACCO CIGARETTES, SELF 05/05/2018 ISHA ARAGON MD, Ot E11.42 TYPE 2 DIABETES MELLITUS WITH DIABETIC P 05/05/2018 ISHA ARAGON MD Ot E11.621 TYPE 2 DIABETES MELLITUS WITH FOOT ULCER 05/05/2018 ISHA ARAGON MD Ot L97.512 NON-PRS CHRONIC ULCER OTH PRT RIGHT FOOT 05/05/2018 ISHA ARAGON MD Ot E11.42 TYPE 2 DIABETES MELLITUS WITH DIABETIC P 05/05/2018 MAHESH MCCULLOUGH, ISHA Sena Ot E11.621 TYPE 2 DIABETES MELLITUS WITH FOOT ULCER 05/05/2018 ISHA ARAGON MD Ot I70.235 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 05/05/2018 ISHA ARAGON MD Ot L97.512 NON-PRS CHRONIC ULCER OTH PRT RIGHT FOOT 05/05/2018 ISHA ARAGON MD Ot T65.222D TOXIC EFFECT OF TOBACCO CIGARETTES, SELF 05/05/2018 Ot E11.42 TYPE 2 DIABETES MELLITUS WITH DIABETIC P 05/05/2018 Ot E11.621 TYPE 2 DIABETES MELLITUS WITH FOOT ULCER 05/05/2018 Ot I70.235 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 05/05/2018 Ot L97.514 NON-PRS CHRONIC ULCER OTH PRT RIGHT FOOT 05/05/2018 Ot T65.222D TOXIC EFFECT OF TOBACCO CIGARETTES, SELF 05/05/2018 Ot E11.42 TYPE 2 DIABETES MELLITUS WITH DIABETIC P 05/05/2018 Ot E11.621 TYPE 2 DIABETES MELLITUS WITH FOOT ULCER 05/05/2018 Ot I70.235 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 05/05/2018 Ot L97.514 NON-PRS CHRONIC ULCER OTH PRT RIGHT FOOT 05/05/2018 Ot M62.571 MUSCLE WASTING AND ATROPHY, NEC, RIGHT A 05/05/2018 Ot M65.871 OTHER SYNOVITIS AND TENOSYNOVITIS, RIGHT 05/05/2018 Ot M86.8X7 OTHER OSTEOMYELITIS, ANKLE AND FOOT 05/05/2018 Ot T65.222D TOXIC EFFECT OF TOBACCO CIGARETTES, SELF 05/05/2018 Ot E11.42 TYPE 2 DIABETES MELLITUS WITH DIABETIC P 05/05/2018 Ot E11.621 TYPE 2 DIABETES MELLITUS WITH FOOT ULCER 05/05/2018 Ot I70.235 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 05/05/2018 Ot L97.514 NON-PRS CHRONIC ULCER OTH PRT RIGHT FOOT 05/05/2018 Ot M86.471 CHRONIC OSTEOMYELITIS W DRAINING SINUS, 05/05/2018 Ot T65.222D TOXIC EFFECT OF TOBACCO CIGARETTES, SELF 05/05/2018 ISHA ARAGON MD Ot E11.42 TYPE 2 DIABETES MELLITUS WITH DIABETIC P 05/05/2018 ISHA ARAGON MD Ot E11.621 TYPE 2 DIABETES MELLITUS WITH FOOT ULCER 05/05/2018 ISHA ARAGON MD Ot L97.512 NON-PRS CHRONIC ULCER OTH PRT RIGHT FOOT 05/05/2018 JANES WARREN MD Ot E78.49 OTHER HYPERLIPIDEMIA 05/05/2018 JANES WARREN MD, Ot F17.210 NICOTINE DEPENDENCE, CIGARETTES, UNCOMPL 05/05/2018 JANES WARREN MD Ot I10 ESSENTIAL (PRIMARY) HYPERTENSION 05/05/2018 JANES WARREN MD Ot I70.262 A[facility]CL [place] ARTERIES OF EXTREMITIES W 05/05/2018 JANES WARREN MD, Ot S99.921S UNSPECIFIED INJURY OF RIGHT FOOT, SEQUEL 05/06/2018 JANES WARREN MD Ot E78.49 OTHER HYPERLIPIDEMIA 05/06/2018 JANES WARREN MD, Ot F17.210 NICOTINE DEPENDENCE, CIGARETTES, UNCOMPL 05/06/2018 JANES WARREN MD Ot I10 ESSENTIAL (PRIMARY) HYPERTENSION 05/06/2018 JANES WARREN MD Ot I70.262 ATHSCL [place] ARTERIES OF EXTREMITIES W 05/06/2018 AJNES WARREN MD Ot S99.921S UNSPECIFIED INJURY OF RIGHT FOOT, SEQUEL 05/07/2018 JANES WARREN MD Ot E11.9 TYPE 2 DIABETES MELLITUS WITHOUT COMPLIC 05/07/2018 JANES WARREN MD Ot E78.49 OTHER HYPERLIPIDEMIA 05/07/2018 JANES WARREN MD, Ot F17.210 NICOTINE DEPENDENCE, CIGARETTES, UNCOMPL 05/07/2018 JANES WARREN MD Ot I10 ESSENTIAL (PRIMARY) HYPERTENSION 05/07/2018 JANES WARREN MD Ot I70.0 ATHEROSCLEROSIS OF AORTA 05/07/2018 JANES WARREN MD Ot I70.262 ATH[facility]CL [place] ARTERIES OF EXTREMITIES W 05/07/2018 JANES WARREN MD Ot S99.921S UNSPECIFIED INJURY OF RIGHT FOOT, SEQUEL 05/07/2018 BRIANA MCCULLOUGH, JANES William Ot Z23 ENCOUNTER FOR IMMUNIZATION 05/07/2018 JANES WARREN MD, Ot 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 05/07/2018 JANES WARREN MD, Ot Z89.431 ACQUIRED ABSENCE OF RIGHT FOOT Procedures Code Description Performed By Performed On 466R76A DILATION OF L FEM ART WITH DRUG-ELUT, PE 05/05/2018 [id number] DILATION OF L FEM ART USING DRUG BLLN, P 05/05/2018 [id number] FLUOROSCOPY OF AORTA, BI LE ART USING L 05/05/2018 [id number] DETACHMENT AT LEFT 1ST TOE, COMPLETE, OP 05/06/2018 Results Test Result Range Bacteria identification in isolate by anaerobe culture - 04/05/17 15:52 Bacteria identification in isolate by anaerobe culture NOANA NRG Gram stain microscopy - 04/05/17 15:52 GRAM STAIN RESULT NO WBC'S OR BACTERIA OBSERVED NRG Bacteria identification in wound by culture - 04/05/17 15:52 Bacteria identification in wound by culture [id number] NRG FREE TEXT EXTERNAL SENSITIVITY REPORTED AT 1424, 04-10-17 NRG QUANTITY OF GROWTH Scant Growth NRG Bacterial susceptibility panel - 04/05/17 15:52 Oxacillin susceptibility test by minimum inhibitory concentration <= NRG Gentamicin susceptibility test by minimum inhibitory concentration <= NRG Clindamycin susceptibility test by minimum inhibitory concentration <= NRG Erythromycin susceptibility test by minimum inhibitory concentration <= NRG Trimethoprim/sulfamethoxazole susceptibility test by minimum inhibitoryconcentration <= NRG Vancomycin susceptibility test by minimum inhibitory concentration <= NRG Levofloxacin susceptibility test by minimum inhibitory concentration <= NRG Rifampin susceptibility test by minimum inhibitory concentration <= NRG Tetracycline susceptibility test by minimum inhibitory concentration <= NRG Bacterial susceptibility panel - 04/05/17 15:52 Oxacillin susceptibility test by minimum inhibitory concentration <= NRG Gentamicin susceptibility test by minimum inhibitory concentration <= NRG Clindamycin susceptibility test by minimum inhibitory [...] test by minimum inhibitory concentration R NRG Methicillin resistant Staphylococcus aureus (MRSA) screening culture - 05/24/17 10:27 Methicillin resistant Staphylococcus aureus (MRSA) screening culture NEG NRG Capillary blood glucose measurement by glucometer (mass/volume) - 05/28/17 06:15 Capillary blood glucose measurement by glucometer (mass/volume) 186 mg/dL 70-110 Capillary blood glucose measurement by glucometer (mass/volume) - 05/28/17 08:58 Capillary blood glucose measurement by glucometer (mass/volume) 159 mg/dL 70-110 Bacteria identification in isolate by anaerobe culture - 06/30/17 10:59 Bacteria identification in isolate by anaerobe culture NOANA NRG Gram stain microscopy - 06/30/17 10:59 GRAM STAIN RESULT NO WBC'S OR BACTERIA OBSERVED NRG Bacteria identification in wound by culture - 06/30/17 10:59 Bacteria identification in wound by culture [id number] NR FREE TEXT EXTERNAL [place]ENSITIVITIES [place]PORTED AT 0748, 2-18 NRG QUANTITY OF GROWTH Moderate Growth NR Bacterial susceptibility panel - 06/30/17 10:59 Gentamicin susceptibility test by minimum inhibitory concentration R NRG Erythromycin susceptibility test by minimum inhibitory concentration 4 NRG Vancomycin susceptibility test by minimum inhibitory concentration 1 NRG Ampicillin susceptibility test by minimum inhibitory concentration <= NRG Linezolid susceptibility test by minimum inhibitory concentration 2 NR Bacterial susceptibility panel - 06/30/17 10:59 Oxacillin susceptibility test by minimum inhibitory concentration <= NRG Gentamicin susceptibility test by minimum inhibitory concentration <= NRG Clindamycin susceptibility test by minimum inhibitory concentration <= NRG Erythromycin susceptibility test by minimum inhibitory concentration >= NRG Trimethoprim/sulfamethoxazole susceptibility test by minimum inhibitoryconcentration S NRG Vancomycin susceptibility test by minimum inhibitory concentration <= NRG Levofloxacin susceptibility test by minimum inhibitory concentration <= NRG Rifampin susceptibility test by minimum inhibitory concentration <= NRG Tetracycline susceptibility test by minimum inhibitory concentration >= NRG Linezolid susceptibility test by minimum inhibitory concentration <= NRG Complete blood count (CBC) with automated [...] Automated erythrocyte mean corpuscular hemoglobin concentration measurement (mass/volume) 35 g/dL 32-36 Automated erythrocyte distribution width ratio 13.4 % 10.0- 14.5 Automated blood platelet count (count/volume) 205 10*3/uL [...] Blood monocytes automated count (number/volume) 0.2 10*3 0.0- 1.0 Automated eosinophil count 0.2 10*3/uL 0.0-0.3 Automated [...] Serum or plasma aspartate aminotransferase measurement (enzymatic activity/volume) 12 U/L 5-34 Serum or plasma alanine aminotransferase measurement (enzymatic activity/volume) 13 U/L 0-55 Serum or plasma protein measurement (mass/volume) 7.2 g/dL 6.4-8.2 Serum or plasma albumin measurement (mass/volume) 3.6 g/dL 3.2-4.5 Hemoglobin A1c - 07/01/17 09:22 Blood hemoglobin A1C measurement (mass/volume) 8.3 % 4.0-5.6 MEAN BLOOD GLUCOSE 192 % <=126 Bacteria identification in isolate by anaerobe culture - 08/27/17 09:11 Bacteria identification in isolate by anaerobe culture NOANA NRG Gram stain microscopy - 08/27/17 09:11 GRAM STAIN RESULT FEW WBC'S, NO BACTERIA OBSERVED NR Bacteria identification in wound by culture - 08/27/17 09:11 Bacteria identification in wound by culture [id number] [facility] FREE TEXT EXTERNAL SENSITIVITY REPORTED AT 1109, 4-16-18 NRG QUANTITY OF GROWTH Scant Growth NR Bacterial susceptibility panel - 08/27/17 09:11 Oxacillin susceptibility test by minimum inhibitory concentration >= NRG Gentamicin susceptibility test by minimum inhibitory concentration <= NRG Clindamycin susceptibility test by minimum inhibitory [...] Oxacillin susceptibility test by minimum inhibitory concentration >= NRG Gentamicin susceptibility test by minimum inhibitory [...] 101 mmol/L 98-107 Carbon dioxide 25 mmol/L - Serum or plasma anion gap [...] glucose measurement by glucometer (mass/volume) - 09/15/17 11:31 Capillary blood glucose measurement by glucometer (mass/volume) 244 mg/dL 70-110 Bacteria identification in isolate by anaerobe culture - 09/29/17 09:26 Bacteria identification in isolate by anaerobe culture NOANA NRG Gram stain microscopy - 09/29/17 09:26 GRAM STAIN RESULT NO WBC'S OR BACTERIA OBSERVED NRG Bacteria identification in wound by culture - 09/29/17 09:26 Bacteria identification in wound by culture [id number] NRG FREE TEXT EXTERNAL FEW OBSERVED NRG QUANTITY OF GROWTH Isolated NRG MRSA AGAR Screening test for MRSA is NEGATIVE (Final to follow) NRG FREE TEXT ENTRY 2 SENSITIVITY REPORTED AT 1135, 10-01-17 NRG Bacterial susceptibility panel - 09/29/17 09:26 Oxacillin susceptibility test by minimum inhibitory concentration 0.5 NRG Gentamicin susceptibility test by minimum inhibitory concentration <= NRG Clindamycin susceptibility test by minimum inhibitory [...] Automated erythrocyte mean corpuscular hemoglobin concentration measurement (mass/volume) 35 g/dL 32-36 Automated erythrocyte distribution width ratio 13.1 % 10.0- 14.5 Automated blood platelet count (count/volume) 211 10*3/uL [...] Blood monocytes automated count (number/volume) 0.2 10*3 0.0- 1.0 Automated eosinophil count 0.1 10*3/uL 0.0-0.3 Automated [...] Serum or plasma aspartate aminotransferase measurement (enzymatic activity/volume) 12 U/L 5-34 Serum or plasma alanine aminotransferase measurement (enzymatic activity/volume) 12 U/L 0-55 Serum or plasma protein measurement (mass/volume) 7.2 g/dL 6.4-8.2 Serum or plasma albumin measurement (mass/volume) 3.7 g/dL 3.2-4.5 Hemoglobin A1c - 09/29/17 10:47 Blood hemoglobin A1C measurement (mass/volume) 9.2 % 4.0-5.6 MEAN BLOOD GLUCOSE 217 % <=126 PREALBUMIN - 09/29/17 10:47 PREALBUM 14.3 % 18.0-37.0 Bacteria identification in isolate by anaerobe culture - 10/20/17 09:44 Bacteria identification in isolate by anaerobe culture NOANA NRG Gram stain microscopy - 10/20/17 09:44 GRAM STAIN RESULT NO WBC'S OR BACTERIA OBSERVED NRG Bacteria identification in wound by culture - 10/20/17 09:44 Bacteria identification in wound by culture [id number] NRG FREE TEXT EXTERNAL ID REPORTED 10/22/17 15:30 NRG QUANTITY OF GROWTH Scant Growth NRG FREE TEXT ENTRY 2 ISOLATE SENT TO [facility] NRG FREE TEXT ENTRY 3 10/23/17 FOR SENSITIVITY TESTING NRG Bacteria identification in isolate by anaerobe culture - 11/23/17 08:31 Bacteria identification in isolate by anaerobe culture NOANA NRG Gram stain microscopy - 11/23/17 08:31 GRAM STAIN RESULT NO WBC'S OR BACTERIA OBSERVED NRG Bacteria identification in wound by culture - 11/23/17 08:31 Bacteria identification in wound by culture [id number] NRG FREE TEXT EXTERNAL SENSITIVITY REPORTED AT 0727, 18 NRG QUANTITY OF GROWTH Scant Growth NRG Bacterial susceptibility panel - 11/23/17 08:31 Gentamicin susceptibility test by minimum inhibitory concentration <= NRG Trimethoprim/sulfamethoxazole susceptibility test by minimum inhibitoryconcentration S NRG Tobramycin susceptibility test by minimum inhibitory concentration <= NRG Cefazolin susceptibility test by minimum inhibitory concentration >= NRG Piperacillin/tazobactam susceptibility test by minimum inhibitory concentration S NRG Ciprofloxacin susceptibility test by minimum inhibitory concentration <= NRG Meropenem susceptibility test by minimum inhibitory concentration <= NRG Aztreonam susceptibility test by minimum inhibitory concentration <= NRG Cefepime susceptibility test by minimum inhibitory concentration <= NRG Whole blood basic metabolic panel - 12/01/17 07:43 Serum or plasma sodium measurement (moles/volume) 135 mmol/L 135-145 Serum or plasma potassium measurement (moles/volume) 4.6 mmol/L 3.6-5.0 Serum or plasma chloride measurement (moles/volume) 101 mmol/L 98-107 Carbon dioxide 24 mmol/L -32 [...] 100 mmol/L 98-107 Carbon dioxide 23 mmol/L - [...] 09:13 Bacteria identification in wound by culture [id number] NRG FREE TEXT EXTERNAL ID BY RML REPORTED 12/20/17 14:05 NRG QUANTITY OF GROWTH Scant Growth NRG FREE TEXT ENTRY 2 SENSITIVITY TO FOLLOW NRG Capillary blood glucose measurement by glucometer (mass/volume) - 03/31/18 09:40 Capillary blood glucose measurement by glucometer (mass/volume) 222 mg/dL 70-110 Methicillin resistant Staphylococcus aureus (MRSA) screening culture - 03/31/18 10:00 Methicillin resistant Staphylococcus aureus (MRSA) screening culture NEG NRG Gram stain microscopy - 05/05/18 10:55 Gram stain microscopy 05-06-2018, 605. NRG Bacteria identification in wound by culture - 05/05/18 10:55 Bacteria identification in wound by culture NSF NRG FREE TEXT EXTERNAL NO SUSCEPTIBILITIES SET UP NRG QUANTITY OF GROWTH Moderate Growth NRG Complete blood count (CBC) with automated [...] Automated erythrocyte mean corpuscular hemoglobin concentration measurement (mass/volume) 33 g/dL 32-36 Automated erythrocyte distribution width ratio 13.5 % 10.0- 14.5 Automated blood platelet count (count/volume) 348 10*3/uL [...] Blood monocytes automated count (number/volume) 0.3 10*3 0.0- 1.0 Automated eosinophil count 0.1 10*3/uL 0.0-0.3 Automated [...] Serum or plasma aspartate aminotransferase measurement (enzymatic activity/volume) 12 U/L 5-34 Serum or plasma alanine aminotransferase measurement (enzymatic activity/volume) 11 U/L 0-55 Serum or plasma protein measurement (mass/volume) 7.7 g/dL 6.4-8.2 Serum or plasma albumin measurement (mass/volume) 3.4 g/dL 3.2-4.5 CALCIUM CORRECTED 9.9 mg/dL 8.5-10.1 PT panel in platelet poor plasma by coagulation assay - 05/05/18 11:25 Prothrombin time (PT) in platelet poor plasma by coagulation assay 13.7 s 12.2-14.7 INR in platelet poor plasma or blood by coagulation assay 1.1 0.8-1.4 Activated partial thromboplastin time (aPTT) in platelet poor plasma bycoagulation assay - 05/05/18 11:25 Activated partial thromboplastin time (aPTT) in platelet poor plasma bycoagulation assay 32 s 24-35 Bacterial blood culture - 05/05/18 11:25 Bacterial blood culture NG NRG Bacterial blood culture - 05/05/18 11:40 Bacterial blood culture NG NRG Methicillin resistant Staphylococcus aureus (MRSA) screening culture - 05/05/18 12:42 Methicillin resistant Staphylococcus aureus (MRSA) screening culture NEG NRG Capillary blood glucose measurement by glucometer (mass/volume) - 05/05/18 18:16 Capillary blood glucose measurement by glucometer (mass/volume) 119 mg/dL 70-110 Capillary blood glucose measurement by glucometer (mass/volume) - 05/05/18 20:11 Capillary blood glucose measurement by glucometer (mass/volume) 177 mg/dL 70-110 Automated blood complete blood count (hemogram) panel - 05/06/18 03:23 Blood leukocytes automated count (number/volume) 5.9 10*3/uL 4.3-11.0 Blood erythrocytes automated count (number/volume) 3.19 10*6/uL 4.35-5.85 Venous blood hemoglobin measurement (mass/volume) 9.1 g/dL 11.5-16.0 Blood hematocrit (volume fraction) 28 % 35-52 Automated erythrocyte mean corpuscular volume 88 [foz_us] 80-99 Automated erythrocyte mean corpuscular hemoglobin (mass per erythrocyte) 29 pg 25-34 Automated erythrocyte mean corpuscular hemoglobin concentration measurement (mass/volume) 32 g/dL 32-36 Automated erythrocyte distribution width ratio 13.2 % 10.0- 14.5 Automated blood platelet count (count/volume) 284 10*3/uL 130-400 Automated blood platelet mean volume measurement 9.5 [foz_us] 7.4-10.4 Whole blood basic metabolic panel - 05/06/18 03:23 Serum or plasma sodium measurement (moles/volume) 135 mmol/L 135-145 Serum or plasma potassium measurement (moles/volume) 4.0 mmol/L 3.6-5.0 Serum or plasma chloride measurement (moles/volume) 103 mmol/L 98-107 Carbon dioxide 23 mmol/L 21-32 Serum or plasma anion gap determination (moles/volume) 9 mmol/L 5-14 Serum or plasma urea nitrogen measurement (mass/volume) 10 mg/dL 7-18 Serum or plasma creatinine measurement (mass/volume) 0.84 mg/dL 0.60-1.30 Serum or plasma urea nitrogen/creatinine mass ratio 12 NRG Serum or plasma creatinine measurement with calculation of estimated glomerular filtration rate > NRG Serum or plasma glucose measurement (mass/volume) 150 mg/dL 70-105 Serum or plasma calcium measurement (mass/volume) 8.2 mg/dL 8.5-10.1 Lipid 1996 panel - 05/06/18 03:23 Serum or plasma triglyceride measurement (mass/volume) 72 mg/dL <150 Serum or plasma cholesterol measurement (mass/volume) 107 mg/dL < 200 Serum or plasma cholesterol in HDL measurement (mass/volume) 27 mg/dL 40-60 Cholesterol in LDL [mass/volume] in serum or plasma by direct assay 69 mg/dL 1-129 Serum or plasma cholesterol in VLDL measurement (mass/volume) 14 mg/dL 5-40 Capillary blood glucose measurement by glucometer (mass/volume) - 05/06/18 11:39 Capillary blood glucose measurement by glucometer (mass/volume) 165 mg/dL 70-110 Capillary blood glucose measurement by glucometer (mass/volume) - 05/06/18 20:09 Capillary blood glucose measurement by glucometer (mass/volume) 151 mg/dL 70-110 Capillary blood glucose measurement by glucometer (mass/volume) - 05/07/18 05:44 Capillary blood glucose measurement by glucometer (mass/volume) 174 mg/dL 70-110 Capillary blood glucose measurement by glucometer (mass/volume) - 05/07/18 11:51 Capillary blood glucose measurement by glucometer (mass/volume) 149 mg/dL 70-110 Vancomycin trough - 05/07/18 11:55 Vancomycin trough 12.0 ug/mL 10.0-20.0 Capillary blood glucose measurement by glucometer (mass/volume) - 11/09/18 10:35 Capillary blood glucose measurement by glucometer (mass/volume) 111 mg/dL 70-110 Encounters ACCT No. Visit Date/Time Discharge Status Pt. Type Provider Facility Loc./Unit Complaint [id number] 08/25/2018 13:01:00 08/25/2018 23:59:59 CLS PreadBARRY Lagos MD [facility] CARD HYPERTENSION [id number] 08/25/2018 12:59:00 08/25/2018 23:59:59 CLS PreadBARRY Lagos MD [facility] CARD HYPERTENSION, MIXED HYPERLIPIDEMIA [id number] 05/05/2018 12:07:00 05/07/2018 13:30:00 DIS Inpatient JANES AWRREN MD [facility] ICU ISCHEMIA L GRE[place]E [id number] 03/31/2018 09:20:00 03/31/2018 13:45:00 DIS Outpatient TANO GRAY DO [facility] SDC SKIN CANCER ON BACK [id number] 03/22/2018 05:39:00 03/22/2018 13:25:00 DIS Outpatient TANO GRAY DO [facility] PREOP SKIN CANCER ON BACK [id number] 03/11/2018 11:00:00 03/11/2018 23:59:59 CLS Preadmit ANNITA THOMPSON MD [facility] RAD CHRONIC KIDNEY DISEASE STAGE 4 [id number] 03/09/2018 00:08:00 03/09/2018 23:59:59 CLS Preadmit ISHA ARAGON MD [facility] LAB E11.621,E11.42,L97.512 [id number] 12/17/2017 07:40:00 03/08/2018 00:01:00 DIS Outpatient ISHA ARAGON MD [facility] LAB E11.621,E11.42,L97.512 [id number] 12/08/2017 08:02:00 12/08/2017 23:59:59 CLS Outpatient ISHA ARAGON MD [facility] WOUNDCARE [id number] 12/01/2017 08:22:00 12/01/2017 23:59:59 CLS Outpatient ISHA ARAGON MD [facility] WOUNDCARE [id number] 12/01/2017 07:33:00 12/01/2017 23:59:59 CLS Outpatient ISHA ARAGON MD [facility] LAB E11.621 E11.42 L97.512 [id number] 09/01/2017 11:19:00 11/30/2017 00:01:00 DIS Outpatient ISHA ARAGON MD [facility] LAB E11.621,E11.42,L97.512 [id number] 11/25/2017 07:58:00 11/25/2017 23:59:59 CLS Outpatient ISHA ARAGON MD [facility] WOUNDCARE [id number] 11/23/2017 08:02:00 11/23/2017 23:59:59 CLS Outpatient LUIS FELIPE FERRARI APRN [facility] WOUNDCARE [id number] 11/16/2017 07:59:00 11/16/2017 23:59:59 CLS Outpatient LUIS FELIPE FERRARI APRN [facility] WOUNDCARE [id number] 11/10/2017 07:57:00 11/10/2017 23:59:59 CLS Outpatient ISHA ARAGON MD [facility] WOUNDCARE [id number] 11/03/2017 07:55:00 11/03/2017 23:59:59 CLS Outpatient ISHA ARAGON MD [facility] WOUNDCARE [id number] 10/27/2017 08:10:00 10/27/2017 23:59:59 CLS Outpatient ISHA ARAGON MD [facility] WOUNDCARE [id number] 10/20/2017 08:31:00 10/20/2017 23:59:59 CLS Outpatient ISHA ARAGON MD [facility] WOUNDCARE [id number] 10/13/2017 08:32:00 10/13/2017 23:59:59 CLS Outpatient ISHA ARAGON MD [facility] WOUNDCARE [id number] 10/04/2017 08:00:00 10/04/2017 23:59:59 CLS Outpatient ISHA ARAGON MD [facility] WOUNDCARE [id number] 10/01/2017 08:09:00 10/01/2017 23:59:59 CLS Outpatient ISHA ARAGON MD [facility] WOUNDCARE [id number] 09/29/2017 10:33:00 09/29/2017 23:59:59 CLS Outpatient ISHA ARAGON MD [facility] LAB SEE ORDER [id number] 09/29/2017 08:17:00 09/29/2017 23:59:59 CLS Outpatient ISHA ARAGON MD [facility] WOUNDCARE [id number] 09/22/2017 07:56:00 09/22/2017 23:59:59 CLS Outpatient ISHA ARAGON MD [facility] WOUNDCARE [id number] 09/20/2017 08:32:00 09/20/2017 23:59:59 CLS Outpatient ISHA ARAGON MD [facility] WOUNDCARE [id number] 09/15/2017 10:03:00 09/15/2017 23:59:59 CLS Outpatient ISHA ARAGON MD [id number] 09/08/2017 11:44:00 09/08/2017 23:59:59 CLS Outpatient ISHA ARAGON MD [facility] LAB E11.621 E11.42 L97.512 [id number] 09/08/2017 10:10:00 09/08/2017 23:59:59 CLS Outpatient LUIS FELIPE FERRARI APRN [facility] WOUNDCARE [id number] 09/01/2017 10:06:00 09/01/2017 23:59:59 CLS Outpatient ISHA ARAGON MD [facility] WOUNDCARE [id number] 08/27/2017 09:41:00 08/27/2017 23:59:59 CLS Outpatient ISHA ARAGON MD [facility] RAD E11.621,L97.512 [id number] 08/27/2017 08:28:00 08/27/2017 23:59:59 CLS Outpatient ISHA ARAGON MD [facility] WOUNDCARE [id number] 08/04/2017 08:37:00 08/04/2017 23:59:59 CLS Outpatient ISHA ARAGON MD [facility] WOUNDCARE [id number] 07/28/2017 08:12:00 07/28/2017 23:59:59 CLS Outpatient ISHA ARAGON MD [facility] WOUNDCARE [id number] 07/21/2017 09:01:00 07/21/2017 23:59:59 CLS Outpatient ISHA ARAGON MD [facility] WOUNDCARE [id number] 07/14/2017 08:54:00 07/14/2017 23:59:59 CLS Outpatient ISHA ARAGON MD [facility] WOUNDCARE [id number] 07/12/2017 08:54:00 07/12/2017 23:59:59 CLS Outpatient ISHA ARAGON MD [facility] WOUNDCARE [id number] 07/01/2017 08:47:00 07/01/2017 23:59:59 CLS Outpatient ISHA ARAGON MD [facility] RAD E11.621 E11.42 L97.512 [id number] 06/30/2017 09:06:00 06/30/2017 23:59:59 CLS Outpatient ISHA ARAGON MD [facility] WOUNDCARE [id number] 05/28/2017 06:00:00 05/28/2017 11:45:00 DIS Outpatient MAN MCCLOUD DPM [facility] SDC OSTEOMYELITIS [id number] 05/24/2017 08:30:00 05/24/2017 23:59:59 CLS Outpatient ISHA ARAGON MD [facility] WOUNDCARE [id number] 05/24/2017 10:05:00 05/24/2017 10:40:00 DIS Outpatient MAN MCCLOUD DPM [facility] PREOP OSTEOMYELITIS [id number] 05/11/2017 12:06:00 05/11/2017 23:59:59 CLS Outpatient ISHA ARAGON MD [facility] WOUNDCARE [id number] 05/03/2017 08:22:00 05/03/2017 23:59:59 CLS Outpatient ISHA ARAGON MD [facility] WOUNDCARE [id number] 04/26/2017 08:39:00 04/26/2017 23:59:59 CLS Outpatient ISHA ARAGON MD [facility] WOUNDCARE [id number] 04/19/2017 08:29:00 04/19/2017 23:59:59 CLS Outpatient ISHA ARAGON MD [facility] WOUNDCARE [id number] 04/12/2017 10:51:00 04/12/2017 23:59:59 CLS Outpatient ISHA ARAGON MD [facility] RAD E11.621,E11.42,L97.512 [id number] 04/12/2017 08:22:00 04/12/2017 23:59:59 CLS Outpatient ISHA ARAGON MD [facility] WOUNDCARE [id number] 04/05/2017 14:03:00 04/05/2017 23:59:59 CLS Outpatient ISHA ARAGON MD [facility] WOUNDCARE [id number] 02/03/2017 12:35:00 02/03/2017 23:59:59 CLS Preadmit DANYEL CALDWELL MD [facility] RAD ELEVATED LFT'S [id number] 03/04/2015 08:03:00 03/04/2015 10:00:00 DIS Outpatient ISHA ARAGON MD [facility] WOUNDCARE [id number] 02/14/2015 23:42:00 02/15/2015 02:13:00 DIS Emergency CIARA LUCIANO MD [facility] ER VOMITING,FALL 3 WKS AGO-PAIN SMALL OF BACK [id number] 02/13/2015 09:09:00 02/13/2015 00:01:00 DIS Outpatient ISHA ARAGON MD [facility] WOUNDCARE [id number] 01/07/2015 08:04:00 01/20/2015 00:01:00 DIS Outpatient ISHA ARAGON MD [facility] WOUNDCARE [id number] 10/22/2014 11:15:00 10/22/2014 23:59:59 CLS Outpatient ISHA ARAGON MD [facility] RAD DIABETIC FOOT ULCER [id number] 08/31/2013 10:25:00 10/04/2013 13:56:00 DIS Outpatient DANYEL CALDWELL MD [facility] WOUNDCARE PRESSURE/EXPOSURE TO ACID ULCER [id number] 11/09/2018 10:42:00 Document Registration [id number] 12/31/2017 13:53:00 Document Registration [id number] 12/27/2017 06:05:00 Document Registration [id number] 12/22/2017 08:02:00 Document Registration [id number] 12/20/2017 09:17:00 Document Registration [id number] 12/19/2017 11:28:00 Document Registration
--- NOTE | 2018-11-09 12:12 | ED General ---
General Chief Complaint: Glucose Problems Nursing Triage Note: Pt arrived by EMS with chief complaint of hypoglycemia. Pt was seen in ER yesterday for hypoglycemia of BS 20. Aristides EMT-P stated that pt took diabetes medication last night without eating and pt was found foaming at the mouth this morning. EMS started 20 Gauge IV in right hand. Pt was given amp of D50 and thiamine. BS when they found her was 21 and 150 after given D50. Pt is alert and oriented. Vitals for EMS were 92 heart rate, normal sinus rhythm, and blood pressure 148/64. Pt blood sugar was taken here and was 111. Pt stated that she was hungry. She was given crackers and peanut butter to help with blood sugar and apple juice. Nursing Sepsis Screen: No Definite Risk History of Present Illness Date Seen by Provider: Nov 09, 2018 Time Seen by Provider: 12:10 Initial Comments Patient presenting to ED via EMS for evaluation of hypoglycemia as a last 2 mornings she has bottomed out. She admits that she has not been eating regular meals at night and she has some nausea when eating in the evening so she does not eat. She takes, chloride 4 mg twice a day despite her not eating well. She was quite altered and foaming at the mouth initially but after receiving dextrose IV by ems she returned to baseline mental status and is alert and oriented 3. She denies any complaints such as pain, soa, cough, rash, dysuria. She is in nad with normal VS. Allergies and Home Medications Allergies Coded Allergies: Penicillins (Verified Allergy, Unknown, 02/14/15) codeine (Verified Allergy, Unknown, 02/14/15) Home Medications Acetaminophen 500 Mg Tablet, 500 MG PO Q4H PRN for PAIN-MILD, (Reported) Amlodipine Besylate 5 Mg Tablet, 5 MG PO DAILY, (Reported) Aspirin 81 Mg Tablet.dr, 81 MG PO DAILY Prescribed by: ERNESTINA ALONSO on 05/07/18837 Atorvastatin Calcium 40 Mg Tablet, 40 MG PO HS Prescribed by: ERNESTINA ALONSO on 05/07/18837 Cephalexin 500 Mg Capsule, 500 MG PO QID Prescribed by: CORNELIO DENTON on 05/07/18 111 Clopidogrel Bisulfate 75 Mg Tablet, 75 MG PO DAILY Prescribed by: ERNESTINA ALONSO on 05/07/18837 Cyclobenzaprine HCl 10 Mg Tablet, 10 MG PO TID PRN for MUSCLE SPASMS, (Reported) Glimepiride 4 Mg Tablet, 4 MG PO BID, (Reported) Hydrocodone/Acetaminophen 1 Each Tablet, 1 TAB PO TID PRN for PAIN-MODERATE, (Reported) Patient Home Medication List Home Medication List Reviewed: Yes Review of Systems Review of Systems Constitutional: no symptoms reported EENTM: no symptoms reported Respiratory: no symptoms reported Cardiovascular: no symptoms reported Gastrointestinal: no symptoms reported Musculoskeletal: no symptoms reported Psychiatric/Neurological: No Symptoms Reported All Other Systems Reviewed Negative Unless Noted: Yes Past Ylkhabg-Bahssf-Hyhghu Hx Patient Social History Alcohol Use: Denies Use Recreational Drug Use: No Type Used: Cigarettes Former Smoker, Quit: Dec 23, 2017 Recent Foreign Travel: No Contact w/Someone Who Travel: No Recent Infectious Disease Expo: No Recent Hopitalizations: No Physical Abuse: No Sexual Abuse: No Mistreated: No Fear: No Immunizations Up To Date Tetanus Booster (TDap): Unknown PED Vaccines UTD: No Date of Pneumonia Vaccine: Feb 07, 2017 Date of Influenza Vaccine: May 05, 2018 Seasonal Allergies Seasonal Allergies: Yes Past Medical History Surgeries: Yes (c/s x3, lipoma removed from arm, R 2nd toe amputated) Adenoidectomy, Appendectomy, Section, Gallbladder, Hysterectomy, Tonsillectomy Respiratory: No Cardiac: No (rheumatic fever when 7yrs old) Hypertension, Rheumatic Fever Neurological: No Reproductive Disorders: No Sexually Transmitted Disease: No HIV/AIDS: No Gastrointestinal: No Musculoskeletal: Yes (osteomyelitis 2nd right) Endocrine: Yes Diabetes, Insulin dep HEENT: No Loss of Vision: Denies Hearing Impairment: Denies Cancer: Yes (on back) Skin Did You Recieve Any Treatments: Yes What Type of Treatment Did You: Surgical Intervention Psychosocial: No Integumentary: No Blood Disorders: No Adverse Reaction/Blood Tranf: No Family Medical History Congenital heart disease Diabetes mellitus 20 MOTHER No Pertinent Family Hx Physical Exam Vital Signs Vital Signs - First Documented 11/09/18 10:37 Temp 97.7 Pulse 85 Resp 20 B/P (MAP) 133/54 (80) Pulse Ox 94 O2 Delivery Room Air Capillary Refill : Less Than 3 Seconds Height, Weight, BMI Height: 5'5.50" Weight: 183lbs. 0oz. 83.135379rw; 29.7 BMI Method:Actual General Appearance: No Apparent Distress, Chronically ill HEENT: Pharynx Normal Neck: Supple Respiratory: No Respiratory Distress Cardiovascular: Regular Rate, Rhythm Gastrointestinal: Non Tender, Soft Back: Normal Inspection Neurologic/Psychiatric: Alert, Oriented x3 Skin: Normal Color, Warm/Dry Progress/Results/Core Measures Suspected Sepsis Recent Fever Within 48 Hours: No Infection Criteria Present: None New/Unexplained Altered Menta: No Sepsis Screen: No Definite Risk SIRS Temperature:97.7 Pulse: 85 Respiratory Rate: 20 Laboratory Tests 11/09/18 11:05: White Blood Count 3.4L Blood Pressure 133 /54 Mean: 80 Laboratory Tests 11/09/18 11:05: Creatinine 1.08, Platelet Count 80L, Total Bilirubin 2.7H Results/Orders Lab Results Laboratory Tests Test 11/09/18 10:35 11/09/18 10:37 11/09/18 11:05 11/09/18 11:40 Range/Units Glucometer 111 H 120 H 70-110 MG/DL Urine Color NOEMÍ H Urine Clarity CLOUDY H Urine pH 5.5 5-9 Urine Specific [place] 1.025 H 1.016-1.022 Urine Protein 2+ H NEGATIVE Urine Glucose (UA) TRACE H NEGATIVE Urine Ketones NEGATIVE NEGATIVE Urine Nitrite NEGATIVE NEGATIVE Urine Bilirubin 2+ H NEGATIVE Urine Urobilinogen 4.0 NORMAL MG/DL Urine Leukocyte Esterase NEGATIVE NEGATIVE Urine RBC (Auto) NEGATIVE NEGATIVE Urine RBC NONE /HPF Urine WBC 2-5 /HPF Urine Squamous Epithelial Cells 25-50 H /HPF Urine Crystals PRESENT H /LPF Urine Amorphous Sediment LARGE VALENTÍN URATES H /LPF Urine Bacteria NEGATIVE /HPF Urine Casts PRESENT /LPF Urine Hyaline Casts 0-2 H /LPF Urine Granular Casts 5-10 H /LPF Urine Mucus LARGE H /LPF Urine Culture Indicated NO White Blood Count 3.4 L 4.3-11.0 10^3/uL Red Blood Count 3.27 L 4.35-5.85 10^6/uL Hemoglobin 9.6 L 11.5-16.0 G/DL Hematocrit 31 L 35-52 % Mean Corpuscular Volume 93 80-99 FL Mean Corpuscular Hemoglobin 29 25-34 PG Mean Corpuscular Hemoglobin Concent 32 32-36 G/DL Red Cell Distribution Width 16.6 H 10.0-14.5 % Platelet Count 80 L 130-400 10^3/uL Mean Platelet Volume 11.8 H 7.4-10.4 FL Neutrophils (%) (Auto) 72 42-75 % Lymphocytes (%) (Auto) 21 12-44 % Monocytes (%) (Auto) 7 0-12 % Eosinophils (%) (Auto) 0 0-10 % Basophils (%) (Auto) 0 0-10 % Neutrophils # (Auto) 2.5 1.8-7.8 X 10^3 Lymphocytes # (Auto) 0.7 L 1.0-4.0 X 10^3 Monocytes # (Auto) 0.2 0.0-1.0 X 10^3 Eosinophils # (Auto) 0.0 0.0-0.3 10^3/uL Basophils # (Auto) 0.0 0.0-0.1 10^3/uL Neutrophils % (Manual) 52 % Lymphocytes % (Manual) 12 % Monocytes % (Manual) 9 % Band Neutrophils 22 % Atypical Lymphocytes 5 % Hypochromasia 2+ Sodium Level 131 L 135-145 MMOL/L Potassium Level 4.4 3.6-5.0 MMOL/L Chloride Level 96 L 98-107 MMOL/L Carbon Dioxide Level 22 21-32 MMOL/L Anion Gap 13 5-14 MMOL/L Blood Urea Nitrogen 24 H 7-18 MG/DL Creatinine 1.08 0.60-1.30 MG/DL Estimat Glomerular Filtration Rate 50 BUN/Creatinine Ratio 22 Glucose Level 109 H 70-105 MG/DL Calcium Level 8.5 8.5-10.1 MG/DL Corrected Calcium 9.5 8.5-10.1 MG/DL Total Bilirubin 2.7 H 0.1-1.0 MG/DL Aspartate Amino Transf (AST/SGOT) 154 H 5-34 U/L Alanine Aminotransferase (ALT/SGPT) 105 H 0-55 U/L Alkaline Phosphatase 684 H 40-136 U/L Total Protein 6.1 L 6.4-8.2 GM/DL Albumin 2.7 L 3.2-4.5 GM/DL My Orders Orders - CALEB BOWLES DO Comprehensive Metabolic Panel (11/09/18 10:47) Ua Culture If Indicated (11/09/18 10:47) Cbc With Automated Diff (11/09/18 10:47) Manual Differential (11/09/18 11:05) Vital Signs/I&O 11/09/18 10:37 Temp 97.7 Pulse 85 Resp 20 B/P (MAP) 133/54 (80) Pulse Ox 94 O2 Delivery Room Air Capillary Refill : Less Than 3 Seconds Blood Pressure Mean: 80 Point of Care Testing Finger Stick Blood Glucose: 111 Progress Note : Progress Note Patient was given food to eat here and her blood sugar stabilized. I suspect that her E she was that she is not eating in the evenings and still taking the glimepiride and then her blood sugars bottoming out overnight. I told her to stop taking the night dose of glipizide and she needs to eat more regular meals and to track her blood sugars at least 2-3 times daily and dropped them down so that she can follow-up with primary care provider and get further recommendations. I told her if she is still having hypoglycemic episodes she needs to stop the glimepiride completely. The blood work came back quite abnormal and she has new onset pancytopenia and liver failure. I told patient that the differential diagnosis is quite wide including liver toxicity infection but that she likely has cancer. She seemed somewhat upset with this but at the same time I think she knows that something is not right and she does not want to know exactly what is going on. Her friends that are present with her were present for this conversation. I strongly advised patient that she be transferred to another facility where further imaging and specialty consultation could be made so an exact diagnosis could be made. She verbalized understanding of this recommendation and that she likely does have cancer but she refused any further testing treatment for transfer. She says she takes one Tylenol a day and I advised her to stop that. I told her that further medication adjustments may need to be made but this would have to be done in consultation with primary care provider and further specialist. Patient adamantly refused transfer and said that she wanted to leave immediately. I told her that she is always welcome back here as we would be able to facilitate a transfer where she could drive to a facility herself such as [facility] and they may be able to help her out more than we can here. Patient aware and agreeable with plan for discharge and verbalized understanding of my recommendations and accepted the risks of and disability by not following my recommendations. Patient discharged in stable condition and walked out of the emergency department under her own power. She is A+Ox3 and can make her own medical decisions. Departure Impression Primary Impression: Hypoglycemia Additional Impressions: Liver failure Pancytopenia Disposition: 01 HOME, SELF-CARE Condition: Stable Departure-Patient Inst. Referrals: DANYEL CALDWELL MD (PCP/Family) Primary Care Physician Patient Instructions: Low Blood Sugar in People With Diabetes Add. Discharge Instructions: All discharge instructions reviewed with patient and/or family. Voiced understanding. Take the glimiperide only in the mornings. Track your blood sugar at least twice daily. Eat regular meals. Come back with any concerns. CALEB BOWLES DO Nov 09, 2018 12:12
[2018-11-09 12:20] VITALS: BP 117/53
== END 2018-11-09 12:17 | disposition home or self-care (01) ==
LOC: EDUNIT# 10:26 → ER FS 10:27
DX: E11.649 Type 2 diabetes mellitus with hypoglycemia without coma (principal); K72.90 Hepatic failure, unspecified without coma; D61.818 Other pancytopenia; E11.69 Type 2 diabetes mellitus with other specified complication; M86.9 Osteomyelitis, unspecified; I10 Essential (primary) hypertension; Z85.828 Personal history of other malignant neoplasm of skin; Z90.49 Acquired absence of other specified parts of digestive tract; Z90.710 Acquired absence of both cervix and uterus; Z90.89 Acquired absence of other organs; Z87.891 Personal history of nicotine dependence; Z88.0 Allergy status to penicillin; Z88.5 Allergy status to narcotic agent; Z79.82 Long term (current) use of aspirin; Z79.02 Long term (current) use of antithrombotics/antiplatelets; Z89.421 Acquired absence of other right toe(s)
CPT/HCPCS: 36415; 80053; 81000; 82962; 85007; 85027

== ENCOUNTER 2018-11-10 19:25 | Inpatient (IN) | payer MEDICARE, MEDICAID ==
[~2018-11-10] VITALS: Ht 165.1 cm; Wt 90.9 kg
--- OUTSIDE RECORDS SUMMARY | 2018-11-10 19:34 | XMS REPORT | Continuity of Care Document ---
Author Organization Unknown Address Unknown Allergies Active Description Code Type Severity Reaction Onset Reported/Identified Relationship to Patient Clinical Status Yes codeine [id number] Drug Allergy Unknown N/A 02/14/2015 Yes Penicillins [id number] Drug Allergy Unknown N/A 02/14/2015 Medications There [...] TYPE II OR UNSPEC 01/20/2015 MAHESH MCCULLOUGH, IHSA Sena Ot 250.80 DIAB W OTH SPEC [...] ENCOUNTER 02/15/2015 CIARA LUCIANO MD Ot Z79.4 SKILLED NURSING (CURRENT) USE OF INSULIN 02/15/2015 ISHA ARAGON [...] 04/18/2017 ISHA ARAGON MD, Ot I70.235 A[facility] [place] ARTERIES OF RIGHT LEG W UL 04/18/2017 [...] 04/25/2017 ISHA ARAGON MD, Ot I70.235 A[facility] [place] ARTERIES OF RIGHT LEG W UL 04/25/2017 [...] 04/29/2017 ISHA ARAGON MD Ot I70.235 [facility] [place] ARTERIES OF RIGHT LEG W UL 04/29/2017 ISHA ARAGON MD, Ot L03.115 CELLULITIS OF RIGHT LOWER LIMB 04/29/2017 ISHA ARAGON MD, Ot L97.512 NON-PRS CHRONIC ULCER OTH PRT RIGHT FOOT 05/07/2017 ISHA ARAGON MD, Ot E11.42 TYPE 2 DIABETES MELLITUS WITH DIABETIC P 05/07/2017 ISHA ARAGON MD, Ot E11.621 TYPE 2 DIABETES MELLITUS WITH FOOT ULCER 05/07/2017 ISHA ARAGON MD, Ot I70.235 A[facility]CL [place] ARTERIES OF RIGHT LEG W UL 05/07/2017 ISHA ARAGON MD, Ot L03.115 CELLULITIS OF RIGHT LOWER LIMB 05/07/2017 ISHA ARAGON MD, Ot L97.512 NON-PRS CHRONIC ULCER OTH PRT RIGHT FOOT 05/07/2017 ISAH ARAGON MD, Ot M19.071 PRIMARY OSTEOARTHRITIS, RIGHT ANKLE AND 05/07/2017 ISHA ARAGON MD, Ot T65.222D TOXIC EFFECT OF TOBACCO CIGARETTES, SELF 05/09/2017 ISHA ARAGON MD, Ot E11.42 TYPE 2 DIABETES MELLITUS WITH DIABETIC P 05/09/2017 ISHA ARAGON MD, Ot E11.621 TYPE 2 DIABETES MELLITUS WITH FOOT ULCER 05/09/2017 ISHA ARAGON MD, Ot I70.235 A[facility]CL [place] ARTERIES OF RIGHT LEG W UL 05/09/2017 [...] 05/11/2017 ISHA ARAGON MD Ot I70.235 [facility] [place] ARTERIES OF RIGHT LEG W UL 05/11/2017 ISHA ARAGON MD Ot L03.115 CELLULITIS OF RIGHT LOWER LIMB 05/11/2017 ISHA ARAGON MD, Ot L97.512 NON-PRS CHRONIC ULCER OTH PRT RIGHT FOOT 05/12/2017 ISHA ARAGON MD, Ot E11.42 TYPE 2 DIABETES MELLITUS WITH DIABETIC P 05/12/2017 ISHA ARAGON MD, Ot E11.621 TYPE 2 DIABETES MELLITUS WITH FOOT ULCER 05/12/2017 ISHA ARAGON MD, Ot I70.235 A[facility]CL [place] ARTERIES OF RIGHT LEG W UL 05/12/2017 [...] 05/14/2017 ISHA ARAGON MD, Ot I70.235 A[facility] [place] ARTERIES OF RIGHT LEG W UL 05/14/2017 [...] 05/17/2017 ISHA ARAGON MD, Ot I70.235 A[facility] [place] ARTERIES OF RIGHT LEG W UL 05/17/2017 [...] ENCOUNTER FOR OTHER PREPROCEDURAL EXAMIN 05/24/2017 ROGERS APLPE, MAN P Ot Z11.2 ENCOUNTER FOR SCREENING [...] 05/24/2017 ISHA ARAGON MD, Ot I70.235 A[facility] [place] ARTERIES OF RIGHT LEG W UL 05/24/2017 ISHA ARAGON MD, Ot L03.115 CELLULITIS OF RIGHT LOWER LIMB 05/24/2017 ISHA ARAGON MD, Ot L97.512 NON-PRS CHRONIC ULCER OTH PRT RIGHT FOOT 05/24/2017 ISHA ARAGON MD, Ot E11.42 TYPE 2 DIABETES MELLITUS WITH DIABETIC P 05/24/2017 ISHA ARAGON MD, Ot E11.621 TYPE 2 DIABETES MELLITUS WITH FOOT ULCER 05/24/2017 ISHA ARAGON MD, Ot I70.235 A[facility]CL [place] ARTERIES OF RIGHT LEG W UL 05/24/2017 [...] 05/24/2017 ISHA ARAGON MD, Ot I70.235 A[facility] [place] ARTERIES OF RIGHT LEG W UL 05/24/2017 [...] 05/24/2017 ISHA ARAGON MD, Ot I70.235 A[facility] [place] ARTERIES OF RIGHT LEG W UL 05/24/2017 [...] 05/24/2017 ISHA ARAGON MD, Ot I70.235 A[facility] [place] ARTERIES OF RIGHT LEG W UL 05/24/2017 [...] 05/24/2017 ISHA ARAGON MD, Ot I70.235 A[facility] [place] ARTERIES OF RIGHT LEG W UL 05/24/2017 [...] 05/24/2017 ISHA ARAGON MD, Ot I70.235 A[facility] [place] ARTERIES OF RIGHT LEG W UL 05/24/2017 [...] 05/24/2017 ISHA ARAGON MD, Ot I70.235 A[facility] [place] ARTERIES OF RIGHT LEG W UL 05/24/2017 [...] 05/27/2017 ISHA ARAGON MD, Ot I70.235 [facility] [place] ARTERIES OF RIGHT LEG W UL 05/27/2017 [...] UNSPECIFIED 05/28/2017 MAN MCCLOUD DPM Ot Z79.82 IMAGING AIDE (CURRENT) USE OF ASPIRIN 05/28/2017 MAN MCCLOUD DPM Ot Z79.84 IMAGING AIDE (CURRENT) USE OF ORAL HYPOGLYC 05/28/2017 MAN MCCLOUD DPM Ot Z79.899 OTHER SKILLED NURSING (CURRENT) DRUG THERAPY 05/28/2017 ISHA ARAGON MD, Ot E11.42 TYPE 2 DIABETES MELLITUS WITH DIABETIC P 05/28/2017 ISHA ARAGON MD, Ot E11.621 TYPE 2 DIABETES MELLITUS WITH FOOT ULCER 05/28/2017 ISHA ARAGON MD, Ot I70.235 A[facility]CL [place] ARTERIES OF RIGHT LEG W UL 05/28/2017 [...] 05/28/2017 ISHA ARAGON MD, Ot I70.235 A[facility] [place] ARTERIES OF RIGHT LEG W UL 05/28/2017 [...] UNSPECIFIED 06/01/2017 MAN MCCLOUD DPM Ot Z79.82 SKILLED NURSING (CURRENT) USE OF ASPIRIN 06/01/2017 MAN MCCLOUD DPM Ot Z79.84 SKILLED NURSING (CURRENT) USE OF ORAL HYPOGLYC 06/01/2017 MAN MCCLOUD DPM Ot Z79.899 OTHER IMAGING AIDE (CURRENT) DRUG THERAPY 06/03/2017 MAN MCCLOUD DPM [...] 06/03/2017 ROGERS APPLE, MAN Fischer Ot Z79.82 SKILLED NURSING (CURRENT) USE OF ASPIRIN 06/03/2017 MAN MCCLOUD DPM Ot Z79.84 IMAGING AIDE (CURRENT) USE OF ORAL HYPOGLYC 06/03/2017 MAN MCCLOUD DPM Ot Z79.899 OTHER IMAGING AIDE (CURRENT) DRUG THERAPY 06/03/2017 ISHA ARAGON MD, Ot E11.42 TYPE 2 DIABETES MELLITUS WITH DIABETIC P 06/03/2017 ISHA ARAGON MD, Ot E11.621 TYPE 2 DIABETES MELLITUS WITH FOOT ULCER 06/03/2017 ISHA ARAGON MD, Ot I70.235 ATH[facility]CL [place] ARTERIES OF RIGHT LEG W UL 06/03/2017 [...] 06/04/2017 ISHA ARAGON MD, Ot I70.235 ATH[facility] [place] ARTERIES OF RIGHT LEG W UL 06/04/2017 [...] 06/04/2017 ISHA ARAGON MD, Ot I70.235 A[facility] [place] ARTERIES OF RIGHT LEG W UL 06/04/2017 [...] 06/04/2017 ISHA ARAGON MD, Ot I70.235 A[facility] [place] ARTERIES OF RIGHT LEG W UL 06/04/2017 [...] 06/14/2017 ISHA ARAGON MD, Ot I70.235 A[facility] [place] ARTERIES OF RIGHT LEG W UL 06/14/2017 [...] 06/23/2017 ISHA ARAGON MD, Ot I70.235 A[facility] [place] ARTERIES OF RIGHT LEG W UL 06/23/2017 [...] 2 DIABETES MELLITUS WITH FOOT ULCER 07/20/2017 IHSA ARAGON MD Ot L97.512 NON-PRS CHRONIC ULCER [...] CHRONIC ULCER OTH PRT RIGHT FOOT 08/13/2017 SIHA ARAGON MD Ot E11.42 TYPE 2 DIABETES [...] 08/26/2017 ISHA ARAGON MD, Ot I70.235 A[facility]CL [place] ARTERIES OF RIGHT LEG W UL 08/26/2017 ISHA ARAGON MD, Ot L03.115 CELLULITIS OF RIGHT LOWER LIMB 08/26/2017 ISHA ARAGON MD, Ot L97.512 NON-PRS CHRONIC ULCER OTH PRT RIGHT FOOT 08/26/2017 ISHA ARAGON MD, Ot E11.42 TYPE 2 DIABETES MELLITUS WITH DIABETIC P 08/26/2017 ISHA ARAGON MD, Ot E11.621 TYPE 2 DIABETES MELLITUS WITH FOOT ULCER 08/26/2017 ISHA ARAGON MD, Ot I70.235 ATH[facility]CL [place] ARTERIES OF RIGHT LEG W UL 08/26/2017 [...] 08/26/2017 ISHA ARAGON MD, Ot I70.235 ATH[facility]CL [place] ARTERIES OF RIGHT LEG W UL 08/26/2017 [...] 08/26/2017 ISHA ARAGON MD, Ot I70.235 ATH[facility]CL [place] ARTERIES OF RIGHT LEG W UL 08/26/2017 [...] 08/26/2017 ISHA ARAGON MD, Ot I70.235 ATH[facility]CL [place] ARTERIES OF RIGHT LEG W UL 08/26/2017 [...] 08/26/2017 ISHA ARAGON MD, Ot I70.235 ATH[facility]CL [place] ARTERIES OF RIGHT LEG W UL 08/26/2017 [...] 08/26/2017 ISHA ARAGON MD, Ot I70.235 A[facility] [place] ARTERIES OF RIGHT LEG W UL 08/26/2017 [...] 08/26/2017 ISHA ARAGON MD, Ot I70.235 A[facility] [place] [facility]ERIES OF RIGHT LEG W UL 08/26/2017 [...] 08/27/2017 ISHA ARAGON MD Ot I70.235 A[facility] [place] ARTERIES OF RIGHT LEG W UL 08/27/2017 ISHA ARAGON MD Ot L03.115 CELLULITIS OF RIGHT LOWER LIMB 08/27/2017 ISHA ARAGON MD, Ot L97.512 NON-PRS CHRONIC ULCER OTH PRT RIGHT FOOT 08/27/2017 ISHA ARAGON MD, Ot E11.42 TYPE 2 DIABETES MELLITUS WITH DIABETIC P 08/27/2017 ISHA ARAGON MD, Ot E11.621 TYPE 2 DIABETES MELLITUS WITH FOOT ULCER 08/27/2017 ISHA ARAGON MD, Ot I70.235 ATH[facility]CL [place] ARTERIES OF RIGHT LEG W UL 08/27/2017 [...] 08/27/2017 ISHA ARAGON MD, Ot I70.235 A[facility] [place] ARTERIES OF RIGHT LEG W UL 08/27/2017 [...] 08/27/2017 ISHA ARAGON MD, Ot I70.235 A[facility] [place] ARTERIES OF RIGHT LEG W UL 08/27/2017 [...] 08/27/2017 ISHA ARAGON MD, Ot I70.235 A[facility] [place] ARTERIES OF RIGHT LEG W UL 08/27/2017 [...] 08/27/2017 ISHA ARAGON MD, Ot I70.235 A[facility] [place] ARTERIES OF RIGHT LEG W UL 08/27/2017 [...] 08/27/2017 ISHA ARAGON MD, Ot I70.235 ATH[facility] [place] ARTERIES OF RIGHT LEG W UL 08/27/2017 [...] 08/27/2017 ISHA ARAGON MD, Ot I70.235 A[facility] [place] ARTERIES OF RIGHT LEG W UL 08/27/2017 [...] MANIFEST, TYPE II OR UNS 08/27/2017 ISHA ARAOGN MD Ot 707.15 ULCER OF OTHER PART OF FOOT 08/27/2017 ISHA ARAGON MD Ot E11.42 TYPE 2 DIABETES MELLITUS WITH DIABETIC P 08/27/2017 ISHA ARAGON MD Ot E11.621 TYPE 2 DIABETES MELLITUS WITH FOOT ULCER 08/27/2017 ISHA ARAGON MD Ot F17.210 NICOTINE DEPENDENCE, CIGARETTES, UNCOMPL 08/27/2017 ISHA ARAGON MD Ot I70.235 A[facility]CL [place] ARTERIES OF RIGHT LEG W UL 08/27/2017 ISHA ARAGON MD Ot L03.115 CELLULITIS OF RIGHT LOWER LIMB 08/27/2017 ISHA ARAGON MD Ot L97.512 NON-PRS CHRONIC ULCER OTH PRT RIGHT FOOT 08/27/2017 ISHA ARAGON MD, Ot E11.42 TYPE 2 DIABETES MELLITUS WITH DIABETIC P 08/27/2017 ISHA ARAGON MD, Ot E11.621 TYPE 2 DIABETES MELLITUS WITH FOOT ULCER 08/27/2017 ISHA ARAGON MD, Ot I70.235 ATH[facility]CL [place] ARTERIES OF RIGHT LEG W UL 08/27/2017 [...] 08/27/2017 ISHA ARAGON MD, Ot I70.235 ATH[facility]CL [place] ARTERIES OF RIGHT LEG W UL 08/27/2017 [...] 08/27/2017 ISHA ARAGON MD, Ot I70.235 A[facility]CL [place] ARTERIES OF RIGHT LEG W UL 08/27/2017 [...] MAHESH MD, ISHA G Ot I70.235 A[facility] [place] ARTERIES OF RIGHT LEG W UL 08/27/2017 [...] 08/27/2017 ISHA ARAGON MD, Ot I70.235 A[facility]CL [place] ARTERIES OF RIGHT LEG W UL 08/27/2017 [...] 08/27/2017 ISHA ARAGON MD, Ot I70.235 A[facility]CL [place] ARTERIES OF RIGHT LEG W UL 08/27/2017 [...] 08/27/2017 ISHA ARAGON MD, Ot I70.235 A[facility] [place] ARTERIES OF RIGHT LEG W UL 08/27/2017 [...] 09/01/2017 ISHA ARAGON MD Ot I70.235 A[facility] [place] ARTERIES OF RIGHT LEG W UL 09/01/2017 ISHA ARAGON MD Ot L03.115 CELLULITIS OF RIGHT LOWER LIMB 09/01/2017 ISHA ARAGON MD, Ot L97.512 NON-PRS CHRONIC ULCER OTH PRT RIGHT FOOT 09/01/2017 ISHA ARAGON MD, Ot E11.42 TYPE 2 DIABETES MELLITUS WITH DIABETIC P 09/01/2017 ISHA ARAGON MD, Ot E11.621 TYPE 2 DIABETES MELLITUS WITH FOOT ULCER 09/01/2017 ISHA ARAGON MD Ot I70.235 A[facility]CL [place] [facility]ER[facility] OF RIGHT LEG W UL 09/01/2017 [...] 09/01/2017 ISHA ARAGON MD, Ot I70.235 A[facility] [place] ARTERIES OF RIGHT LEG W UL 09/01/2017 [...] 09/01/2017 ISHA ARAGON MD, Ot I70.235 A[facility] [place] ARTERIES OF RIGHT LEG W UL 09/01/2017 ISHA ARAOGN MD, Ot L97.512 NON-PRS CHRONIC ULCER OTH PRT RIGHT FOOT 09/01/2017 ISHA ARAGON MD, Ot T65.222D TOXIC EFFECT OF TOBACCO CIGARETTES, SELF 09/01/2017 ISHA ARAGON MD, Ot E11.42 TYPE 2 DIABETES MELLITUS WITH DIABETIC P 09/01/2017 ISHA ARAGON MD, Ot E11.621 TYPE 2 DIABETES MELLITUS WITH FOOT ULCER 09/01/2017 ISHA ARAGON MD, Ot I70.235 A[facility]CL [place] [facility]ERIES OF RIGHT LEG W UL 09/01/2017 [...] 09/01/2017 ISHA ARAGON MD, Ot I70.235 ATH[facility]CL [place] ARTERIES OF RIGHT LEG W UL 09/01/2017 [...] 09/01/2017 ISHA ARAGON MD, Ot I70.235 ATH[facility]CL [place] ARTERIES OF RIGHT LEG W UL 09/01/2017 [...] 09/01/2017 ISHA ARAGON MD, Ot I70.235 A[facility] [place] ARTERIES OF RIGHT LEG W UL 09/01/2017 [...] PRT RIGHT FOOT 09/09/2017 LUIS FELIPE FERRARI PUMP TESTER Ot E11.42 TYPE 2 DIABETES MELLITUS WITH DIABETIC P 09/09/2017 LUIS FELIPE FERRARI PUMP TESTER Ot E11.621 TYPE 2 DIABETES MELLITUS WITH FOOT ULCER 09/09/2017 LUIS FELIPE FERRARI PUMP TESTER Ot L97.512 NON-PRS CHRONIC ULCER OTH PRT RIGHT FOOT 09/09/2017 ISHA ARAGON MD Ot E11.42 TYPE 2 DIABETES MELLITUS WITH DIABETIC P 09/09/2017 ISHA ARAGON MD, Ot E11.621 TYPE 2 DIABETES MELLITUS WITH FOOT ULCER 09/09/2017 ISHA ARAGON MD Ot L97.512 NON-PRS CHRONIC ULCER OTH PRT RIGHT FOOT 09/10/2017 LUIS FELIPE FERRARI PUMP TESTER Ot E11.42 TYPE 2 DIABETES MELLITUS WITH DIABETIC P 09/10/2017 LUIS FELIPE FERRARI PUMP TESTER Ot E11.621 TYPE 2 DIABETES MELLITUS WITH FOOT ULCER 09/10/2017 LUIS FELIPE FERRARI PUMP TESTER Ot L97.512 NON-PRS CHRONIC ULCER OTH PRT RIGHT FOOT 09/17/2017 SIHA ARAGON MD, Ot E11.42 TYPE 2 [...] TOBACCO CIGARETTES, SELF 09/28/2017 LUIS FELIPE FERRARI PUMP TESTER Ot E11.42 TYPE 2 DIABETES MELLITUS WITH [...] TOBACCO CIGARETTES, SELF 10/08/2017 LUIS FELIPE FERRARI PUMP TESTER Ot E11.42 TYPE 2 DIABETES MELLITUS WITH DIABETIC P 10/08/2017 LUIS FELIPE FERRARI PUMP TESTER Ot E11.621 TYPE 2 DIABETES MELLITUS WITH FOOT ULCER 10/08/2017 LUIS FELIPE FERRARI PUMP TESTER Ot L97.512 NON-PRS CHRONIC ULCER OTH PRT [...] DIABETES MELLITUS WITH FOOT ULCER 10/19/2017 ISHA ARGAON MD, Ot L97.512 NON-PRS CHRONIC [...] 2 DIABETES MELLITUS WITH DIABETIC P 10/20/2017 IHSA ARAGON MD, Ot E11.621 TYPE 2 DIABETES [...] 10/25/2017 ISHA ARAGON MD, Ot I70.235 ATH[facility]CL [place] ARTERIES OF RIGHT LEG W UL 10/25/2017 ISHA ARAGON MD, Ot L97.512 NON-PRS CHRONIC ULCER OTH PRT RIGHT FOOT 10/25/2017 ISHA ARAGON MD, Ot T65.222D TOXIC EFFECT OF TOBACCO CIGARETTES, SELF 10/27/2017 ISHA ARAGON MD, Ot E11.42 TYPE 2 [...] 10/28/2017 ISHA ARAGON MD, Ot I70.235 ATHSCL [place] ARTERIES OF RIGHT LEG W UL 10/28/2017 [...] 11/04/2017 ISHA ARAGON MD, Ot I70.235 ATH[facility]CL [place] ARTERIES OF RIGHT LEG W UL 11/04/2017 [...] 11/10/2017 ISHA ARAGON MD, Ot I70.235 ATH[facility]CL [place] ARTERIES OF RIGHT LEG W UL 11/10/2017 [...] 11/12/2017 ISHA ARAGON MD, Ot I70.235 ATH[facility]CL [place] ARTERIES OF RIGHT LEG W UL 11/12/2017 [...] 11/15/2017 ISHA ARAGON MD, Ot I70.235 ATH[facility]CL [place] ARTERIES OF RIGHT LEG W UL 11/15/2017 [...] 11/15/2017 ISHA ARAGON MD, Ot I70.235 ATH[facility]CL [place] ARTERIES OF RIGHT LEG W UL 11/15/2017 ISHA ARAGON MD, Ot L97.512 NON-PRS CHRONIC ULCER OTH PRT RIGHT FOOT 11/15/2017 ISHA ARAGON MD, Ot T65.222D TOXIC EFFECT OF TOBACCO CIGARETTES, SELF 11/17/2017 MAHESH MD, ISHA G Ot E11.42 TYPE 2 DIABETES MELLITUS WITH DIABETIC P 11/17/2017 ISHA ARAGON MD, Ot E11.621 TYPE 2 DIABETES MELLITUS WITH FOOT ULCER 11/17/2017 ISHA ARAGNO MD, Ot I70.235 ATH[facility]CL [place] [facility]ERIES OF RIGHT LEG W UL 11/17/2017 [...] 11/18/2017 ISHA ARAGON MD, Ot I70.235 ATH[facility]CL [place] ARTERIES OF RIGHT LEG W UL 11/18/2017 [...] 11/19/2017 ISHA ARAGON MD, Ot I70.235 ATH[facility]CL [place] ARTERIES OF RIGHT LEG W UL 11/19/2017 ISHA ARAGON MD, Ot L97.512 NON-PRS CHRONIC ULCER OTH PRT RIGHT FOOT 11/19/2017 ISHA ARAGON MD, Ot T65.222D TOXIC EFFECT OF TOBACCO CIGARETTES, SELF 11/19/2017 LUIS FELIPE FERRARI PUMP TESTER Ot E11.42 TYPE 2 DIABETES MELLITUS WITH DIABETIC P 11/19/2017 LUIS FELIPE FERRARI APRN Ot E11.621 TYPE 2 DIABETES MELLITUS WITH FOOT ULCER 11/19/2017 LUIS FELIPE FERRARI APRN Ot I70.235 ATH[facility]CL [place] ARTERIES OF RIGHT LEG W UL 11/19/2017 [...] LUIS FELIPE FERRARI APRN Ot I70.235 ATH[facility]CL [place] ARTERIES OF RIGHT LEG W UL 11/24/2017 [...] 11/26/2017 ISHA ARAGON MD, Ot I70.235 ATH[facility]CL [place] ARTERIES OF RIGHT LEG W UL 11/26/2017 [...] 11/26/2017 ISHA ARAGON MD, Ot I70.235 ATH[facility]CL [place] ARTERIES OF RIGHT LEG W UL 11/26/2017 [...] 11/29/2017 ISHA ARAGON MD, Ot I70.235 ATH[facility]CL [place] ARTERIES OF RIGHT LEG W UL 11/29/2017 [...] 12/02/2017 ISHA ARAGON MD, Ot I70.235 ATH[facility]CL [place] ARTERIES OF RIGHT LEG W UL 12/02/2017 [...] 12/02/2017 ISHA ARAGON MD, Ot I70.235 ATH[facility]CL [place] ARTERIES OF RIGHT LEG W UL 12/02/2017 [...] LUIS FELIPE FERRARI APRN Ot I70.235 A[facility] [place] ARTERIES OF RIGHT LEG W UL 12/08/2017 [...] 12/10/2017 ISHA ARAGON MD Ot I70.235 ATH[facility]CL [place] ARTERIES OF RIGHT LEG W UL 12/10/2017 [...] LUIS FELIPE FERRARI APRN Ot I70.235 A[facility] [place] ARTERIES OF RIGHT LEG W UL 12/14/2017 [...] 12/14/2017 ISHA ARAGON MD Ot I70.235 A[facility] [place] ARTERIES OF RIGHT LEG W UL 12/14/2017 [...] Ot M86.9 OSTEOMYELITIS, UNSPECIFIED 12/29/2017 Ot Z79.4 SKILLED NURSING (CURRENT) USE OF INSULIN 12/31/2017 ISHA ARAGON MD, Ot E11.42 TYPE 2 DIABETES MELLITUS WITH DIABETIC P 12/31/2017 ISHA ARAGON MD, Ot E11.621 TYPE 2 DIABETES MELLITUS WITH FOOT ULCER 12/31/2017 ISHA ARAGON MD, Ot I70.235 ATH[facility]CL [place] ARTERIES OF RIGHT LEG W UL 12/31/2017 [...] 12/31/2017 ISHA ARAGON MD, Ot I70.235 A[facility]CL [place] ARTERIES OF RIGHT LEG W UL 12/31/2017 ISHA ARAGON MD, Ot L97.512 NON-PRS CHRONIC ULCER OTH PRT RIGHT FOOT 12/31/2017 ISHA ARAGON MD, Ot T65.222D TOXIC EFFECT OF TOBACCO CIGARETTES, SELF 01/04/2018 ISHA ARAGON MD, Ot E11.42 TYPE 2 DIABETES MELLITUS WITH DIABETIC P 01/04/2018 ISHA ARAOGN MD, Ot E11.621 TYPE 2 DIABETES MELLITUS WITH FOOT ULCER 01/04/2018 ISHA ARAGON MD, Ot L97.512 NON-PRS CHRONIC ULCER OTH PRT RIGHT FOOT 01/06/2018 ISHA ARAGON MD, Ot E11.42 TYPE 2 DIABETES MELLITUS WITH DIABETIC P 01/06/2018 ISHA ARAGON MD, Ot E11.621 TYPE 2 DIABETES MELLITUS WITH FOOT ULCER 01/06/2018 ISHA ARAGON MD, Ot I70.235 ATH[facility]CL [place] ARTERIES OF RIGHT LEG W UL 01/06/2018 ISHA ARAGON MD Ot L97.512 NON-PRS CHRONIC ULCER OTH PRT RIGHT FOOT 01/06/2018 ISHA ARAGNO MD Ot T65.222D TOXIC EFFECT OF TOBACCO CIGARETTES, SELF 01/06/2018 Ot E11.42 TYPE 2 DIABETES MELLITUS WITH DIABETIC P 01/06/2018 Ot E11.621 TYPE 2 DIABETES MELLITUS WITH FOOT ULCER 01/06/2018 Ot I70.235 ATH[facility]CL [place] ARTERIES OF RIGHT LEG W UL 01/06/2018 Ot L97.514 NON-PRS CHRONIC ULCER OTH PRT RIGHT FOOT 01/06/2018 Ot T65.222D TOXIC EFFECT OF TOBACCO CIGARETTES, SELF 01/11/2018 Ot E11.42 TYPE 2 DIABETES MELLITUS WITH DIABETIC P 01/11/2018 Ot E11.621 TYPE 2 DIABETES MELLITUS WITH FOOT ULCER 01/11/2018 Ot I70.235 ATH[facility]CL [place] ARTERIES OF RIGHT LEG W UL 01/11/2018 [...] WITH FOOT ULCER 01/11/2018 Ot I70.235 ATHSCL [place] ARTERIES OF RIGHT LEG W UL 01/11/2018 [...] WITH FOOT ULCER 01/14/2018 Ot I70.235 ATH[facility]CL [place] ARTERIES OF RIGHT LEG W UL 01/14/2018 Ot L97.514 NON-PRS CHRONIC ULCER OTH PRT RIGHT FOOT 01/14/2018 Ot T65.222D TOXIC EFFECT OF TOBACCO CIGARETTES, SELF 01/24/2018 Ot E11.69 TYPE 2 DIABETES MELLITUS WITH OTHER SPEC 01/24/2018 Ot F17.210 NICOTINE DEPENDENCE, CIGARETTES, UNCOMPL 01/24/2018 Ot M67.01 SHORT ACHILLES TENDON (ACQUIRED), RIGHT 01/24/2018 Ot M86.9 OSTEOMYELITIS, UNSPECIFIED 01/24/2018 Ot Z79.4 SKILLED NURSING (CURRENT) USE OF INSULIN 01/26/2018 Ot E11.69 TYPE 2 DIABETES MELLITUS WITH OTHER SPEC 01/26/2018 Ot F17.210 NICOTINE DEPENDENCE, CIGARETTES, UNCOMPL 01/26/2018 Ot M67.01 SHORT ACHILLES TENDON (ACQUIRED), RIGHT 01/26/2018 Ot M86.9 OSTEOMYELITIS, UNSPECIFIED 01/26/2018 Ot Z79.4 IMAGING AIDE (CURRENT) USE OF INSULIN 03/08/2018 ISHA ARAGON [...] 03/31/2018 GRAY DO TANO D Ot Z79.84 SKILLED NURSING (CURRENT) USE OF ORAL HYPOGLYC 03/31/2018 GRAY MICHELL MARTINEZTT D Ot Z79.899 OTHER SKILLED NURSING (CURRENT) DRUG THERAPY 04/11/2018 GRAY TANO D Ot 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 04/11/2018 GRAY DO, TANO D Ot E11.9 TYPE 2 DIABETES MELLITUS WITHOUT COMPLIC 04/11/2018 GRAY DOTANO D Ot F17.210 NICOTINE DEPENDENCE, CIGARETTES, UNCOMPL 04/11/2018 TANO GRAY DO D Ot I10 ESSENTIAL (PRIMARY) HYPERTENSION 04/11/2018 GRAY TANO D Ot Z79.84 IMAGING AIDE (CURRENT) USE OF ORAL HYPOGLYC 04/11/2018 GRAY TANO D Ot Z79.899 OTHER SKILLED NURSING (CURRENT) DRUG THERAPY 05/05/2018 ISHA ARAGON MD Ot 250.80 DIAB W OTH SPEC MANIFEST, TYPE II OR UNS 05/05/2018 ISHA ARAGON MD Ot 707.15 ULCER OF OTHER PART OF FOOT 05/05/2018 ISHA ARAGON MD, Ot E11.42 TYPE 2 DIABETES MELLITUS WITH DIABETIC P 05/05/2018 ISHA ARAGON MD, Ot E11.621 TYPE 2 DIABETES MELLITUS WITH FOOT ULCER 05/05/2018 ISHA ARAGON MD Ot F17.210 NICOTINE DEPENDENCE, CIGARETTES, UNCOMPL 05/05/2018 ISHA ARAGON MD Ot I70.235 ATHSCL [place] ARTERIES OF RIGHT LEG W UL 05/05/2018 ISHA ARAGON MD Ot L03.115 CELLULITIS OF RIGHT LOWER LIMB 05/05/2018 ISHA ARAGON MD Ot L97.512 NON-PRS CHRONIC ULCER OTH PRT RIGHT FOOT 05/05/2018 ISHA ARAGON MD Ot E11.42 TYPE 2 DIABETES MELLITUS WITH DIABETIC P 05/05/2018 ISHA ARAGON MD Ot E11.621 TYPE 2 DIABETES MELLITUS WITH FOOT ULCER 05/05/2018 ISHA ARAGON MD Ot I70.235 ATHSCL [place] ARTERIES OF RIGHT LEG W UL 05/05/2018 [...] 05/05/2018 ISHA ARAGON MD, Ot I70.235 ATHSCL [place] ARTERIES OF RIGHT LEG W UL 05/05/2018 [...] 05/05/2018 ISHA ARAGON MD, Ot I70.235 ATHSCL [place] ARTERIES OF RIGHT LEG W UL 05/05/2018 [...] 05/05/2018 ISHA ARAGON MD, Ot I70.235 ATHSCL [place] ARTERIES OF RIGHT LEG W UL 05/05/2018 [...] 05/05/2018 ISHA ARAGON MD, Ot I70.235 ATHSCL [place] ARTERIES OF RIGHT LEG W UL 05/05/2018 [...] 05/05/2018 ISHA ARAGON MD, Ot I70.235 ATHSCL [place] ARTERIES OF RIGHT LEG W UL 05/05/2018 [...] 05/05/2018 ISHA ARAGON MD, Ot I70.235 ATHSCL [place] ARTERIES OF RIGHT LEG W UL 05/05/2018 [...] CHRONIC ULCER OTH PRT RIGHT FOOT 05/05/2018 ISAH ARAGON MD Ot E11.42 TYPE 2 DIABETES [...] 05/05/2018 ISHA ARAGON MD, Ot I70.235 ATHSCL [place] ARTERIES OF RIGHT LEG W UL 05/05/2018 [...] 05/05/2018 ISHA ARAGON MD, Ot I70.235 ATHSCL [place] ARTERIES OF RIGHT LEG W UL 05/05/2018 [...] 05/05/2018 ISHA ARAGON MD, Ot I70.235 ATHSCL [place] ARTERIES OF RIGHT LEG W UL 05/05/2018 [...] 05/05/2018 ISHA ARAGON MD, Ot I70.235 ATHSCL [place] ARTERIES OF RIGHT LEG W UL 05/05/2018 ISHA ARAGON MD, Ot L97.512 NON-PRS CHRONIC ULCER OTH PRT RIGHT FOOT 05/05/2018 ISHA ARAGON MD, Ot T65.222D TOXIC EFFECT OF TOBACCO CIGARETTES, SELF 05/05/2018 VONDA, LUIS FELIPE R PUMP TESTER Ot E11.42 TYPE 2 DIABETES MELLITUS WITH DIABETIC P 05/05/2018 LUIS FELIPE FERRARI PUMP TESTER Ot E11.621 TYPE 2 DIABETES MELLITUS WITH FOOT ULCER 05/05/2018 LUIS FELIPE FERRARI PUMP TESTER Ot I70.235 ATHSCL [place] ARTERIES OF RIGHT LEG W UL 05/05/2018 LUIS FELIPE FERRARI PUMP TESTER Ot L97.512 NON-PRS CHRONIC ULCER OTH PRT RIGHT FOOT 05/05/2018 LUIS FELIPE FERRARI APRN Ot T65.222D TOXIC EFFECT OF TOBACCO CIGARETTES, SELF 05/05/2018 LUIS FELIPE FERRARI PUMP TESTER Ot E11.42 TYPE 2 DIABETES MELLITUS WITH DIABETIC P 05/05/2018 LUIS FELIPE FERRARI PUMP TESTER Ot E11.621 TYPE 2 DIABETES MELLITUS WITH FOOT ULCER 05/05/2018 LUIS FELIPE FERRARI PUMP TESTER Ot I70.235 ATHSCL [place]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 UL 05/05/2018 LUIS FELIPE FERRARI PUMP TESTER Ot L97.512 NON-PRS CHRONIC ULCER OTH PRT RIGHT FOOT 05/05/2018 LUIS FELIPE FERRARI APRN Ot T65.222D TOXIC EFFECT OF TOBACCO CIGARETTES, SELF 05/05/2018 ISHA ARAGON MD, Ot E11.42 TYPE 2 DIABETES MELLITUS WITH DIABETIC P 05/05/2018 ISHA ARAGON MD, Ot E11.621 TYPE 2 DIABETES MELLITUS WITH FOOT ULCER 05/05/2018 ISHA ARAGON MD, Ot I70.235 ATHSCL [place] ARTERIES OF RIGHT LEG W UL 05/05/2018 [...] 05/05/2018 ISHA ARAGON MD, Ot I70.235 ATHSCL [place] ARTERIES OF RIGHT LEG W UL 05/05/2018 [...] 05/05/2018 ISHA ARAGON MD Ot I70.235 ATHSCL [place] ARTERIES OF RIGHT LEG W UL 05/05/2018 ISHA ARAGON MD Ot L97.512 NON-PRS CHRONIC ULCER OTH PRT RIGHT FOOT 05/05/2018 ISHA ARAGON MD Ot T65.222D TOXIC EFFECT OF TOBACCO CIGARETTES, SELF 05/05/2018 Ot E11.42 TYPE 2 DIABETES MELLITUS WITH DIABETIC P 05/05/2018 Ot E11.621 TYPE 2 DIABETES MELLITUS WITH FOOT ULCER 05/05/2018 Ot I70.235 ATHSCL [place] ARTERIES OF RIGHT LEG W UL 05/05/2018 Ot L97.514 NON-PRS CHRONIC ULCER OTH PRT RIGHT FOOT 05/05/2018 Ot T65.222D TOXIC EFFECT OF TOBACCO CIGARETTES, SELF 05/05/2018 Ot E11.42 TYPE 2 DIABETES MELLITUS WITH DIABETIC P 05/05/2018 Ot E11.621 TYPE 2 DIABETES MELLITUS WITH FOOT ULCER 05/05/2018 Ot I70.235 ATHSCL [place] ARTERIES OF RIGHT LEG W UL 05/05/2018 [...] WITH FOOT ULCER 05/05/2018 Ot I70.235 ATHSCL [place] ARTERIES OF RIGHT LEG W UL 05/05/2018 [...] 05/05/2018 JANES WARREN MD Ot I70.262 ATHSCL [place] ARTERIES OF EXTREMITIES W 05/05/2018 JANES WARREN MD, Ot S99.921S UNSPECIFIED INJURY OF RIGHT FOOT, SEQUEL 05/06/2018 JANES WARREN MD Ot E78.49 OTHER HYPERLIPIDEMIA 05/06/2018 JANES WARREN MD, Ot F17.210 NICOTINE DEPENDENCE, CIGARETTES, UNCOMPL 05/06/2018 JANES WARREN MD Ot I10 ESSENTIAL (PRIMARY) HYPERTENSION 05/06/2018 JANES WARREN MD Ot I70.262 ATHSCL [place] ARTERIES OF EXTREMITIES W 05/06/2018 JANES WARREN MD Ot S99.921S UNSPECIFIED INJURY [...] 05/07/2018 JANES WARREN MD Ot I70.262 ATHSCL [place] ARTERIES OF EXTREMITIES W 05/07/2018 JANES WARREN MD Ot S99.921S UNSPECIFIED INJURY OF RIGHT FOOT, SEQUEL 05/07/2018 BRIANA MCCULLOUGH, JANES William Ot Z23 ENCOUNTER FOR IMMUNIZATION 05/07/2018 JANES WARREN MD, Ot Z79.84 IMAGING AIDE (CURRENT) USE OF ORAL HYPOGLYC 05/07/2018 JANES WARREN MD, Ot Z89.431 ACQUIRED ABSENCE OF RIGHT FOOT Procedures Code Description Performed By Performed On [id number] DILATION OF L FEM ART WITH DRUG-ELUT, PE 05/05/2018 [id number] DILATION OF L FEM ART USING DRUG BLLN, P 05/05/2018 [id number] FLUOROSCOPY OF AORTA, BI LE ART USING L 05/05/2018 [id number] DETACHMENT AT LEFT 1ST TOE, COMPLETE, OP 05/06/2018 Results Test Result Range Bacteria identification in isolate by anaerobe culture - 04/05/17 15:52 Bacteria identification in isolate by anaerobe culture NOANA NRG Gram stain microscopy - 04/05/17 15:52 GRAM STAIN RESULT NO WBC'S OR BACTERIA OBSERVED NRG Bacteria identification in wound by culture - 04/05/17 15:52 Bacteria identification in wound by culture [id number] NRG FREE TEXT EXTERNAL SENSITIVITY REPORTED AT [...] 10:59 Bacteria identification in wound by culture [id number] NR FREE TEXT EXTERNAL SENSITIVITIES REPORTED AT [...] 09:11 Bacteria identification in wound by culture [id number] [facility] [place] FREE TEXT EXTERNAL SENSITIVITY REPORTED AT [...] 09:26 Bacteria identification in wound by culture [id number] NRG FREE TEXT EXTERNAL FEW OBSERVED NRG [...] 09:44 Bacteria identification in wound by culture [id number] NRG FREE TEXT EXTERNAL ID REPORTED 10/22/17 15:30 NRG QUANTITY OF GROWTH Scant Growth NRG FREE TEXT ENTRY 2 ISOLATE SENT TO [facility] NRG FREE TEXT ENTRY 3 10/23/17 FOR SENSITIVITY TESTING NRG Bacteria identification in isolate by anaerobe culture - 11/23/17 08:31 Bacteria identification in isolate by anaerobe culture NOANA NRG Gram stain microscopy - 11/23/17 08:31 GRAM STAIN RESULT NO WBC'S OR BACTERIA OBSERVED NRG Bacteria identification in wound by culture - 11/23/17 08:31 Bacteria identification in wound by culture [id number] NRG FREE TEXT EXTERNAL SENSITIVITY REPORTED AT [...] 09:13 Bacteria identification in wound by culture [id number] NRG FREE TEXT EXTERNAL ID BY RML [...] measurement by glucometer (mass/volume) 111 mg/dL 70-110 Complete urinalysis with reflex to culture - 11/09/18 10:37 Urine color determination NOEMÍ NRG Urine clarity determination CLOUDY NRG Urine pH measurement by test strip 5.5 5-9 Specific gravity of urine by test strip 1.025 1.016-1.022 Urine protein assay by test strip, semi-quantitative 2+ NEGATIVE Urine glucose detection by automated test strip TRACE NEGATIVE Erythrocytes detection in urine sediment by light microscopy NEGATIVE NEGATIVE Urine ketones detection by automated test strip NEGATIVE NEGATIVE Urine nitrite detection by test strip NEGATIVE NEGATIVE Urine total bilirubin detection by test strip 2+ NEGATIVE Urine urobilinogen measurement by automated test strip (mass/volume) 4.0 mg/dL NORMAL Urine leukocyte esterase detection by dipstick NEGATIVE NEGATIVE Automated urine sediment erythrocyte count by microscopy (number/high power field) NONE NRG Automated urine sediment leukocyte count by microscopy (number/high power field) [HPF] NRG Bacteria detection in urine sediment by light microscopy NEGATIVE NRG Squamous epithelial cells detection in urine sediment by light microscopy 25-50 NRG Crystals detection in urine sediment by light microscopy PRESENT NRG Casts detection in urine sediment by light microscopy PRESENT NRG Mucus detection in urine sediment by light microscopy LARGE NRG Complete urinalysis with reflex to culture NO NRG Amorphous sediment detection in urine sediment by light microscopy LARGE VALENTÍN URATES NRG Hyaline casts detection in urine sediment by light microscopy 0-2 NRG Granular casts detection in urine sediment by light microscopy 5-10 NRG Complete blood count (CBC) with automated white blood cell (WBC) differential - 11/09/18 11:05 Blood leukocytes automated count (number/volume) 3.4 10*3/uL 4.3-11.0 Blood erythrocytes automated count (number/volume) 3.27 10*6/uL 4.35-5.85 Venous blood hemoglobin measurement (mass/volume) 9.6 g/dL 11.5-16.0 Blood hematocrit (volume fraction) 31 % 35-52 Automated erythrocyte mean corpuscular volume 93 [foz_us] 80-99 Automated erythrocyte mean corpuscular hemoglobin (mass per erythrocyte) 29 pg 25-34 Automated erythrocyte mean corpuscular hemoglobin concentration measurement (mass/volume) 32 g/dL 32-36 Automated erythrocyte distribution width ratio 16.6 % 10.0- 14.5 Automated blood platelet count (count/volume) 80 10*3/uL 130- 400 Automated blood platelet mean volume measurement 11.8 [foz_us] 7.4-10.4 Automated blood neutrophils/100 leukocytes 72 % 42-75 Automated blood lymphocytes/100 leukocytes 21 % 12-44 Blood monocytes/100 leukocytes 7 % 0-12 Automated blood eosinophils/100 leukocytes 0 % 0-10 Automated blood basophils/100 leukocytes 0 % 0-10 Blood neutrophils automated count (number/volume) 2.5 10*3 1.8-7.8 Blood lymphocytes automated count (number/volume) 0.7 10*3 1.0-4.0 Blood monocytes automated count (number/volume) 0.2 10*3 0.0- 1.0 Automated eosinophil count 0.0 10*3/uL 0.0-0.3 Automated blood basophil count (count/volume) 0.0 10*3/uL 0.0-0.1 Manual absolute plasma cell count - 11/09/18 11:05 Blood monocytes/100 leukocytes 9 % NRG Manual blood segmented neutrophils/100 leukocytes 52 % NRG Blood band neutrophils/100 leukocytes 22 % NRG Manual blood lymphocytes/100 leukocytes 12 % NRG Manual blood lymphocytes variant/100 leukocytes 5 % NRG Blood hypochromia detection by light microscopy 2+ NRG Comprehensive metabolic panel - 11/09/18 11:05 Serum or plasma sodium measurement (moles/volume) 131 mmol/L 135-145 Serum or plasma potassium measurement (moles/volume) 4.4 mmol/L 3.6-5.0 Serum or plasma chloride measurement (moles/volume) 96 mmol/L 98-107 Carbon dioxide 22 mmol/L 21-32 Serum or plasma anion gap determination (moles/volume) 13 mmol/L 5-14 Serum or plasma urea nitrogen measurement (mass/volume) 24 mg/dL 7-18 Serum or plasma creatinine measurement (mass/volume) 1.08 mg/dL 0.60-1.30 Serum or plasma urea nitrogen/creatinine mass ratio 22 NRG Serum or plasma creatinine measurement with calculation of estimated glomerular filtration rate 50 NRG Serum or plasma glucose measurement (mass/volume) 109 mg/dL 70-105 Serum or plasma calcium measurement (mass/volume) 8.5 mg/dL 8.5-10.1 Serum or plasma total bilirubin measurement (mass/volume) 2.7 mg/dL 0.1-1.0 Serum or plasma alkaline phosphatase measurement (enzymatic activity/volume) 684 U/L 40-136 Serum or plasma aspartate aminotransferase measurement (enzymatic activity/volume) 154 U/L 5-34 Serum or plasma alanine aminotransferase measurement (enzymatic activity/volume) 105 U/L 0-55 Serum or plasma protein measurement (mass/volume) 6.1 g/dL 6.4-8.2 Serum or plasma albumin measurement (mass/volume) 2.7 g/dL 3.2-4.5 CALCIUM CORRECTED 9.5 mg/dL 8.5-10.1 Capillary blood glucose measurement by glucometer (mass/volume) - 11/09/18 11:40 Capillary blood glucose measurement by glucometer (mass/volume) 120 mg/dL 70-110 Encounters ACCT No. Visit Date/Time Discharge Status Pt. Type Provider Facility Loc./Unit Complaint [id number] 11/09/2018 10:27:00 11/09/2018 12:17:00 DIS Emergency CALEB BOWLES DO [facility] ER FS HYPOGLYCEMIA [id number] 08/25/2018 13:01:00 08/25/2018 23:59:59 CLS Preadmit BARRY PIERCE MD [facility] CARD HYPERTENSION [id number] 08/25/2018 12:59:00 08/25/2018 23:59:59 CLS Preadmit BARRY PIERCE MD [facility] CARD HYPERTENSION, MIXED HYPERLIPIDEMIA [id number] 05/05/2018 12:07:00 05/07/2018 13:30:00 DIS Inpatient JANES WARREN MD [facility] ICU ISCHEMIA L GREAT TOE [id number] 03/31/2018 09:20:00 03/31/2018 13:45:00 DIS Outpatient TANO GRAY DO [facility] SKIN CANCER ON BACK [id number] 03/22/2018 05:39:00 03/22/2018 13:25:00 DIS Outpatient TANO GRAY DO [facility] PREOP SKIN CANCER ON BACK [id number] 03/11/2018 11:00:00 03/11/2018 23:59:59 CLS Preadmit ANNITA THOMPSON MD [facility] RAD CHRONIC KIDNEY DISEASE STAGE 4 [id number] 03/09/2018 00:08:00 03/09/2018 23:59:59 CLS Preadmit ISHA ARAGON MD [facility] LAB E11.621,E11.42,L97.512 [id number] 12/17/2017 07:40:00 03/08/2018 00:01:00 DIS Outpatient ISHA ARAGON MD [facility] LAB E11.621,E11.42,L97.512 [id number] 12/08/2017 08:02:00 12/08/2017 23:59:59 CLS Outpatient ISHA ARAGON MD [facility] WOUNDCARE [id number] 12/01/2017 08:22:00 12/01/2017 23:59:59 CLS Outpatient ISHA ARAGON MD [facility] WOUNDCARE [id number] 12/01/2017 07:33:00 12/01/2017 23:59:59 CLS Outpatient ISHA ARAGON MD [facility] LAB E11.621 E11.42 L97.512 [id number] 09/01/2017 11:19:00 11/30/2017 00:01:00 DIS Outpatient ISHA ARAGON MD [facility] LAB E11.621,E11.42,L97.512 [id number] 11/25/2017 07:58:00 11/25/2017 23:59:59 CLS Outpatient ISHA ARAGON MD [facility] WOUNDCARE [id number] 11/23/2017 08:02:00 11/23/2017 23:59:59 CLS Outpatient LUIS FELIPE FERRARI APRN [facility] WOUNDCARE [id number] 11/16/2017 07:59:00 11/16/2017 23:59:59 CLS Outpatient LUIS FELIPE FERRARI APRN [facility] WOUNDCARE [id number] 11/10/2017 07:57:00 11/10/2017 23:59:59 CLS Outpatient ISHA ARAGON MD [facility] WOUNDCARE [id number] 11/03/2017 07:55:00 11/03/2017 23:59:59 CLS Outpatient ISHA ARAGON MD [facility] WOUNDCARE [id number] 10/27/2017 08:10:00 10/27/2017 23:59:59 CLS Outpatient ISHA ARAGON MD [facility] [id number] 10/20/2017 08:31:00 10/20/2017 23:59:59 CLS Outpatient ISHA ARAGON MD [facility] [id number] 10/13/2017 08:32:00 10/13/2017 23:59:59 CLS Outpatient ISHA ARAGON MD [facility] [id number] 10/04/2017 08:00:00 10/04/2017 23:59:59 CLS Outpatient ISHA ARAGON MD [facility] [id number] 10/01/2017 08:09:00 10/01/2017 23:59:59 CLS Outpatient ISHA ARAGON MD [facility] [id number] 09/29/2017 10:33:00 09/29/2017 23:59:59 CLS Outpatient ISHA ARAGON MD [facility] LAB SEE ORDER [id number] 09/29/2017 08:17:00 09/29/2017 23:59:59 CLS Outpatient ISHA ARAGON MD [facility] WOUNDCARE [id number] 09/22/2017 07:56:00 09/22/2017 23:59:59 CLS Outpatient ISHA ARAGON MD [facility] WOUNDCARE [id number] 09/20/2017 08:32:00 09/20/2017 23:59:59 CLS Outpatient ISHA ARAGON MD [facility] WOUNDCARE [id number] 09/15/2017 10:03:00 09/15/2017 23:59:59 CLS Outpatient ISHA ARAGON MD [facility] WOUNDCARE [id number] 09/08/2017 11:44:00 09/08/2017 23:59:59 CLS Outpatient ISHA ARAGON MD [facility] LAB E11.621 E11.42 L97.512 [id number] 09/08/2017 10:10:00 09/08/2017 23:59:59 CLS Outpatient LUIS FELIPE FERRARI APRN [facility] WOUNDCARE [id number] 09/01/2017 10:06:00 09/01/2017 23:59:59 CLS Outpatient ISHA ARAGON MD [facility] WOUNDCARE [id number] 08/27/2017 09:41:00 08/27/2017 23:59:59 CLS Outpatient ISHA ARAGON MD [facility] RAD E11.621,L97.512 [id number] 08/27/2017 08:28:00 08/27/2017 23:59:59 CLS Outpatient ISHA ARAGON MD [facility] WOUNDCARE [id number] 08/04/2017 08:37:00 08/04/2017 23:59:59 CLS Outpatient ISHA ARAGON MD [facility] WOUNDCARE [id number] 07/28/2017 08:12:00 07/28/2017 23:59:59 CLS Outpatient ISHA ARAGON MD [facility] WOUNDCARE [id number] 07/21/2017 09:01:00 07/21/2017 23:59:59 CLS Outpatient ISHA ARAGON MD [facility] WOUNDCARE [id number] 07/14/2017 08:54:00 07/14/2017 23:59:59 CLS Outpatient ISHA ARAGON MD [facility] WOUNDCARE [id number] 07/12/2017 08:54:00 07/12/2017 23:59:59 CLS Outpatient ISHA ARAGON MD [facility] WOUNDCARE [id number] 07/01/2017 08:47:00 07/01/2017 23:59:59 CLS Outpatient ISHA ARAGON MD [facility] RAD E11.621 E11.42 L97.512 [id number] 06/30/2017 09:06:00 06/30/2017 23:59:59 CLS Outpatient ISHA ARAGON MD [facility] WOUNDCARE [id number] 05/28/2017 06:00:00 05/28/2017 11:45:00 DIS Outpatient MCCLOUDMAN THEODORE DPM [facility] SDC OSTEOMYELITIS [id number] 05/24/2017 08:30:00 05/24/2017 23:59:59 CLS Outpatient ISHA ARAGON MD [facility] WOUNDCARE [id number] 05/24/2017 10:05:00 05/24/2017 10:40:00 DIS Outpatient MCCLOUDMAN THEODORE DPM [facility] PREOP OSTEOMYELITIS [id number] 05/11/2017 12:06:00 05/11/2017 23:59:59 CLS Outpatient ISHA ARAGON MD [facility] WOUNDCARE [id number] 05/03/2017 08:22:00 05/03/2017 23:59:59 CLS Outpatient ISHA ARAGON MD [facility] WOUNDCARE [id number] 04/26/2017 08:39:00 04/26/2017 23:59:59 CLS Outpatient ISHA ARAGON MD [facility] WOUNDCARE [id number] 04/19/2017 08:29:00 04/19/2017 23:59:59 CLS Outpatient ISHA ARAGON MD [facility] WOUNDCARE [id number] 04/12/2017 10:51:00 04/12/2017 23:59:59 CLS Outpatient ISHA ARAGON MD [facility] RAD E11.621,E11.42,L97.512 [id number] 04/12/2017 08:22:00 04/12/2017 23:59:59 CLS Outpatient ISHA ARAGON MD [facility] WOUNDCARE [id number] 04/05/2017 14:03:00 04/05/2017 23:59:59 CLS Outpatient ISHA ARAGON MD [facility] WOUNDCARE [id number] 02/03/2017 12:35:00 02/03/2017 23:59:59 CLS Preadmit PAULETTE MCCULLOUGH, DANYEL Hagen [facility] RAD ELEVATED LFT'S [id number] 03/04/2015 08:03:00 03/04/2015 10:00:00 DIS Outpatient ISHA ARAGON MD [facility] WOUNDCARE [id number] 02/14/2015 23:42:00 02/15/2015 02:13:00 DIS Emergency MUSTAPHA MCCULLOUGH, CIARA Garza [facility] ER VOMITING,FALL 3 WKS AGO-PAIN SMALL OF BACK [id number] 02/13/2015 09:09:00 02/13/2015 00:01:00 DIS Outpatient ISHA ARAGON MD [facility] WOUNDCARE [id number] 01/07/2015 08:04:00 01/20/2015 00:01:00 DIS Outpatient ISHA ARAGON MD [facility] WOUNDCARE [id number] 10/22/2014 11:15:00 10/22/2014 23:59:59 CLS Outpatient ISHA ARAGON MD [facility] RAD DIABETIC FOOT ULCER [id number] 08/31/2013 10:25:00 10/04/2013 13:56:00 DIS Outpatient DANYEL CALDWELL MD [facility] WOUNDCARE PRESSURE/EXPOSURE TO ACID ULCER [id number] 12/31/2017 13:53:00 Document Registration [id number] 12/27/2017 06:05:00 Document Registration [id number] 12/22/2017 08:02:00 Document Registration [id number] 12/20/2017 09:17:00 Document Registration [id number] 12/19/2017 11:28:00 Document Registration
[2018-11-10] MEDS ORDERED: DEXTROSE 10% IV SOLUTION 1,000 ML IV SCH (19:45)
[2018-11-10 20:00] LABS: BASOPHILS % (AUTO) 0 % (0-10); EOSINOPHILS % (AUTO) 0 % (0-10); HEMATOCRIT 28 % (35-52); LYMPHOCYTES # (AUTO) 0.8 X 10^3 (1.0-4.0); LYMPHOCYTES % (AUTO) 21 % (12-44); MEAN CORPUSCULAR HEMOGLOBIN 30 PG (25-34); MEAN CORPUSCULAR HGB CONC 32 G/DL (32-36); MEAN CORPUSCULAR VOLUME 93 FL (80-99); MEAN PLATELET VOLUME 11.8 FL (7.4-10.4); MONOCYTES # (AUTO) 0.5 X 10^3 (0.0-1.0); MONOCYTES % (AUTO) 12 % (0-12); NEUTROPHILS # (AUTO) 2.4 X 10^3 (1.8-7.8); NEUTROPHILS % (AUTO) 63 % (42-75); PLATELET COUNT 81 10^3/uL (130-400); RED CELL DISTRIBUTION WIDTH 16.4 % (10.0-14.5); WHITE BLOOD COUNT 3.8 10^3/uL (4.3-11.0)
[2018-11-10] MEDS ORDERED: CALCIUM CARBONATE 500 MG (TUMS) TAB.CHEW PO ONE (20:00)
[2018-11-10] MEDS: D5 1/2 NS 1000 ML IV SOLUTION 1,000 ML IV SCH (20:02)
[2018-11-10 20:18] LABS: CREATININE SERUM 1.17 MG/DL (0.60-1.30)
[2018-11-10 20:19] LABS: ALBUMIN 2.7 GM/DL (3.2-4.5); BILIRUBIN,TOTAL 3.8 MG/DL (0.1-1.0); TOTAL PROTEIN 5.8 GM/DL (6.4-8.2)
--- NOTE | 2018-11-10 20:21 | ED General ---
General Chief Complaint: Glucose Problems Stated Complaint: BLOOD SUGAR ISSUES Nursing Triage Note: Patient presented to the ER via EMS secondary to hypoglycemia. EMS advise that the patient was assisted per EMS earlier today for a glucose level of 44. They advise they remained on scene at that time until the patient was able to eat a meal and regulate her glucose. Tonight when they returned to the residence they advised the patient was on the floor and her glucose was 18. IV access was established per EMS and 1 amp of D50 was administered to the patient. Upon arrival to the ER patients glucose was 164. Nursing Sepsis Screen: No Definite Risk Source of Information: Patient, EMS, Old Records (ED visit from November 09, 2018) History of Present Illness Date Seen by Provider: Nov 10, 2018 Time Seen by Provider: 19:25 Initial Comments 73 yo F presenting with recurrent low blood sugars. She was seen yesterday in ED for same and has been having issues with hypoglycemia since the weekend. She had dropped her Glimeperide from twice a day to once a day but still has been dropping her glucose. She also has been having early satiety and loss of appetite. She has been having more indigestion recently as well. She had EMS to her house 2 times today and the first time they left after her sugar came up with eating. However tonight her glucose was down to 18 and she was on the floor poorly responsive. With an amp of D50 she came up to 190 and was transported to the ED. She is agreeable to admit today to get this under control and try to figure out what was going on for her sugars. Allergies and Home Medications Allergies Coded Allergies: Penicillins (Verified Allergy, Unknown, 11/10/18) codeine (Verified Allergy, Unknown, 11/10/18) Home Medications Acetaminophen 500 Mg Tablet, 500 MG PO Q4H PRN for PAIN-MILD, (Reported) Amlodipine Besylate 5 Mg Tablet, 5 MG PO DAILY, (Reported) Aspirin 81 Mg Tablet.dr, 81 MG PO DAILY Prescribed by: ERNESTINA ALONSO on 05/07/18837 Atorvastatin Calcium 40 Mg Tablet, 40 MG PO HS Prescribed by: ERNESTINA ALONSO on 05/07/18837 Cephalexin 500 Mg Capsule, 500 MG PO QID Prescribed by: CORNELIO DENTON on 05/07/18 111 Clopidogrel Bisulfate 75 Mg Tablet, 75 MG PO DAILY Prescribed by: ERNESTINA ALONSO on 05/07/18 0838 Cyclobenzaprine HCl 10 Mg Tablet, 10 MG PO TID PRN for MUSCLE SPASMS, (Reported) Glimepiride 4 Mg Tablet, 4 MG PO BID, (Reported) Hydrocodone/Acetaminophen 1 Each Tablet, 1 TAB PO TID PRN for PAIN-MODERATE, (Reported) Patient Home Medication List Home Medication List Reviewed: Yes Review of Systems Review of Systems Constitutional: No chills, No fever; malaise, weakness (general) EENTM: no symptoms reported Respiratory: no symptoms reported Cardiovascular: no symptoms reported Gastrointestinal: heartburn; No nausea, No vomiting Genitourinary: no symptoms reported Musculoskeletal: no symptoms reported Skin: no symptoms reported Psychiatric/Neurological: No Symptoms Reported Hematologic/Lymphatic: No Symptoms Reported Past Hrzgrvm-Gxljvq-Okuwot Hx Past Med/Social Hx: Reviewed Nursing Past Med/Soc Hx Patient Social History Alcohol Use: Denies Use Recreational Drug Use: No Type Used: Cigarettes Former Smoker, Quit: Dec 23, 2017 Recent Foreign Travel: No Contact w/Someone Who Travel: No Recent Infectious Disease Expo: No Recent Hopitalizations: No Immunizations Up To Date Tetanus Booster (TDap): Unknown PED Vaccines UTD: No Date of Pneumonia Vaccine: Feb 07, 2017 Date of Influenza Vaccine: May 05, 2018 Seasonal Allergies Seasonal Allergies: Yes Past Medical History Surgeries: Yes (c/s x3, lipoma removed from arm, R 2nd toe amputated) Adenoidectomy, Appendectomy, Section, Gallbladder, Hysterectomy, Tonsillectomy Respiratory: No Cardiac: No (rheumatic fever when 7yrs old) Hypertension, Rheumatic Fever Neurological: No Reproductive Disorders: No Sexually Transmitted Disease: No HIV/AIDS: No Genitourinary: No Gastrointestinal: No Musculoskeletal: Yes (osteomyelitis 2nd right) Endocrine: Yes Diabetes, Non-Insulin dep HEENT: No Loss of Vision: Denies Hearing Impairment: Denies Cancer: Yes (on back) Skin Did You Recieve Any Treatments: Yes What Type of Treatment Did You: Surgical Intervention Psychosocial: No Integumentary: No Blood Disorders: No Adverse Reaction/Blood Tranf: No Family Medical History Congenital heart disease Diabetes mellitus 19 MOTHER No Pertinent Family Hx Physical Exam Vital Signs Vital Signs - First Documented 11/10/18 19:36 Pulse 102 Resp 14 B/P (MAP) 141/54 (83) Pulse Ox 94 O2 Delivery Room Air Capillary Refill : Less Than 3 Seconds Height, Weight, BMI Height: 5'5.00" Weight: 186lbs. 0oz. 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) Neurologic/Psychiatric: Alert, Oriented x3 Skin: Normal Color, Warm/Dry Progress/Results/Core Measures Suspected Sepsis Recent Fever Within 48 Hours: No Infection Criteria Present: None New/Unexplained Altered Menta: No Sepsis Screen: No Definite Risk SIRS Temperature: Pulse: 102 Respiratory Rate: 14 Laboratory Tests 11/10/18 19:36: White Blood Count 3.8L Blood Pressure 141 /54 Mean: 83 Laboratory Tests 11/10/18 19:36: Platelet Count 81L Results/Orders Lab Results Laboratory Tests Test 11/10/18 19:36 Range/Units White Blood Count 3.8 L 4.3-11.0 10^3/uL Red Blood Count 3.05 L 4.35-5.85 10^6/uL Hemoglobin 9.0 L 11.5-16.0 G/DL Hematocrit 28 L 35-52 % Mean Corpuscular Volume 93 80-99 FL Mean Corpuscular Hemoglobin 30 25-34 PG Mean Corpuscular Hemoglobin Concent 32 32-36 G/DL Red Cell Distribution Width 16.4 H 10.0-14.5 % Platelet Count 81 L 130-400 10^3/uL Mean Platelet Volume 11.8 H 7.4-10.4 FL Neutrophils (%) (Auto) 63 42-75 % Lymphocytes (%) (Auto) 21 12-44 % Monocytes (%) (Auto) 12 0-12 % Eosinophils (%) (Auto) 0 0-10 % Basophils (%) (Auto) 0 0-10 % Neutrophils # (Auto) 2.4 1.8-7.8 X 10^3 Lymphocytes # (Auto) 0.8 L 1.0-4.0 X 10^3 Monocytes # (Auto) 0.5 0.0-1.0 X 10^3 Eosinophils # (Auto) 0.0 0.0-0.3 10^3/uL Basophils # (Auto) 0.0 0.0-0.1 10^3/uL My Orders Orders - PAPITO IGLESIAS MD Comprehensive Metabolic Panel (11/10/18 19:39) Lipase (11/10/18 19:39) Amylase (11/10/18 19:39) Ua Culture If Indicated (11/10/18 19:39) Ed Iv/Invasive Line Start (11/10/18 19:39) Cbc With Automated Diff (11/10/18 19:39) D5 1/2 Ns 1000 Ml Iv Solution (Dextrose (11/10/18 20:00) Calcium Carbonate Chew Tablet (Antacid C (11/10/18 20:00) Ct Abdomen/Pelvis W (11/10/18 20:13) Vital Signs/I&O 11/10/18 19:36 Pulse 102 Resp 14 B/P (MAP) 141/54 (83) Pulse Ox 94 O2 Delivery Room Air Capillary Refill : Less Than 3 Seconds Blood Pressure Mean: 83 Progress Note #1: Time: 19:32 Progress Note will repeat labs and review record from yesterday. order D10 fluids to try and maintain sugar since she has indigestion and is not hungry or up for eating. She is willing to be admitted to further work this up and decreasing her dose of medication was not enough to prevent her recurrent hypoglycemia episodes. Progress Note #2: Time: 20:11 Progress Note We have beds in [facility] so will check with Dr. Mcdonald for unassigned admit. We do not have D10 so will run D5 to help with her glucose until she can be admitted. Diagnostic Imaging Diagonstic Imaging: CT Plain Films/CT/US/NM/MRI: abdomen, pelvis Comments NAME: RAFAELA BROWNE [facility] REC#: [id number] PT STATUS: ADM IN : 1945 PHYSICIAN: PAPITO IGLESIAS MD ADMIT DATE: 11/10/18 Signed Date of Exam:11/10/18 CT ABDOMEN/PELVIS W PROCEDURE: CT abdomen and pelvis with contrast. TECHNIQUE: Multiple contiguous axial images were obtained through the abdomen and pelvis after administration of intravenous contrast. Auto Exposure Controls were utilized during the CT exam to meet ALARA standards for radiation dose reduction. INDICATION: Abnormal liver function tests COMPARISON: None FINDINGS: The lung bases are clear. The heart is normal in size. There is no pericardial effusion. The liver is mildly large measuring 20.5 cm. No focal hepatic lesions are seen. There is no intrahepatic biliary dilatation. No significant nodularity is seen in the liver. The spleen is markedly large. There is heterogeneity of the spleen which is thought to be due to perfusion changes. Calcified granuloma seen. The spleen measures 17.2 cm in length. The pancreas appears normal. The adrenal glands are normal. The kidneys demonstrate no acute abnormality. There is a simple appearing cyst on the anterior right kidney. The common bile duct is prominent, likely due to postcholecystectomy changes. The bowel loops are nondistended without obstruction seen. There is moderate stool in the colon. No free fluid or free air seen. There is a compression deformity of L1 which appears to be chronic. Degenerative changes are seen in the spine. IMPRESSION: 1. Marked splenomegaly and mild hepatomegaly. No masses are seen. The liver contour is unremarkable. 2. Compression deformity of L1 which appears to be chronic. Dictated by: Dictated on workstation # [id number] Dict: 11/10/182100 Trans: 11/10/185 MALIA [id number] Interpreted by: ROSANA COHN MD Electronically signed by: ROSANA COHN MD 11/10/185 Departure Communication (Admissions) Time/Spoke to Admitting Phy: 20:15 D/w Dr. Mcdonald and will admit for her hypoglycemia and run D10 to keep her sugar up until the Glimiperide runs out of her system. Will also evaluate the elevated LFTs as they may be connected to her early satiety and hypoglycemia. Plan to get ultrasound in am and CT prior to transfer to [place]. Impression Primary Impression: Hypoglycemia associated with diabetes Additional Impressions: Elevated LFTs Early satiety Disposition: ADMITTED INPATIENT Condition: Stable Admissions Decision to Admit Reason: Admit from ER (General) Decision to Admit/Date: Nov 10, 2018 Time/Decision to Admit Time: 20:15 Departure-Patient Inst. Referrals: NO,LOCAL PHYSICIAN (PCP/Family) Primary Care Physician PAPITO IGLESIAS MD Nov 10, 2018 20:21
[2018-11-10] MEDS ORDERED: IOHEXOL 350 MG/ML 100 ML (OMNIPAQUE 350) VIAL IV ONE (20:30)
[2018-11-10] MEDS ORDERED: NS 100 ML (IVPB) BAG IV ONE (20:30)
[2018-11-10] MEDS ORDERED: HOLD METFORMIN - RECEIVED CONTRAST 20 ML VIAL IV SCH (20:30)
[2018-11-10] MEDS ORDERED: PANTOPRAZOLE 40 MG (PROTONIX) VIAL IV STA (20:58)
[2018-11-10] MEDS ORDERED: DEXTROSE 50% 50 ML (IMS) SYR IV ONE (21:00)
--- NOTE | 2018-11-10 21:09 | Diagnostic Imaging Report ---
PROCEDURE: CT abdomen and pelvis with contrast. TECHNIQUE: Multiple contiguous axial images were obtained through the abdomen and pelvis after administration of intravenous contrast. Auto Exposure Controls were utilized during the CT exam to meet ALARA standards for radiation dose reduction. INDICATION: Abnormal liver function tests COMPARISON: None FINDINGS: The lung bases are clear. The heart is normal in size. There is no pericardial effusion. The liver is mildly large measuring 20.5 cm. No focal hepatic lesions are seen. There is no intrahepatic biliary dilatation. No significant nodularity is seen in the liver. The spleen is markedly large. There is heterogeneity of the spleen which is thought to be due to perfusion changes. Calcified granuloma seen. The spleen measures 17.2 cm in length. The pancreas appears normal. The adrenal glands are normal. The kidneys demonstrate no acute abnormality. There is a simple appearing cyst on the anterior right kidney. The common bile duct is prominent, likely due to postcholecystectomy changes. The bowel loops are nondistended without obstruction seen. There is moderate stool in the colon. No free fluid or free air seen. There is a compression deformity of L1 which appears to be chronic. Degenerative changes are seen in the spine. IMPRESSION: 1. Marked splenomegaly and mild hepatomegaly. No masses are seen. The liver contour is unremarkable. 2. Compression deformity of L1 which appears to be chronic. Dictated by: Dictated on workstation # [id number]
--- OUTSIDE RECORDS SUMMARY | 2018-11-10 21:42 | XMS REPORT | Continuity of Care Document ---
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 04/18/2017 [...] 04/25/2017 ISHA ARAGON MD, Ot 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 04/25/2017 [...] 04/29/2017 ISHA ARAGON MD Ot 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 04/29/2017 ISHA ARAGON MD, Ot L03.115 CELLULITIS OF RIGHT LOWER LIMB 04/29/2017 ISHA ARAGON MD, Ot L97.512 NON-PRS CHRONIC ULCER OTH PRT RIGHT FOOT 05/07/2017 ISHA ARAGON MD, Ot E11.42 TYPE 2 DIABETES MELLITUS WITH DIABETIC P 05/07/2017 ISHA ARAGON MD, Ot E11.621 TYPE 2 DIABETES MELLITUS WITH FOOT ULCER 05/07/2017 ISHA ARAGON MD, Ot 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 05/07/2017 [...] 05/09/2017 ISHA ARAGON MD, Ot 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 05/09/2017 [...] 05/11/2017 ISHA ARAGON MD Ot 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 05/11/2017 ISHA ARAGON MD Ot L03.115 CELLULITIS OF RIGHT LOWER LIMB 05/11/2017 ISHA ARAGON MD, Ot L97.512 NON-PRS CHRONIC ULCER OTH PRT RIGHT FOOT 05/12/2017 ISHA ARAGON MD, Ot E11.42 TYPE 2 DIABETES MELLITUS WITH DIABETIC P 05/12/2017 ISHA ARAGON MD, Ot E11.621 TYPE 2 DIABETES MELLITUS WITH FOOT ULCER 05/12/2017 ISHA ARAGON MD, Ot 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 05/12/2017 [...] 05/14/2017 ISHA ARAGON MD, Ot 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 05/14/2017 [...] 05/17/2017 ISHA ARAGON MD, Ot 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 05/17/2017 [...] 05/24/2017 ISHA ARAGON MD, Ot 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 05/24/2017 ISHA ARAGON MD, Ot L03.115 CELLULITIS OF RIGHT LOWER LIMB 05/24/2017 ISHA ARAGON MD, Ot L97.512 NON-PRS CHRONIC ULCER OTH PRT RIGHT FOOT 05/24/2017 ISHA ARAGON MD, Ot E11.42 TYPE 2 DIABETES MELLITUS WITH DIABETIC P 05/24/2017 ISHA ARAGON MD, Ot E11.621 TYPE 2 DIABETES MELLITUS WITH FOOT ULCER 05/24/2017 ISHA ARAGON MD, Ot 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 05/24/2017 [...] 05/24/2017 ISHA ARAGON MD, Ot 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 05/24/2017 [...] 05/24/2017 ISHA ARAGON MD, Ot 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 05/24/2017 [...] 05/24/2017 ISHA ARAGON MD, Ot 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 05/24/2017 [...] 05/24/2017 ISHA ARAGON MD, Ot 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 05/24/2017 [...] 05/24/2017 ISHA ARAGON MD, Ot 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 05/24/2017 [...] 05/24/2017 ISHA ARAGON MD, Ot 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 05/24/2017 [...] 05/27/2017 ISHA ARAGON MD, Ot 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 05/27/2017 [...] UNSPECIFIED 05/28/2017 MAN MCCLOUD DPM Ot Z79.82 COOK SYRUP MAKER (CURRENT) USE OF ASPIRIN 05/28/2017 MAN MCCLOUD DPM Ot Z79.84 COOK SYRUP MAKER (CURRENT) USE OF ORAL HYPOGLYC 05/28/2017 MAN MCCLOUD DPM Ot Z79.899 OTHER DETENTION (CURRENT) DRUG THERAPY 05/28/2017 ISHA ARAGON MD, Ot E11.42 TYPE 2 DIABETES MELLITUS WITH DIABETIC P 05/28/2017 ISHA ARAGON MD, Ot E11.621 TYPE 2 DIABETES MELLITUS WITH FOOT ULCER 05/28/2017 ISHA ARAGON MD, Ot 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 05/28/2017 [...] 05/28/2017 ISHA ARAGON MD, Ot 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 05/28/2017 [...] UNSPECIFIED 06/01/2017 MAN MCCLOUD DPM Ot Z79.82 DETENTION (CURRENT) USE OF ASPIRIN 06/01/2017 MAN MCCLOUD DPM Ot Z79.84 DETENTION (CURRENT) USE OF ORAL HYPOGLYC 06/01/2017 MAN MCCLOUD DPM Ot Z79.899 OTHER COOK SYRUP MAKER (CURRENT) DRUG THERAPY 06/03/2017 MAN MCCLOUD DPM [...] 06/03/2017 ROGERS APPLE, MAN Fischer Ot Z79.82 DETENTION (CURRENT) USE OF ASPIRIN 06/03/2017 MAN MCCLOUD DPM Ot Z79.84 COOK SYRUP MAKER (CURRENT) USE OF ORAL HYPOGLYC 06/03/2017 MAN MCCLOUD DPM Ot Z79.899 OTHER COOK SYRUP MAKER (CURRENT) DRUG THERAPY 06/03/2017 ISHA ARAGON MD, Ot E11.42 TYPE 2 DIABETES MELLITUS WITH DIABETIC P 06/03/2017 ISHA ARAGON MD, Ot E11.621 TYPE 2 DIABETES MELLITUS WITH FOOT ULCER 06/03/2017 ISHA ARAGON MD, Ot 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 06/03/2017 [...] 06/04/2017 ISHA ARAGON MD, Ot 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 06/04/2017 [...] 06/04/2017 ISHA ARAGON MD, Ot 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 06/04/2017 [...] 06/04/2017 ISHA ARAGON MD, Ot 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 06/04/2017 [...] 06/14/2017 ISHA ARAGON MD, Ot 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 06/14/2017 [...] 06/23/2017 ISHA ARAGON MD, Ot 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 06/23/2017 [...] 08/26/2017 ISHA ARAGON MD, Ot 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 08/26/2017 ISHA ARAGON MD, Ot L03.115 CELLULITIS OF RIGHT LOWER LIMB 08/26/2017 ISHA ARAGON MD, Ot L97.512 NON-PRS CHRONIC ULCER OTH PRT RIGHT FOOT 08/26/2017 ISHA ARAGON MD, Ot E11.42 TYPE 2 DIABETES MELLITUS WITH DIABETIC P 08/26/2017 ISHA ARAGON MD, Ot E11.621 TYPE 2 DIABETES MELLITUS WITH FOOT ULCER 08/26/2017 ISHA ARAGON MD, Ot 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 08/26/2017 [...] 08/26/2017 ISHA ARAGON MD, Ot 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 08/26/2017 ISHA ARAGON MD, Ot L03.115 CELLULITIS OF RIGHT LOWER LIMB 08/26/2017 ISHA ARAGON MD, Ot L97.512 NON-PRS CHRONIC ULCER OTH PRT RIGHT FOOT 08/26/2017 ISHA ARGAON MD, Ot M19.071 PRIMARY OSTEOARTHRITIS, RIGHT ANKLE AND 08/26/2017 ISHA ARAGON MD, Ot T65.222D TOXIC EFFECT OF TOBACCO CIGARETTES, SELF 08/26/2017 ISHA ARAGON MD, Ot E11.42 TYPE 2 DIABETES MELLITUS WITH DIABETIC P 08/26/2017 ISHA ARAGON MD, Ot E11.621 TYPE 2 DIABETES MELLITUS WITH FOOT ULCER 08/26/2017 ISHA ARAGON MD, Ot 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 08/26/2017 [...] 08/26/2017 ISHA ARAGON MD, Ot 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 08/26/2017 [...] 08/26/2017 ISHA ARAGON MD, Ot 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 08/26/2017 [...] 08/26/2017 ISHA ARAGON MD, Ot 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 08/26/2017 [...] 08/26/2017 ISHA ARAGON MD, Ot 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 08/26/2017 [...] 08/27/2017 ISHA ARAGON MD Ot 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 08/27/2017 ISHA ARAGON MD Ot L03.115 CELLULITIS OF RIGHT LOWER LIMB 08/27/2017 ISHA ARAGON MD, Ot L97.512 NON-PRS CHRONIC ULCER OTH PRT RIGHT FOOT 08/27/2017 ISHA ARAGON MD, Ot E11.42 TYPE 2 DIABETES MELLITUS WITH DIABETIC P 08/27/2017 ISHA ARAGON MD, Ot E11.621 TYPE 2 DIABETES MELLITUS WITH FOOT ULCER 08/27/2017 ISHA ARAGON MD, Ot 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 08/27/2017 [...] 08/27/2017 ISHA ARAGON MD, Ot 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 08/27/2017 [...] 08/27/2017 ISHA ARAGON MD, Ot 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 08/27/2017 [...] 08/27/2017 ISHA ARAGON MD, Ot 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 08/27/2017 [...] 08/27/2017 ISHA ARAGON MD, Ot 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 08/27/2017 ISHA ARAOGN MD, Ot L97.511 NON-PRS CHRONIC ULCER OTH [...] 08/27/2017 ISHA ARAGON MD, Ot 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 08/27/2017 [...] 08/27/2017 ISHA ARAGON MD, Ot 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 08/27/2017 [...] 08/27/2017 ISHA ARAGON MD Ot 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 08/27/2017 ISHA ARAGON MD Ot L03.115 CELLULITIS OF RIGHT LOWER LIMB 08/27/2017 ISHA ARAGON MD Ot L97.512 NON-PRS CHRONIC ULCER OTH PRT RIGHT FOOT 08/27/2017 ISHA ARAGON MD, Ot E11.42 TYPE 2 DIABETES MELLITUS WITH DIABETIC P 08/27/2017 ISHA ARAGON MD, Ot E11.621 TYPE 2 DIABETES MELLITUS WITH FOOT ULCER 08/27/2017 ISHA ARAGON MD, Ot 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 08/27/2017 [...] 08/27/2017 ISHA ARAGON MD, Ot 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 08/27/2017 [...] 08/27/2017 ISHA ARAGON MD, Ot 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 08/27/2017 [...] MAHESH MD, ISHA G Ot 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 08/27/2017 [...] 08/27/2017 ISHA ARAGON MD, Ot 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 08/27/2017 [...] 08/27/2017 ISHA ARAGON MD, Ot 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 08/27/2017 [...] 08/27/2017 ISHA ARAGON MD, Ot 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 08/27/2017 [...] ABSENCE OF OTHER RIGHT TOE(S) 08/31/2017 ISHA RAAGON MD, Ot E11.42 TYPE 2 [...] 09/01/2017 ISHA ARAGON MD Ot 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 09/01/2017 ISHA ARAGON MD Ot L03.115 CELLULITIS OF RIGHT LOWER LIMB 09/01/2017 ISHA ARAGON MD, Ot L97.512 NON-PRS CHRONIC ULCER OTH PRT RIGHT FOOT 09/01/2017 ISHA ARAGON MD, Ot E11.42 TYPE 2 DIABETES MELLITUS WITH DIABETIC P 09/01/2017 ISHA ARAGON MD, Ot E11.621 TYPE 2 DIABETES MELLITUS WITH FOOT ULCER 09/01/2017 ISHA ARAGON MD Ot 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 09/01/2017 [...] 09/01/2017 ISHA ARAGON MD, Ot 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 09/01/2017 [...] 09/01/2017 ISHA ARAGON MD, Ot 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 09/01/2017 [...] 09/01/2017 ISHA ARAGON MD, Ot 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 09/01/2017 IHSA ARAGON MD, Ot L97.512 NON-PRS CHRONIC ULCER OTH PRT RIGHT FOOT 09/01/2017 ISHA ARAGON MD, Ot T65.222D TOXIC EFFECT OF TOBACCO CIGARETTES, SELF 09/01/2017 ISHA ARAGON MD, Ot E11.42 TYPE 2 DIABETES MELLITUS WITH DIABETIC P 09/01/2017 ISHA ARAGON MD, Ot E11.621 TYPE 2 DIABETES MELLITUS WITH FOOT ULCER 09/01/2017 ISHA ARAGON MD, Ot 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 09/01/2017 [...] 09/01/2017 ISHA ARAGON MD, Ot 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 09/01/2017 [...] 09/01/2017 ISHA ARAGON MD, Ot 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 09/01/2017 [...] DIABETES MELLITUS WITH FOOT ULCER 09/01/2017 ISHA ARGAON MD Ot L97.512 NON-PRS CHRONIC ULCER OTH PRT RIGHT FOOT 09/01/2017 ISAH ARAGON MD, Ot M77.31 CALCANEAL SPUR, RIGHT [...] PRT RIGHT FOOT 09/09/2017 LUIS FELIPE FERRARI [employer]ER[employer] CREDIT HEAD Ot E11.42 TYPE 2 DIABETES MELLITUS WITH DIABETIC P 09/09/2017 LUIS FELIPE FERRARI [employer] CREDIT HEAD Ot E11.621 TYPE 2 DIABETES MELLITUS WITH FOOT ULCER 09/09/2017 LUIS FLEIPE FERRARI COMMERCIAL CREDIT HEAD Ot L97.512 NON-PRS CHRONIC ULCER OTH PRT RIGHT FOOT 09/09/2017 ISHA ARAGON MD Ot E11.42 TYPE 2 DIABETES MELLITUS WITH DIABETIC P 09/09/2017 ISHA ARAGON MD, Ot E11.621 TYPE 2 DIABETES MELLITUS WITH FOOT ULCER 09/09/2017 ISHA ARAGON MD Ot L97.512 NON-PRS CHRONIC ULCER OTH PRT RIGHT FOOT 09/10/2017 LUIS FELIPE FERRARI [employer] CREDIT HEAD Ot E11.42 TYPE 2 DIABETES MELLITUS WITH DIABETIC P 09/10/2017 LUIS FELIPE FERRARI [employer] CREDIT HEAD Ot E11.621 TYPE 2 DIABETES MELLITUS WITH FOOT ULCER 09/10/2017 LUIS FELIPE FERRARI [employer] CREDIT HEAD Ot L97.512 NON-PRS CHRONIC ULCER OTH PRT [...] 2 DIABETES MELLITUS WITH FOOT ULCER 09/21/2017 MAEHSH MD, ISHA G Ot L97.512 NON-PRS CHRONIC [...] TOBACCO CIGARETTES, SELF 09/28/2017 LUIS FELIPE FERRARI [employer]EDIT HEAD Ot E11.42 TYPE 2 DIABETES MELLITUS WITH [...] TOBACCO CIGARETTES, SELF 10/08/2017 LUIS FELIPE FERRARI COMMER[employer] CREDIT HEAD Ot E11.42 TYPE 2 DIABETES MELLITUS WITH DIABETIC P 10/08/2017 LUIS FELIPE FERRARI [employer]ERCIAL CREDIT HEAD Ot E11.621 TYPE 2 DIABETES MELLITUS WITH FOOT ULCER 10/08/2017 LUIS FELIPE FERRARI COMMERCIAL CREDIT HEAD Ot L97.512 NON-PRS CHRONIC ULCER OTH PRT [...] 10/25/2017 ISHA ARAGON MD, Ot 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 10/25/2017 [...] 10/28/2017 ISHA ARAGON MD, Ot 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 10/28/2017 [...] 11/04/2017 ISHA ARAGON MD, Ot 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 11/04/2017 [...] 11/10/2017 ISHA ARAGON MD, Ot 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 11/10/2017 [...] 11/12/2017 ISHA ARAGON MD, Ot 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 11/12/2017 [...] 11/15/2017 ISHA ARAGON MD, Ot 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 11/15/2017 [...] 11/15/2017 ISHA ARAGON MD, Ot 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 11/15/2017 [...] 11/17/2017 ISHA ARAGON MD, Ot 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 11/17/2017 [...] 11/18/2017 ISHA ARAGON MD, Ot 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 11/18/2017 [...] 11/19/2017 ISHA ARAGON MD, Ot 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 11/19/2017 ISHA ARAGON MD, Ot L97.512 NON-PRS CHRONIC ULCER OTH PRT RIGHT FOOT 11/19/2017 ISHA ARAGON MD, Ot T65.222D TOXIC EFFECT OF TOBACCO CIGARETTES, SELF 11/19/2017 LUIS FELIPE FERRARI [employer]EDIT HEAD Ot E11.42 TYPE 2 DIABETES MELLITUS WITH DIABETIC P 11/19/2017 LUIS FELIPE FERRARI APRN Ot E11.621 TYPE 2 DIABETES MELLITUS WITH FOOT ULCER 11/19/2017 LUIS FELIPE FERRARI APRN Ot 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 11/19/2017 [...] LUIS FELIPE FERRARI APRN Ot 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 11/24/2017 [...] 11/26/2017 ISHA ARAGON MD, Ot 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 11/26/2017 [...] 11/26/2017 ISHA ARAGON MD, Ot 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 11/26/2017 ISHA ARAGON MD, Ot L97.512 NON-PRS CHRONIC ULCER OTH PRT RIGHT FOOT 11/26/2017 ISHA ARAGON MD, Ot T65.222D TOXIC EFFECT OF TOBACCO CIGARETTES, SELF 11/29/2017 ISHA ARAOGN MD, Ot E11.42 TYPE 2 DIABETES MELLITUS WITH DIABETIC P 11/29/2017 ISHA ARAGON MD, Ot E11.621 TYPE 2 DIABETES MELLITUS WITH FOOT ULCER 11/29/2017 ISHA ARAGON MD, Ot 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 11/29/2017 [...] 12/02/2017 ISHA ARAGON MD, Ot 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 12/02/2017 [...] DIABETES MELLITUS WITH DIABETIC P 12/02/2017 ISHA ARAOGN MD, Ot E11.621 TYPE 2 DIABETES MELLITUS WITH FOOT ULCER 12/02/2017 ISHA ARAGON MD, Ot 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 12/02/2017 [...] LUIS FELIPE FERRARI APRN Ot 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 12/08/2017 [...] 12/10/2017 ISHA ARAGON MD Ot 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 12/10/2017 [...] LUIS FELIPE FERRARI APRN Ot 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 12/14/2017 [...] 12/14/2017 ISHA ARAGON MD Ot 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 12/14/2017 [...] Ot M86.9 OSTEOMYELITIS, UNSPECIFIED 12/29/2017 Ot Z79.4 DETENTION (CURRENT) USE OF INSULIN 12/31/2017 ISHA ARAGON MD, Ot E11.42 TYPE 2 DIABETES MELLITUS WITH DIABETIC P 12/31/2017 ISHA ARAGON MD, Ot E11.621 TYPE 2 DIABETES MELLITUS WITH FOOT ULCER 12/31/2017 ISHA ARAGON MD, Ot 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 12/31/2017 [...] 2 DIABETES MELLITUS WITH FOOT ULCER 12/31/2017 SIHA ARAGON MD, Ot 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 12/31/2017 [...] 01/06/2018 ISHA ARAGON MD, Ot 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 01/06/2018 ISHA ARAGON MD Ot L97.512 NON-PRS CHRONIC ULCER OTH PRT RIGHT FOOT 01/06/2018 ISHA ARAGON MD Ot T65.222D TOXIC EFFECT OF TOBACCO CIGARETTES, SELF 01/06/2018 Ot E11.42 TYPE 2 DIABETES MELLITUS WITH DIABETIC P 01/06/2018 Ot E11.621 TYPE 2 DIABETES MELLITUS WITH FOOT ULCER 01/06/2018 Ot 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 01/06/2018 Ot L97.514 NON-PRS CHRONIC ULCER OTH PRT RIGHT FOOT 01/06/2018 Ot T65.222D TOXIC EFFECT OF TOBACCO CIGARETTES, SELF 01/11/2018 Ot E11.42 TYPE 2 DIABETES MELLITUS WITH DIABETIC P 01/11/2018 Ot E11.621 TYPE 2 DIABETES MELLITUS WITH FOOT ULCER 01/11/2018 Ot 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 01/11/2018 [...] WITH FOOT ULCER 01/11/2018 Ot 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 01/11/2018 [...] WITH FOOT ULCER 01/14/2018 Ot 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 01/14/2018 Ot L97.514 NON-PRS CHRONIC ULCER OTH PRT RIGHT FOOT 01/14/2018 Ot T65.222D TOXIC EFFECT OF TOBACCO CIGARETTES, SELF 01/24/2018 Ot E11.69 TYPE 2 DIABETES MELLITUS WITH OTHER SPEC 01/24/2018 Ot F17.210 NICOTINE DEPENDENCE, CIGARETTES, UNCOMPL 01/24/2018 Ot M67.01 SHORT ACHILLES TENDON (ACQUIRED), RIGHT 01/24/2018 Ot M86.9 OSTEOMYELITIS, UNSPECIFIED 01/24/2018 Ot Z79.4 DETENTION (CURRENT) USE OF INSULIN 01/26/2018 Ot E11.69 TYPE 2 DIABETES MELLITUS WITH OTHER SPEC 01/26/2018 Ot F17.210 NICOTINE DEPENDENCE, CIGARETTES, UNCOMPL 01/26/2018 Ot M67.01 SHORT ACHILLES TENDON (ACQUIRED), RIGHT 01/26/2018 Ot M86.9 OSTEOMYELITIS, UNSPECIFIED 01/26/2018 Ot Z79.4 COOK SYRUP MAKER (CURRENT) USE OF INSULIN 03/08/2018 ISHA ARAGON [...] 03/31/2018 GRAY DO TANO D Ot Z79.84 DETENTION (CURRENT) USE OF ORAL HYPOGLYC 03/31/2018 GRAY MICHELL MARTINEZTT D Ot Z79.899 OTHER DETENTION (CURRENT) DRUG THERAPY 04/11/2018 GRAY TANO D Ot 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 04/11/2018 GRAY DO, TANO D Ot E11.9 TYPE 2 DIABETES MELLITUS WITHOUT COMPLIC 04/11/2018 GRAY DOTANO D Ot F17.210 NICOTINE DEPENDENCE, CIGARETTES, UNCOMPL 04/11/2018 TANO GRAY DO D Ot I10 ESSENTIAL (PRIMARY) HYPERTENSION 04/11/2018 GRAY TANO D Ot Z79.84 COOK SYRUP MAKER (CURRENT) USE OF ORAL HYPOGLYC 04/11/2018 GRAY TANO D Ot Z79.899 OTHER DETENTION (CURRENT) DRUG THERAPY 05/05/2018 ISHA ARAGON MD [...] 05/05/2018 ISHA ARAGON MD Ot 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 05/05/2018 ISHA ARAGON MD Ot L03.115 CELLULITIS OF RIGHT LOWER LIMB 05/05/2018 ISHA ARAGON MD Ot L97.512 NON-PRS CHRONIC ULCER OTH PRT RIGHT FOOT 05/05/2018 ISHA ARAGON MD Ot E11.42 TYPE 2 DIABETES MELLITUS WITH DIABETIC P 05/05/2018 ISHA ARAGON MD Ot E11.621 TYPE 2 DIABETES MELLITUS WITH FOOT ULCER 05/05/2018 ISHA ARAGON MD Ot 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 05/05/2018 [...] 05/05/2018 ISHA ARAGON MD, Ot 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 05/05/2018 [...] 05/05/2018 ISHA ARAGON MD, Ot 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 05/05/2018 [...] 05/05/2018 ISHA ARAGON MD, Ot 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 05/05/2018 [...] 05/05/2018 ISHA ARAGON MD, Ot 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 05/05/2018 [...] 05/05/2018 ISHA ARAGON MD, Ot 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 05/05/2018 [...] 05/05/2018 ISHA ARAGON MD, Ot 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 05/05/2018 [...] 2 DIABETES MELLITUS WITH FOOT ULCER 05/05/2018 ISAH ARAGON MD Ot L97.512 NON-PRS CHRONIC [...] 05/05/2018 ISHA ARAGON MD, Ot 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 05/05/2018 [...] 05/05/2018 ISHA ARAGON MD, Ot 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 05/05/2018 [...] 05/05/2018 ISHA ARAGON MD, Ot 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 05/05/2018 [...] 05/05/2018 ISHA ARAGON MD, Ot 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 05/05/2018 ISHA ARAGON MD, Ot L97.512 NON-PRS CHRONIC ULCER OTH PRT RIGHT FOOT 05/05/2018 ISHA ARAGON MD, Ot T65.222D TOXIC EFFECT OF TOBACCO CIGARETTES, SELF 05/05/2018 VONDA, LUIS FELIPE R [employer] CREDIT HEAD Ot E11.42 TYPE 2 DIABETES MELLITUS WITH DIABETIC P 05/05/2018 LUIS FELIPE FERRARI COMMERCIAL CREDIT HEAD Ot E11.621 TYPE 2 DIABETES MELLITUS WITH FOOT ULCER 05/05/2018 LUIS FELIPE FERRARI COMMERCIAL CREDIT HEAD Ot 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 05/05/2018 LUIS FELIPE FERRARI COMMERCIAL CREDIT HEAD Ot L97.512 NON-PRS CHRONIC ULCER OTH PRT RIGHT FOOT 05/05/2018 LUIS FELIPE FERRARI APRN Ot T65.222D TOXIC EFFECT OF TOBACCO CIGARETTES, SELF 05/05/2018 LUIS FELIPE FERRARI COMMERCIAL CREDIT HEAD Ot E11.42 TYPE 2 DIABETES MELLITUS WITH DIABETIC P 05/05/2018 LUIS FELIPE FERRARI COMMERCIAL CREDIT HEAD Ot E11.621 TYPE 2 DIABETES MELLITUS WITH FOOT ULCER 05/05/2018 LUIS FELIPE FERRARI COMMERCIAL CREDIT HEAD Ot 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 05/05/2018 LUIS FELIPE FERRARI COMMERCIAL CREDIT HEAD Ot L97.512 NON-PRS CHRONIC ULCER OTH PRT RIGHT FOOT 05/05/2018 LUIS FELIPE FERRARI APRN Ot T65.222D TOXIC EFFECT OF TOBACCO CIGARETTES, SELF 05/05/2018 ISHA ARAGON MD, Ot E11.42 TYPE 2 DIABETES MELLITUS WITH DIABETIC P 05/05/2018 ISHA ARAGON MD, Ot E11.621 TYPE 2 DIABETES MELLITUS WITH FOOT ULCER 05/05/2018 ISHA ARAGON MD, Ot 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 05/05/2018 [...] 05/05/2018 ISHA ARAGON MD, Ot 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 05/05/2018 [...] 05/05/2018 ISHA ARAGON MD Ot 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 05/05/2018 ISHA ARAGON MD Ot L97.512 NON-PRS CHRONIC ULCER OTH PRT RIGHT FOOT 05/05/2018 ISHA ARAGON MD Ot T65.222D TOXIC EFFECT OF TOBACCO CIGARETTES, SELF 05/05/2018 Ot E11.42 TYPE 2 DIABETES MELLITUS WITH DIABETIC P 05/05/2018 Ot E11.621 TYPE 2 DIABETES MELLITUS WITH FOOT ULCER 05/05/2018 Ot 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 05/05/2018 Ot L97.514 NON-PRS CHRONIC ULCER OTH PRT RIGHT FOOT 05/05/2018 Ot T65.222D TOXIC EFFECT OF TOBACCO CIGARETTES, SELF 05/05/2018 Ot E11.42 TYPE 2 DIABETES MELLITUS WITH DIABETIC P 05/05/2018 Ot E11.621 TYPE 2 DIABETES MELLITUS WITH FOOT ULCER 05/05/2018 Ot 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 05/05/2018 [...] WITH FOOT ULCER 05/05/2018 Ot 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 05/05/2018 [...] 05/05/2018 JANES WARREN MD Ot I70.262 ATHSCL [place] ARTERIES OF EXTREMITIES W 05/05/2018 JANES WARREN MD, Ot S99.921S UNSPECIFIED INJURY OF RIGHT FOOT, SEQUEL 05/06/2018 JANES WARREN MD Ot E78.49 OTHER HYPERLIPIDEMIA 05/06/2018 JANES WARREN MD, Ot F17.210 NICOTINE DEPENDENCE, CIGARETTES, UNCOMPL 05/06/2018 JANES WARREN MD Ot I10 ESSENTIAL (PRIMARY) HYPERTENSION 05/06/2018 JANES WARREN MD Ot I70.262 ATHSCL [place] ARTERIES OF EXTREMITIES W 05/06/2018 JANES WARREN [...] 05/07/2018 JANES WARREN MD Ot I70.262 ATHSCL [place] ARTERIES OF EXTREMITIES W 05/07/2018 JANES WARREN MD Ot S99.921S UNSPECIFIED INJURY OF RIGHT FOOT, SEQUEL 05/07/2018 BRIANA MCCULLOUGH, JANES William Ot Z23 ENCOUNTER FOR IMMUNIZATION 05/07/2018 JANES WARREN MD, Ot Z79.84 C[employer] SYR[employer] MAKER (CURRENT) USE OF ORAL HYPOGLYC 05/07/2018 JANES WARREN MD, Ot Z89.431 ACQUIRED ABSENCE OF RIGHT FOOT Procedures Code Description Performed By Performed On [id number] DILATION OF L FEM ART WITH DRUG-ELUT, PE 05/05/2018 [id number] DILATION OF L FEM ART USING DRUG BLLN, P 05/05/2018 [id number] FLUOROSCOPY OF AORTA, BI LE ART USING L 05/05/2018 [id number] DETACHMENT AT LEFT 1ST TOE, COMPLETE, OP 05/06/2018 Results Test Result Range Bacteria identification in isolate by anaerobe culture - 04/05/17 15:52 Bacteria identification in isolate by anaerobe culture NOANA NRG Gram stain microscopy - 04/05/17 15:52 GRAM STAIN RESULT NO WBC'S OR BACTERIA OBSERVED NRG Bacteria identification in wound by culture - 04/05/17 15:52 Bacteria identification in wound by culture [id number] NRG FREE TEXT EXTERNAL SENSITIVITY REPORTED AT [...] 10:59 Bacteria identification in wound by culture [id number] NR FREE TEXT EXTERNAL SENSITIVITIES REPORTED AT [...] 09:11 Bacteria identification in wound by culture [id number] [facility] FREE TEXT EXTERNAL SENSITIVITY REPORTED AT 1109, [...] 09:26 Bacteria identification in wound by culture [id number] NRG FREE TEXT EXTERNAL FEW OBSERVED NRG [...] 09:44 Bacteria identification in wound by culture [id number] NRG FREE TEXT EXTERNAL ID REPORTED 10/22/17 15:30 NRG QUANTITY OF GROWTH Scant Growth NRG FREE TEXT ENTRY 2 ISOLATE SENT TO [facility] NRG FREE TEXT ENTRY 3 10/23/17 FOR SENSITIVITY TESTING NRG Bacteria identification in isolate by anaerobe culture - 11/23/17 08:31 Bacteria identification in isolate by anaerobe culture NOANA NRG Gram stain microscopy - 11/23/17 08:31 GRAM STAIN RESULT NO WBC'S OR BACTERIA OBSERVED NRG Bacteria identification in wound by culture - 11/23/17 08:31 Bacteria identification in wound by culture [id number] NRG FREE TEXT EXTERNAL SENSITIVITY REPORTED AT [...] 09:13 Bacteria identification in wound by culture [id number] NRG FREE TEXT EXTERNAL ID BY RML [...] measurement by glucometer (mass/volume) 120 mg/dL 70-110 Complete blood count (CBC) with automated white blood cell (WBC) differential - 11/10/18 19:36 Blood leukocytes automated count (number/volume) 3.8 10*3/uL 4.3-11.0 Blood erythrocytes automated count (number/volume) 3.05 10*6/uL 4.35-5.85 Venous blood hemoglobin measurement (mass/volume) 9.0 g/dL 11.5-16.0 Blood hematocrit (volume fraction) 28 % 35-52 Automated erythrocyte mean corpuscular volume 93 [foz_us] 80-99 Automated erythrocyte mean corpuscular hemoglobin (mass per erythrocyte) 30 pg 25-34 Automated erythrocyte mean corpuscular hemoglobin concentration measurement (mass/volume) 32 g/dL 32-36 Automated erythrocyte distribution width ratio 16.4 % 10.0- 14.5 Automated blood platelet count (count/volume) 81 10*3/uL 130- 400 Automated blood platelet mean volume measurement 11.8 [foz_us] 7.4-10.4 Automated blood neutrophils/100 leukocytes 63 % 42-75 Automated blood lymphocytes/100 leukocytes 21 % 12-44 Blood monocytes/100 leukocytes 12 % 0-12 Automated blood eosinophils/100 leukocytes 0 % 0-10 Automated blood basophils/100 leukocytes 0 % 0-10 Blood neutrophils automated count (number/volume) 2.4 10*3 1.8-7.8 Blood lymphocytes automated count (number/volume) 0.8 10*3 1.0-4.0 Blood monocytes automated count (number/volume) 0.5 10*3 0.0- 1.0 Automated eosinophil count 0.0 10*3/uL 0.0-0.3 Automated blood basophil count (count/volume) 0.0 10*3/uL 0.0-0.1 Comprehensive metabolic panel - 11/10/18 19:36 Serum or plasma sodium measurement (moles/volume) 127 mmol/L 135-145 Serum or plasma potassium measurement (moles/volume) 4.0 mmol/L 3.6-5.0 Serum or plasma chloride measurement (moles/volume) 90 mmol/L 98-107 Carbon dioxide 21 mmol/L 21-32 Serum or plasma anion gap determination (moles/volume) 16 mmol/L 5-14 Serum or plasma urea nitrogen measurement (mass/volume) 24 mg/dL 7-18 Serum or plasma creatinine measurement (mass/volume) 1.17 mg/dL 0.60-1.30 Serum or plasma urea nitrogen/creatinine mass ratio 21 NRG Serum or plasma creatinine measurement with calculation of estimated glomerular filtration rate 45 NRG Serum or plasma glucose measurement (mass/volume) 141 mg/dL 70-105 Serum or plasma calcium measurement (mass/volume) 8.0 mg/dL 8.5-10.1 Serum or plasma total bilirubin measurement (mass/volume) 3.8 mg/dL 0.1-1.0 Serum or plasma alkaline phosphatase measurement (enzymatic activity/volume) 698 U/L 40-136 Serum or plasma aspartate aminotransferase measurement (enzymatic activity/volume) 156 U/L 5-34 Serum or plasma alanine aminotransferase measurement (enzymatic activity/volume) 107 U/L 0-55 Serum or plasma protein measurement (mass/volume) 5.8 g/dL 6.4-8.2 Serum or plasma albumin measurement (mass/volume) 2.7 g/dL 3.2-4.5 CALCIUM CORRECTED 9.0 mg/dL 8.5-10.1 Serum or plasma amylase measurement (enzymatic activity/volume) - 11/10/18 19:36 Serum or plasma amylase measurement (enzymatic activity/volume) 114 U/L 25-125 Lipase - 11/10/18 19:36 Lipase 44 U/L 8-78 Capillary blood glucose measurement by glucometer (mass/volume) - 11/10/18 20:55 Capillary blood glucose measurement by glucometer (mass/volume) 54 mg/dL 70-110 Capillary blood glucose measurement by glucometer (mass/volume) - 11/10/18 21:23 Capillary blood glucose measurement by glucometer (mass/volume) 160 mg/dL 70-110 Encounters ACCT No. Visit Date/Time Discharge Status Pt. Type Provider Facility Loc./Unit Complaint [id number] 11/09/2018 10:27:00 11/09/2018 12:17:00 DIS Emergency CALEB BOWLES DO [facility] ER FS HYPOGLYCEMIA [id number] 08/25/2018 13:01:00 08/25/2018 23:59:59 CLS Preadmit BARRY PIERCE MD [facility] CARD HYPERTENSION [id number] 08/25/2018 12:59:00 08/25/2018 23:59:59 CLS Preadmit BARRY PIERCE MD [facility] CARD HYPERTENSION, MIXED HYPERLIPIDEMIA [id number] 05/05/2018 12:07:00 05/07/2018 13:30:00 DIS Inpatient BRIANA MCCULLOUGH, JANES William [facility] ICU ISCHEMIA L GREAT TOE [id number] 03/31/2018 09:20:00 03/31/2018 13:45:00 DIS Outpatient TANO GRAY DO [facility] SDC SKIN CANCER ON BACK [id number] 03/22/2018 05:39:00 03/22/2018 13:25:00 DIS Outpatient ATNO GRAY DO [facility] PREOP SKIN CANCER ON BACK [id number] 03/11/2018 11:00:00 03/11/2018 23:59:59 CLS Preadmit ANNITA THOMPSON MD [facility] RAD CHRONIC KIDNEY DISEASE STAGE 4 [id number] 03/09/2018 00:08:00 03/09/2018 23:59:59 CLS Preadmit MAHESH MCCULLOUGH, ISHA Sena [facility] LAB E11.621,E11.42,L97.512 [id number] 12/17/2017 07:40:00 03/08/2018 00:01:00 DIS Outpatient ISHA ARAGON MD [facility] LAB E11.621,E11.42,L97.512 [id number] 12/08/2017 08:02:00 12/08/2017 23:59:59 CLS Outpatient ISHA ARAGON MD [facility] WOUNDCARE [id number] 12/01/2017 08:22:00 12/01/2017 23:59:59 CLS Outpatient ISHA ARAGON MD [facility] WOUNDCARE [id number] 12/01/2017 07:33:00 12/01/2017 23:59:59 CLS Outpatient ISHA ARAGON MD [facility] LAB E11.621 E11.42 L97.512 [id number] 09/01/2017 11:19:00 11/30/2017 00:01:00 DIS Outpatient ISHA ARAGON MD [facility] LAB E11.621,E11.42,L97.512 [id number] 11/25/2017 07:58:00 11/25/2017 23:59:59 CLS Outpatient ISHA ARAGON MD [facility] WOUNDCARE [id number] 11/23/2017 08:02:00 11/23/2017 23:59:59 CLS Outpatient LUIS FELIPE FERRARI APRN [facility] WOUNDCARE [id number] 11/16/2017 07:59:00 11/16/2017 23:59:59 CLS Outpatient LUIS FELIPE FERRARI APRN [facility] WOUNDCARE [id number] 11/10/2017 07:57:00 11/10/2017 23:59:59 CLS Outpatient ISHA ARAGON MD [facility] WOUNDCARE [id number] 11/03/2017 07:55:00 11/03/2017 23:59:59 CLS Outpatient ISHA ARAGON MD [facility] WOUNDCARE [id number] 10/27/2017 08:10:00 10/27/2017 23:59:59 CLS Outpatient ISHA ARAGON MD [facility] WOUNDCARE [id number] 10/20/2017 08:31:00 10/20/2017 23:59:59 CLS Outpatient ISHA ARAGON MD [facility] WOUNDCARE [id number] 10/13/2017 08:32:00 10/13/2017 23:59:59 CLS Outpatient ISHA ARAGON MD [facility] WOUNDCARE [id number] 10/04/2017 08:00:00 10/04/2017 23:59:59 CLS Outpatient ISHA ARAGON MD [facility] WOUNDCARE [id number] 10/01/2017 08:09:00 10/01/2017 23:59:59 CLS Outpatient ISHA ARAGON MD [facility] WOUNDCARE [id number] 09/29/2017 10:33:00 09/29/2017 23:59:59 CLS Outpatient ISHA ARAGON MD [facility] LAB SEE ORDER [id number] 09/29/2017 08:17:00 09/29/2017 23:59:59 CLS Outpatient ISHA ARAGON MD [facility] WOUNDCARE [id number] 09/22/2017 07:56:00 09/22/2017 23:59:59 CLS Outpatient ISHA ARAGON MD [facility] WOUNDCARE [id number] 09/20/2017 08:32:00 09/20/2017 23:59:59 CLS Outpatient ISHA ARAGON MD [facility] WOUNDCARE [id number] 09/15/2017 10:03:00 09/15/2017 23:59:59 CLS Outpatient ISHA ARAGON MD [facility] WOUNDCARE [id number] 09/08/2017 11:44:00 09/08/2017 23:59:59 CLS Outpatient ISHA ARAGON MD [facility] LAB E11.621 E11.42 L97.512 [id number] 09/08/2017 10:10:00 09/08/2017 23:59:59 CLS Outpatient LUIS FELIPE FERRARI APRN [facility] WOUNDCARE [id number] 09/01/2017 10:06:00 09/01/2017 23:59:59 CLS Outpatient ISHA ARAGON MD [facility] WOUNDCARE [id number] 08/27/2017 09:41:00 08/27/2017 23:59:59 CLS Outpatient ISHA ARAGON MD [facility] RAD E11.621,L97.512 [id number] 08/27/2017 08:28:00 08/27/2017 23:59:59 CLS Outpatient ISHA ARAGON MD [facility] WOUNDCARE [id number] 08/04/2017 08:37:00 08/04/2017 23:59:59 CLS Outpatient ISHA ARAGON MD [id number] 07/28/2017 08:12:00 07/28/2017 23:59:59 CLS Outpatient ISHA ARAGON MD [facility] [id number] 07/21/2017 09:01:00 07/21/2017 23:59:59 CLS Outpatient ISHA ARAGON MD [facility] [id number] 07/14/2017 08:54:00 07/14/2017 23:59:59 CLS Outpatient ISHA ARAGON MD [facility] [id number] 07/12/2017 08:54:00 07/12/2017 23:59:59 CLS Outpatient ISHA ARAGON MD [facility] [id number] 07/01/2017 08:47:00 07/01/2017 23:59:59 CLS Outpatient ISHA ARAGON MD [facility] RAD E11.621 E11.42 L97.512 [id number] 06/30/2017 09:06:00 06/30/2017 23:59:59 CLS Outpatient ISHA ARAGON MD [facility] [id number] 05/28/2017 06:00:00 05/28/2017 11:45:00 DIS Outpatient MAN MCCLOUD DPM [facility] SDC OSTEOMYELITIS [id number] 05/24/2017 08:30:00 05/24/2017 23:59:59 CLS Outpatient ISHA ARAGON MD [facility] WOUNDCARE [id number] 05/24/2017 10:05:00 05/24/2017 10:40:00 DIS Outpatient MAN MCCLOUD DPM [facility] PREOP OSTEOMYELITIS [id number] 05/11/2017 12:06:00 05/11/2017 23:59:59 CLS Outpatient ISHA ARAGON MD [facility] WOUNDCARE [id number] 05/03/2017 08:22:00 05/03/2017 23:59:59 CLS Outpatient ISHA ARAGON MD [facility] WOUNDCARE [id number] 04/26/2017 08:39:00 04/26/2017 23:59:59 CLS Outpatient ISHA ARAGON MD [facility] WOUNDCARE [id number] 04/19/2017 08:29:00 04/19/2017 23:59:59 CLS Outpatient ISHA ARAGON MD [facility] WOUNDCARE [id number] 04/12/2017 10:51:00 04/12/2017 23:59:59 CLS Outpatient ISHA ARAGON MD [facility] RAD E11.621,E11.42,L97.512 [id number] 04/12/2017 08:22:00 04/12/2017 23:59:59 CLS Outpatient ISHA ARAGON MD [facility] WOUNDCARE [id number] 04/05/2017 14:03:00 04/05/2017 23:59:59 CLS Outpatient ISHA ARAGON MD [facility] WOUNDCARE [id number] 02/03/2017 12:35:00 02/03/2017 23:59:59 CLS Preadmit PAULETTE MCCULLOUGH, DANYEL Hagen [facility] RAD ELEVATED LFT'S [id number] 03/04/2015 08:03:00 03/04/2015 10:00:00 DIS Outpatient ISHA ARAGON MD [facility] WOUNDCARE [id number] 02/14/2015 23:42:00 02/15/2015 02:13:00 DIS Emergency CIARA LUCIANO MD [facility] ER VOMITING,FALL 3 WKS AGO-PAIN SMALL OF BACK [id number] 02/13/2015 09:09:00 02/13/2015 00:01:00 DIS Outpatient ISHA ARAGON MD [facility] WOUNDCARE [id number] 01/07/2015 08:04:00 01/20/2015 00:01:00 DIS Outpatient ISHA ARAGON MD [facility] WOUNDCARE [id number] 10/22/2014 11:15:00 10/22/2014 23:59:59 CLS Outpatient ISHA ARAGON MD [facility] RAD DIABETIC FOOT ULCER [id number] 08/31/2013 10:25:00 10/04/2013 13:56:00 DIS Outpatient DANYEL CALDWELL MD [facility] WOUNDCARE PRESSURE/EXPOSURE TO ACID ULCER [id number] 11/10/2018 20:01:00 Document Registration [id number] 12/31/2017 13:53:00 Document Registration [id number] 12/27/2017 06:05:00 Document Registration [id number] 12/22/2017 08:02:00 Document Registration [id number] 12/20/2017 09:17:00 Document Registration [id number] 12/19/2017 11:28:00 Document Registration
[2018-11-10] MEDS ORDERED: ONDANSETRON 4 MG/2 ML (SDV) Z0FRAN IV PRN (23:00)
[2018-11-10] MEDS: DEXTROSE 10% IV SOLUTION 1,000 ML IV SCH (23:11)
--- NOTE | 2018-11-10 23:15 | NUR ---
1/2 AMP D50 ADMINISTERED AT THIS TIME PER PHYSICIAN ORDER FOR BLOOD GLUCOSE OF 43
[2018-11-10] MEDS ORDERED: ACETAMINOPHEN 500 MG TAB (TYLENOL) PO ONE (23:45)
[2018-11-11] VITALS (7 sets, daily range): BP systolic 100–134; BP diastolic 62–87
[2018-11-11] MEDS: CYCLOBENZAPRINE 10 MG (FLEXERIL) TAB PO SCH ×2 (00:35→21:09)
--- NOTE | 2018-11-11 00:38 | NUR ---
RAFAELA BROWNE admitted to room 416-1, with an admitting diagnosis of HYPOGLYCEMIA AND ELEVATED LFTS, on 11/10/18 from [facility] ED via EMS, accompanied by SERVICE AND REPAIR SUPERVISOR. RAFAELA BROWNE introduced to surroundings, call light, bed controls, phone, TV, temperature control, lights, meal times, smoking policy, visitor policy, side rail policy, bathrooms and showers. Addendum: 11/11/18 at 0041 by SONDRA MONTANO RN PATIENT ARRIVED TO ROOM 416 ON 11/10/2018 AT 2210
[2018-11-11] MEDS: DEXTROSE 50% 50 ML (IMS) SYR IV PRN ×5 (01:15→05:09)
--- NOTE | 2018-11-11 01:15 | NUR ---
1/2 AMP D50 ADMINISTERED AT THIS TIME FOR BLOOD GLUCOSE OF 44
--- NOTE | 2018-11-11 02:08 | NUR ---
1/2 AMP D50 GIVEN AT THIS TIME FOR A BLOOD GLUCOSE OF 69
--- NOTE | 2018-11-11 02:15 | NUR ---
DR ROMERO UPDATED ON BLOOD GLUCOSE LEVELS AND INTERVENTIONS. NNO.
--- NOTE | 2018-11-11 03:00 | NUR ---
1/2 AMP D50 GIVEN AT THIS TIME FOR BLOOD GLUCOSE OF 67
--- NOTE | 2018-11-11 04:10 | NUR ---
1/2 AMP D50 GIVEN AT THIS TIME FOR BLOOD GLUCOSE OF 50
--- NOTE | 2018-11-11 05:10 | NUR ---
1/2 Amp D50 given for blood glucose of 38. Dr Mcdonald notified of blood glucose level. Order received for an additional Full Amp of D50 IV once now.
[2018-11-11] MEDS ORDERED: DEXTROSE 50% 50 ML (IMS) SYR IV ONE ×3 (05:30→07:00)
--- NOTE | 2018-11-11 07:05 | NUR ---
PATIENT BLOOD GLUCOSE AT [address] ROMERO NOTIFIED. ORDER RECEIVED FOR FULL AMP OF D50 AND CONSULT DR VALDES.
--- NOTE | 2018-11-11 07:16 | Pulmonary Consultation ---
History of Present Illness History of Present Illness Date of Consultation 11/11/18 07:11 Time Seen by Provider: 07:11 Date of Admission History of Present Illness 73yo with hx of DM, presented to [facility] ED secondary to hypoglycemia. EMS found pt on floor with BS of 18. Pt was also seen 1 day prior in the ED also with hypoglycemia. EMS has also been at pt's house multiple times. She has been having decreased appetite. PT is on Glimeperide at home and she dropped dose from BID to daily. Dr. Mcdonald called me to see pt this AM and reports pt has had continued hypoglycemic episodes during the night. She has received multiple doses of D50. Allergies and Home Medications Allergies Coded Allergies: Penicillins (Verified Allergy, Unknown, 11/10/18) codeine (Verified Allergy, Unknown, 11/10/18) Home Medications Acetaminophen 500 Mg Tablet, 500 MG PO Q4H PRN for PAIN-MILD, (Reported) Amlodipine Besylate 5 Mg Tablet, 5 MG PO DAILY, (Reported) Aspirin 81 Mg Tablet., 81 MG PO DAILY Prescribed by: ERNESTINA ALONSO on 05/07/18 0838 Atorvastatin Calcium 40 Mg Tablet, 40 MG PO HS, (Reported) Clopidogrel Bisulfate 75 Mg Tablet, 75 MG PO DAILY, (Reported) Cyclobenzaprine HCl 10 Mg Tablet, 10 MG PO TID PRN for MUSCLE SPASMS, (Reported) Glimepiride 4 Mg Tablet, 4 MG PO DAILY, (Reported) Past Napkhrm-Ksiymw-Dyomne Hx Past Med/Social Hx: Reviewed Nursing Past Med/Soc Hx Patient Social History Alcohol Use: Denies Use Recreational Drug Use: No Type Used: Cigarettes Former Smoker, Quit: Dec 23, 2017 Recent Foreign Travel: No Contact w/Someone Who Travel: No Recent Infectious Disease Expo: No Recent Hopitalizations: No Immunizations Up To Date Tetanus Booster (TDap): Unknown PED Vaccines UTD: No Date of Pneumonia Vaccine: Feb 07, 2018 Date of Influenza Vaccine: May 05, 2018 Seasonal Allergies Seasonal Allergies: Yes Past Medical History Surgeries: Yes (c/s x3, lipoma removed from arm, R 2nd toe amputated) Adenoidectomy, Appendectomy, Section, Gallbladder, Hysterectomy, Tonsillectomy Respiratory: No Cardiac: No (rheumatic fever when 7yrs old) Hypertension, Rheumatic Fever Neurological: No Reproductive Disorders: No Sexually Transmitted Disease: No HIV/AIDS: No Genitourinary: No Gastrointestinal: No Musculoskeletal: Yes (osteomyelitis 2nd right) Endocrine: Yes Diabetes, Non-Insulin dep HEENT: No Loss of Vision: Denies Hearing Impairment: Denies Cancer: Yes (on back) Skin Did You Recieve Any Treatments: Yes What Type of Treatment Did You: Surgical Intervention Psychosocial: No Integumentary: No Blood Disorders: No Adverse Reaction/Blood Tranf: No Family Medical History Cirrhosis of liver 19 FATHER Congenital heart disease Diabetes mellitus 19 MOTHER No Pertinent Family Hx Review of Systems Time Seen by Provider: 10:07 Sepsis Event Evaluation Height, Weight, BMI Height: 5'5.00" Weight: 151lbs. 2.0oz. 68.203759vy; 25.0 BMI Method:Stated Exam Exam Vital Signs Date Time Temp Pulse Resp B/P (MAP) Pulse Ox O2 Delivery O2 Flow Rate FiO2 11/11/18 04:27 96.6 75 22 100/62 (75) 97 Room Air 11/11/18 01:34 Room Air 11/11/18 00:03 97.7 86 22 117/65 (82) 95 Room Air 11/10/18 21:20 92 14 132/55 (80) 96 Room Air 11/10/18 19:36 102 14 141/54 (83) 94 Room Air I & O 11/11/18 07:00 Intake Total 50 ml Balance 50 ml Height & Weight Height: 5'5.00" Weight: 151lbs. 2.0oz. 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) Neurologic/Psychiatric: Alert, Depressed Affect Skin: Normal Color, Warm/Dry Lymphatic: No Adenopathy Results Lab Laboratory Tests 11/10/18 19:36 Assessment/Plan Assessment/Plan MS changes with hypoglycemia -Will give Glucagon -Will place pt on telemetry and call rapid response -Pt may need to transfer to ICU -Monitor Accu checks close -D50 PRN -Continue D10 gtt -CHeck TSH Hyponatremia -Monitor Hx of DM II -Oral hypoglycemics on hold -check Hb A1C Elevated LFTs with elevated alk phos -Check abd US -Abd CT reviewed -Check hepatitis panel and ammonia level -Amylase/Lipase normal Anemia -Monitor -Check occult stool Pancytopenia -Check Blood cultures -Coagulation panel -Peripheral smear -Repeat labs today pending SOCO VALDES DO Nov 11, 2018 07:16
[2018-11-11] MEDS ORDERED: GLUCAGON EMERGENCY 1 MG/KIT IV ONE (07:45)
[2018-11-11 08:13] LABS: ABSOLUTE RETIC # 58 10e9/L (24-90); BASOPHILS % (AUTO) 0 % (0-10); EOSINOPHILS % (AUTO) 0 % (0-10); HEMATOCRIT 28 % (35-52); LYMPHOCYTES # (AUTO) 1.9 X 10^3 (1.0-4.0); LYMPHOCYTES % (AUTO) 37 % (12-44); MEAN CORPUSCULAR HEMOGLOBIN 29 PG (25-34); MEAN CORPUSCULAR HGB CONC 32 G/DL (32-36); MEAN CORPUSCULAR VOLUME 93 FL (80-99); MEAN PLATELET VOLUME 12.6 FL (7.4-10.4); MONOCYTES # (AUTO) 0.6 X 10^3 (0.0-1.0); MONOCYTES % (AUTO) 12 % (0-12); NEUTROPHILS # (AUTO) 2.5 X 10^3 (1.8-7.8); NEUTROPHILS % (AUTO) 50 % (42-75); PLATELET COUNT 75 10^3/uL (130-400); RED CELL DISTRIBUTION WIDTH 16.7 % (10.0-14.5)
[2018-11-11 08:30] LABS: INR 1.2 (0.8-1.4); PROTHROMBIN TIME PATIENT 15.6 SEC (12.2-14.7)
[2018-11-11 08:31] LABS: ALBUMIN 2.9 GM/DL (3.2-4.5); BILIRUBIN,TOTAL 3.9 MG/DL (0.1-1.0); CALCIUM 8.4 MG/DL (8.5-10.1); CREATININE SERUM 1.22 MG/DL (0.60-1.30); MAGNESIUM 1.9 MG/DL (1.8-2.4); PHOSPHORUS 3.6 MG/DL (2.3-4.7); TOTAL PROTEIN 5.9 GM/DL (6.4-8.2)
[2018-11-11 09:00] LABS: ANISOCYTOSIS SLIGHT; BAND NEUTROPHILS 5 %; BASOPHILS % (MANUAL) 0 %; ELLIPT/OVALOCYTES SLIGHT; EOSINOPHILS % (MANUAL) 0 %; HYPOCHROMASIA SLIGHT; LYMPHOCYTES % (MANUAL) 29 %; MONOCYTES % (MANUAL) 12 %; NEUTROPHILS % (MANUAL) 52 %; REACTIVE LYMPHOCYTES 2 %
--- NOTE | 2018-11-11 09:28 | NUR ---
Pt is Gnosticism. Fire Safety Manager provided prayer and Communion.
--- NOTE | 2018-11-11 10:26 | NUR ---
changed d50% syringe to compounded product due to drug shortage/unavailability. dosing is the same
--- NOTE | 2018-11-11 10:28 | History & Physical-Hospitalist ---
History of Present Illness HPI/Chief Complaint Chief complaint: Severe refractory hypoglycemia due to oral hypoglycemic agents History of present illness: This is a 73-year-old white female who has no local physician after being terminated from Dr. Chirag marie who presented from the [place] [facility] due to refractory and severe hypoglycemia. She was seen in the [place] ER yesterday for hypoglycemia the adjusted down her oral hypoglycemic agent and discharged home but then she had multiple EMS visits to her house due to severe hypoglycemia down to 18. Patient was thus admitted placed on D10 drip in addition to one half amp of D50 for blood sugar less than 80 and that was managed aggressively by the nursing staff on fourth floor last night. She continued to have severe hypoglycemia even with one half amp of D50 so she was given one full amp Dr. Bryan was consulted rapid response was initiated and patient has actually improved a great deal since aggressive dextrose has been initiated. 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 Patient lives at home alone and will definitely need snf admission because she is just such severely debilitated she can no longer be managed at home alone. Liver enzymes are significantly elevated specifically alkaline phosphatase and she has had a cholecystectomy in the past so we'll consult Dr. Crepso the patient appears to have some sort of what appears to be some sort of neoplastic process causing this issue. Source: patient, RN/MD, old records Exam Limitations: no limitations Date Seen 11/11/18 Time Seen by a Provider: 09:45 Attending Physician Maureen Romero DO PCP No,Local Physician Referring Physician Date of Admission Nov 10, 2018 at 21:34 Home Medications & Allergies Home Medications Reviewed patient Home Medication Reconciliation performed by pharmacy medication reconciliations premises technician and/or nursing. Patients Allergies have been reviewed. Allergies Allergies Coded Allergies Penicillins (Verified Allergy, Unknown, 11/10/18) codeine (Verified Allergy, Unknown, 11/10/18) Past Uajgpgi-Bifgnk-Kjvyym Hx Past Med/Social Hx: Reviewed Nursing Past Med/Soc Hx, Reviewed and Corrections made Patient Social History Marrital Status: single Employed/Student: retired Alcohol Use: Denies Use Recreational Drug Use: No Smoking Status: Current Everyday Smoker Former Smoker, Quit: Dec 23, 2017 Type Used: Cigarettes Recent Foreign Travel: No Contact w/other who traveled: No Recent Hopitalizations: No Recent Infectious Disease Expo: No Immunizations Up To Date Tetanus Booster (TDap): Unknown Pediatric: No Date of Pneumonia Vaccine: Feb 07, 2018 Date of Influenza Vaccine: May 05, 2018 Seasonal Allergies Seasonal Allergies: Yes Past Medical History Surgeries: Adenoidectomy, Appendectomy, Section, Gallbladder, Hysterectomy, Tonsillectomy Respiratory: COPD Cardiac: Hypertension, Rheumatic Fever Reproductive: No Sexually Transmitted Disease: No HIV/AIDS: No Endocrine: Diabetes, Non-Insulin dep Loss of Vision: Denies Hearing Impairment: Denies Cancer: Skin Did You Recieve Any Treatments: Yes What Type of Treatment Did You: Surgical Intervention History of Blood Disorders: No Adverse Reaction to Blood Dan: No Family History Cirrhosis of liver 19 FATHER Congenital heart disease Diabetes mellitus 19 MOTHER No Pertinent Family Hx Review of Systems Constitutional: see HPI, malaise, weakness EENTM: no symptoms reported Respiratory: no symptoms reported Cardiovascular: no symptoms reported Gastrointestinal: no symptoms reported Genitourinary: no symptoms reported Musculoskeletal: no symptoms reported Skin: no symptoms reported Psychiatric/Neurological: No Symptoms Reported All Other Systems Reviewed Negative Unless Noted: Yes Physical Exam Physical Exam Vital Signs Vital Signs - First Documented 11/10/18 11/11/18 11/11/18 19:36 00:03 08:00 Temp 97.7 Pulse 102 Resp 14 B/P (MAP) 141/54 (83) Pulse Ox 94 O2 Delivery Room Air O2 Flow Rate 0.00 Capillary Refill : Less Than 3 Seconds Height, Weight, BMI Height: 5'5.00" Weight: 151lbs. 2.0oz. [id number]; 25.0 BMI Method:Stated General Appearance: No Apparent Distress, WD/WN, Chronically ill, Obese Eyes: Right Eye Normal Inspection, Right Eye PERRL HEENT: PERRL/EOMI, Normal ENT Inspection, Pharynx Normal, Moist Mucous Membranes Neck: Full Range of Motion, Normal Inspection, Non Tender Respiratory: Chest Non Tender, Lungs Clear, No Accessory Muscle Use, No Respiratory Distress, Decreased Breath Sounds Cardiovascular: Regular Rate, Rhythm, No Edema, No Gallop, No JVD, No Murmur, Normal Peripheral Pulses Gastrointestinal: Normal Bowel Sounds, No Organomegaly, No Pulsatile Mass, Non Tender, Soft Back: Normal Inspection, No CVA Tenderness, No Vertebral Tenderness Extremity: Normal Capillary Refill, Normal Inspection, Normal Range of Motion, Non Tender, No Calf Tenderness, No Pedal Edema Neurologic/Psychiatric: Alert, Oriented x3, No Motor/Sensory Deficits, Normal Mood/Affect Skin: Normal Color, Warm/Dry Lymphatic: No Adenopathy Results Results/Procedures Labs Laboratory Tests 11/10/18 19:36 11/11/18 07:52 Patient resulted labs reviewed. Assessment/Plan Admission Diagnosis Assessment: Severe refractory hypoglycemia due to oral hypoglycemic agent Diabetes mellitus COPD Current smoker Right metatarsal amputation April 2018 admitted to hospitalist service here locally Elevated liver enzymes specifically alkaline phosphatase suspicious for some so rt of neoplastic process considering status post cholecystectomy in the remote past consulting Dr. Crespo obtaining ultrasound and reviewed CT scan Plan: Consult Dr. 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 (4) Debilitated Status: Acute (5) DNR (do not resuscitate) Status: Chronic (6) Elevated LFTs Status: Chronic (7) Liver failure Status: Acute Qualifiers: Liver failure chronicity: subacute Hepatic coma status: without hepatic coma Qualified Codes: K72.00 - Acute and subacute hepatic failure without coma (8) Pancytopenia Status: Chronic (9) Non-insulin dependent type 2 diabetes mellitus Status: Chronic (10) PAD (peripheral artery disease) Status: Chronic (11) Compression fracture of L1 lumbar vertebra Status: Chronic Qualifiers: Encounter type: sequela Qualified Codes: S32.010S - Wedge compression fracture of first lumbar vertebra, sequela Clinical Quality Measures DVT/VTE Risk/Contraindication: Risk Factor Score Per Nursin RFS Level Per Nursing on Admit: 2=Moderate MAUREEN ROMERO DO Nov 11, 2018 10:28
[2018-11-11] MEDS: D5 1/2 NS 1000 ML IV SOLUTION 1,000 ML IV SCH ×2 (11:52→17:24)
--- NOTE | 2018-11-11 12:00 | Diagnostic Imaging Report ---
INDICATION: PICC line. FINDINGS: The left PICC catheter distal tip is oriented inferiorly in the lower SVC in good alignment. There is suggestion of a nodule projecting laterally over the right midlung at 1.7 cm. Hilar and mediastinal evaluation is limited by rotation. IMPRESSION: The left PICC line is in good position. Portable technique with rotation limits sensitivity. There is suggestion of a right lung mass and either chest CT or dedicated PA and lateral chest radiographs in the Department are recommended as followup. Dictated by: Dictated on workstation # [id number]
[2018-11-11] MEDS: DEXTROSE 50% IV PRN ×8 (12:25→23:34)
[2018-11-11] MEDS ORDERED: CLOP75TA28 PO (13:14)
[2018-11-11] MEDS ORDERED: ATOR40TA70 PO (13:14)
--- NOTE | 2018-11-11 13:25 | NUR ---
SPOKE WITH PATIENT ABOUT HER MEDICATIONS, WELL GOING OVER HER EXTERNAL MED HISTORY. GLIMEPIRIDE IS PRESCRIBED BID, BUT PATIENT STATES SHE IS NOW JUST TAKING 1 TABLET DAILY. OTC MEDICATIONS: ACETAMINOPHEN PRN
[2018-11-11 15:33] LABS: AMPHETAMINE SCREEN, URINE NEGATIVE (NEGATIVE); BARBITURATE SCREEN URINE NEGATIVE (NEGATIVE); BENZODIAZEPINES SCREEN URINE NEGATIVE (NEGATIVE); CANNABINOID SCREEN, URINE NEGATIVE (NEGATIVE); COCAINE SCREEN URINE NEGATIVE (NEGATIVE); METHADONE STAT NEGATIVE (NEGATIVE); METHAMPHETAMINE SCREEN URINE S NEGATIVE (NEGATIVE); OPIATE SCREEN URINE NEGATIVE (NEGATIVE); OXYCODONE STAT NEGATIVE (NEGATIVE); PROPOXYPHENE STAT NEGATIVE (NEGATIVE); TRICYCLIC ANTIDEPRESSANTS SCRE POSITIVE (NEGATIVE)
--- NOTE | 2018-11-11 19:54 | Consultation (Surgery) ---
History of Present Illness History of Present Illness Patient Consulted On(mariana/time) 11/11/18 19:48 Date Seen by Provider: Nov 11, 2018 Time Seen by Provider: 17:10 History of Present Illness consult requested by Dr. Mcdonald for elevated liver enzymes. Patient is a 73-year-old female who was admitted for hypoglycemia. Patient was found to have elevated liver enzymes. Patient states she's had previous cholecystectomy which she has a scar in the right upper quadrant. Patient states that she is not having any abdominal pain. She is having regular bowel movements. She denies any blood in her stools. Patient states she's has been having trouble with her blood sugars. Patient has history of a large skin cancer on her back. She has a skin cancer appearing on the left nares which she has been set up with ENT previously but has not followed through with. She states that she does hasn't made it for that appointment. Patient has CT scan of the abdomen and pelviswas reviewed demonstrating moderate amount of stool in the colon. Splenomegaly and mild hepatomegaly. Question common bile duct dilatation no acute intra-abdominal process. Allergies and Home Medications Allergies Coded Allergies: Penicillins (Verified Allergy, Unknown, 11/10/18) codeine (Verified Allergy, Unknown, 11/10/18) Home Medications Acetaminophen 500 Mg Tablet, 500 MG PO Q4H PRN for PAIN-MILD, (Reported) Amlodipine Besylate 5 Mg Tablet, 5 MG PO DAILY, (Reported) Aspirin 81 Mg Tablet.dr, 81 MG PO DAILY Prescribed by: ERNESTINA ALONSO on 05/07/18 0838 Atorvastatin Calcium 40 Mg Tablet, 40 MG PO HS, (Reported) Clopidogrel Bisulfate 75 Mg Tablet, 75 MG PO DAILY, (Reported) Cyclobenzaprine HCl 10 Mg Tablet, 10 MG PO TID PRN for MUSCLE SPASMS, (Reported) Glimepiride 4 Mg Tablet, 4 MG PO DAILY, (Reported) Patient Home Medication List Home Medication List Reviewed: Yes Past Erlgsbq-Cfxhet-Mpqygp Hx Patient Social History Alcohol Use: Denies Use Recreational Drug Use: No Smoking Status: Current Everyday Smoker Former Smoker, Quit: Dec 23, 2017 Type Used: Cigarettes Recent Foreign Travel: No Contact w/Someone Who Travel: No Recent Infectious Disease Expo: No Recent Hopitalizations: No Immunizations Up To Date Tetanus Booster (TDap): Unknown PED Vaccines UTD: No Date of Pneumonia Vaccine: Feb 07, 2018 Date of Influenza Vaccine: May 05, 2018 Seasonal Allergies Seasonal Allergies: Yes Surgeries History of Surgeries: Yes (c/s x3, lipoma removed from arm, R 2nd toe amputated) Surgeries: Adenoidectomy, Appendectomy, Section, Gallbladder, Hysterectomy, Tonsillectomy Respiratory History of Respiratory Disorde: No Cardiovascular History of Cardiac Disorders: No (rheumatic fever when 7yrs old) Cardiac Disorders: Hypertension, Rheumatic Fever Neurological History of Neurological Disord: No Reproductive System Hx Reproductive Disorders: No Sexually Transmitted Disease: No HIV/AIDS: No Genitourinary History of Genitourinary Disor: No Gastrointestinal History of Gastrointestinal Di: No Musculoskeletal History of Musculoskeletal Dis: Yes (osteomyelitis 2nd right) Endocrine History of Endocrine Disorders: Yes Endocrine Disorders: Diabetes, Non-Insulin dep HEENT History of HEENT Disorders: No Loss of Vision: Denies Hearing Impairment: Denies Cancer History of Cancer: Yes (on back) Cancer: Skin Psychosocial History of Psychiatric Problem: No Integumentary History of Skin or Integumenta: No Blood Transfusions History of Blood Disorders: No Adverse Reaction to a Blood Tr: No Family Medical History Significant Family History: No Pertinent Family Hx Family Medial History: Cirrhosis of liver 19 FATHER Congenital heart disease Diabetes mellitus 19 MOTHER Review of Systems-General Constitutional: no symptoms reported EENTM: no symptoms reported Cardiovascular: no symptoms reported Gastrointestinal: no symptoms reported Genitourinary: no symptoms reported Musculoskeletal: no symptoms reported Skin: no symptoms reported Psychiatric/Neurological: No Symptoms Reported Physical Exam-General Problems Physical Exam Vital Signs Vital Signs - First Documented 11/10/18 11/11/18 11/11/18 19:36 00:03 08:00 Temp 97.7 Pulse 102 Resp 14 B/P (MAP) 141/54 (83) Pulse Ox 94 O2 Delivery Room Air O2 Flow Rate 0.00 Capillary Refill : Less Than 3 Seconds General Appearance: no apparent distress HEENT: PERRL/EOMI, other (left ala is skin ulceration) Neck: non-tender, supple Respiratory: chest non-tender, no respiratory distress, no accessory muscle use Gastrointestinal: non tender, soft, no pulsatile mass; No guarding, No rebound Rectal: deferred Back: normal inspection (large scar left upper back) Extremities: non-tender, other (right transmetatarsal patient.) Neurologic/Psychiatric: director clinical pharmacology II-XII nml as tested, no motor/sensory deficits, alert, normal mood/affect Skin: warm/dry, jaundice (minimal) Lymphatic: no adenopathy Data Review Labs Laboratory Tests 11/10/18 20:55: Glucometer 54*L 11/10/18 21:23: Glucometer 160H 11/10/18 22:55: Glucometer 43*L 11/11/18 00:05: Glucometer 91 11/11/18 01:10: Glucometer 44*L 11/11/18 01:58: Glucometer 69L 11/11/18 02:59: Glucometer 67L 11/11/18 03:58: Glucometer 50*L 11/11/18 05:04: Glucometer 38*L 11/11/18 06:04: Glucometer 120H 11/11/18 06:57: Glucometer 42*L 11/11/18 07:47: Glucometer 109 11/11/18 07:52: White Blood Count 5.0, Red Blood Count 3.07L, Hemoglobin 9.0L, Hematocrit 28L, Mean Corpuscular Volume 93, Mean Corpuscular Hemoglobin 29, Mean Corpuscular Hemoglobin Concent 32, Red Cell Distribution Width 16.7H, Platelet Count 75L, Mean Platelet Volume 12.6H, Neutrophils (%) (Auto) 50, Lymphocytes (%) (Auto) 37, Monocytes (%) (Auto) 12, Eosinophils (%) (Auto) 0, Basophils (%) (Auto) 0, Neutrophils # (Auto) 2.5, Lymphocytes # (Auto) 1.9, Monocytes # (Auto) 0.6, Eosinophils # (Auto) 0.0, Basophils # (Auto) 0.0, Neutrophils % (Manual) 52, Lym phocytes % (Manual) 29, Monocytes % (Manual) 12, Eosinophils % (Manual) 0, Basophils % (Manual) 0, Band Neutrophils 5, Reactive Lymphocytes 2, Hypochromasia SLIGHT, Anisocytosis SLIGHT, Elliptocytes SLIGHT, Absolute Reticulocyte Count 58, Percent Reticulocyte Count 1.90, Prothrombin Time 15.6H, INR Comment 1.2, Activated Partial Thromboplast Time 31, Sodium Level 125*L, Potassium Level 4.0, Chloride Level 95L, Carbon Dioxide Level 20L, Anion Gap 10, Blood Urea Nitrogen 19H, Creatinine 1.22, Estimat Glomerular Filtration Rate 43, BUN/Creatinine Ratio 16, Glucose Level 107H, Lactic Acid Level 1.55, Calcium Level 8.4L, Corrected Calcium 9.3, Phosphorus Level 3.6, Magnesium Level 1.9, Total Bilirubin 3.9H, Aspartate Amino Transf (AST/SGOT) 173H, Alanine Aminotransferase (ALT/SGPT) 126H, Alkaline Phosphatase 739H, Ammonia 20, Total Protein 5.9L, Albumin 2.9L, Thyroid Stimulating Hormone (TSH) 1.07 11/11/18 08:23: Glucometer 129H 11/11/18 09:46: Glucometer 108 11/11/18 10:50: Glucometer 115H 11/11/18 12:17: Glucometer 71 11/11/18 14:10: Urine Opiates Screen NEGATIVE, Urine Oxycodone Screen NEGATIVE, Urine Methadone Screen NEGATIVE, Urine Propoxyphene Screen NEGATIVE, Urine Barbiturates Screen NEGATIVE, Ur Tricyclic Antidepressants Screen POSITIVEH, Urine Phencyclidine Screen NEGATIVE, Urine Amphetamines Screen NEGATIVE, Urine Methamphetamines Screen NEGATIVE, Urine Benzodiazepines Screen NEGATIVE, Urine Cocaine Screen NEG ATIVE, Urine Cannabinoids Screen NEGATIVE 11/11/18 14:31: Glucometer 31*L 11/11/18 14:51: Glucometer 155H 11/11/18 15:39: Glucometer 119H 11/11/18 16:46: Glucometer 92 11/11/18 17:34: Glucometer 94 11/11/18 18:40: Glucometer 89 11/11/18 18:55: Glucometer 248H 11/11/18 19:28: Glucometer 102 Assessment/Plan Assessment/Plan Assessment/Plan Hypoglycemia Elevated liver enzymes with elevated History of cholecystectomy Hepatomegaly/splenomegaly. left ala of nose skin cancer suspected continue medical management. Patient has previous cholecystectomy. Hepatitis panel already drawn. We'll get a HIDA scan to rule out any obstruction of biliary tract depending upon results may need ERCP. No surgical intervention at this time continue to follow. The left ala nose skin lesion will plan on outpatient discussion Clinical Quality Measures DVT/VTE Risk/Contraindication: Risk Factor Score Per Nursin RFS Level Per Nursing on Admit: 2=Moderate TANO GRAY DO Nov 11, 2018 19:54
[2018-11-12] VITALS: BP 129/71
[2018-11-12] MEDS: DEXTROSE 50% IV PRN ×16 (00:53→22:40)
[2018-11-12] MEDS: D5 1/2 NS 1000 ML IV SOLUTION 1,000 ML IV SCH ×3 (02:52→22:46)
[2018-11-12 04:32] LABS: BASOPHILS % (AUTO) 0 % (0-10); EOSINOPHILS % (AUTO) 0 % (0-10); HEMATOCRIT 26 % (35-52); HEMOGLOBIN 8.4 G/DL (11.5-16.0); LYMPHOCYTES # (AUTO) 2.2 X 10^3 (1.0-4.0); LYMPHOCYTES % (AUTO) 45 % (12-44); MEAN CORPUSCULAR HEMOGLOBIN 30 PG (25-34); MEAN CORPUSCULAR HGB CONC 33 G/DL (32-36); MEAN CORPUSCULAR VOLUME 91 FL (80-99); MEAN PLATELET VOLUME 12.5 FL (7.4-10.4); MONOCYTES # (AUTO) 0.6 X 10^3 (0.0-1.0); MONOCYTES % (AUTO) 12 % (0-12); NEUTROPHILS % (AUTO) 43 % (42-75); PLATELET COUNT 58 10^3/uL (130-400); RED CELL DISTRIBUTION WIDTH 16.1 % (10.0-14.5); WHITE BLOOD COUNT 4.8 10^3/uL (4.3-11.0)
[2018-11-12 04:45] VITALS: BP 121/70
[2018-11-12 04:46] LABS: CALCIUM 7.6 MG/DL (8.5-10.1); CREATININE SERUM 1.1 MG/DL (0.60-1.30); MAGNESIUM 1.6 MG/DL (1.8-2.4); POTASSIUM 4.1 MMOL/L (3.6-5.0)
--- NOTE | 2018-11-12 07:00 | NUR ---
Dr. Dumont notified of critical lab NA 121. Orders received to change IV fluids to D5NS at 150cc/hr.
[2018-11-12 08:00] VITALS: BP 134/67
[2018-11-12 08:43] LABS: HEPATITIS C ANTIBODY C Non-Reactive (Non-Reactive)
[2018-11-12] MEDS ORDERED: ACETAMINOPHEN 500 MG TAB (TYLENOL) PO PRN (09:15)
--- NOTE | 2018-11-12 10:40 | Diagnostic Imaging Report ---
HEPATOBILIARY SCAN DATE: November 12, 2018. INDICATION: 73-year-old female, elevated liver function tests. History of cholecystectomy. COMPARISON: CT abdomen and pelvis November 10, 2018. PROCEDURE: 5.23 mCi of Tc-99m Choletec was administered intravenously and serial anterior planar images over the liver and upper abdomen were obtained. FINDINGS: There is clearance of background activity by the liver indicating hepatocyte function. There is radiotracer excretion into the bile ducts. There is no evidence of bile leak. IMPRESSION: 1. No evidence of bile leak. Dictated by: Dictated on workstation # [id number]
[2018-11-12] MEDS ORDERED: cefTRIAXone FOR IV USE 1,000 MG in WATER (STERILE) FOR INJECTION 10 ML IV SCH (10:45)
[2018-11-12] MEDS ORDERED: MAGNESIUM 1 GM/100 ML IVPB 100 ML IV ONE (10:45)
--- NOTE | 2018-11-12 10:50 | Progress Note-Hospitalist ---
Subjective HPI/CC On Admission Date Seen by Provider: Nov 12, 2018 Time Seen by Provider: 07:30 Chief complaint: Severe refractory hypoglycemia due to oral hypoglycemic agents History of present illness: This is a 73-year-old white female who has no local physician after being terminated from Dr. Chirag marie who presented from the [place] ER due to refractory and severe hypoglycemia. She was seen in the [place] ER yesterday for hypoglycemia the adjusted down her oral hypoglycemic agent and discharged home but then she had multiple EMS visits to her house due to severe hypoglycemia down to 18. Patient was thus admitted placed on D10 drip in addition to one half amp of D50 for blood sugar less than 80 and that was m anaged aggressively by the nursing staff on fourth floor last night. She continued to have severe hypoglycemia even with one half amp of D50 so she was given one full amp Dr. Bryan was consulted rapid response was initiated and patient has actually improved a great deal since aggressive dextrose has been initiated. 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 Patient lives at home alone and will definitely need custodial admission because she is just such severely debilitated she can no longer be managed at home alone. Liver enzymes are significantly elevated specifically alkaline phosphatase and she has had a cholecystectomy in the past so we'll consult Dr. Crespo the patient appears to have some sort of what appears to be some sort of neoplastic process causing this issue. Subjective/Events-last exam nurse contacted me the patient spiked a temperature to 103 this morning. Blood cultures obtained. The patient was somnolent but arousable and could answer some questions were fall back asleep requiring repeat stimulation. She denied abdominal pain chest pain or cough and had no reaction to palpation of the abdomen which was soft but there is evidence for significant organomegaly nontender. She did not appear to be in acute distress. Focused Exam Lactate Level 11/11/18 07:52: Lactic Acid Level 1.55 Objective Exam Vital Signs Vital Signs Date Time Temp Pulse Resp B/P (MAP) Pulse Ox O2 Delivery O2 Flow Rate FiO2 11/12/18 08:00 103.4 110 22 134/67 (89) 97 Nasal Cannula 2.00 Capillary Refill : Less Than 3 Seconds General Appearance: No Apparent Distress, WD/WN, Chronically ill, Obese HEENT: Scleral Icterus (L), Scleral Icterus (R) Neck: Full Range of Motion, Normal Inspection, Non Tender Respiratory: Chest Non Tender, Lungs Clear, No Accessory Muscle Use, No Respiratory Distress, Decreased Breath Sounds Cardiovascular: Regular Rate, Rhythm, No Edema, No Gallop, No JVD, No Murmur, Normal Peripheral Pulses Gastrointestinal: Normal Bowel Sounds, No Pulsatile Mass, Non Tender, Soft, Hepatomegaly, Splenomegaly Rectal: Deferred Back: Normal Inspection, No CVA Tenderness, No Vertebral Tenderness Extremity: Normal Capillary Refill, Normal Inspection, Normal Range of Motion, Non Tender, No Calf Tenderness, No Pedal Edema Neurologic/Psychiatric: No Motor/Sensory Deficits, Disoriented Skin: Normal Color, Warm/Dry Lymphatic: No Adenopathy Results/Procedures Lab Laboratory Tests 11/12/18 04:20 Patient resulted labs reviewed. Assessment/Plan Assessment and Plan Assess & Plan/Chief Complaint 1. Significant hepatomegaly and splenomegaly with obstructive liver pictureand likely right chest mass on portable chest x-ray. Patient is had previous cholecystectomy with CT findings not revealing any evidence for extrahepatic obstruction. Suspect underlying neoplastic process other issues like amyloidosis are in the differential as well as infectious issues like ascending cholangitis although this does not explain the significant organomegaly are likely chest mass patient has reported penicillin allergy is unable to give any history to know how significant this might of been will initiate Rocephin IV now. She is chronically ill with multiple medical comorbidities appearing much older than her stated age with progressive liver failure and progressive pancytopenia hypoglycemia likely due to liver failure and aggravated by sulfonylureas which is been on hold for at least 48 hours are all indicative of a rather rapidly terminal prognosis with survival not expected. Currently the patient is in no distress voicing no pain or shortness of breath. She is appropriately DO NOT RESUSCITATE with maintenance of comfort being most appropriate goal at this time. Critical Care Critically Ill Patient Clinical Quality Measures DVT/VTE Risk/Contraindication: Risk Factor Score Per Nursin RFS Level Per Nursing on Admit: 2=Moderate ERNESTINA ALONSO MD Nov 12, 2018 10:50
[2018-11-12 12:00] VITALS: BP 122/69
[2018-11-12] MEDS: D5 NS 1000 ML IV SOLUTION 1,000 ML IV SCH ×3 (13:42→20:42)
[2018-11-12 13:43] LABS: ALBUMIN 2.5 GM/DL (3.2-4.5); BILIRUBIN,INDIRECT 0.7 MG/DL; BILIRUBIN,TOTAL 3.7 MG/DL (0.1-1.0)
--- NOTE | 2018-11-12 14:22 | Progress Note ---
Subjective Time Seen by a Provider: 13:34 Subjective/Events-last exam Pt seen and examined, events of last night noted. Pt is still sleeping but arousable. She denies any abdominal pain or chest pain. Review of Systems General: Chills, Night Sweats Cardiovascular: No: Chest Pain, Palpitations Gastrointestinal: No: Nausea, Vomiting, Abdominal Pain Focused Exam Lactate Level 11/11/18 07:52: Lactic Acid Level 1.55 Objective Exam Vital Signs Date Time Temp Pulse Resp B/P (MAP) Pulse Ox O2 Delivery O2 Flow Rate FiO2 11/12/18 12:00 101.0 99 22 122/69 (86) 100 Nasal Cannula 2.00 11/12/18 08:00 Room Air 11/12/18 08:00 103.4 110 22 134/67 (89) 97 Nasal Cannula 2.00 11/12/18 07:00 113 11/12/18 04:45 99.7 105 22 121/70 (87) 98 Nasal Cannula 2.00 11/12/18 01:30 Room Air 11/12/18 00:55 106 11/12/18 00:00 100.0 104 24 129/71 (90) 98 Nasal Cannula 2.00 11/11/18 20:06 98.5 104 20 123/69 (87) 95 Nasal Cannula 2.00 11/11/18 20:00 Room Air 11/11/18 19:00 102 11/11/18 16:00 99.4 99 20 127/68 (87) 99 Nasal Cannula 3.00 I & O 11/12/18 07:00 Intake Total 730 ml Output Total 1250 ml Balance -520 ml Capillary Refill : Less Than 3 Seconds General Appearance: No Apparent Distress, WD/WN, Chronically ill, Obese HEENT: Scleral Icterus (L), Scleral Icterus (R) Respiratory: Chest Non Tender, Lungs Clear, No Accessory Muscle Use, No Respiratory Distress, Decreased Breath Sounds Cardiovascular: Regular Rate, Rhythm, No Edema, No Murmur Gastrointestinal: non tender, soft, no pulsatile mass; No guarding, No rebound; hepatomegaly, spleenomegaly Extremity: Non Tender, No Calf Tenderness, No Pedal Edema Neurologic/Psychiatric: No Motor/Sensory Deficits, Disoriented Skin: Normal Color, Warm/Dry Results Lab Laboratory Tests 11/11/18 14:31: Glucometer 31*L 11/11/18 14:51: Glucometer 155H 11/11/18 15:39: Glucometer 119H 11/11/18 16:46: Glucometer 92 11/11/18 17:34: Glucometer 94 11/11/18 18:40: Glucometer 89 11/11/18 18:55: Glucometer 248H 11/11/18 19:28: Glucometer 102 11/11/18 20:37: Glucometer 71 11/11/18 22:09: Glucometer 99 11/11/18 23:24: Glucometer 49*L 11/11/18 23:57: Glucometer 111H 11/12/18 00:49: Glucometer 57*L 11/12/18 01:53: Glucometer 88 11/12/18 03:00: Glucometer 48*L 11/12/18 04:12: Glucometer 64L 11/12/18 04:20: White Blood Count 4.8, Red Blood Count 2.81L, Hemoglobin 8.4L, Hematocrit 26L, Mean Corpuscular Volume 91, Mean Corpuscular Hemoglobin 30, Mean Corpuscular Hemoglobin Concent 33, Red Cell Distribution Width 16.1H, Platelet Count 58L, Mean Platelet Volume 12.5H, Neutrophils (%) (Auto) 43, Lymphocytes (%) (Auto) 45H, Monocytes (%) (Auto) 12, Eosinophils (%) (Auto) 0, Basophils (%) (Auto) 0, Neutrophils # (Auto) 2.0, Lymphocytes # (Auto) 2.2, Monocytes # (Auto) 0.6, Eosinophils # (Auto) 0.0, Basophils # (Auto) 0.0, Sodium Level 121*L, Potassium Level 4.1, Chloride Level 94L, Carbon Dioxide Level 19L, Anion Gap 8, Blood Urea Nitrogen 17, Creatinine 1.10, Estimat Glomerular Filtration Rate 49, BUN/Creatinine Ratio 15, Glucose Level 52*L, Calcium Level 7.6L, Phosphorus Level 2.3, Magnesium Level 1.6L, Total Bilirubin 3.7H, Direct Bilirubin 3.0H, Indirect Bilirubin 0.7, Aspartate Amino Transf (AST/SGOT) 163H, Alanine Aminotransferase (ALT/SGPT) 110H, Alkaline Phosphatase 559H, Total Protein 5.0L, Albumin 2.5L 11/12/18 05:03: Glucometer 103 11/12/18 06:01: Glucometer 59*L 11/12/18 06:40: Glucometer 124H 11/12/18 08:40: Glucometer 51*L 11/12/18 09:30: Glucometer 123H 11/12/18 10:30: Glucometer 71 11/12/18 11:51: Glucometer 51*L 11/12/18 12:55: Glucometer 86 11/12/18 13:54: Glucometer 65L Assessment/Plan Assessment/Plan Assessment/Plan Hypoglycemia Elevated liver enzymes with elevated History of cholecystectomy Hepatomegaly/splenomegaly. left ala of nose skin cancer suspected Maximum medical management; Hepatitis panel not drawn today (Zak just ordered it). HIDA scan done to rule out any obstruction of biliary tract; unfortunately they did not wait for it to empty into the small intestine, it was only read as no leak. So still unsure if she will need ERCP; no surgical intervention at this time continue to follow. Clinical Quality Measures DVT/VTE Risk/Contraindication: Risk Factor Score Per Nursin RFS Level Per Nursing on Admit: 2=Moderate DAYA AGUERO DO Nov 12, 2018 14:22
[2018-11-12 15:28] LABS: CLARITY,URINE VERY CLOUDY; COLOR,URINE AMBER; GLUCOSE, URINE (UA) NEGATIVE (NEGATIVE); KETONES,URINE NEGATIVE (NEGATIVE); LEUKOCYTE ESTERASE ,URINE 1+ (NEGATIVE); NITRITE,URINE NEGATIVE (NEGATIVE); PH,URINE 5 (5-9); PROTEIN,URINE 2+ (NEGATIVE); UROBILINOGEN,URINE 8 MG/DL (NORMAL)
[2018-11-12 15:41] LABS: AMORPHOUS SEDIMENT,UR LARGE AMOR URATES /LPF; BACTERIA,URINE NEGATIVE /HPF; BILIRUBIN,URINE 2+ (NEGATIVE)
[2018-11-12 15:42] VITALS: BP 127/68
[2018-11-12 17:33] LABS: ALBUMIN 1.9 GM/DL (3.2-4.5); CREATININE SERUM 1.13 MG/DL (0.60-1.30); POTASSIUM 3.1 MMOL/L (3.6-5.0); TOTAL PROTEIN 3.7 GM/DL (6.4-8.2)
--- NOTE | 2018-11-12 17:40 | NUR ---
Received critical lab values from [facility] in lab for Na - 125, Ca - 6.0 and glucose of 764. Dr. West notified of liver function values and received an order for K+ 40mEq IVPB x 1. Notified Dr. Dumont of critical labs and no new orders received.
[2018-11-12] MEDS: CYCLOBENZAPRINE 10 MG (FLEXERIL) TAB PO SCH (19:38)
[2018-11-12 19:47] VITALS: BP 129/59
[2018-11-12] MEDS ORDERED: POTASSIUM CL 10MEQ/50ML IVPB 50 ML IV SCH (20:00)
[2018-11-12] MEDS: DEXTROSE 10% IV SOLUTION 1,000 ML IV SCH ×2 (20:43→20:45)
[2018-11-13] VITALS: BP 124/67
[2018-11-13] MEDS: DEXTROSE 50% IV PRN ×6 (01:15→08:40)
[2018-11-13] MEDS: D5 NS 1000 ML IV SOLUTION 1,000 ML IV SCH (03:25)
[2018-11-13 04:00] VITALS: BP 128/80
--- NOTE | 2018-11-13 06:12 | Pulmonary Progress Note ---
Subjective Time Seen by a Provider: 06:12 Subjective/Events-last exam Pt appears to be doing cici Sepsis Event Evaluation Height, Weight, BMI Height: 5'5.00" Weight: 194lbs. 14.7oz. 88.973403lk; 25.0 BMI Method:Stated Focused Exam Lactate Level 11/11/18 07:52: Lactic Acid Level 1.55 Exam Exam Vital Signs Date Time Temp Pulse Resp B/P (MAP) Pulse Ox O2 Delivery O2 Flow Rate FiO2 11/13/18 04:00 98.2 94 28 128/80 (96) 96 Nasal Cannula 2.00 11/13/18 00:00 100.3 96 26 124/67 (86) 94 Nasal Cannula 2.00 11/12/18 21:06 Room Air 11/12/18 20:00 Room Air 11/12/18 19:47 100.3 97 22 129/59 (82) 97 Nasal Cannula 2.00 11/12/18 15:42 99.4 99 23 127/68 (87) 98 Nasal Cannula 2.00 11/12/18 12:00 101.0 99 22 122/69 (86) 100 Nasal Cannula 2.00 11/12/18 08:00 Room Air 11/12/18 08:00 103.4 110 22 134/67 (89) 97 Nasal Cannula 2.00 11/12/18 07:00 113 I & O 11/13/18 07:00 Intake Total 2740 ml Output Total 1050 ml Balance 1690 ml Height & Weight Height: 5'5.00" Weight: 194lbs. 14.7oz. 88.939646ur; 25.0 BMI Method:Stated General Appearance: No Apparent Distress, WD/WN, Chronically ill, Obese HEENT: Scleral Icterus (L), Scleral Icterus (R) Respiratory: Chest Non Tender, Lungs Clear, No Accessory Muscle Use, No Respiratory Distress, Decreased Breath Sounds Cardiovascular: Regular Rate, Rhythm, No Edema, No Murmur Capillary Refill: Less Than 3 Seconds Gastrointestinal: non tender, soft, no pulsatile mass; No guarding, No rebound; hepatomegaly, spleenomegaly Extremity: Non Tender, No Calf Tenderness, No Pedal Edema Neurologic/Psychiatric: No Motor/Sensory Deficits, Disoriented Skin: Normal Color, Warm/Dry Results Lab Laboratory Tests 11/11/18 07:52 11/12/18 04:20 11/12/18 17:07 Assessment/Plan Assessment/Plan Possible lung mass on CXR -Check CT of chest with contrast -Repeat labs pending Hyponatremia -Monitor Hypokalemia -Replace Hx of DM II -Oral hypoglycemics on hold -check Hb A1C MS changes with hypoglycemia- Now hyperglycemic Elevated LFTs with elevated alk phos -Check abd US -Abd CT reviewed -Check hepatitis panel and ammonia level -Amylase/Lipase normal Anemia -Monitor -Check occult stool SOOC VALDES DO Nov 13, 2018 06:12
[2018-11-13] MEDS ORDERED: POTASSIUM CL 10MEQ/50ML IVPB 50 ML IV SCH (06:15)
[2018-11-13 06:35] LABS: BASOPHILS % (AUTO) 0 % (0-10); EOSINOPHILS % (AUTO) 0 % (0-10); HEMATOCRIT 24 % (35-52); HEMOGLOBIN 7.8 G/DL (11.5-16.0); LYMPHOCYTES # (AUTO) 1.7 X 10^3 (1.0-4.0); LYMPHOCYTES % (AUTO) 35 % (12-44); MEAN CORPUSCULAR HEMOGLOBIN 29 PG (25-34); MEAN CORPUSCULAR HGB CONC 32 G/DL (32-36); MEAN CORPUSCULAR VOLUME 91 FL (80-99); MONOCYTES # (AUTO) 0.7 X 10^3 (0.0-1.0); MONOCYTES % (AUTO) 14 % (0-12); NEUTROPHILS # (AUTO) 2.4 X 10^3 (1.8-7.8); NEUTROPHILS % (AUTO) 51 % (42-75); PLATELET COUNT 49 10^3/uL (130-400); RED CELL DISTRIBUTION WIDTH 16.5 % (10.0-14.5); WHITE BLOOD COUNT 4.8 10^3/uL (4.3-11.0)
[2018-11-13 06:52] LABS: CALCIUM 7.2 MG/DL (8.5-10.1); CREATININE SERUM 1.16 MG/DL (0.60-1.30); MAGNESIUM 1.7 MG/DL (1.8-2.4); PHOSPHORUS 3.2 MG/DL (2.3-4.7); POTASSIUM 4.3 MMOL/L (3.6-5.0)
[2018-11-13 08:00] VITALS: BP 121/58
[2018-11-13] MEDS ORDERED: HOLD METFORMIN - RECEIVED CONTRAST 20 ML VIAL IV SCH (09:00)
[2018-11-13] MEDS ORDERED: IOHEXOL 350 MG/ML 100 ML (OMNIPAQUE 350) VIAL IV ONE (09:00)
[2018-11-13] MEDS ORDERED: NS 100 ML (IVPB) BAG IV ONE (09:00)
--- NOTE | 2018-11-13 09:07 | Diagnostic Imaging Report ---
PROCEDURE: CT chest with contrast only. TECHNIQUE: Multiple contiguous axial images were obtained through the chest after administration of intravenous contrast. Auto Exposure Controls were utilized during the CT exam to meet ALARA standards for radiation dose reduction. INDICATION: Abnormal chest x-ray in patient with skin cancer. In correlation with chest radiograph performed 11/11/2018, there is an approximately 1.5 cm rounded nodule in the subpleural aspect of the right upper lobe at the level of the julian. Margins of this mass are somewhat irregular. In addition, there are patchy areas of groundglass opacity involving both lungs with greatest involvement in the basilar aspects of the upper lobes. There is a small amount of right pleural fluid with subjacent atelectasis, greater on the right. No pathologically enlarged adenopathy is seen in the mediastinum or pulmonary kay. There is, however an approximately 3.5 x 2.5 cm left axillary mass. Upper abdominal sections reveal splenomegaly and an approximately 1.5 cm cyst in the right kidney. There is punctate calcification in the right upper quadrant adjacent to the pancreatic head. This appears to be separate from the biliary tree as visualized. IMPRESSION: 1.5 cm irregular mass in the periphery right upper lobe is highly suspicious of neoplasm. This could be primary lung cancer or metastasis. There is pathologic adenopathy in the left axilla which may also be secondary to metastatic disease and clinical correlation is recommended. A small amount of pleural fluid and subjacent atelectasis, greater on the right. Note is made of splenomegaly. Dictated by: Dictated on workstation # [id number]
--- NOTE | 2018-11-13 09:34 | Progress Note ---
Subjective Time Seen by a Provider: 09:04 Subjective/Events-last exam Pt seen and examined, is more awake and alert today. She denies SOB and no abdominal pain. Review of Systems General: No Chills, No Night Sweats Pulmonary: No Dyspnea, No Cough Cardiovascular: No: Chest Pain, Palpitations Gastrointestinal: No: Nausea, Vomiting, Abdominal Pain Genitourinary: No Dysuria, No Frequency Focused Exam Lactate Level 11/11/18 07:52: Lactic Acid Level 1.55 Objective Exam Vital Signs Date Time Temp Pulse Resp B/P (MAP) Pulse Ox O2 Delivery O2 Flow Rate FiO2 11/13/18 08:00 100.4 98 24 121/58 (79) 97 Nasal Cannula 2.00 11/13/18 04:00 98.2 94 28 128/80 (96) 96 Nasal Cannula 2.00 11/13/18 00:00 100.3 96 26 124/67 (86) 94 Nasal Cannula 2.00 11/12/18 21:06 Room Air 11/12/18 20:00 Room Air 11/12/18 19:47 100.3 97 22 129/59 (82) 97 Nasal Cannula 2.00 11/12/18 15:42 99.4 99 23 127/68 (87) 98 Nasal Cannula 2.00 11/12/18 12:00 101.0 99 22 122/69 (86) 100 Nasal Cannula 2.00 I & O 11/13/18 07:00 Intake Total 2740 ml Output Total 1050 ml Balance 1690 ml Capillary Refill : Less Than 3 Seconds General Appearance: No Apparent Distress, WD/WN, Chronically ill, Obese HEENT: Scleral Icterus (L), Scleral Icterus (R) Respiratory: Chest Non Tender, Lungs Clear, No Accessory Muscle Use, No Respiratory Distress, Decreased Breath Sounds Cardiovascular: Regular Rate, Rhythm, No Edema, No Murmur Gastrointestinal: non tender, soft, no pulsatile mass; No guarding, No rebound; hepatomegaly, spleenomegaly Extremity: Non Tender, No Calf Tenderness, No Pedal Edema Neurologic/Psychiatric: No Motor/Sensory Deficits, Disoriented Skin: Jaundice Results Lab Laboratory Tests 11/12/18 10:30: Glucometer 71 11/12/18 11:51: Glucometer 51*L 11/12/18 12:55: Glucometer 86 11/12/18 13:54: Glucometer 65L 11/12/18 14:52: Glucometer 124H 11/12/18 15:46: Glucometer 85 11/12/18 16:45: Glucometer 62L 11/12/18 17:07: Sodium Level 125*L, Potassium Level 3.1L, Chloride Level 103, Carbon Dioxide Level 15L, Anion Gap 7, Blood Urea Nitrogen 15, Creatinine 1.13, Estimat Glomerular Filtration Rate 47, BUN/Creatinine Ratio 13, Glucose Level 764*H, Calcium Level 6.0#*L, Corrected Calcium 7.7L, Total Bilirubin 3.0H, Aspartate Amino Transf (AST/SGOT) 119H, Alanine Aminotransferase (ALT/SGPT) 78H, Alkaline Phosphatase 394H, Total Protein 3.7L, Albumin 1.9L 11/12/18 17:28: Glucometer 127H 11/12/18 18:31: Glucometer 89 11/12/18 19:24: Glucometer 70 11/12/18 20:26: Glucometer 150H 11/12/18 21:30: Glucometer 109 11/12/18 22:36: Glucometer 83 11/12/18 23:30: Glucometer 139H 11/13/18 00:25: Glucometer 108 11/13/18 01:11: Glucometer 84 11/13/18 02:15: Glucometer 128H 11/13/18 03:21: Glucometer 100 11/13/18 04:36: Glucometer 96 11/13/18 05:35: Glucometer 69L 11/13/18 06:20: White Blood Count 4.8, Red Blood Count 2.65L, Hemoglobin 7.8L, Hematocrit 24L, Mean Corpuscular Volume 91, Mean Corpuscular Hemoglobin 29, Mean Corpuscular Hemoglobin Concent 32, Red Cell Distribution Width 16.5H, Platelet Count 49L, Mean Platelet Volume , Neutrophils (%) (Auto) 51, Lymphocytes (%) (Auto) 35, Monocytes (%) (Auto) 14H, Eosinophils (%) (Auto) 0, Basophils (%) (Auto) 0, Neutrophils # (Auto) 2.4, Lymphocytes # (Auto) 1.7, Monocytes # (Auto) 0.7, Eosinophils # (Auto) 0.0, Basophils # (Auto) 0.0, Sodium Level 123*L, Potassium Level 4.3, Chloride Level 100, Carbon Dioxide Level 15L, Anion Gap 8, Blood Urea Nitrogen 15, Creatinine 1.16, Estimat Glomerular Filtration Rate 46, BUN /Creatinine Ratio 13, Glucose Level 118H, Calcium Level 7.2L, Phosphorus Level 3.2, Magnesium Level 1.7L 11/13/18 06:27: Glucometer 123H 11/13/18 07:43: Glucometer 98 11/13/18 09:09: Glucometer 69L Microbiology 11/11/18 Blood Culture - Preliminary, Resulted No growth Assessment/Plan Assessment/Plan Assessment/Plan Hypoglycemia Elevated liver enzymes with elevated History of cholecystectomy Hepatomegaly/splenomegaly. left ala of nose skin cancer suspected Maximum medical management; Hepatitis panel labs appear slightly better. HIDA scan not as helpful as hoped, may need MRCP; no surgical intervention at this time continue to follow. She is getting CT to look at lung mass. Continue current care. Clinical Quality Measures DVT/VTE Risk/Contraindication: Risk Factor Score Per Nursin RFS Level Per Nursing on Admit: 2=Moderate DAYA AGUERO DO Nov 13, 2018 09:34
[2018-11-13 12:00] VITALS: BP 116/63
--- NOTE | 2018-11-13 12:20 | Progress Note-Hospitalist ---
Subjective HPI/CC On Admission Date Seen by Provider: Nov 13, 2018 Time Seen by Provider: 10:45 Chief complaint: Severe refractory hypoglycemia due to oral hypoglycemic agents History of present illness: This is a 73-year-old white female who has no local physician after being terminated from Dr. Chirag marie who presented from the [place] ER due to refractory and severe hypoglycemia. She was seen in the [place] ER yesterday for hypoglycemia the adjusted down her oral hypoglycemic agent and discharged home but then she had multiple EMS visits to her house due to severe hypoglycemia down to 18. Patient was thus admitted placed on D10 drip in addition to one half amp of D50 for blood sugar less than 80 and that was m anaged aggressively by the nursing staff on fourth floor last night. She continued to have severe hypoglycemia even with one half amp of D50 so she was given one full amp Dr. Bryan was consulted rapid response was initiated and patient has actually improved a great deal since aggressive dextrose has been initiated. 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 Patient lives at home alone and will definitely need care home admission because she is just such severely debilitated she can no longer be managed at home alone. Liver enzymes are significantly elevated specifically alkaline phosphatase and she has had a cholecystectomy in the past so we'll consult Dr. Crespo the patient appears to have some sort of what appears to be some sort of neoplastic process causing this issue. Subjective/Events-last exam patient was more alert this morning oriented 2 denying pain. She also denied nausea with no appetite however. After her initial evaluation I return to discuss CT scans compatible with likely primary lung cancer with left axillary metastasis and I suspect diffuse hepatic and splenic metastasis. Focused Exam Lactate Level 11/11/18 07:52: Lactic Acid Level 1.55 Objective Exam Vital Signs Vital Signs Date Time Temp Pulse Resp B/P (MAP) Pulse Ox O2 Delivery O2 Flow Rate FiO2 11/13/18 08:00 100.4 98 24 121/58 (79) 97 Nasal Cannula 2.00 Capillary Refill : Less Than 3 Seconds General Appearance: No Apparent Distress, WD/WN, Chronically ill, Obese HEENT: Scleral Icterus (L), Scleral Icterus (R) Respiratory: Chest Non Tender, Lungs Clear, No Accessory Muscle Use, No Respiratory Distress, Decreased Breath Sounds Cardiovascular: Regular Rate, Rhythm, No Edema, No Murmur Gastrointestinal: Normal Bowel Sounds, No Pulsatile Mass, Non Tender, Soft, Hepatomegaly, Splenomegaly Rectal: Deferred Back: Normal Inspection, No CVA Tenderness, No Vertebral Tenderness Extremity: Non Tender, No Calf Tenderness, No Pedal Edema Neurologic/Psychiatric: No Motor/Sensory Deficits, Disoriented Skin: Jaundice Lymphatic: Other (large left fixed and nontender axillary node) Results/Procedures Lab Laboratory Tests 11/12/18 17:07 11/13/18 06:20 Patient resulted labs reviewed. Assessment/Plan Assessment and Plan Assess & Plan/Chief Complaint 1. CT findings of the chest confirmed a 1.5 cm spiculated subpleural pulmonary mass with a large left axillary node. Patient has been a heavy smoker for all of her adult life. Considering progressing hepatic failure likely malignancy related and very poor underlying performance status patient wishes comfort care only and is not interested in further evaluation that would require likely axillary node removal for tissue diagnosis. She wished to go home but does not have family members or likely adequate support services therapy. Made recommendation [facility] services as being her best optio n unless her truly is somebody who would be willing to stay with her day and night. She is concerned about the care of 2 cats at home which her friend is currently taking care of. There are no family member options for her in regards to helping with care issues. We will discontinue blood test monitoring and converted to comfort care Critical Care Critically Ill Patient Clinical Quality Measures DVT/VTE Risk/Contraindication: Risk Factor Score Per Nursin RFS Level Per Nursing on Admit: 2=Moderate ERNESTINA ALONSO MD Nov 13, 2018 12:20
[2018-11-13] MEDS ORDERED: ARTIFICAL TEARS 0.4 ML UNIT DOSE (REFRESH PLUS) OU PRN (12:30)
[2018-11-13] MEDS ORDERED: ACETAMINOPHEN 650 MG SUPP (TYLENOL) PR PRN (12:30)
[2018-11-13] MEDS ORDERED: PROMETHAZINE INJ 25 MG/ML (PHENERGAN) AMP IVP PRN (12:30)
[2018-11-13] MEDS ORDERED: morphine INJ 4 MG/ML 1 ML (VIAL/SYRINGE) IV PRN (12:30)
[2018-11-13] MEDS ORDERED: BISACODYL 10 MG SUPP (DULCOLAX) PR PRN (12:30)
[2018-11-13] MEDS ORDERED: RT-ALBUTEROL/IPRATROPIUM 3 ML (DUONEB) VIAL INH PRN (12:30)
[2018-11-13] MEDS ORDERED: GLYCOPYRROLATE 0.2 MG/ML (ROBINUL) 2 ML VIAL IV PRN (12:30)
[2018-11-13] MEDS ORDERED: SALIVA STIMULANT MOUTH SPRAY (BIOTENE) 1.5 OZ MM PRN (12:30)
[2018-11-13] MEDS ORDERED: LORazepam INJ 2 MG/ML (ATIVAN) VIAL IVP PRN (12:30)
[2018-11-13] MEDS ORDERED: ONDANSETRON 4 MG/2 ML (SDV) Z0FRAN IVP PRN (12:30)
[2018-11-13] MEDS: CYCLOBENZAPRINE 10 MG (FLEXERIL) TAB PO SCH (22:22)
[2018-11-14 00:38] VITALS: BP 100/57
[2018-11-14] MEDS: DEXTROSE 10% IV SOLUTION 1,000 ML IV SCH (07:44)
--- NOTE | 2018-11-14 10:54 | NUR ---
provided prayer and Communion.
--- NOTE | 2018-11-14 11:15 | Discharge Inst-Simple/Standard ---
Discharge Inst-Standard Patient Instructions/Follow Up Plan of Care/Instructions/FU: Please continue to take your medications as written. Please follow up with your PCP in the next 1-2 weeks. Activity as Tolerated: Yes Discharge Diet: No Restrictions Return to The Hospital For: Shortness of breath or pain uncontrolled by current medications, if yof feel you are getting worse. JANES WARREN MD Nov 14, 2018 11:15
--- NOTE | 2018-11-14 11:17 | Discharge Summary-Hospitalist ---
Diagnosis/Chief Complaint Date of Admission Nov 10, 2018 at 21:34 Date of Discharge Discharge Date: Nov 14, 2018 Admission Diagnosis Assessment: Severe refractory hypoglycemia due to oral hypoglycemic agent Diabetes mellitus COPD Current smoker Right metatarsal amputation April 2018 admitted to hospitalist service here locally Elevated liver enzymes specifically alkaline phosphatase suspicious for some sort of neoplastic process considering status post cholecystectomy in the remote past consulting Dr. Crespo obtaining ultrasound and reviewed CT scan Plan: Consult Dr. 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 (4) Debilitated Status: Acute (5) DNR (do not resuscitate) Status: Chronic (6) Elevated LFTs Status: Chronic (7) Liver failure Status: Acute (8) Pancytopenia Status: Chronic (9) Non-insulin dependent type 2 diabetes mellitus Status: Chronic (10) PAD (peripheral artery disease) Status: Chronic (11) Compression fracture of L1 lumbar vertebra Status: Chronic Discharge Summary Procedures/Consulations Dr Crespo- Surgery Discharge Physical Exam Allergies: Coded Allergies: Penicillins (Verified Allergy, Unknown, 11/10/18) codeine (Verified Allergy, Unknown, 11/10/18) Vitals & I&Os Vital Signs Date Time Temp Pulse Resp B/P (MAP) Pulse Ox O2 Delivery O2 Flow Rate FiO2 11/14/18 08:00 97 Nasal Cannula 2.00 11/14/18 00:38 97.0 91 26 100/57 (71) General Appearance: No Apparent Distress, Chronically ill Cardiovascular: Regular Rate, Rhythm, No Murmur Gastrointestinal: Normal Bowel Sounds, Non Tender, Soft Neurologic/Psychiatric: Alert, Oriented x3 Hospital Course Pt was admitted for refractory hypoglycemic likely due to neoplastic syndrome and oral hypoglycemics. She underwent CT imaging to evaluate elevated alk phosph and was found to have metastatic cancer. Dr Dumont discussed her imaging findings with her and the options for evaluation but patient elected comfort measures and to enroll in hospice. She was discharged to [facility] with [facility]. Labs (last 24 hrs) Microbiology 11/12/18 Blood Culture - Preliminary, Resulted No growth Patient resulted labs reviewed. Discussion & Recommendations Discharge Planning: >30 minutes discharge planning Discharge Home Medications: Active Scripts Active Reported Tylenol Extra Strength (Acetaminophen) 500 Mg Tablet 500 Mg PO Q4H PRN Cyclobenzaprine HCl 10 Mg Tablet 10 Mg PO TID PRN Instructions to patient/family Please see electronic discharge instructions given to patient. Clinical Quality Measures DVT/VTE Risk/Contraindication: Risk Factor Score Per Nursin RFS Level Per Nursing on Admit: 2=Moderate Problem Qualifiers (1) Liver failure: Liver failure chronicity: subacute Hepatic coma status: without hepatic coma Qualified Codes: K72.00 - Acute and subacute hepatic failure without coma (2) Compression fracture of L1 lumbar vertebra: Encounter type: sequela Qualified Codes: S32.010S - Wedge compression fracture of first lumbar vertebra, sequela JANES WARREN MD Nov 14, 2018 11:17
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
--- NOTE | 2018-11-14 15:44 | NUR ---
Visited with patient about what she thinks is going on with her. She reported that she is dying. We talked about this, if she was comfortable, et what hospice is. She reported that she would be willing to have an informational visit from [facility] but was did not think that she needed their services. At this time she states "I will just go home and ." Offered encouragement et talked about dying with dignity et passing away peacefully. She agrees with this et is agreeable with them coming to visit with her. Arleth has voiced that she would really like to pass away in her home. She has no family but she does have two younger friends that she has met through the years here et would like to check with them to see if they could care for her in her home. Their names are Sherman et Monique Baer ([phone]). She is currently incontinent of bowel et anticipate she will be of bladder as well but currently has a segura catheter in place. I spoke with Monique who conference Sherman in et they both feel like they would not be able to meet Arleth's needs at home. Sherman is a lift truck operator et is gone often. Monique is a stay at home mom with young children. Monique reports that she tried to help Arleth stand up one time et was not able to do it. We visited about their guilt on not being able to bring Arleth home et that it was okay to admit their limitations rather than bring her home et not be able to meet her needs. They are both actively involved in Arleth's care et well being. Arleth also has two inside cats that Monique is feeding et taking care of. 1030-Visited with Arleth on updated information et she is agreeable to going to [facility] with [facility] if bed available. Referral sent et spoke with Jocelynn [facility] it application administrator about referral. 1130-Ros FOREST TECHNOLOGY PROFESSOR from [facility] is here to visit with Arleth. While Ros here visiting with the patient [facility] Jocelynn called et had questions about the patient's RAIN. Jocelynn voiced that Ros could help her et so she called et talked with the patient et Ros. Ros helped the patient change her RAIN to prison care RAIN at the request of [facility] before they could consider acceptance. Several barriers identified by [facility] Jocelynn that Ros helped to work through. 1355-Arleth is accepted to [facility] et will need to have transport by facility via wheel chair van. Jocelynn reported that she will continuous pickling line pickler the patient for transport et will call back with a time. 1400 It is reported by Ros to have family friends come to [facility] around 4 p.m. as this would likely be the admission time. I called et notified Monique of anticipated admission time et also updated the primary care nurse. Red discharge packet in place. Notified Arleth of the above POC et she is in agreement. 1500 -Jocelynn is here to transport patient. No further needs noted at this time.
== END 2018-11-14 15:10 | disposition hospice, inpatient (51) | DRG 637 ==
LOC: EDUNIT# 19:25 → ER FS 19:26 → 4TH 21:34
PROVIDERS: ADMIT Internal Medicine; ATTEND Family Medicine
DX: E11.649 Type 2 diabetes mellitus with hypoglycemia without coma (principal); K72.00 Acute and subacute hepatic failure without coma; D61.818 Other pancytopenia; E87.1 Hypo-osmolality and hyponatremia; E11.65 Type 2 diabetes mellitus with hyperglycemia; R16.2 Hepatomegaly with splenomegaly, not elsewhere classified; R91.1 Solitary pulmonary nodule; Z66 Do not resuscitate; E87.6 Hypokalemia; I73.9 Peripheral vascular disease, unspecified; R53.81 Other malaise; I10 Essential (primary) hypertension; J44.9 Chronic obstructive pulmonary disease, unspecified; F17.210 Nicotine dependence, cigarettes, uncomplicated; S32.010S Wedge compression fracture of first lumbar vertebra, sequela; Z89.431 Acquired absence of right foot
CPT/HCPCS: 36415; 36569; 71045; 71260; 74177; 76937; 78226; 80048; 80053; 80074; 80076; 80306; 81000; 82140; 82150; 82962; 83036; 83605; 83690; 83735; 84100; 84443; 85007; 85025; 85027; 85045; 85610; 85730; 87040; 94760; 96361; 96374; 96375